=== PATIENT | male | born 1955 | race Caucasian/White ===

== ENCOUNTER 2021-03-27 08:37 | Outpatient (CLI) | payer MEDICARE, MEDICAID, SELFPAY ==
--- NOTE | 2021-03-27 08:30 | CT_ITS ---
WS: [id number] CT ABDOMEN PELVIS TECHNIQUE: Noncontrast CT of the abdomen and contrast-enhanced CT of the abdomen and pelvis with loreto nal and sagittal reformatted images. CLINICAL INFORMATION: LEFT RENAL MASS COMPARISON: DLP: 3990.[address] scans at [facility] use at least one of these dose optimization techniques: automat ed exposure control; mA and/or kV adjustment per patient size (includes targeted exams where dose is matched to clinical indication); or iterative reconstruction. FINDINGS: Again seen is the heterogeneously enhancing left lower pole renal mass measuring 3.5 x 3.1 x 3.9 cm. More central low attenuation change involving this lesion today likely central necrosis. Overall size is not significantly changed. Previously this measured 3.3 x 3.7 x 3.8 cm by my measurements. Bilateral renal cortical atrophy with cortical scarring. Adrenal glands are normal. Right lower pole renal cyst has increased in size today measuring 3.5 x 2.9 cm. Tiny small left lower pole renal cyst slightly increased in size today measuring 1.4 CM. No hydronephrosis in either kidney. Normal excretion on the delayed imaging. Normal bladder filling. Mild diffuse bladder wall thickening consistent with bladder outlet obstruction. Small amount of air in the nondependent bladder likely due to recent instrumentation. Enlarged prostate measuring 4.0 x 4 .3 cm. Lung bases are well aerated. Mild diffuse fatty infiltration the liver. Cholecystectomy clips. Normal portal vein and splenic vein. Splenic granulomas. Normal GE junction. Normal caliber abdominal aorta . No evidence of high-grade small or large bowel obstruction. Tiny fat-containing umbilical hernia. No abdominal pelvic lymphadenopathy. Calcified subcarinal granulomas in the lung bases. Lumbar scoliosis . CT/CT abdomen pelvis wo/w [id number] IMPRESSION: 1. Heterogeneous enhancing left lower pole renal mass not significantly change d in size compared to 2017. More internal central necrosis today described abov e. 2. Cortical scarring both kidneys. No hydronephrosis. Normal renal excretion. 3. Small bilateral renal cysts right greater than left slightly increased in s ize. 4. Mild diffuse bladder wall thickening consistent with bladder obstruction wi th enlarged prostate. Recommend correlation PSA. Mild seminal vesicle thickenin g. 5. Small amount of nondependent air in the bladder likely due to recent instru mentation.
[2021-03-27 09:33] LABS: Blood Urea Nitrogen 24 mg/dL (8-23); Glomerular Filtration Rate 61.1 mL/min (90-130)
[2021-03-27] MEDS: iohexol 300 mg/mL 100 mL Btl IV (09:51)
== END 2021-03-27 08:38 | disposition home or self-care (01) ==
PROVIDERS: PCP Family Medicine; Visit Provider Urology
DX: N28.89 Other specified disorders of kidney and ureter (principal); Q61.02 Congenital multiple renal cysts
CPT/HCPCS: 36415; 74178; 82565; 84520

== ENCOUNTER 2021-06-16 13:09 | Outpatient (CLI) | payer MEDICARE, MEDICAID, SELFPAY ==
[2021-06-16 13:31] LABS: Basophils % 0.3 %; Eosinophils # 0.1 10^3/uL (0.0-0.8); Eosinophils % 1.5 %; Hematocrit 35.9 % (42.0-52.0); Hemoglobin 12.2 g/dL (11.7-16.6); Lymphocytes % 17.3 %; Mean Corpuscular Hemoglobin 29.3 pg (28.0-34.0); Mean Corpuscular Volume 86.3 fl (80-94); Mean Platelet Volume 10.2 fL (7.4-10.4); Monocytes # 0.4 10^3/uL (0.2-0.9); Monocytes % 6.4 %; Neutrophils # 4.42 10^3/uL (1.8-7.7); Neutrophils % 74.2 %; Nucleated Red Blood Cells % 0 %; Platelet Count 219 10^3/cmm (130-400); Red Blood Count 4.16 10^6/uL (4.1-5.3); Red Cell Distribution Width 13.9 % (12.1-15.1)
[2021-06-16 14:13] LABS: Add Urine Microscopic? YES; Bilirubin Urine Neg (Negative); Blood Urine Neg (Negative); Glucose Urine UA Norm (Normal); Ketones Urine 1+ (Negative); Leukocyte Esterase Urine 1+ (Negative); Nitrate Urine Negative (Negative); Protein Urine 1+ (Negative); Urine Appearance Cloudy (CLEAR); Urine Color Yellow (Yellow); Urobilinogen Urine Norm (Negative); pH Urine 5 (5-7)
[2021-06-16 14:14] LABS: Amorphous Sediment Urine 1+ /hpf; Bacteria Urine 1+ /hpf; Mucus Urine 1+ /hpf; RBC Urine 0-4 /hpf (0-2); Squamous Epithelial Cell Urine 0-4 /hpf (0-5); WBC Urine 15-25 /hpf (0-5)
[2021-06-16 14:15] LABS: Add Urine Culture? Yes
[2021-06-16 18:50] LABS: Alanine Aminotransferase 36 U/L (0-41); Albumin Level 4.3 g/dL (3.5-5.2); Alkaline Phosphatase 205 IU/L (40-130); Anion Gap 30.9 (5-19); Aspartate Amino Transferase 19 U/L (0-40); Blood Urea Nitrogen 69 mg/dL (8-23); Calcium 9.6 mg/dL (8.5-10.5); Chloride 100 mmol/L (98-107); Globulin 2.8 g/dL (1.3-4.6); Glucose 84 mg/dL (65-115); Osmolality Calculated 293 mOsm/kg (285-295); Sodium 132 mmol/L (136-145); Total Bilirubin 0.3 mg/dL (0.15-1.2); Total Protein 7.1 g/dL (6.6-8.7)
[2021-06-16 19:04] LABS: Carbon Dioxide 9 mmol/L (22-29); Potassium 7.9 mmol/L (3.5-5.1)
== END 2021-06-16 13:10 | disposition home or self-care (01) ==
PROVIDERS: PCP Family Medicine; Visit Provider Internal Medicine
DX: E78.5 Hyperlipidemia, unspecified (principal)
CPT/HCPCS: 80053; 81001; 85025; 87086

== ENCOUNTER 2021-06-16 20:50 | Inpatient (IN) | payer MEDICARE, MEDICAID, SELFPAY ==
[2021-06-16] VITALS (10 sets, daily range): BP systolic 83–100; BP diastolic 45–73; PULSE 109–115; RESP 14–20; TEMP 36.5; O2SAT 97–100; BMI 25.0
--- NOTE | 2021-06-16 20:55 | ECG_ITS ---
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 Measurements Intervals [place] Rate: 116 P: 163 NC: 102 QRS: 24 QRSD: 122 T: 80 QT: 315 QTc: 439 Interpretive Statements SINUS TACHYCARDIA WITH SHORT NC INTERVAL POSSIBLE ANTERIOR MYOCARDIAL INFARCTION , OF INDETERMINATE AGE [30 ms Q WAVE IN V3/V4, OR R < 0.2 mV IN V4] Compared to ECG 04/29/2015 11:59:24 Short NC interval now present Myocardial infarct finding now present Sinus rhythm no longer present First degree AV block no longer present Electronically Signed On 06-17-2021 7:27:53 WIRE MESH FILTER FABRICATOR by Ariadna Mistry M.D. [id number]
--- NOTE | 2021-06-16 20:58 | ED_ITS ---
HPI - Nausea/Vomiting/Diarrhea General: Chief complaint: Nausea/Vomiting/Diarrhea Stated complaint: ABNORMAL LABS Time Seen by Provider: 06/16/21 20:51 Source: patient and EMS Mode of arrival: EMS Limitations: no limitations History of Present Illness: HPI Narrative: 65-year-old male is here from residential. He states he been having vomiting diarrhea and decreased intake over the last 6 days to check his blood work today and he was hyperkalemic and had acute kidney injury with elevated creatinine. He denies any pain he states that she has had a lot of vomiting denies any fever he denies any worsening improving factors. He has multiple sclerosis has an indwelling [place]. Associated nausea: Yes Associated symtoms: Reports nausea; Denies chest pain, dysuria or headache(s) Review of Systems Const: Denies: fever(s), chills, body aches or change in appetite Eyes: Denies: blurry vision or eye discomfort ENMT: Denies: throat pain or dental pain Card: Denies: chest pain Resp: Denies: dyspnea GI: Reports: nausea, vomiting and diarrhea : Denies: dysuria Musc: Denies: neck pain or back pain Skin/Breast: Denies: rash Neuro: Denies: headache(s) Psych: Denies: depression Sebas/Lymph: Denies: easy bruising All/Imm: Denies: urticaria PFSH ED PFSH: Medical History History of UTI Left renal mass Multiple sclerosis Neurogenic bladder Urinary retention Surgical History History of adenoidectomy History of appendectomy History of cholecystectomy History of elbow surgery History of tonsillectomy History of vasectomy Family History Mother , at age 75 from natural caused No problems noted. Social History Alcohol intake: never Marital status: Current occupational status: disabled History of recent travel: No Physical Exam Const: COMMON NORMALS: no acute distress, patient oriented x3 and healthy appearing HENMT: COMMON NORMALS: normocephalic and atraumatic HEAD & SCALP: normocephalic and atraumatic Eye: COMMON NORMALS: Equal, round and reactive pupils present and EOMs intact bilaterally PUPIL: Yes Equal, round and reactive pupils present Neck/C-Spine: COMMON NORMALS: full ROM and supple Chest: COMMONS NORMALS: normal inspection of the chest and normal palpation of entire chest wall Resp: COMMON NORMALS: normal respiratory effort, No retractions, No use of accessory muscles and clear to auscultation bilaterally AUSCULTATION: clear to auscultation bilaterally Cardio: COMMON NORMALS: regular rate, regular rhythm and No murmurs present (Cardio) RATE: regular rate RHYTHM: regular rhythm GI: COMMON NORMALS: Normal to inspection, nondistended, normoactive bowel sounds present, Soft to palpation, non-tender and no masses PALPATION: Yes Soft to palpation Extremity: COMMON NORMALS: normal to inspection and full ROM Neuro: COMMON NORMALS: patient oriented x3, moves all extremities and no focal motor deficits Psych: COMMON NORMALS: mental status grossly normal, Normal thought process present and cooperative THOUGHT PROCESS: Normal thought process present Skin: COMMON NORMALS: no rashes or lesions noted and no wounds GENERAL SKIN EXAM: no rashes or lesions noted Course Vital Signs: Vital signs: Vital Signs Temperature 97.7 F 06/16/21 20:58 Pulse Rate 115 H 06/16/21 22:00 Respiratory Rate 20 H 06/16/21 22:13 Blood Pressure 87/49 06/16/21 22:00 Pulse Oximetry 100 06/16/21 22:13 MDM - Nausea/Vomiting/Diarrhea MDM Narrative: Medical decision making narrative: Patient presents with acute kidney failure with hyperkalemia likely from dehydration. I spoke to nephrology and recommended IV fluids this time did give him calcium gluconate insulin will admit to the ICU. He nephrology states he will recheck his labs in a couple hours and decide if he needs dialysis at that point or not. I also spoke to the hospitalist who is admitting physician in ICU. Patient's blood pressure here is improved after IV fluids he has no signs of infection or lactic acidosis. Lab Data: Labs: Lab Results 06/16/21 06/16/21 06/16/21 21:06 21:06 21:13 WBC Cancelled Corrected WBC Cancelled RBC Cancelled Hgb Cancelled Hct Cancelled MCV Cancelled MCH Cancelled MCHC Cancelled RDW Cancelled Plt Count Cancelled MPV Cancelled Gran % Cancelled Neut % (Auto) Cancelled Lymph % (Auto) Cancelled Day % (Auto) Cancelled Eos % (Auto) Cancelled Baso % (Auto) Cancelled Neut # (Auto) Cancelled Lymph # (Auto) Cancelled Day # (Auto) Cancelled Eos # (Auto) Cancelled Baso # (Auto) Cancelled Absolute Gran (aut o) Cancelled Nucleated RBC % (a uto) Cancelled Nucleated RBCs # Cancelled Specimen Type Sample Site ABG pH ABG pCO2 ABG pO2 ABG HCO3 ABG Base Excess Wyatt Test Hematocrit O2 Delivery Device Certified Master Safe Technician ID Sodium 131 mmol/L L mmol /L (136-145) Potassium 7.4 mmol/L H* mmo l/L (3.5-5.1) Chloride 100 mmol/L mmol/L (98-107) Carbon Dioxide 8 mmol/L L* mmol/ L (22-29) Anion Gap 30.4 H (5-19) BUN 71 mg/dL H mg/dL (8-23) Creatinine 3.5 mg/dL H mg/dL (0.7-1.2) GFR Calculation 17.8 mL/min L mL/ min (90-130) Glucose 91 mg/dL mg/dL (65-115) Calculated Osmolal ity 292 mOsm/kg mOsm/ kg (285-295) Lactic Acid 1.0 mmol/L mmol/L (0.5-2.2) Calcium 9.6 mg/dL mg/dL (8.5-10.5) Total Bilirubin 0.2 mg/dL mg/dL (0.15-1.2) AST 19 U/L U/L (0-40) ALT 36 U/L U/L (0-41) Alkaline Phosphata se 203 IU/L H IU/L (40-130) Total Protein 7.7 g/dL g/dL (6.6-8.7) Albumin 4.1 g/dL g/dL (3.5-5.2) Globulin 3.6 g/dL g/dL (1.3-4.6) 06/16/21 06/16/21 21:20 21:35 WBC 8.3 10^3/uL 10^3/ uL (4.0-10.0) Corrected WBC RBC 4.13 10^6/uL 10^6 /uL (4.1-5.3) Hgb 12.0 g/dL g/dL (11.7-16.6) Hct 36.8 % L % (42.0-52.0) MCV 89.1 fl fl (80-94) MCH 29.1 pg pg (28.0-34.0) MCHC 32.6 g/dL g/dL (30.0-36.0) RDW 14.1 % % (12.1-15.1) Plt Count 230 10^3/cmm 10^3 /cmm (130-400) MPV 9.5 fL fL (7.4-10.4) Gran % Neut % (Auto) 76.4 % % Lymph % (Auto) 15.0 % % Day % (Auto) 6.8 % % Eos % (Auto) 1.0 % % Baso % (Auto) 0.4 % % Neut # (Auto) 6.38 10^3/uL 10^3 /uL (1.8-7.7) Lymph # (Auto) 1.3 10^3/uL 10^3/ uL (0.8-4.8) Day # (Auto) 0.6 10^3/uL 10^3/ uL (0.2-0.9) Eos # (Auto) 0.1 10^3/uL 10^3/ uL (0.0-0.8) Baso # (Auto) 0.0 10^3/uL 10^3/ uL (0.0-0.1) Absolute Gran (aut o) Nucleated RBC % (a uto) 0 % % Nucleated RBCs # 0.0 /100WBC /100W BC Specimen Type Arterial Sample Site Radial, right ABG pH 7.08 L* (7.35-7.45) ABG pCO2 23.5 mmHg L mmHg (35-45) ABG pO2 117.0 mmHg H mmHg (80.0-100.0) ABG HCO3 7.0 mmol/L L mmol /L (22-26) ABG Base Excess -21.3 mmol/L L mm ol/L (-2.0-2.0) Wyatt Test Pos Hematocrit 36.2 % L % (42-52) O2 Delivery Device Room air Certified Master Safe Technician ID [id number] Sodium Potassium Chloride Carbon Dioxide Anion Gap BUN Creatinine GFR Calculation Glucose Calculated Osmolal ity Lactic Acid Calcium Total Bilirubin AST ALT Alkaline Phosphata se Total Protein Albumin Globulin Imaging Data^: CXR: Attestation: I personally reviewed and interpreted this imaging study as follows: My impression: no acute abnormality EKG Data^: EKG 1: Attestation: I personally reviewed and interpreted this EKG as follows: EKG interpretation date: 06/16/21 EKG interpretation time: 20:56 Interpretation: sinus tach hr [address] elevation peaked waves noted qrs 122 qtc 384 Critical Care Time Critical Care Time: Critical Care Time: Yes Total Critical Care Time: 35 Attestation: The high probability of a clinically significant, sudden or life threatening deterioration of the patient's [] system(s) required my full and direct attention, intervention and personal management. The critical care time is as shown. 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
--- NOTE | 2021-06-16 21:03 | XRR_ITS ---
PROCEDURE INFORMATION: Exam: XR Chest Exam date and time: 06/16/2021 9:03 PM Age: 65 years old Clinical indication: Shortness of breath; Patient HX: N/v/d, SOB, cough TECHNIQUE: Imaging protocol: XR of the chest. Views: 1 view. Total images: 1 [place] [facility] [place] 2 views 05/31/2016 9:40 AM FINDINGS: Lungs: No visible active interstitial or alveolar airspace disease. Pleural spaces: No pleural effusion. No pneumothorax. Heart/Mediastinum: Cardiac structures and configuration with arteriosclerosis. No cardiomegaly. Bones/joints: Scoliosis. XR/XR chest 1V portable [id number] IMPRESSION: Nonacute. Radiation Dose CTDIVOL = (mGy): DLP = (mGy-cm)
[2021-06-16] MEDS: sodium chloride 0.9% 1,000 ML 999 ML IV ×2 (21:20→21:21)
[2021-06-16] MEDS: calcium gluconate 0.1 gm/mL 10% SDV 10mL 1 GM IVP (21:21)
[2021-06-16 21:31] LABS: Alanine Aminotransferase 36 U/L (0-41); Albumin Level 4.1 g/dL (3.5-5.2); Alkaline Phosphatase 203 IU/L (40-130); Anion Gap 30.4 (5-19); Aspartate Amino Transferase 19 U/L (0-40); Blood Urea Nitrogen 71 mg/dL (8-23); Calcium 9.6 mg/dL (8.5-10.5); Chloride 100 mmol/L (98-107); Globulin 3.6 g/dL (1.3-4.6); Glomerular Filtration Rate 17.8 mL/min (90-130); Glucose 91 mg/dL (65-115); Osmolality Calculated 292 mOsm/kg (285-295); Sodium 131 mmol/L (136-145); Total Bilirubin 0.2 mg/dL (0.15-1.2); Total Protein 7.7 g/dL (6.6-8.7)
[2021-06-16 21:34] LABS: Carbon Dioxide 8 mmol/L (22-29); Potassium 7.4 mmol/L (3.5-5.1)
[2021-06-16] MEDS: dextrose 50% syringe 50 mL IVP (21:43)
[2021-06-16] MEDS: insulin regular-human 100 units/1 mL 10 UNIT IVP (21:43)
[2021-06-16 21:57] LABS: Basophils % 0.4 %; Eosinophils # 0.1 10^3/uL (0.0-0.8); Hematocrit 36.8 % (42.0-52.0); Lymphocytes # 1.3 10^3/uL (0.8-4.8); Mean Corpuscular HGB Conc 32.6 g/dL (30.0-36.0); Mean Corpuscular Hemoglobin 29.1 pg (28.0-34.0); Mean Corpuscular Volume 89.1 fl (80-94); Mean Platelet Volume 9.5 fL (7.4-10.4); Monocytes # 0.6 10^3/uL (0.2-0.9); Monocytes % 6.8 %; Neutrophils # 6.38 10^3/uL (1.8-7.7); Neutrophils % 76.4 %; Nucleated Red Blood Cells % 0 %; Platelet Count 230 10^3/cmm (130-400); Red Blood Count 4.13 10^6/uL (4.1-5.3); Red Cell Distribution Width 14.1 % (12.1-15.1); White Blood Count 8.3 10^3/uL (4.0-10.0)
[2021-06-16 22:04] LABS: ABG PCO2 23.5 mmHg (35-45); Arterial Blood Gas Hematocrit 36.2 % (42-52); Base Excess ABG -21.3 mmol/L (-2.0-2.0); Blood Gas Allen Test Pos; Blood Gas Sample Site Radial, right; Blood Gas Sample Type Arterial
--- NOTE | 2021-06-16 22:04 | P.CONIM_ITS ---
Providers/Reason For Consult Consulting Physician/Specialty*: caitlin tejeda md/ telenephrology Reason for Consult*: BRI, hyperkalemia, inc AGMA Requesting Physician: DR. Blanca Ferguson Primary Care Provider: Barry Rangel MD History of Present Illness History of Present Illness Jamil Martinez is a 65 year old male Ms, left renal mass, urinary retention/ neurogenic bladder - self cath, htn, depression, vit d def, dm, , htn, hyperlipidemia . Pt sent from CT w/ n/v x 1 week, a little diarrhea.- labs in CT showed hyperkalemia and BRI- pt sent to ER- he was found to be hypotensive and tachycardic. Review of Systems General: Reports: 10 or more systems reviewed and unremarkable except in HPI and below Narrative: nausea/ vomiting/ weakness. no f/c/bailon/ leg pain. denies fevers Meds/Allergies Home Medications and Allergies Home Medications Medication Instructions Recorded Confirmed Last Taken Type amitriptyline 25 mg tablet 25 mg PO DAILY 03/17/21 06/03/21 Unknown History ascorbate calcium (vitamin C) 500 500 mg PO BID 03/17/21 06/03/21 Unknown History mg tablet bisacodyl 10 mg rectal suppository 10 mg OK DAILY PRN 03/17/21 06/03/21 Unknown History carica papaya 1 tab PO TID PRN 03/17/21 06/03/21 Unknown History chlorpheniramine maleate 4 mg 4 mg PO Q6H PRN 03/17/21 06/03/21 Unknown History tablet cholecalciferol (vitamin D3) 25 75 mcg PO DAILY cap 03/17/21 06/03/21 Unknown History mcg (1,000 unit) capsule citalopram 10 mg tablet 10 mg PO DAILY 03/17/21 06/03/21 Unknown History clotrimazole-betamethasone 1 1 applic TOPICAL BID PRN 03/17/21 06/03/21 Unknown History %-0.05 % topical cream cranberry fruit 450 mg tablet 450 mg PO DAILY 03/17/21 06/03/21 Unknown History gentian nikolas 1 % topical solution 1 applic TOPICAL BID 03/17/21 06/03/21 Unknown History ibuprofen 800 mg tablet 800 mg PO Q6H PRN 03/17/21 06/03/21 Unknown History indapamide 2.5 mg tablet 2.5 mg PO QAM 03/17/21 06/03/21 Unknown History levocetirizine 5 mg tablet 5 mg PO DAILY 03/17/21 06/03/21 Unknown History levothyroxine 125 mcg capsule 125 mcg PO DAILY 03/17/21 06/03/21 Unknown History lisinopril 20 mg tablet 20 mg PO BID 03/17/21 06/03/21 Unknown History loperamide 2 mg capsule 2 mg PO Q4H PRN 03/17/21 06/03/21 Unknown History magnesium hydroxide 400 mg/5 mL 30 ml PO DAILY PRN ml 03/17/21 06/03/21 Unknown History oral suspension metformin 850 mg tablet 850 mg PO BID 03/17/21 06/03/21 Unknown History methenamine hippurate 1 gram tablet 1 g PO BID 03/17/21 06/03/21 Unknown History metoprolol succinate 25 mg 25 mg PO DAILY 03/17/21 06/03/21 Unknown History tablet,extended release 24 hr omega-3 acid ethyl esters 1 gram 1 cap PO BID 03/17/21 06/03/21 Unknown History capsule pseudoephedrine HCl 60 mg tablet 60 mg PO Q4H PRN tab 03/17/21 06/03/21 Unknown History rosuvastatin 5 mg tablet 5 mg PO DAILY 03/17/21 06/03/21 Unknown History sodium phosphates 19 gram-7 118 ml OK DAILY PRN 03/17/21 06/03/21 Unknown History gram/118 mL enema therapeutic multivitamin 1 tab PO DAILY 03/17/21 06/03/21 Unknown History tizanidine 4 mg capsule 4 mg PO TID PRN 03/17/21 06/03/21 Unknown History empagliflozin 10 mg tablet 10 mg PO DAILY 05/14/21 06/03/21 Unknown History semaglutide mg SUBCUT .WEEKLY ml 05/14/21 06/03/21 Unknown History amlodipine 5 mg tablet 5 mg PO DAILY 06/03/21 06/03/21 Unknown History bupropion HCl 150 mg 24 hr tablet, 150 mg PO QAM 06/03/21 06/03/21 Unknown History extended release cyanocobalamin (vitamin B-12) 1,000 mcg PO .MONTHLY cap 06/03/21 06/03/21 Unknown History 1,000 mcg capsule Allergies Allergy/AdvReac Type Severity Reaction Status Date / Time Penicillins Allergy FAMILY HX Verified 06/16/21 21:08 OF SEVERE REACTION PFSH Acute PFSH: Medical History History of UTI Left renal mass Multiple sclerosis Neurogenic bladder Urinary retention Surgical History History of adenoidectomy History of appendectomy History of cholecystectomy History of elbow surgery History of tonsillectomy History of vasectomy Family History Mother , at age 75 from natural caused No problems noted. Social History Alcohol intake: never Marital status: Current occupational status: disabled History of recent travel: No Vitals/I&O/Wt Last Vital Signs Temp 97.7 F 06/16/21 20:58 Pulse 115 H 06/16/21 21:04 Resp 15 06/16/21 21:04 BP 91/73 06/16/21 21:04 Pulse Ox 100 06/16/21 21:04 Weight last 48 hrs Weight 86.183 kg Physical Exam Narrative: EXAM NARRATIVE: NARD in bed vs - bp low, hr tachycardic heent- nc/at, eomi, anicteric neck supple lungs clear b/l heart reg, tachycardic abd soft, nt, nd, + bs ext no edema neuro- a,a, o x 3, no asterixis Data Micro: Micro: Microbiology 06/16/21 21:13 Blood Culture - Pr eliminary Blood SPECIMEN [facility] NEAL 06/16/21 21:13 Blood Culture - Pr eliminary Blood SPECIMEN [facility] [place] [facility] A&P Additional A&P Information 65 yr old man w/ MS, neurogenic bladder- self cath, renal mass-b/l cr 1.2 mg/dl in March 2021. Pt here w/ n/v/BRI, inc AGMA, hyperkalemia. 1.BRI- please get a stat renal us, flush mann, check urine lectrolytes -I am concerned that he has ATN- risk is CKD stage 2, dm, htn on dottie-i, fleets enemas and NSAID's w/ neurogenic bladder -treat w/ bicarb drip -check chem 7, mag, phos every 4 hrs -if k and met acidosis do not improve or if develops sob- will need dialysis -monitor uop -no nephrotxic agents 2.hyperkalemia- from BRI and dottie-i in setting of dm- rx medically- avoid kayexalate w/ abd pain-n/v/d 3. inc AGMA- normal lactate- monitor on bicarb drip 4. hyponatremia- check urine na, cr -check tsh and cortisol 5. Q UTI- renal safe abx and consider anti-fungals- pt has h/o UTI's- has been treated w/ macrobid by Dr. Flores 6. dm- no SGLT2-i or metformin- use insulin seen and examined w/ RN- telehealth visit discussed w/ RN and Dr. Ferguson time spent 50 min Consult Attestations Medical Necessity Statement: bri, hyperkalemia, inc AGMA Time Spent in Patient Care: Greater than 35 minutes (>than 50% of time spent in counselling and/or direct pt care on unit) . Coding Level of Care Code Acute Third Officer for Tamar Del Toro
[2021-06-16 22:06] LABS: Oxygen Device ROOM AIR
[2021-06-16 22:09] LABS: ABG PH Result 7.08 (7.35-7.45)
--- NOTE | 2021-06-16 22:14 | PC.NURSE ---
in room with patient doing tele manager radiation consult.
[2021-06-16] MEDS: albuterol 8 gm MDI 2 PUFF INHALATION (22:15)
--- NOTE | 2021-06-16 22:16 | PC.NURSE ---
Dr. Jacobs, tele accreditation manager, states he is going to give more fluids, begin a Bicarb drip, repeat labs in a few hours, then reevaluate. dr suggests this patient should be admitted to ICU. states if labs do not improve he would like to dialyze this patient tonight. Dr. Romel Jacobs, tele accreditation manager, states to call him tonight, regardless of time for increased SOB, EKG changes
[2021-06-16 22:51] LABS: Uric Acid 8.3 mg/dL (3.4-7.0)
--- NOTE | 2021-06-16 23:00 | ECG_ITS ---
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 Measurements Intervals [place] Rate: 104 P: NC: QRS: 11 QRSD: 101 T: 61 QT: 329 QTc: 434 Interpretive Statements SUPRAVENTRICULAR TACHYCARDIA SEPTAL MYOCARDIAL INFARCTION , OF INDETERMINATE AGE [40+ ms Q WAVE IN V1/V2] Compared to ECG 06/16/2021 20:56:08 Sinus tachycardia no longer present Short NC interval no longer present Myocardial infarct finding still present Electronically Signed On 06-17-2021 20:48:05 SENIOR LINUX SYSTEMS ADMINISTRATOR by Neville Bobo M.D. [email or web address]
--- NOTE | 2021-06-16 23:06 | PM.HP ---
Providers/Chief Complaint Primary Care Provider: Barry Rangel MD Chief Complaint: ABNORMAL LABS History of Present Illness Jamil Martinez is a 65 year old male with past medical history of MS, complete lower extremity weakness, bedbound, neurogenic bladder, residential facility resident, diabetes, hypertension, dyslipidemia, left renal mass who presents to emergency room due to vomiting for last 7 days or so. Several episodes per day. The patient reports decreased amount of urine which is currently dark and cloudy. He reports being thirsty. The patient denies any associated blood, abdominal pain, diarrhea, fever or chills, chest pain, shortness of breath, cough, palpitations. Denies headache, dizziness or lightheadedness. Denies similar episodes in the past. Emergency room the patient is found to have urinary tract infection, severe renal failure and hyperkalemia, anion gap metabolic acidosis. The patient received K shifting maneuvers in the ED. Review of Systems General: Reports: 10 or more systems reviewed and unremarkable except in HPI and below Medications/Allergies Home Medications Medication Instructions Recorded Confirmed Last Taken Type amitriptyline 25 mg tablet 25 mg PO DAILY 03/17/21 06/03/21 06/16/21 History ascorbate calcium (vitamin C) 500 500 mg PO BID 03/17/21 06/03/21 Unknown History mg tablet bisacodyl 10 mg rectal suppository 10 mg MO DAILY PRN 03/17/21 06/03/21 06/16/21 History carica papaya 1 tab PO TID PRN 03/17/21 06/03/21 06/16/21 History chlorpheniramine maleate 4 mg 4 mg PO Q6H PRN 03/17/21 06/03/21 06/16/21 History tablet cholecalciferol (vitamin D3) 25 75 mcg PO DAILY cap 03/17/21 06/03/21 06/16/21 History mcg (1,000 unit) capsule citalopram 10 mg tablet 10 mg PO DAILY 03/17/21 06/03/21 06/16/21 History clotrimazole-betamethasone 1 1 applic TOPICAL BID PRN 03/17/21 06/03/21 06/16/21 History %-0.05 % topical cream cranberry fruit 450 mg tablet 450 mg PO DAILY 03/17/21 06/03/21 06/16/21 History gentian nikolas 1 % topical solution 1 applic TOPICAL BID 03/17/21 06/03/21 06/16/21 History ibuprofen 800 mg tablet 800 mg PO Q6H PRN 03/17/21 06/03/21 06/16/21 History indapamide 2.5 mg tablet 2.5 mg PO QAM 03/17/21 06/03/21 06/16/21 History levocetirizine 5 mg tablet 5 mg PO DAILY 03/17/21 06/03/21 06/16/21 History levothyroxine 125 mcg capsule 125 mcg PO DAILY 03/17/21 06/03/21 06/16/21 History lisinopril 20 mg tablet 20 mg PO BID 03/17/21 06/03/21 06/16/21 History loperamide 2 mg capsule 2 mg PO Q4H PRN 03/17/21 06/03/21 06/16/21 History magnesium hydroxide 400 mg/5 mL 30 ml PO DAILY PRN ml 03/17/21 06/03/21 06/16/21 History oral suspension metformin 850 mg tablet 850 mg PO BID 03/17/21 06/03/21 06/16/21 History methenamine hippurate 1 gram tablet 1 g PO BID 03/17/21 06/03/21 06/16/21 History metoprolol succinate 25 mg 25 mg PO DAILY 03/17/21 06/03/21 06/16/21 History tablet,extended release 24 hr omega-3 acid ethyl esters 1 gram 1 cap PO BID 03/17/21 06/03/21 06/16/21 History capsule pseudoephedrine HCl 60 mg tablet 60 mg PO Q4H PRN tab 03/17/21 06/03/21 06/16/21 History rosuvastatin 5 mg tablet 5 mg PO DAILY 03/17/21 06/03/21 06/16/21 History sodium phosphates 19 gram-7 118 ml MO DAILY PRN 03/17/21 06/03/21 06/16/21 History gram/118 mL enema therapeutic multivitamin 1 tab PO DAILY 03/17/21 06/03/21 06/16/21 History tizanidine 4 mg capsule 4 mg PO TID PRN 03/17/21 06/03/21 06/16/21 History empagliflozin 10 mg tablet 10 mg PO DAILY 05/14/21 06/03/21 06/16/21 History semaglutide mg SUBCUT .WEEKLY ml 05/14/21 06/03/21 06/16/21 History amlodipine 5 mg tablet 5 mg PO DAILY 06/03/21 06/03/21 06/16/21 History bupropion HCl 150 mg 24 hr tablet, 150 mg PO QAM 06/03/21 06/03/21 06/16/21 History extended release cyanocobalamin (vitamin B-12) 1,000 mcg PO .MONTHLY cap 06/03/21 06/03/21 Unknown History 1,000 mcg capsule Allergies Allergy/AdvReac Type Severity Reaction Status Date / Time Penicillins Allergy FAMILY HX Verified 06/16/21 21:08 OF SEVERE REACTION PFSH Acute PFSH: Medical History History of UTI Left renal mass Multiple sclerosis Neurogenic bladder Urinary retention Surgical History History of adenoidectomy History of appendectomy History of cholecystectomy History of elbow surgery History of tonsillectomy History of vasectomy Family History Mother , at age 75 from natural caused No problems noted. Social History Alcohol intake: never Marital status: Current occupational status: disabled History of recent travel: No Vitals/I&O/Wt Last Vital Signs Temp 97.7 F 06/16/21 20:58 Pulse 115 H 06/16/21 22:00 Resp 20 H 06/16/21 22:13 BP 87/49 06/16/21 22:00 Pulse Ox 100 06/16/21 22:13 Weight last 48 hrs Weight 86.183 kg Physical Exam Narrative: EXAM NARRATIVE: The patient is awake alert and oriented. No acute distress. Mood and affect are appropriate. Responses are adequate. Skin is warm and dry. Dry mucous membranes Eyes PERRL, extraocular muscles are intact. Neck supple. No JVD Lungs are clear to auscultation bilaterally. No wheezes or crackles. No respiratory distress Heart S1, S2, regular Abdomen is soft, nontender, bowel sounds are present. Extremities no edema cyanosis or calf tenderness bilaterally Data : 06/16/21 21:20 06/16/21 21:06 Other Labs: Laboratory Results WBC 8.3 10^3/uL (4.0-10.0) 06/16/21 21:20 Corrected WBC Cancelled 06/16/21 21: RBC 4.13 10^6/uL (4.1-5.3) 06/16/21 21:20 Hgb 12.0 g/dL (11.7-16.6) 06/16/21 21: Hct 36.8 % (42.0-52.0) L 06/16/21 21: MCV 89.1 fl (80-94) 06/16/21 21: MCH 29.1 pg (28.0-34.0) 06/16/21 21: MCHC 32.6 g/dL (30.0-36.0) 06/16/21 21: RDW 14.1 % (12.1-15.1) 06/16/21 21: Plt Count 230 10^3/cmm (130-400) 06/16/21 21: MPV 9.5 fL (7.4-10.4) 06/16/21 21:20 Gran % Cancelled 06/16/21 21: Neut % (Auto) 76.4 % 06/16/21 21:20 Lymph % (Auto) 15.0 % 06/16/21 21:20 [place] % (Auto) 6.8 % 06/16/21 21: Eos % (Auto) 1.0 % 06/16/21 21: Baso % (Auto) 0.4 % 06/16/21 21:20 Neut # (Auto) 6.38 10^3/uL (1.8-7.7) 06/16/21 21:20 Lymph # (Auto) 1.3 10^3/uL (0.8-4.8) 06/16/21 21:20 [place] # (Auto) 0.6 10^3/uL (0.2-0.9) 06/16/21 21:20 Eos # (Auto) 0.1 10^3/uL (0.0-0.8) 06/16/21 21:20 Baso # (Auto) 0.0 10^3/uL (0.0-0.1) 06/16/21 21:20 Absolute Gran (auto) Cancelled 06/16/21 21:06 Nucleated RBC % (auto) 0 % 06/16/21 21:20 Nucleated RBCs # 0.0 /100WBC 06/16/21 21:20 Specimen Type Arterial 06/16/21 21:35 Sample Site Radial, right 06/16/21 21:35 ABG pH 7.08 (7.35-7.45) L* 06/16/21 21:35 ABG pCO2 23.5 mmHg (35-45) L 06/16/21 21:35 ABG pO2 117.0 mmHg (80.0-100.0) H 06/16/21 21:35 ABG HCO3 7.0 mmol/L (22-26) L 06/16/21 21:35 ABG Base Excess -21.3 mmol/L (-2.0-2.0) L 06/16/21 21:35 Wyatt Test Pos 06/16/21 21:35 Hematocrit 36.2 % (42-52) L 06/16/21 21:35 O2 Delivery Device Room air 06/16/21 21:35 Boatswain Mate ID [email or web address] 06/16/21 21:35 Sodium 131 mmol/L (136-145) L 06/16/21 21:06 Potassium 7.4 mmol/L (3.5-5.1) H* 06/16/21 21:06 Chloride 100 mmol/L (98-107) 06/16/21 21:06 Carbon Dioxide 8 mmol/L (22-29) L* 06/16/21 21:06 Anion Gap 30.4 (5-19) H 06/16/21 21:06 BUN 71 mg/dL (8-23) H 06/16/21 21:06 Creatinine 3.5 mg/dL (0.7-1.2) H 06/16/21 21:06 GFR Calculation 17.8 mL/min (90-130) L 06/16/21 21:06 Glucose 91 mg/dL (65-115) 06/16/21 21:06 Calculated Osmolality 292 mOsm/kg (285-295) 06/16/21 21:06 Lactic Acid 1.0 mmol/L (0.5-2.2) 11/09/21 21:13 Uric Acid 8.3 mg/dL (3.4-7.0) H 06/16/21 21:00 Calcium 9.6 mg/dL (8.5-10.5) 06/16/21 21:06 Total Bilirubin 0.2 mg/dL (0.15-1.2) 06/16/21 21:06 AST 19 U/L (0-40) 06/16/21 21:06 ALT 36 U/L (0-41) 06/16/21 21:06 Alkaline Phosphatase 203 IU/L (40-130) H 06/16/21 21:06 Total Protein 7.7 g/dL (6.6-8.7) 06/16/21 21:06 Albumin 4.1 g/dL (3.5-5.2) 06/16/21 21:06 Globulin 3.6 g/dL (1.3-4.6) 06/16/21 21:06 Impressions Chest X-Ray 06/16/21 21:03 IMPRESSION: Nonacute. Radiation Dose CTDIVOL = (mGy): DLP = (mGy-cm) Micro: Microbiology 06/16/21 21:13 Blood Culture - Preliminary Blood SPECIMEN COLLECTED 06/16/21 21:13 Blood Culture - Preliminary Blood SPECIMEN COLLECTED A&P Assessment and plan (1) Acute kidney failure: Status: Acute (2) Acute hyperkalemia: Status: Acute (3) Acute dehydration: Status: Acute (4) Urinary retention: Status: Acute (5) Neurogenic bladder: Status: Acute (6) Urinary tract infection: Status: Acute (7) Diarrhea: Status: Acute Additional A&P Information 65 year old male with past medical history of MS, complete lower extremity weakness, bedbound, neurogenic bladder, residential facility resident, diabetes, hypertension, dyslipidemia, left renal mass who presents to emergency room due to vomiting for last 7 days. The patient has acute kidney failure probably due to acute dehydration and or urinary retention secondary to neurogenic bladder. ATN is also possible. Has associated hyperkalemia and severe anion gap metabolic acidosis. Appreciate dr Jacobs's input. Additional testing including ultrasound are ordered. [place] catheter. IV hydration. Will avoid nephrotoxic medications. Will monitor EKG. UTI. Has history of recurrent UTI. [facility] facility resident. Need to cover for Pseudomonas. We will start him on meropenem. He has history of penicillin allergy but low cross reactivity with meropenem. We will culture the urine. Diarrhea. Will order C. difficile, fecal leukocytes and stool cultures. Will hydrate and monitor. No evidence of abdominal pain. However additional work-up will be considered if he does not improve. Diabetes and hypertension. We will hold his home medications for now. We will cover him with as needed hydralazine and insulin sliding scale. DVT prophylaxis. Heparin. CODE STATUS. The patient wants to be full code. The plan of care was discussed with the patient. He verbalized understanding and agreement with Attestations Medical Necessity Statement*: The patient is being admitted to ICU. Based on my assessment of patient's current condition, diagnosis I expect that the patient will spend more than 2 midnights in the hospital. Critical care time spent on this encounter is 55 minutes. Coding Level of Care Code Acute Permit Agent for Tamar Del Toro Diagnoses Acute kidney failure N17.9 Acute hyperkalemia E87.5 Acute dehydration E86.0 Urinary retention R33.9 Neurogenic bladder N31.9 Urinary tract infection N39.0 Diarrhea R19.7
[2021-06-16] MEDS: sodium bicarbonate 150 MEQ in dextrose 5% 1,000 ML IV (23:10)
[2021-06-16 23:17] LABS: Alanine Aminotransferase 29 U/L (0-41); Albumin Level 3.7 g/dL (3.5-5.2); Alkaline Phosphatase 173 IU/L (40-130); Aspartate Amino Transferase 14 U/L (0-40); Blood Urea Nitrogen 65 mg/dL (8-23); Calcium 9.1 mg/dL (8.5-10.5); Chloride 104 mmol/L (98-107); Creatine Phosphokinase 22 U/L (39-308); Glomerular Filtration Rate 22.1 mL/min (90-130); Glucose 127 mg/dL (65-115); Osmolality Calculated 294 mOsm/kg (285-295); Sodium 132 mmol/L (136-145); Total Bilirubin 0.2 mg/dL (0.15-1.2); Total Protein 6.7 g/dL (6.6-8.7)
[2021-06-16 23:24] LABS: Carbon Dioxide 9 mmol/L (22-29)
--- NOTE | 2021-06-16 23:41 | PC.NURSE ---
06/16/21 albuterol MDI admin per RT
--- NOTE | 2021-06-16 23:42 | PC.NURSE ---
awaiting pharmacy to bring imipenem
[2021-06-17] VITALS (88 sets, daily range): BP systolic 88–151; BP diastolic 45–106; PULSE 82–111; RESP 0–22; TEMP 36.4–36.9; O2SAT 90–100; BMI 25.2
[2021-06-17 00:02] LABS: Bilirubin Urine 1+ (Negative); Blood Urine 2+ (Negative); Glucose Urine UA Trace (Normal); Ketones Urine 1+ (Negative); Leukocyte Esterase Urine 2+ (Negative); Nitrate Urine Negative (Negative); Protein Urine 1+ (Negative); Specific Gravity, Urine 1.025 (1.005-1.030); Urine Appearance Hazy (CLEAR); Urine Color Yellow (Yellow); Urobilinogen Urine Norm (Negative); pH Urine 5 (5-7)
[2021-06-17 00:05] LABS: Potassium, Radom Urine 39 mmol/L; Urine Random Chloride 32 mmol/L; Urine Random Sodium 56 mmol/L
[2021-06-17 00:07] LABS: Add Urine Culture? No; Bacteria Urine 3+ /hpf; RBC Urine 0-4 /hpf (0-2); Squamous Epithelial Cell Urine 0-4 /hpf (0-5); WBC Urine 40-55 /hpf (0-5)
--- NOTE | 2021-06-17 00:44 | PC.NURSE ---
Patient arrived to ICU from ER at 0010. Patient is alert and orientated. Dr. Sawant called and gave orders for CMP, mag, and phos repeat labs at 0200, and call with results. Continue care.
[2021-06-17] MEDS: fluconazole premix 200 MG/100 ML PREMIX 100 MG IV (01:26)
[2021-06-17 02:50] LABS: Alanine Aminotransferase 28 U/L (0-41); Albumin Level 3.7 g/dL (3.5-5.2); Alkaline Phosphatase 171 IU/L (40-130); Anion Gap 26.9 (5-19); Aspartate Amino Transferase 14 U/L (0-40); Blood Urea Nitrogen 68 mg/dL (8-23); Calcium 9.2 mg/dL (8.5-10.5); Carbon Dioxide 11 mmol/L (22-29); Chloride 105 mmol/L (98-107); Globulin 2.8 g/dL (1.3-4.6); Glomerular Filtration Rate 18.4 mL/min (90-130); Glucose 131 mg/dL (65-115); Magnesium 2.2 mg/dL (1.7-2.3); Osmolality Calculated 304 mOsm/kg (285-295); Phosphorus 5.9 mg/dL (2.5-4.5); Sodium 136 mmol/L (136-145); Total Bilirubin 0.2 mg/dL (0.15-1.2); Total Protein 6.5 g/dL (6.6-8.7)
[2021-06-17 02:52] LABS: Potassium 6.9 mmol/L (3.5-5.1)
[2021-06-17] MEDS: dextrose 50% syringe 50 mL IVP (03:43)
[2021-06-17] MEDS: insulin regular-human 10 UNIT in SYRINGE 1 EACH IVP (03:47)
[2021-06-17] MEDS: calcium gluconate 0.1 gm/mL 10% SDV 10mL 1 GM IVP (03:48)
[2021-06-17] MEDS: sodium chloride 0.9% 1,000 ML 999 ML IV (03:52)
[2021-06-17] MEDS: ondansetron 2 mg/ML SDV 2 mL 4 MG IVP (03:59)
[2021-06-17 04:35] LABS: Basophils % 0.4 %; Eosinophils % 0.6 %; Hematocrit 34.4 % (42.0-52.0); Hemoglobin 11.1 g/dL (11.7-16.6); Lymphocytes # 0.9 10^3/uL (0.8-4.8); Lymphocytes % 19.3 %; Mean Corpuscular HGB Conc 32.3 g/dL (30.0-36.0); Mean Corpuscular Hemoglobin 29.1 pg (28.0-34.0); Mean Corpuscular Volume 90.3 fl (80-94); Mean Platelet Volume 9.9 fL (7.4-10.4); Monocytes # 0.2 10^3/uL (0.2-0.9); Monocytes % 3.6 %; Neutrophils % 75.7 %; Nucleated Red Blood Cells % 0 %; Platelet Count 180 10^3/cmm (130-400); Red Blood Count 3.81 10^6/uL (4.1-5.3); Red Cell Distribution Width 14.3 % (12.1-15.1); White Blood Count 4.8 10^3/uL (4.0-10.0)
[2021-06-17 05:00] LABS: Alanine Aminotransferase 28 U/L (0-41); Albumin Level 3.7 g/dL (3.5-5.2); Alkaline Phosphatase 172 IU/L (40-130); Anion Gap 23.3 (5-19); Aspartate Amino Transferase 16 U/L (0-40); Blood Urea Nitrogen 67 mg/dL (8-23); Calcium 9.5 mg/dL (8.5-10.5); Carbon Dioxide 12 mmol/L (22-29); Chloride 104 mmol/L (98-107); Globulin 2.8 g/dL (1.3-4.6); Glomerular Filtration Rate 19.7 mL/min (90-130); Glucose 196 mg/dL (65-115); Magnesium 2.1 mg/dL (1.7-2.3); Osmolality Calculated 301 mOsm/kg (285-295); Phosphorus 5.1 mg/dL (2.5-4.5); Potassium 6.3 mmol/L (3.5-5.1); Sodium 133 mmol/L (136-145); Total Bilirubin 0.3 mg/dL (0.15-1.2); Total Protein 6.5 g/dL (6.6-8.7)
[2021-06-17 05:11] LABS: Calcium 9.3 mg/dL (8.5-10.5); Parathyroid Hormone 10.2 pg/mL (15-65)
--- NOTE | 2021-06-17 05:22 | PC.NURSE ---
Dr. Sawant called, labs still critical, received orders for fluid bolus, Kayexolate, IVP insulin, dextrose, and calcium gluconate. Patient became nauseous and is still unable to take kayexolate. Labs are declining at this time.
[2021-06-17 05:46] LABS: Cortisol Random 15.86 ug/dL (2.47-19.5)
--- NOTE | 2021-06-17 05:58 | P.CONIM_ITS ---
Providers/Reason For Consult Consulting Physician/Specialty*: Marty Correa MD Reason for Consult*: Acute kidney injury requiring hemodialysis catheter Requesting Physician: Dr. Johnson Attending Physician: Michael Chang Primary Care Provider: Barry Rangel MD History of Present Illness History of Present Illness Chief Complaint: Feeling tired History of present illness: Mr.Lawrence Martinez is a pleasant 65 year old male with history of multiple sclerosis, diabetes mellitus type 2, hypertension, dyslipidemia and history of neurogenic bladder. Patient was admitted to the hospitalist service and has been hyperkalemic and el evated levels of creatinine. Conservative measures were pursued by nephrology service being on board. At the same time general surgery was consulted for potential placement of temporary hemodialysis catheter. Patient was seen and evaluated in the ICU Review of Systems General: Reports: 10 or more systems reviewed and unremarkable except in HPI and below Meds/Allergies Home Medications and Allergies Home Medications Medication Instructions Recorded Confirmed Last Taken Type amitriptyline 25 mg tablet 25 mg PO DAILY@03/17/21 06/17/21 Unknown History ascorbate calcium (vitamin C) 500 500 mg PO BID@03/17/21 06/17/21 Unknown History mg tablet bisacodyl 10 mg rectal suppository 10 mg AR DAILY PRN 03/17/21 06/17/21 06/16/21 History carica papaya 3 tab PO .AFTER MEAL PRN 03/17/21 06/17/21 Unknown History chlorpheniramine maleate 4 mg 4 mg PO Q6H PRN 03/17/21 06/17/21 Unknown History tablet cholecalciferol (vitamin D3) 25 75 mcg PO DAILY@03/17/21 06/17/21 Unknown History mcg (1,000 unit) capsule clotrimazole-betamethasone 1 1 applic TOPICAL BID PRN 03/17/21 06/17/21 Unknown History %-0.05 % topical cream cranberry fruit 450 mg tablet 900 mg PO DAILY@03/17/21 06/17/21 Unknown History gentian nikolas 1 % topical solution 1 applic TOPICAL . ON TU AND Tue03/17/21 06/17/21 Unknown History ibuprofen 800 mg tablet 800 mg PO Q6H PRN 03/17/21 06/17/21 Unknown History indapamide 2.5 mg tablet 2.5 mg PO DAILY@03/17/21 06/17/21 Unknown History levocetirizine 5 mg tablet 5 mg PO DAILY@03/17/21 06/17/21 Unknown History lisinopril 20 mg tablet 20 mg PO BID@,03/17/21 06/17/21 Unknown History loperamide 2 mg capsule See Rx Instructions .ROUTE .COMPLEX 03/17/21 06/17/21 Unknown History magnesium hydroxide 400 mg/5 mL 30 ml PO DAILY PRN ml 03/17/21 06/17/21 Unknown History oral suspension metformin 850 mg tablet 850 mg PO BID@,16 03/17/21 06/17/21 Unknown History metoprolol succinate 25 mg 25 mg PO DAILY@03/17/21 06/17/21 Unknown History tablet,extended release 24 hr omega-3 acid ethyl esters 1 gram 1 cap PO BID@,03/17/21 06/17/21 Unknown History capsule pseudoephedrine HCl 60 mg tablet 60 mg PO Q4H PRN tab 03/17/21 06/17/21 Unknown History rosuvastatin 5 mg tablet 5 mg PO DAILY@03/17/21 06/17/21 Unknown History sodium phosphates 19 gram-7 118 ml AR DAILY PRN 03/17/21 06/17/21 Unknown History gram/118 mL enema therapeutic multivitamin 1 tab PO DAILY@03/17/21 06/17/21 Unknown History tizanidine 4 mg capsule 4 mg PO BID@,14 03/17/21 06/17/21 Unknown History semaglutide 0.5 mg SUBCUT Q7D ml 05/14/21 06/17/21 Unknown History amlodipine 5 mg tablet 5 mg PO DAILY@06/03/21 06/17/21 Unknown History Celexa 20 mg PO DAILY@06/17/21 06/17/21 Unknown History Farxiga 10 mg PO DAILY@06/17/21 06/17/21 Unknown History Humalog KwikPen Insulin See Rx Instructions .ROUTE .COMPLEX 06/17/21 06/17/21 Unknown History bisacodyl 10 mg PO DAILY PRN 06/17/21 06/17/21 Unknown History bupropion HCl 150 mg PO DAILY@06/17/21 06/17/21 Unknown History cyanocobalamin (vitamin B-12) 1,000 mcg IM Q30D 06/17/21 06/17/21 Unknown History levothyroxine 125 mcg PO DAILY@05 06/17/21 06/17/21 Unknown History ondansetron HCl 8 mg PO TID PRN 06/17/21 06/17/21 Unknown History sulfamethoxazole-trimethoprim 1 tab PO BID 06/17/21 06/17/21 Unknown History tizanidine 4 mg PO TID PRN 06/17/21 06/17/21 Unknown History fluconazole 200 mg PO DAILY 5 Days #5 tab 06/19/21 Unknown Rx Allergies Allergy/AdvReac Type Severity Reaction Status Date / Time Penicillins Allergy FAMILY HX Verified 06/17/21 12:23 OF SEVERE REACTION Current Medications Current Medications Generic Name Dose Route Start Last Admin Trade Name Freq PRN Reason Stop Dose Admin Sodium Bicarbonate 150 meq/ 1,150 mls @ 150 mls/hr 06/16/21 23:00 06/16/21 23 :10 Dextrose IV 150 mls/hr .Q7H40M [place] Administration Imipenem/Cilastatin Sodium 250 100 mls @ 200 mls/hr 06/17/21 00:00 06/17/21 01:11 mg/ Sodium Chloride IV Infused Q12H [place] Infusion Protocol Fluconazole 200 mg in 100 mls @ 100 mls/hr 06/17/21 02:00 06/17/21 02:48 Diflucan Premix IV Infused Q24H [facility] Infusion Ondansetron HCl 4 mg 06/16/21 22:55 06/17/21 03:59 Ondansetron 2 Mg/Ml Sdv 2 Ml IVP 4 mg Q6H PRN Administration NAUSEA AND VOMITING PFSH Acute PFSH: Medical History History of UTI Left renal mass Multiple sclerosis Neurogenic bladder Urinary retention Surgical History History of adenoidectomy History of appendectomy History of cholecystectomy History of elbow surgery History of tonsillectomy History of vasectomy Family History Mother , at age 75 from natural caused No problems noted. Social History Alcohol intake: never Marital status: Current occupational status: disabled History of recent travel: No Vitals/I&O/Wt Last Vital Signs Temp 97.7 F 06/17/21 00:10 Pulse 98 06/17/21 05:49 Resp 13 06/17/21 05:45 BP 121/72 06/17/21 05:45 Pulse Ox 100 06/17/21 05:45 06/16/21 06/16/21 06/17/21 14:59 22:59 06:59 Intake Total 3200.1 / 3200.1 Balance 3200.1 / 3200.1 Weight last 48 hrs Weight 191 lb 12.8 oz Weight 190 lb Physical Exam Const: COMMON NORMALS: no acute distress and patient oriented x3 GENERAL AP PEARANCE: cooperative ORIENTATION/CONSCIOUSNESS: Yes awake, Yes oriented to person, Yes oriented to place and Yes oriented to time HENMT: COMMON NORMALS: normocephalic HEAD & SCALP: normocephalic Eye: COMMON NORMALS: Equal, round and reactive pupils present and no scleral icterus PUPIL: Yes Equal, round and reactive pupils present Lymph: LYMPHATIC: no lymphadenopathy noted Chest: COMMONS NORMALS: normal inspection of the chest Resp: COMMON NORMALS: normal respiratory effort and clear to auscultation bilaterally AUSCULTATION: clear to auscultation bilaterally Cardio: COMMON NORMALS: S1 normal heart sound present and S2 normal heart sound present; negative for No murmurs present (Cardio) HEART SOUNDS: S1 normal heart sound present and S2 normal heart sound present GI: COMMON NORMALS: Soft to palpation; negative for No hepatosplenomegaly present INSPECTION: Yes normal to inspection PALPATION: Yes Soft to palpation, No Firmness to palpation present (GI), No Tenderness to palpation present (GI), No Guarding due to palpation present (GI), No Rigid due to palpation and No No hepatosplenomegaly present Neuro: COMMON NORMALS: patient oriented x3 SENSORIUM/ORIENTATION: Yes oriented to person, Yes oriented to place and Yes oriented to time Psych: COMMON NORMALS: mental status grossly normal Skin: COMMON NORMALS: no rashes or lesions noted GENERAL SKIN EXAM: no rashes or lesions noted Urinary Catheter Management^: [place]: Cath Placed During This Visit: no Reason for Continuing Indwelling Catheter: Accurate Measurement of Urinary Output in Critically Ill Patients Data Micro: Micro: Microbiology 06/16/21 21:13 Blood Culture - Pr eliminary Blood SPECIMEN COLLE NEAL 06/16/21 21:13 Blood Culture - Pr eliminary Blood SPECIMEN [facility] NEAL A&P Assessment and plan (1) Acute hyperkalemia: After history taking physical examination and reviewing the chart and imag es. Per nephrology recommendations patient will require a temporary hemodialysis catheter placement. On morning rounds I did get the chance to talk with Dr. Johnson as he reevaluated the patient and he would like to hold off on hemodialysis for now as what appears that the patient has been producing adequate urine output and his trending down with regard to his blood work. I will make myself available should there is change in the clinical picture. Thank you for consulting general surgery to participate taking care . Status: Resolved Consult Attestations Medical Necessity Statement: Per admitting service Time Spent in Patient Care: (>than 50% of time spent in counselling and/or direct pt care on unit) . Coding Level of Care Code Acute Bank Secrecy Act Officer for Tamar Fwanthony Exam Comprehensive Diagnoses Acute hyperkalemia E87.5
--- NOTE | 2021-06-17 06:26 | P.PN_ITS ---
Subjective Subjective: Interval history: still w/ nausea- not able to take kayexalate. no sob, no cp, no bailon, or abd pain. rest of ROS is negative Medications: Reviewed: Yes Medication Review Details: Current Medications Acetaminophen (Acetaminophen 325 Mg Tablet) 650 mg PO Q6H PRN PRN Reason: MILD PAIN Dextrose (Dextrose 50% Syringe 50 Ml) 25 ml IVP ONCE PRN; Protocol PRN Reason: hypoglycemia protocol Dextrose (Dextrose 50% Syringe 50 Ml) 50 ml IVP PRN PRN; Protocol PRN Reason: hypoglycemia protocol Famotidine (Famotidine 20 Mg/2 Ml Inj) 20 mg IVP DAILY [place] Glucagon (Glucagon 1 Mg/Ml Inj 1 Ml) 1 mg IM ONCE PRN; Protocol PRN Reason: Adult Acute Hypoglycemia Prot. Heparin Sodium (Porcine) (Heparin 5,000 Unit/Ml Inj 1 Ml) 5,000 unit SUBCUT Q12H [facility] Hydralazine HCl (Hydralazine 20 Mg/Ml Inj 1 Ml) 10 mg IVP Q4H PRN PRN Reason: SBP above 160 Sodium Bicarbonate 150 meq/ (Dextrose) 1,150 mls @ 150 mls/hr IV .Q7H40M [facility] Last Admin: 06/16/21 23:10 Dose: 150 mls/hr Documented by: Imipenem/Cilastatin Sodium 250 (mg/ Sodium Chloride) 100 mls @ 200 mls/hr IV Q12H [facility]; Protocol Last Infusion: 06/17/21 01:11 Dose: Infused Documented by: Dextrose ([email or web address]) 500 mls @ 100 mls/hr IV ONCE PRN; Protocol PRN Reason: Adult Acute Hypoglycemia Prot Fluconazole (Diflucan Premix) 200 mg in 100 mls @ 100 mls/hr IV Q24H [facility] Last Infusion: 06/17/21 02:48 Dose: Infused Documented by: Insulin Human Lispro (Insulin Lispro 100 Unit/1 Ml) 0 unit SUBCUT WM&BEDTIME [facility]; Protocol Metoclopramide HCl (Metoclopramide 5 Mg/Ml Sdv 2 Ml) 5 mg IVP Q6H PRN PRN Reason: NAUSEA AND VOMITING Ondansetron HCl (Ondansetron 2 Mg/Ml Sdv 2 Ml) 4 mg IVP Q6H PRN PRN Reason: NAUSEA AND VOMITING Last Admin: 06/17/21 03:59 Dose: 4 mg Documented by: Vitals/I&O/Wt Last Vital Signs Temp 97.7 F 06/17/21 00:10 Pulse 99 06/17/21 06:00 Resp 14 06/17/21 06:00 BP 109/58 06/17/21 06:00 Pulse Ox 100 06/17/21 06:00 06/16/21 06/16/21 06/17/21 14:59 22:59 06:59 Intake Total 3200.1 / 3200.1 Output Total 450 / 450 Balance 2750.1 / 2750.1 Weight last 48 hrs Weight 86.9 kg Weight 86.999 kg Weight 86.183 kg Physical Exam Narrative: EXAM NARRATIVE: NARD in bed vs noted and improving heent- nc/at, eomi, anicteric neck supple lungs clear b/l heart reg, + s1, s2 abd soft, nt, nd, + bs ext no edema neuro- a,a, o x 3, no asterixis Urinary Catheter Management^: Mann: Cath Placed During This Visit: no Reason for Continuing Indwelling Catheter: Accurate Measurement of Urinary Output in Critically Ill Patients Data : 06/17/21 04:17 06/17/21 04:17 Micro: Microbiology 06/16/21 21:13 Blood Culture - Preliminary Blood SPECIMEN COLLECTED 06/16/21 21:13 Blood Culture - Preliminary Blood SPECIMEN COLLECTED A&P Additional A&P Information 65 yr old man w/ MS, neurogenic bladder- self cath, renal mass-b/l cr 1.2 mg/dl in March 2021. Pt here w/ n/v/BRI, inc AGMA, hyperkalemia. 1.BRI- please get a stat renal us, flush mann, check urine lectrolytes -I am concerned that he has ATN- risk is CKD stage 2, dm, htn on dottie-i, fleets enemas and NSAID's w/ neurogenic bladder -ur na c/w ATN- but after he received ivf -cr hopefully stabilizing w/ ivf -check chem 7, mag, phos every 6 hrs - k and met acidosis are improving -uop improving -monitor uop -no nephrotxic agents -attempt to avoid dialysis -cont mann 2.hyperkalemia- from BRI and dottie-i in setting of dm- improving from 7.9 to 6.3 w/ medical - avoid kayexalate w/ abd pain-n/v/d 3. inc AGMA- normal lactate- improving on bicarb drip bicarb up from 9 to 12 4. hyponatremia- urine na c/w ATN or euvolemic hyponatremia -check tsh -normal cortisol 15.86 5. Q UTI- renal safe abx and consider anti-fungals- pt has h/o UTI's- has been treated w/ macrobid by Dr. Flores 6. dm- no SGLT2-i or metformin- use insulin 7. monitor phos- improved from 5.9 to 5.1 8. renal mass per Dr. Hogan meds reviewed seen and examined w/ RN- telehealth visit discussed w/ RN and Dr. Correa time spent 30 min Attestations Medical Necessity Statement*: bri, hyperkalemia, inc AGMA Time Spent in Patient Care: 16 - 35 minutes (>than 50% of time spent in counselling and/or direct pt care on unit) . Coding Level of Care Code Acute Forest Fire Control Officer for Tamar Del Toro
[2021-06-17] MEDS: sodium bicarbonate 150 MEQ in dextrose 5% 1,000 ML IV (07:14)
[2021-06-17 07:24] LABS: Glucose Point of Care 128 mg/dL (70-110)
--- NOTE | 2021-06-17 07:28 | PC.NURSE ---
Report received, assessment completed as charted. Pt AAOX4, makes all needs known. VSS. Bicarb gtt infusing per orders. [place] cath in place. Denies any needs at this time. Will monitor.
[2021-06-17 07:35] LABS: 25 Hydroxy Vitamin D 50 ng/mL (30-100); Thyroid Stimulating Hormone 2.35 uIU/mL (0.27-4.20)
[2021-06-17] MEDS: famotidine 20 mg/2 mL INJ IVP (08:05)
[2021-06-17] MEDS: heparin 5,000 unit/mL INJ 1 mL 5000 UNIT SUBCUT ×2 (08:05→20:42)
[2021-06-17 10:20] LABS: Base Excess VBG -10.1 mmol/L (-3.0-3.0); Blood Gas Operator Identificat CAK; Blood Gas Sample Type Venous; HCO3 VBG 14.9 mmol/L (24-28); PCO2 VBG 29.2 mmHg (41-51); Venous Blood Gas Hematocrit 31.5 % (42-52); pH VBG 7.32 (7.32-7.42)
[2021-06-17 10:26] LABS: Alanine Aminotransferase 23 U/L (0-41); Albumin Level 3.2 g/dL (3.5-5.2); Alkaline Phosphatase 148 IU/L (40-130); Anion Gap 19.5 (5-19); Aspartate Amino Transferase 14 U/L (0-40); Blood Urea Nitrogen 60 mg/dL (8-23); Calcium 8.6 mg/dL (8.5-10.5); Carbon Dioxide 14 mmol/L (22-29); Chloride 104 mmol/L (98-107); Globulin 2.6 g/dL (1.3-4.6); Glomerular Filtration Rate 25.1 mL/min (90-130); Glucose 140 mg/dL (65-115); Osmolality Calculated 293 mOsm/kg (285-295); Potassium 5.5 mmol/L (3.5-5.1); Sodium 132 mmol/L (136-145); Total Bilirubin 0.3 mg/dL (0.15-1.2); Total Protein 5.8 g/dL (6.6-8.7)
--- NOTE | 2021-06-17 10:32 | PC.CHAP ---
Pastoral Care Encounter/Spiritual Assessment Type of Contact [] Declined rn school visit [] Patient/Family/Request visit [] Outpatient visit [] Follow-up visit [] Physician referral [] Code/Alert [x] Routine visit [] Staff referral [] Actively dying [] Patient sleeping [] Family support [] [] Out of room [] Palliative care [] [] Receiving care in room [] Pre-surgical visit [] Trauma [] Long length of stay [x] ICU visit [] Other: Relational/Emotional Strength [] Patient feels connected with others/family/visitors/staff [] Distress [] Loneliness/isolation [] Abandonment Spirituality of Patient [] Person of Chelsey [] Attends Adventist of their Chelsey [] Believes in Prayer [] Reads Bible or Synagogue materials [] There are Spiritual issues to be addressed Cuff Knitter Interventions [x] Prayer [] Active listening [] Non-anxious presence [] Spiritual/emotional support [] Crisis/trauma care [] Spiritual counseling [] Bereavement support [] Provided bereavement packet [] Provided Bible/devotional materials [] Provided toy/stuffed animal, coloring book to patient or family member [] Provided Communion [] Anointing/[place] [] Salvation [x] Completed spiritual assessment [] Other: Impact on Illness or Injury [] Angry [] Fearful [] Anxious [] Often cries [] Exhaustion [] Unable to work [] Unable to attend jew [] Unable to walk/stand [] Unable to read [] Unable to drive [] Unable to eat/drink [] Unable to sleep [] Unable to be with family [] Patient intubated [] Other: Summary Time spent with patient
[2021-06-17 11:25] LABS: Glucose Point of Care 156 mg/dL (70-110)
[2021-06-17] MEDS: insulin lispro 100 unit/1 mL SUBCUT ×2 (11:29→20:43)
[2021-06-17 13:51] LABS: Basophils % 0.5 %; Eosinophils # 0.1 10^3/uL (0.0-0.8); Eosinophils % 3.1 %; Hematocrit 30.1 % (42.0-52.0); Hemoglobin 10.1 g/dL (11.7-16.6); Lymphocytes # 0.8 10^3/uL (0.8-4.8); Lymphocytes % 18.2 %; Mean Corpuscular HGB Conc 33.6 g/dL (30.0-36.0); Mean Corpuscular Hemoglobin 29.6 pg (28.0-34.0); Mean Corpuscular Volume 88.3 fl (80-94); Mean Platelet Volume 9.6 fL (7.4-10.4); Monocytes # 0.4 10^3/uL (0.2-0.9); Neutrophils # 2.93 10^3/uL (1.8-7.7); Nucleated Red Blood Cells % 0 %; Platelet Count 152 10^3/cmm (130-400); Red Blood Count 3.41 10^6/uL (4.1-5.3); Red Cell Distribution Width 14.2 % (12.1-15.1); White Blood Count 4.2 10^3/uL (4.0-10.0)
[2021-06-17 14:20] LABS: Magnesium 1.8 mg/dL (1.7-2.3); Phosphorus 3.4 mg/dL (2.5-4.5)
--- NOTE | 2021-06-17 14:50 | PC.NURSE ---
Report given to Pratima TERAN.
--- NOTE | 2021-06-17 15:08 | PC.NURSE ---
recd. resting quietly. no c/o
[2021-06-17] MEDS: sodium bicarbonate 150 MEQ in dextrose 5% 1,000 ML 100 MEQ IV (15:10)
--- NOTE | 2021-06-17 16:25 | P.PN_ITS ---
Subjective Subjective: Interval history: Seen this morning. Patient states he feels a lot better and feels he is back to baseline. He was seen by nephrology as well. He has been on the bicarb drip overnight. Patient also received IV fluconazole. There repeat labs pending for 10 AM. Patient states he told his he was in the hospital but did not tell her she was in the ICU. He did later revealed to her that patient is in the ICU. He says he feels better and his main complaint was that he could not eat and he had lost his taste. But is now starting get his appetite back. Vitals/I&O/Wt Last Vital Signs Temp 97.6 F 06/17/21 12:00 Pulse 88 06/17/21 14:00 Resp 16 06/17/21 14:00 BP 138/76 06/17/21 14:00 Pulse Ox 100 06/17/21 14:00 06/17/21 06/17/21 06/17/21 06:59 14:59 22:59 Intake Total 4350.1 / 4350.1 340 / 340 1150 / 1490 Output Total 450 / 450 Balance 3900.1 / 3900.1 340 / 340 1150 / 1490 Weight last 48 hrs Weight 86.9 kg Weight 86.999 kg Weight 86.183 kg Physical Exam Narrative: EXAM NARRATIVE: General: Alert oriented x3, patient seen laying in bed in ICU bed 8. Appearing very comfortable. He is on room air. Pleasant gentleman. HEENT: Normocephalic, atraumatic, EOMI, breathing room air. Mucous membranes are moist. Cardio: Regular rate rhythm, normal S1-S2, no murmurs rubs gallops, Respiratory: Good bilateral air entry, no wheezes no rhonchi appreciated GI: Abdomen soft, nontender, nondistended, bowel sounds + Behavior: Appropriate and cooperative Extremities: Pulses 2+, no edema, no cyanosis Urinary Catheter Management^: Milan: Cath Placed During This Visit: no Reason for Continuing Indwelling Catheter: Accurate Measurement of Urinary Output in Critically Ill Patients Data : 06/17/21 13:45 06/17/21 09:58 Micro: Microbiology 06/16/21 21:13 Blood Culture - Preliminary Blood SPECIMEN COLLECTED 06/16/21 21:13 Blood Culture - Preliminary Blood SPECIMEN COLLECTED A&P Assessment and plan (1) Urinary tract infection: Status: Acute (2) Diarrhea: Status: Acute (3) Acute hyperkalemia: Status: Acute (4) Acute kidney failure: Status: Acute (5) Acute dehydration: Status: Acute (6) Left renal mass: Status: Acute (7) Urinary retention: Status: Acute (8) Neurogenic bladder: Status: Acute Additional A&P Information Came in with vomiting for last 7 days. Loss of appetite. With severely dehydration on admission with urinary retention secondary to neurogenic bladder. He does have a history of multiple sclerosis. He has lower extremity weakness and is bedbound. Patient hyperkalemia which has improved now to 5.5. He had severe anion gap metabolic acidosis which is also improved. Nephrology is following the patient. I discussed with Dr. Lugo over the phone. Patient's bicarb drip has been decreased to 100/h. We will keep it at that rate. We will repeat labs on him tomorrow morning. Patient has improved significantly. Most likely cause was dehydration at this point. We will continue patient on primaxin for now to cover his UTI. Urine culture is pending. C. difficile stool cultures are pending. Stool ova parasite bacterial culture is also pending. His antihyperglycemic and hypertensive medications were held at admission. He does have as needed hydralazine ordered and insulin sliding scale. We will con tinue him on insulin sliding scale. I will hold off on restarting any medications at this point since he is improved but not completely back to baseline at this point. Blood pressure is stable. I will restart some home medications. Levothyroxine, Celexa, Toprol 25 daily, rosuvastatin 5 daily DVT prophylaxis: Heparin Diet: Renal diet Attestations Medical Necessity Statement*: > 48 hours inpt stay Time Spent in Patient Care: Greater than 35 minutes Coding Level of Care Code Acute Fan Mail Clerk for [facility] Fwd Diagnoses Urinary tract infection N39.0 Diarrhea R19.7 Acute hyperkalemia E87.5 Acute kidney failure N17.9 Acute dehydration E86.0 Left renal mass N28.89 Urinary retention R33.9 Neurogenic bladder N31.9
[2021-06-17 17:31] LABS: Chloride 101 mmol/L (98-107); Potassium 4.9 mmol/L (3.5-5.1)
[2021-06-17 17:34] LABS: Alanine Aminotransferase 23 U/L (0-41); Aspartate Amino Transferase 15 U/L (0-40); Globulin 2.5 g/dL (1.3-4.6); Osmolality Calculated 289 mOsm/kg (285-295); Total Bilirubin 0.4 mg/dL (0.15-1.2)
[2021-06-17 17:36] LABS: Anion Gap 16.9 (5-19); Blood Urea Nitrogen 50 mg/dL (8-23); Calcium 8.4 mg/dL (8.5-10.5); Carbon Dioxide 19 mmol/L (22-29); Glomerular Filtration Rate 33.9 mL/min (90-130); Glucose 121 mg/dL (65-115); Sodium 132 mmol/L (136-145)
[2021-06-17 17:37] LABS: Albumin Level 3.3 g/dL (3.5-5.2); Alkaline Phosphatase 145 IU/L (40-130); Total Protein 5.8 g/dL (6.6-8.7)
[2021-06-17 18:12] LABS: Glucose Point of Care 139 mg/dL (70-110)
[2021-06-17 20:34] LABS: Glucose Point of Care 182 mg/dL (70-110)
--- NOTE | 2021-06-17 22:39 | US_ITS ---
WS: [id number] RENAL ULTRASOUND HISTORY: radha COMPARISON: 01/18/2018 TECHNIQUE: 2-D and color Doppler imaging of the kidney submitted. Technically very difficult evaluation of the kidneys. Right kidney: 11.5 cm x 6.8 cm x 5.6 cm. Poorly visualized kidney. No hydronephrosis. Study is not adequate to exclude mass. Left kidney: 10.6 cm x 4.6 cm x 3.7 cm. Poorly visualized kidney. No hydronephrosis. Study is not adequate to exclude renal masses. Aorta: Not visualized. Urinary Bladder: Nondistended. Milan catheter is in place. US/US renal BI* [id number] IMPRESSION: 1. Technically very limited evaluation of the kidneys. 2. No hydronephrosis. 3. Renal masses cannot be confidently excluded.
--- NOTE | 2021-06-17 22:47 | PC.NURSE ---
Pt was calm and pleasant, watching TV in bed, upon bedside shift report. Pt denies LOPEZ, fever, chills, chest pain, SOA, and pain. VSS. Upon assessment, pt reports he resides at a nursing facility, is unable to ambulate and uses his powerchair, due to his advanced MS symptomology. When examining skin, I noticed a purple substance around his genitals and j carlos area, and he reports the substance being used by his long-term care facility to keep his skin dry and clean due to a 5-month healing process of a pressure ulcer on his coccyx. He further reports the use of a chronic indwelling catheter present on arrival to hospital this stay. He has not had a BM yet this stay, and is incontinent of bowels, but reports knowing and feeling when he goes and will call staff for clean up if/when needed.
[2021-06-18] VITALS (38 sets, daily range): BP systolic 104–152; BP diastolic 42–90; PULSE 88–105; RESP 10–18; TEMP 36.2–36.9; O2SAT 89–100; BMI 27.8
[2021-06-18] MEDS: fluconazole premix 200 MG/100 ML PREMIX 100 MG IV (01:47)
[2021-06-18] MEDS: sodium bicarbonate 150 MEQ in dextrose 5% 1,000 ML 100 MEQ IV (03:22)
[2021-06-18 04:23] LABS: Basophils % 0.6 %; Eosinophils # 0.2 10^3/uL (0.0-0.8); Eosinophils % 4.7 %; Hematocrit 27.4 % (42.0-52.0); Hemoglobin 9.6 g/dL (11.7-16.6); Lymphocytes # 0.8 10^3/uL (0.8-4.8); Lymphocytes % 23.8 %; Mean Corpuscular Hemoglobin 29.8 pg (28.0-34.0); Mean Corpuscular Volume 85.1 fl (80-94); Mean Platelet Volume 9.5 fL (7.4-10.4); Monocytes # 0.3 10^3/uL (0.2-0.9); Monocytes % 7.8 %; Neutrophils % 62.8 %; Nucleated Red Blood Cells % 0 %; Platelet Count 137 10^3/cmm (130-400); Red Blood Count 3.22 10^6/uL (4.1-5.3); Red Cell Distribution Width 13.9 % (12.1-15.1); White Blood Count 3.2 10^3/uL (4.0-10.0)
[2021-06-18 05:02] LABS: Alanine Aminotransferase 20 U/L (0-41); Albumin Level 3.1 g/dL (3.5-5.2); Alkaline Phosphatase 131 IU/L (40-130); Anion Gap 14.4 (5-19); Aspartate Amino Transferase 14 U/L (0-40); Blood Urea Nitrogen 37 mg/dL (8-23); Calcium 8.3 mg/dL (8.5-10.5); Carbon Dioxide 23 mmol/L (22-29); Chloride 100 mmol/L (98-107); Globulin 2.7 g/dL (1.3-4.6); Glomerular Filtration Rate 55.8 mL/min (90-130); Glucose 105 mg/dL (65-115); Magnesium 1.7 mg/dL (1.7-2.3); Osmolality Calculated 285 mOsm/kg (285-295); Phosphorus 2.2 mg/dL (2.5-4.5); Potassium 4.4 mmol/L (3.5-5.1); Sodium 133 mmol/L (136-145); Total Bilirubin 0.4 mg/dL (0.15-1.2); Total Protein 5.8 g/dL (6.6-8.7)
--- NOTE | 2021-06-18 05:40 | PC.NURSE ---
Shift Note Frequent safety and comfort rounds continue. Orders and/or nursing care completed as indicated. Patient monitored for response to intervention and treatment(s). Education provided includes[medication administration and side effects, blood glucose control, lab draw and interpretation, acute kidney injury, continuous telemetry monitoring, vital signs, renal-CHO diet, VTE prophylaxis, IV care, catheter care, incontinence care]. Patient and/or national account representative [verbalizes understanding]. Will continue to monitor.
--- NOTE | 2021-06-18 05:46 | PC.NURSE ---
Pt continued to do well through the night with no acute changes. VS remain stable. Pt slept approximately 4 hrs. [facility] updated via telephone this morning, approx. [phone].
--- NOTE | 2021-06-18 06:34 | PM.PN ---
Subjective Subjective: Interval history: feels better. no n/v/f/c/bailon/d/leg pain Medications: Reviewed: Yes Medication Review Details: Current Medications Acetaminophen (Acetaminophen 325 Mg Tablet) 650 mg PO Q6H PRN PRN Reason: MILD PAIN Dextrose (Dextrose 50% Syringe 50 Ml) 25 ml IVP ONCE PRN; Protocol PRN Reason: hypoglycemia protocol Dextrose (Dextrose 50% Syringe 50 Ml) 50 ml IVP PRN PRN; Protocol PRN Reason: hypoglycemia protocol Famotidine (Famotidine 20 Mg/2 Ml Inj) 20 mg IVP DAILY [facility] Last Admin: 06/17/21 08:05 Dose: 20 mg Documented by: Glucagon (Glucagon 1 Mg/Ml Inj 1 Ml) 1 mg IM ONCE PRN; Protocol PRN Reason: Adult Acute Hypoglycemia Prot. Heparin Sodium (Porcine) (Heparin 5,000 Unit/Ml Inj 1 Ml) 5,000 unit SUBCUT Q12H [facility] Last Admin: 06/17/21 20:42 Dose: 5,000 unit Documented by: Hydralazine HCl (Hydralazine 20 Mg/Ml Inj 1 Ml) 10 mg IVP Q4H PRN PRN Reason: SBP above 160 Sodium Bicarbonate 150 meq/ (Dextrose) 1,150 mls @ 100 mls/hr IV .[id number] [facility] Last Admin: 06/18/21 03:22 Dose: 100 mls/hr Documented by: Dextrose (D5w) 500 mls @ 100 mls/hr IV ONCE PRN; Protocol PRN Reason: Adult Acute Hypoglycemia Prot Fluconazole (Diflucan Premix) 200 mg in 100 mls @ 100 mls/hr IV Q24H [facility] Last Infusion: 06/18/21 03:00 Dose: Infused Documented by: Imipenem/Cilastatin Sodium 250 (mg/ Sodium Chloride) 100 mls @ 200 mls/hr IV Q6H [facility]; Protocol Last Admin: 06/18/21 06:26 Dose: 200 mls/hr Documented by: Insulin Human Lispro (Insulin Lispro 100 Unit/1 Ml) 0 unit SUBCUT WM&BEDTIME [facility]; Protocol Last Admin: 06/17/21 20:43 Dose: 6 unit Documented by: Metoclopramide HCl (Metoclopramide 5 Mg/Ml Sdv 2 Ml) 5 mg IVP Q6H PRN PRN Reason: NAUSEA AND VOMITING Ondansetron HCl (Ondansetron 2 Mg/Ml Sdv 2 Ml) 4 mg IVP Q6H PRN PRN Reason: NAUSEA AND VOMITING Last Admin: 06/17/21 03:59 Dose: 4 mg Documented by: Vitals/I&O/Wt Last Vital Signs Temp 98.5 F 06/18/21 05:20 Pulse 89 06/18/21 05:20 Resp 14 06/18/21 05:20 BP 121/69 06/18/21 05:20 Pulse Ox 98 06/18/21 05:20 06/17/21 06/17/21 06/18/21 14:59 22:59 06:59 Intake Total 340 / 340 1390 / 1730 1840 / 3570 Output Total 1050 / 1050 990 / 2040 Balance 340 / 340 340 / 680 850 / 1530 Weight last 48 hrs Weight 95.878 kg Weight 86.9 kg Weight 86.999 kg Weight 86.183 kg Physical Exam Narrative: EXAM NARRATIVE: NARD in bed vs noted and stable heent- nc/at, eomi, anicteric neck supple lungs clear b/l heart reg, + s1, s2 abd soft, nt, nd, + bs + mann ext no edema neuro- a,a, o x 3, no asterixis Urinary Catheter Management^: Mann: Cath Placed During This Visit: no Reason for Continuing Indwelling Catheter: Chronic Indwelling Urinary Catheter on Admission Data : 06/18/21 04:10 06/18/21 04:10 Micro: Microbiology 06/16/21 21:13 Blood Culture - Preliminary Blood NEGATIVE TO DATE 06/16/21 21:13 Blood Culture - Preliminary Blood NEGATIVE TO DATE A&P Additional A&P Information 65 yr old man w/ MS, neurogenic bladder- self cath, renal mass-b/l cr 1.2 mg/dl in March 2021. Pt here w/ n/v/BRI, inc AGMA, hyperkalemia. 1.BRI- improving ATN vs pre-renal azotemia. Q if component of obstructive uropathy- though no hydronephrosis on renal us -cr close to baseline -d/c ivf -keep mann in. Please call Dr. Hogan- only remove mann if okay w/ urology- neurogenic bladderplease get a stat renal us, flush mann, check urine lectrolytes - k and met acidosis are improving -uop good -no nephrotxic agents 2.hyperkalemia- from BRI and dottie-i in setting of dm- improving from 7.9 to 4.4 w/ medical 3. inc AGMA- normal lactate- improving on bicarb drip bicarb up from 9 to 23 4. hyponatremia- urine na c/w ATN or euvolemic hyponatremia -normal tsh of 2.35 -normal cortisol 15.86 5. Q UTI- renal safe abx and consider anti-fungals- pt has h/o UTI's- has been treated w/ macrobid by Dr. Flores - 60,000-70,000 COLS/ML MIXED SUPERFICIAL CHAVA ON DAY 1 has + urine yeast 6. dm- per medicine 7. monitor phos- improved from 5.9 to 2.2 8. renal mass per Dr. Hogan 9. anemia meds reviewed seen and examined w/ RN- telehealth visit discussed w/ RN -renal fxn improved- renal will sign off. please call if we can be of assistance. time spent 30 min Attestations Medical Necessity Statement*: per medicine Time Spent in Patient Care: 16 - 35 minutes (>than 50% of time spent in counselling and/or direct pt care on unit). Coding Level of Care Code Acute Profiler for [facility]
[2021-06-18 07:06] LABS: Glucose Point of Care 111 mg/dL (70-110)
--- NOTE | 2021-06-18 07:41 | PC.NURSE ---
0700 Report received. Assessment completed. Nephrology on telehealth at this time. Nephrology signing off d/t improving labs. Pt AAOx4. Makes all needs known. Milan in place draining freely to BSD. VSS. HOB elevated, SR up x 3, CLWR. Will monitor.
[2021-06-18] MEDS: heparin 5,000 unit/mL INJ 1 mL 5000 UNIT SUBCUT ×2 (08:10→20:40)
[2021-06-18] MEDS: famotidine 20 mg/2 mL INJ IVP (08:10)
--- NOTE | 2021-06-18 10:11 | PC.CHAP ---
Pastoral Care Encounter/Spiritual Assessment Type of Contact [] Declined small parts assembler visit [] Patient/Family/Request visit [] Outpatient visit [] Follow-up visit [] Physician referral [] Code/Alert [x] Routine visit [] Staff referral [] Actively dying [] Patient sleeping [x] Family support [] [] Out of room [] Palliative care [] [] Receiving care in room [] Pre-surgical visit [] Trauma [] Long length of stay [x] ICU visit [] Other: Relational/Emotional Strength [] Patient feels connected with others/family/visitors/staff [] Distress [] Loneliness/isolation [] Abandonment Spirituality of Patient [] Person of [place]sey [] Attends Jainism of their [place] [] Believes in Prayer [] Reads Bible or Islam materials [] There are Spiritual issues to be addressed Counting Machine Operator Interventions [x] Prayer [x] Active listening [x] Non-anxious presence [x] Spiritual/emotional support [] Crisis/trauma care [] Spiritual counseling [] Bereavement support [] Provided bereavement packet [] Provided Bible/devotional materials [] Provided toy/stuffed animal, coloring book to patient or family member [] Provided Communion [] Anointing/[place] [] Salvation [x] Completed spiritual assessment [] Other: Impact on Illness or Injury [] Angry [] Fearful [] Anxious [] Often cries [] Exhaustion [] Unable to work [] Unable to attend cheondoism [] Unable to walk/stand [] Unable to read [] Unable to drive [] Unable to eat/drink [] Unable to sleep [] Unable to be with family [] Patient intubated [] Other: Summary patient feeling stronger... possibility of moving to another area Time spent with patient 5 min
--- NOTE | 2021-06-18 10:53 | P.PN_ITS ---
Subjective Subjective: Interval history: Patient seen and examined this morning. He feels really well and back to baseline however he has been tachycardic. His beta-ángel was being held since admission. We will restart today. Patient's was at bedside. Patient also would like to keep the Milan catheter in until he gets to the shelter. He states he would like to go back to his p revious regimen of doing self intermittent catheterization. He has no longer having any nausea vomiting or diarrhea and is feeling better. Vitals/I&O/Wt Last Vital Signs Temp 98.3 F 06/18/21 08:00 Pulse 104 H 06/18/21 10:00 Resp 16 06/18/21 10:00 BP 113/42 06/18/21 10:00 Pulse Ox 97 06/18/21 10:00 06/17/21 06/18/21 06/18/21 22:59 06:59 14:59 Intake Total 1390 / 1730 2175 / 3905 580 / 580 Output Total 1050 / 1050 990 / 2040 Balance 340 / 680 1185 / 1865 580 / 580 Weight last 48 hrs Weight 95.878 kg Weight 86.9 kg Weight 86.999 kg Weight 86.183 kg Physical Exam Narrative: EXAM NARRATIVE: General: Alert oriented x3, patient seen laying in bed in ICU bed 8. Appearing very comfortable. He is on room air. Pleasant gentleman. HEENT: Normocephalic, atraumatic, EOMI, breathing room air. Mucous membranes are moist. Cardio: Regular rate rhythm, normal S1-S2, no murmurs rubs gallops, Respiratory: Good bilateral air entry, no wheezes no rhonchi appreciated GI: Abdomen soft, nontender, nondistended, bowel sounds + Behavior: Appropriate and cooperative Extremities: Pulses 2+, no edema, no cyanosis Urinary Catheter Management^: Milan: Cath Placed During This Visit: no Reason for Continuing Indwelling Catheter: Chronic Indwelling Urinary Catheter on Admission Data : 06/18/21 04:10 06/18/21 04:10 Micro: Microbiology 06/16/21 23:45 Urine Culture - Preliminary Urine Catheterized 06/16/21 21:13 Blood Culture - Preliminary Blood NEGATIVE TO DATE 06/16/21 21:13 Blood Culture - Preliminary Blood NEGATIVE TO DATE A&P Assessment and plan (1) Urinary tract infection: Status: Acute (2) Diarrhea: Status: Acute (3) Acute hyperkalemia: Status: Acute (4) Acute kidney failure: Status: Acute (5) Acute dehydration: Status: Acute (6) Left renal mass: Status: Acute (7) Urinary retention: Status: Acute (8) Neurogenic bladder: Status: Acute Additional A&P Information Came in with vomiting for last 7 days. Loss of appetite. With severely dehydration on admission with urinary retention secondary to neurogenic bladder. He does have a history of multiple sclerosis. He has lower extremity weakness and is bedbound. Patient was hyperkalemic at admission which has now resolved. Severe anion gap metabolic acidosis also resolved. Nephrology has signed off. UTI?patient has been covered with Primaxin to cover UTI. Urine culture showed mixed varun. Discussed with Dr. Hogan this morning. He would be reasonable to discontinue Primaxin at this point. However there was yeast in the urine and we would cover patient with fluconazole IV 200 mg x 7 days total. We will convert to oral at discharge. C. difficile stool cultures are pending. Stool ova parasite bacterial culture is also pending. He did not have a bowel movement since he has been here. He is no longer having diarrhea. His antihyperglycemic and hypertensive medications were held at admission. Blood pressure is normal and on the lower side. I will hold off restarting blood pressure medication at this point. However will restart the metoprolol 25 daily. I will restart some home medications. Levothyroxine, Celexa, Toprol 25 daily, rosuvastatin 5 daily DVT prophylaxis: Heparin Diet: Renal diet We will move patient from ICU to the floor today. We will continue to monitor. Plan for discharge in the morning. Patient will leave here with a Milan which will be removed at the shelter. Discussed with Dr. Hogan as per nephrology recommendations. He recommended that we can let the patient go back to self intermittent catheterization but patient would like to keep the Milan for a couple days that should be fine as well. Attestations Medical Necessity Statement*: Plan for discharge tomorrow. Transfer from ICU to floor today. Time Spent in Patient Care: 16 - 35 minutes Coding Level of Care Code Acute Timber Spotter for [facility] Fwd Diagnoses Urinary tract infection N39.0 Diarrhea R19.7 Acute hyperkalemia E87.5 Acute kidney failure N17.9 Acute dehydration E86.0 Left renal mass N28.89 Urinary retention R33.9 Neurogenic bladder N31.9
[2021-06-18 11:23] LABS: Glucose Point of Care 321 mg/dL (70-110)
[2021-06-18] MEDS: insulin lispro 100 unit/1 mL SUBCUT (11:24)
--- NOTE | 2021-06-18 15:40 | PC.NURSE ---
1515 Report given to Sabi TERAN. 1530 Pt transferred to CSU per staff. tolerated well.
--- NOTE | 2021-06-18 16:37 | PC.NURSE ---
Transfer Note Patient transferred to CSU 106 from ICU via Bed. Handoff received from Concha TERAN. Patient oriented to environment and equipment. Covering service notified. Orders reviewed and will continue to monitor. Family and/or direct marketing representative notified.
[2021-06-18 18:26] LABS: Glucose Point of Care 124 mg/dL (70-110)
[2021-06-18 20:07] LABS: Glucose Point of Care 130 mg/dL (70-110)
[2021-06-18] MEDS: amitriptyline 25 mg Tablet PO (20:19)
[2021-06-19] VITALS (15 sets, daily range): BP systolic 137–177; BP diastolic 69–76; PULSE 72–108; RESP 14–20; TEMP 36.2–37.2; O2SAT 94–98
[2021-06-19] MEDS: fluconazole premix 200 MG/100 ML PREMIX 100 MG IV (03:06)
[2021-06-19 05:03] LABS: Basophils % 0.9 %; Eosinophils # 0.2 10^3/uL (0.0-0.8); Hematocrit 28.3 % (42.0-52.0); Hemoglobin 9.4 g/dL (11.7-16.6); Lymphocytes # 0.8 10^3/uL (0.8-4.8); Lymphocytes % 24.9 %; Mean Corpuscular HGB Conc 33.2 g/dL (30.0-36.0); Mean Corpuscular Hemoglobin 28.5 pg (28.0-34.0); Mean Corpuscular Volume 85.8 fl (80-94); Mean Platelet Volume 10.2 fL (7.4-10.4); Monocytes # 0.3 10^3/uL (0.2-0.9); Neutrophils # 1.96 10^3/uL (1.8-7.7); Neutrophils % 58.9 %; Nucleated Red Blood Cells % 0 %; Platelet Count 147 10^3/cmm (130-400); Red Cell Distribution Width 13.7 % (12.1-15.1); White Blood Count 3.3 10^3/uL (4.0-10.0)
[2021-06-19] MEDS: levothyroxine 125 mcg Tablet PO (05:05)
[2021-06-19 05:20] LABS: Alanine Aminotransferase 19 U/L (0-41); Albumin Level 3.2 g/dL (3.5-5.2); Alkaline Phosphatase 137 IU/L (40-130); Anion Gap 14.2 (5-19); Aspartate Amino Transferase 15 U/L (0-40); Blood Urea Nitrogen 27 mg/dL (8-23); Calcium 8.5 mg/dL (8.5-10.5); Carbon Dioxide 24 mmol/L (22-29); Chloride 99 mmol/L (98-107); Globulin 2.6 g/dL (1.3-4.6); Glomerular Filtration Rate 67.6 mL/min (90-130); Glucose 107 mg/dL (65-115); Magnesium 1.7 mg/dL (1.7-2.3); Osmolality Calculated 282 mOsm/kg (285-295); Phosphorus 2.2 mg/dL (2.5-4.5); Potassium 4.2 mmol/L (3.5-5.1); Sodium 133 mmol/L (136-145); Total Bilirubin 0.4 mg/dL (0.15-1.2); Total Protein 5.8 g/dL (6.6-8.7)
[2021-06-19 06:50] LABS: Glucose Point of Care 118 mg/dL (70-110)
--- NOTE | 2021-06-19 07:55 | PC.NURSE ---
Pt sitting up eating breakfast and talking to staff. Resp even and non-labored no distress noted. Pt had no c/o pain or discomfort at the present time. No Needs voiced. Call light in reach. Will cont to monitor.
[2021-06-19] MEDS: famotidine 20 mg/2 mL INJ IVP (08:42)
[2021-06-19] MEDS: heparin 5,000 unit/mL INJ 1 mL 5000 UNIT SUBCUT (08:42)
[2021-06-19] MEDS: buPROPion XL (24 HR) 150 mg Tablet PO (08:43)
[2021-06-19] MEDS: metoprolol succinate ER (24 HR) 25 mg Tablet PO (08:43)
[2021-06-19 11:37] LABS: Glucose Point of Care 119 mg/dL (70-110)
--- NOTE | 2021-06-19 16:42 | PM.DCS ---
Discharge Providers Date of Admission: 06/17/21 01:19 Date of Discharge: June 19, 2021 Attending Provider at Admission: Michael Chang Attending Provider at Discharge: Gissel Sanches MD Primary Care Provider: Barry Rangel MD Diagnoses at Discharge Discharge Diagnosis (1) Urinary tract infection: Status: Acute (2) Diarrhea: Status: Acute (3) Acute hyperkalemia: Status: Acute (4) Acute kidney failure: Status: Acute (5) Acute dehydration: Status: Acute (6) Left renal mass: Status: Acute (7) Urinary retention: Status: Acute (8) Neurogenic bladder: Status: Acute Reason for Visit Reason for Visit: ABNORMAL LABS Hospital Course Hospital Course HPI as per Dr. Chang Jamil Martinez is a 65 year old male with past medical history of MS, complete lower extremity weakness, bedbound, neurogenic bladder, jail facility resident, diabetes, hypertension, dyslipidemia, left renal mass who presents to emergency room due to vomiting for last 7 days or so. Several episodes per day. The patient reports decreased amount of urine which is currently dark and cloudy. He reports being thirsty. The patient denies any associated blood, abdominal pain, diarrhea, fever or chills, chest pain, shortness of breath, cough, palpitations. Denies headache, dizziness or lightheadedness. Denies similar episodes in the past. Emergency room the patient is found to have urinary tract infection, severe renal failure and hyperkalemia, anion gap metabolic acidosis. The patient received K shifting maneuvers in the ED. Course Patient came in to the hospital with severe dehydration due to nausea and vomiting for last 1 week. He was diagnosed with severe anion gap metabolic acidosis. He was also hyperkalemic at admission. After fluid resuscitation patient improved. He was also given a bicarb drip. Nephrology was on board. Urine culture did not show any bacteria but did show yeast in the urine. We will treat with fluconazole 200 mg x 7 days total. Also Milan catheter was placed for neurogenic bladder. Patient would like to keep it in and get it taken out at the longterm. Dr. Hogan aware and okay with this. He will go back to having self-catheterization. Patient will follow up with Dr. Hogan and his primary care physician outpatient after discharge. Patient also had some bouts of diarrhea prior to admission but has not had a bowel movement while in the hospital. Diabetes and hypertension medications were held at admission and gradually restarted. He is stable today and will be discharged back to longterm. Physical Exam Narrative: EXAM NARRATIVE: General: Alert oriented x3, patient seen laying in bed, seen in CSU room 106. He is very excited to go back to his longterm. Appearing very comfortable. He is on room air. Pleasant gentleman. HEENT: Normocephalic, atraumatic, EOMI, breathing room air. Mucous membranes are moist. Cardio: Regular rate rhythm, normal S1-S2, no murmurs rubs gallops, Respiratory: Good bilateral air entry, no wheezes no rhonchi appreciated GI: Abdomen soft, nontender, nondistended, bowel sounds + Behavior: Appropriate and cooperative Extremities: Pulses 2+, no edema, no cyanosis Urinary Catheter Management^: Milan: Cath Placed During This Visit: no Reason for Continuing Indwelling Catheter: Other Discharge Data Data Completed and Pending: Completed Studies During Hospitalization Category Date Time Status XR chest 1V flory ble [id number] Stat Exams 06/16/21 21:03 Completed US renal BI* [id number] Urgent Ultrasound 06/17/21 22:39 Completed Pending at discharge Category Date Time Status Blood Culture Sta t Lab 06/16/21 21:13 Results Calprotectin Feca l Routine Lab 06/16/21 23:11 Uncollected Clostridioides Di fficile PCR Routin e Lab 06/16/21 23:11 Uncollected Enteric Bacterial Panel by PCR Rout ine Lab 06/16/21 23:11 Uncollected Enteric Parasite Panel by PCR Stat Lab 06/17/21 07:25 Uncollected Urine Culture Sta t Lab 06/16/21 23:45 Results Labs from last 24 hours 06/19/21 06/19/21 06/19/21 11:27 06:36 04:10 WBC RBC Hgb Hct MCV MCH MCHC RDW Plt Count MPV Neut % (Auto) Lymph % (Auto) [place] % (Auto) Eos % (Auto) Baso % (Auto) Neut # (Auto) Lymph # (Auto) [place] # (Auto) Eos # (Auto) Baso # (Auto) Nucleated RBC % (a uto) Nucleated RBCs # Sodium 133 L Potassium 4.2 Chloride 99 Carbon Dioxide 24 Anion Gap 14.2 BUN 27 H Creatinine 1.1 GFR Calculation 67.6 L Glucose 107 POC Glucose 119 H 118 H Calculated Osmolal ity 282 L Calcium 8.5 Phosphorus 2.2 L Magnesium 1.7 Total Bilirubin 0.4 AST 15 ALT 19 Alkaline Phosphata se 137 H Total Protein 5.8 L Albumin 3.2 L Globulin 2.6 06/19/21 06/18/21 06/18/21 04:10 20:03 18:19 WBC 3.3 L RBC 3.30 L Hgb 9.4 L Hct 28.3 L MCV 85.8 MCH 28.5 MCHC 33.2 D RDW 13.7 Plt Count 147 MPV 10.2 Neut % (Auto) 58.9 Lymph % (Auto) 24.9 [place] % (Auto) 9.0 Eos % (Auto) 6.0 Baso % (Auto) 0.9 Neut # (Auto) 1.96 Lymph # (Auto) 0.8 [place] # (Auto) 0.3 Eos # (Auto) 0.2 Baso # (Auto) 0.0 Nucleated RBC % (a uto) 0 Nucleated RBCs # 0.0 Sodium Potassium Chloride Carbon Dioxide Anion Gap BUN Creatinine GFR Calculation Glucose POC Glucose 130 H 124 H Calculated Osmolal ity Calcium Phosphorus Magnesium Total Bilirubin AST ALT Alkaline Phosphata se Total Protein Albumin Globulin Vitals: Last Vital Signs Temp 97.5 F L 06/19/21 15:08 Pulse 105 H 06/19/21 15:08 Resp 17 06/19/21 15:08 BP 156/74 06/19/21 15:08 Pulse Ox 98 06/19/21 15:08 Discharge Plan Discharge Patient Disposition: Xfer SNF Condition: Stable Prescriptions: New fluconazole 200 mg tablet 200 mg PO DAILY 5 Days Qty: 5 RF: 0 Continued chlorpheniramine maleate 4 mg tablet 4 mg PO Q6H PRN (Reason: Allergy Symptoms) RF: 0 amitriptyline 25 mg tablet 25 mg PO DAILY@19 RF: 0 bisacodyl 10 mg suppository 10 mg ME DAILY PRN (Reason: Constipation) RF: 0 carica papaya Tablet 3 tab PO .AFTER MEAL PRN (Reason: UNKNOWN) RF: 0 cholecalciferol (vitamin D3) 25 mcg (1,000 unit) capsule 75 mcg PO DAILY@07 RF: 0 clotrimazole-betamethasone 1-0.05 % cream 1 applic topical BID PRN (Reason: Rash) RF: 0 cranberry fruit 450 mg tablet 900 mg PO DAILY@07 RF: 0 rosuvastatin [Crestor] 5 mg tablet 5 mg PO DAILY@20 RF: 0 Enema Disposable 19-7 gram/118 mL enema 118 ml ME DAILY PRN (Reason: Constipation) RF: 0 gentian nikolas 1 % solution 1 applic topical . ON AND TUE RF: 0 lisinopril 20 mg tablet 20 mg PO BID@, RF: 0 omega-3 acid ethyl esters [Lovaza] 1 gram capsule 1 cap PO BID@, RF: 0 metformin 850 mg tablet 850 mg PO BID@,16 RF: 0 metoprolol succinate 25 mg tablet extended release 24 hr 25 mg PO DAILY@07 RF: 0 magnesium hydroxide [Milk of Magnesia] 400 mg/5 mL suspension 30 ml PO DAILY PRN (Reason: Constipation) RF: 0 pseudoephedrine HCl 60 mg tablet 60 mg PO Q4H PRN (Reason: Congestion) RF: 0 Thera-Tabs Tablet 1 tab PO DAILY@07 RF: 0 tizanidine 4 mg capsule 4 mg PO BID@,14 RF: 0 ascorbate calcium (vitamin C) 500 mg tablet 500 mg PO BID@, RF: 0 levocetirizine [Xyzal] 5 mg tablet 5 mg PO DAILY@07 RF: 0 Ozempic 0.25 mg or 0.5 mg(2 mg/1.5 mL) pen injector 0.5 mg SUBCUT Q7D RF: 0 amlodipine [Norvasc] 5 mg tablet 5 mg PO DAILY@07 RF: 0 Celexa 20 mg Tablet 20 mg PO DAILY@07 RF: 0 cyanocobalamin (vitamin B-12) 1,000 mcg/mL Solution 1,000 mcg IM Q30D RF: 0 levothyroxine 125 mcg Tablet 125 mcg PO DAILY@05 RF: 0 Humalog KwikPen Insulin 100 unit/mL insulin pen See Rx Instructions .ROUTE .COMPLEX RF: 0 bupropion HCl 150 mg tablet extended release 24 hr 150 mg PO DAILY@07 RF: 0 Farxiga 10 mg tablet 10 mg PO DAILY@08 RF: 0 ondansetron HCl 8 mg Tablet 8 mg PO TID PRN (Reason: Nausea And Vomiting) RF: 0 bisacodyl 5 mg Tablet 10 mg PO DAILY PRN (Reason: Constipation) RF: 0 tizanidine 4 mg Tablet 4 mg PO TID PRN (Reason: Muscle Spasm) RF: 0 Held ibuprofen 800 mg tablet 800 mg PO Q6H PRN (Reason: Pain) RF: 0 Hold Instructions: see pcp loperamide 2 mg capsule See Rx Instructions .ROUTE .COMPLEX RF: 0 Hold Instructions: see pcp indapamide 2.5 mg tablet 2.5 mg PO DAILY@07 RF: 0 Hold Instructions: see PCP sulfamethoxazole-trimethoprim 800-160 mg tablet 1 tab PO BID RF: 0 Hold Instructions: see pcp Discharge Orders: Discharge Order (Routine); Ordered 06/19/21 Ordered By: Gissel Sanches Referrals: [facility] [Outside] Darryl Hogan MD [Physician] - 7-10 days Barry Rangel MD [Primary Care Provider] - 06/24/21 2:00 pm (You have a hospital followup with Dr. Rangel at [facility] on June 24 at 2:00pm) Discharge Diet: Diabetic and Low Salt Discharge Activity: Resume usual activity Patient Instructions: Fluconazole (By mouth) (Diflucan), Acute Kidney Injury (DC), Urinary Tract Infection in Men (DC) Activity Restrictions/Additional Instructions: Milan to be removed at longterm as per pt request. Discharge Attestations Time Spent in Discharge Care*: less than 30 min Quality Metrics Clinical Quality Measures During this hospital stay, did patient experience: None Coding Level of Care Code Acute Chg FW DC note Diagnoses Urinary tract infection N39.0 Diarrhea R19.7 Acute hyperkalemia E87.5 Acute kidney failure N17.9 Acute dehydration E86.0 Left renal mass N28.89 Urinary retention R33.9 Neurogenic bladder N31.9
--- NOTE | 2021-06-19 20:03 | PC.NURSE ---
Still awaiting [facility] transport.
[2021-06-19 20:19] LABS: Glucose Point of Care 178 mg/dL (70-110)
--- NOTE | 2021-06-19 22:59 | PC.NURSE ---
Addendum entered by Barbra uHdson RN 06/19/21 22:59: IV removed and report called to [facility] by day shift nurse. Original Note: Patient left via stretcher with Osei Baltazar.
== END 2021-06-19 23:00 | disposition skilled nursing facility (03) | DRG 683 ==
LOC: ER 22:33 → ICU 23:37 → CSU 06-18 15:22
PROVIDERS: Internal Medicine Nephrology; Admitting Provider Internal Medicine; Emergency Provider Emergency Medicine; PCP Family Medicine; Visit Provider Internal Medicine
DX: N17.9 Acute kidney failure, unspecified (principal); N39.0 Urinary tract infection, site not specified; B37.49 Other urogenital candidiasis; E87.5 Hyperkalemia; G35 Multiple sclerosis; Z87.440 Personal history of urinary (tract) infections; N31.9 Neuromuscular dysfunction of bladder, unspecified; E86.0 Dehydration; I10 Essential (primary) hypertension; F32.9 Major depressive disorder, single episode, unspecified; E55.9 Vitamin D deficiency, unspecified; E11.9 Type 2 diabetes mellitus without complications; E78.5 Hyperlipidemia, unspecified; Z74.01 Bed confinement status; Z79.4 Long term (current) use of insulin; Z79.84 Long term (current) use of oral hypoglycemic drugs; D64.9 Anemia, unspecified; Z88.0 Allergy status to penicillin; N28.9 Disorder of kidney and ureter, unspecified
CPT/HCPCS: 36415; 36416; 36600; 51702; 71045; 76770; 80053; 81001; 81003; 82306; 82310; 82436; 82533; 82550; 82803; 82962; 83605; 83735; 83970; 84100; 84133; 84300; 84443; 84550; 85025; 87040; 87086; 87106; 93005; 94640; 96361; 96372; 96374; 97110; 97162; 97165; 99285; J0610; J0743; J1450; J1644; J1815; J2405; J3490; J3535; J7030; Q3014

== ENCOUNTER 2021-06-25 17:02 | Outpatient (CLI) | payer MEDICARE, MEDICAID, SELFPAY ==
[2021-06-25 17:19] LABS: Basophils % 0.3 %; Eosinophils # 0.2 10^3/uL (0.0-0.8); Eosinophils % 2.8 %; Hemoglobin 9.5 g/dL (11.7-16.6); Lymphocytes % 17.6 %; Mean Corpuscular HGB Conc 33.9 g/dL (30.0-36.0); Mean Corpuscular Hemoglobin 29.6 pg (28.0-34.0); Mean Corpuscular Volume 87.2 fl (80-94); Mean Platelet Volume 9.6 fL (7.4-10.4); Monocytes # 0.5 10^3/uL (0.2-0.9); Monocytes % 8.6 %; Neutrophils # 4.02 10^3/uL (1.8-7.7); Neutrophils % 70.2 %; Nucleated Red Blood Cells % 0 %; Platelet Count 241 10^3/cmm (130-400); Red Blood Count 3.21 10^6/uL (4.1-5.3); Red Cell Distribution Width 13.9 % (12.1-15.1); White Blood Count 5.7 10^3/uL (4.0-10.0)
[2021-06-25 18:00] LABS: Blood Urea Nitrogen 22 mg/dL (8-23); Calcium 8.6 mg/dL (8.5-10.5); Carbon Dioxide 22 mmol/L (22-29); Chloride 98 mmol/L (98-107); Glomerular Filtration Rate 61.1 mL/min (90-130); Glucose 100 mg/dL (65-115); Osmolality Calculated 273 mOsm/kg (285-295); Sodium 130 mmol/L (136-145)
[2021-06-26 08:03] LABS: Phosphorus 3.2 mg/dL (2.5-4.5)
== END 2021-06-25 17:03 | disposition home or self-care (01) ==
LOC: LAB 17:06
PROVIDERS: PCP Family Medicine; Visit Provider Family Medicine
DX: Z01.89 Encounter for other specified special examinations (principal)
CPT/HCPCS: 80048; 84100; 85025

== ENCOUNTER 2021-06-28 10:52 | Emergency (ER) | payer MEDICARE, MEDICAID, SELFPAY ==
[2021-06-28 10:57] VITALS: BP 119/66; PULSE 71; RESP 18; TEMP 36.7; O2SAT 100; BMI 25.2
[2021-06-28 11:05] VITALS: BP 119/66; PULSE 71; RESP 16; O2SAT 100
--- NOTE | 2021-06-28 11:09 | ED_ITS ---
HPI - Male Genitourinary General: Chief complaint: Urogenital-Male Stated complaint: CATH ISSUES Time Seen by Provider: 06/28/21 11:06 History of Present Illness: HPI Narrative: Patient arrived via ambulance with complaint unable to straight cath today. Patient has had to straight cath straight cath or had a Milan for the last 7 years. Complaint: other (Urinary retention) Onset (ago): hour(s) Duration: constant Review of Systems Const: Denies: fever(s) or chills : Reports: difficulty urinating (Attempted straight cath x2 today without success, had Milan up to 2 weeks a); Denies: flank pain Skin/Breast: Denies: rash or pruritus PFSH ED PFSH: Medical History History of UTI Left renal mass Multiple sclerosis Neurogenic bladder Urinary retention Surgical History History of adenoidectomy History of appendectomy History of cholecystectomy History of elbow surgery History of tonsillectomy History of vasectomy Family History Mother , at age 75 from natural caused No problems noted. Social History Alcohol intake: never Marital status: Current occupational status: disabled History of recent travel: No Physical Exam Const: COMMON NORMALS: no acute distress GENERAL APPEARANCE: cooperative GI: COMMON NORMALS: Normal to inspection, nondistended, normoactive bowel sounds present OTHER: Some discomfort on palpation suprapubic area Skin: COMMON NORMALS: no rashes or lesions noted GENERAL SKIN EXAM: no rashes or lesions noted Course Vital Signs: Vital signs: Vital Signs Temperature 98.1 F 06/28/21 10:57 Pulse Rate 71 06/28/21 11:05 Respiratory Rate 16 06/28/21 11:05 Blood Pressure 119/66 06/28/21 11:05 Pulse Oximetry 100 06/28/21 11:05 MDM - Male Lab Data: Labs: Lab Results 06/28/21 11:30 Urine Color Yellow (Yellow) Urine Appearance Cloudy (CLEAR) Urine pH 9 H (5-7) Ur Specific Gravit y 1.015 (1.005-1.030) Urine Protein Trace (Negative) Urine Glucose (UA) 4+ H (Normal) Urine Ketones Negative (Negative) Urine Blood 2+ H (Negative) Urine Nitrate Negative (Negative) Prot Sulfosalicyli c Acd Positive (Negative) Urine Urobilinogen Norm mg/dL mg/dL (Negative) Ur Leukocyte Kelly ase 1+ H (Negative) Urine RBC None /hpf /hpf (0-2) Urine WBC 25-40 /hpf H /hpf (0-5) Ur Squamous Epith Cells None /hpf /hpf (0-5) Amorphous Sediment Not Reportable Urine Bacteria 4+ /hpf H /hpf (NONE) Discharge Plan Discharge Patient Disposition: er [facility] Clinical Impression: Acute retention of urine, Chronic UTI Condition: Stable Discharge Orders: Discharge ED (Routine); Ordered 06/28/21 Ordered By: Diogenes Wood Referrals: Barry Rangel MD [Primary Care Provider] - Discharge Diet: Usual diet Discharge Activity: Resume usual activity Patient Instructions: Urinary Tract Infection in Men (ED), Milan Catheter Placement and Care (ED) Activity Restrictions/Additional Instructions: Discuss further care of Milan and urine retention with your primary care provider. Repeat urinalysis in the next week. Coding Level of Care Code ED Resistor Tester for Lisyg Fwd Exam Expanded Problem Focused
[2021-06-28 12:00] LABS: Blood Urine 2+ (Negative); Glucose Urine UA 4+ (Normal); Ketones Urine Negative (Negative); Protein Urine Trace (Negative); Specific Gravity, Urine 1.015 (1.005-1.030); Urine Appearance Cloudy (CLEAR); Urine Color Yellow (Yellow); pH Urine 9 (5-7)
[2021-06-28 12:01] LABS: Nitrate Urine Negative (Negative)
--- NOTE | 2021-06-28 12:05 | PC.NURSE ---
Report from [facility] Thapa. awaiting results
[2021-06-28 12:06] LABS: Add Urine Microscopic? YES; Leukocyte Esterase Urine 1+ (Negative); Sulfosalicylic Acid Urine Positive (Negative); Urobilinogen Urine Norm (Negative)
[2021-06-28 12:08] LABS: WBC Urine 25-40 /hpf (0-5)
[2021-06-28 12:09] LABS: Add Urine Culture? Yes; Bacteria Urine 4+ /hpf
--- NOTE | 2021-06-28 12:12 | PC.NURSE ---
verified with provider to arrange for pt's ride home
--- NOTE | 2021-06-28 12:36 | PC.NURSE ---
[employer] Trip #[id number] with [facility].
[2021-06-28 12:38] LABS: Bilirubin Urine Neg (Negative)
[2021-06-28] MEDS: nitrofurantoin SR (BID) 100 mg Capsule PO (12:49)
[2021-06-28 13:01] VITALS: BP 118/76; PULSE 71; RESP 16; TEMP 36.7; O2SAT 100
[2021-06-28 14:01] VITALS: BP 123/63; PULSE 74; RESP 18; O2SAT 100
[2021-06-28 14:18] VITALS: BP 123/63; PULSE 74; RESP 18; O2SAT 100
== END 2021-06-28 14:20 ==
PROVIDERS: Emergency Provider Nurse Practitioner Family; PCP Family Medicine
DX: N39.0 Urinary tract infection, site not specified (principal); R33.9 Retention of urine, unspecified; Z87.440 Personal history of urinary (tract) infections; G35 Multiple sclerosis
CPT/HCPCS: 51702; 81001; 87077; 87086; 87186; 99283

== ENCOUNTER 2021-12-28 12:05 | Emergency (ER) | payer MEDICARE, MEDICAID, SELFPAY ==
--- NOTE | 2021-12-28 12:25 | W.ED.GENADLT ---
HPI - General Adult General: Chief complaint: Urogenital-Male Stated complaint: BLADDER DISTENTION Time Seen by Provider: 12/28/21 12:06 Source: patient and EMS Mode of arrival: EMS Limitations: no limitations History of Present Illness: 66-year-old male who is here from local residential patient has history of having a chronic Milan catheter they state they were not able to flush it today stated removed and has not been able to get it replaced and he has been having bladder pain and distention and has not been able to urinate all day. States pain is sharp in nature rates it a 5 out of 10 denies any fevers edema states is also been hypotension as well. Associated symptoms: Deny chest pain, dyspnea, headache(s) or rash Review of Systems Const: Denies: fever(s), chills, body aches or change in appetite Eyes: Denies: blurry vision or eye discomfort ENMT: Denies: throat pain or dental pain Card: Denies: chest pain Resp: Denies: dyspnea GI: Reports: abdominal pain : Denies: dysuria Musc: Denies: neck pain or back pain Skin/Breast: Denies: rash Neuro: Denies: headache(s) Psych: Denies: depression Sebas/Lymph: Denies: easy bruising All/Imm: Denies: urticaria PFSH ED PFSH: Medical History History of UTI Left renal mass Multiple sclerosis Neurogenic bladder Urinary retention Surgical History History of adenoidectomy History of appendectomy History of cholecystectomy History of elbow surgery History of tonsillectomy History of vasectomy Family History Mother , at age 75 from natural caused No problems noted. Social History Alcohol intake: never Marital status: Current occupational status: disabled History of recent travel: No Physical Exam Const: COMMON NORMALS: patient oriented x3 HENMT: COMMON NORMALS: normocephalic and atraumatic HEAD & SCALP: normocephalic and atraumatic Eye: COMMON NORMALS: Equal, round and reactive pupils present and EOMs intact bilaterally PUPIL: Yes Equal, round and reactive pupils present Neck/C-Spine: COMMON NORMALS: full ROM and supple Chest: COMMONS NORMALS: normal inspection of the chest and normal palpation of entire chest wall Resp: COMMON NORMALS: normal respiratory effort, No retractions, No use of accessory muscles and clear to auscultation bilaterally AUSCULTATION: clear to auscultation bilaterally Cardio: COMMON NORMALS: regular rate, regular rhythm and No murmurs present (Cardio) RATE: regular rate RHYTHM: regular rhythm GI: COMMON NORMALS: Normal to inspection, nondistended, normoactive bowel sounds present, Soft to palpation, non-tender and no masses PALPATION: Yes Soft to palpation Extremity: COMMON NORMALS: normal to inspection and full ROM Neuro: COMMON NORMALS: patient oriented x3, moves all extremities and no focal motor deficits Psych: COMMON NORMALS: mental status grossly normal, Normal thought process present and cooperative THOUGHT PROCESS: Normal thought process present Skin: COMMON NORMALS: no rashes or lesions noted and no wounds GENERAL SKIN EXAM: no rashes or lesions noted Course Vital Signs: Vital signs: Vital Signs Temperature 97.8 F 12/28/21 13:11 Pulse Rate 66 12/28/21 15:09 Respiratory Rate 17 12/28/21 15:09 Blood Pressure 122/75 12/28/21 15:09 Pulse Oximetry 98 12/28/21 15:09 [facility] - General Adult Medical Decision Making Patient does present here with urinary retention he does have dehydration as well. He has mild hyperkalemia is likely due to his dehydration is improved with 2 L of fluids his blood pressure is much improved as well he feels improved and would like to go home I feel he is stable for discharge back to the residential return if worsening. Lab Data : 12/28/21 11:25 12/28/21 15:02 Laboratory Results WBC 5.2 10^3/uL (4.0-10.0) 12/28/21 11:25 RBC 4.46 10^6/uL (4.1-5.3) 12/28/21 11:25 Hgb 12.5 g/dL (11.7-16.6) 12/28/21 11:25 Hct 42.3 % (42.0-52.0) 12/28/21 11:25 MCV 94.8 fl (80-94) H 12/28/21 11:25 MCH 28.0 pg (28.0-34.0) 12/28/21 11: MCHC 29.6 g/dL (30.0-36.0) L 12/28/21 11:25 RDW 14.2 % (12.1-15.1) 12/28/21 11:25 Plt Count 209 10^3/cmm (130-400) 12/28/21 11:25 MPV 9.4 fL (7.4-10.4) 12/28/21 11:25 Neut % (Auto) 70.9 % 12/28/21 11:25 Lymph % (Auto) 14.1 % 12/28/21 11:25 [place] % (Auto) 9.1 % 12/28/21 11:25 Eos % (Auto) 4.7 % 12/28/21 11:25 Baso % (Auto) 0.4 % 12/28/21 11:25 Neut # (Auto) 3.66 10^3/uL (1.8-7.7) 12/28/21 11:25 Lymph # (Auto) 0.7 10^3/uL (0.8-4.8) L 12/28/21 11:25 [place] # (Auto) 0.5 10^3/uL (0.2-0.9) 12/28/21 11:25 Eos # (Auto) 0.2 10^3/uL (0.0-0.8) 12/28/21 11:25 Baso # (Auto) 0.0 10^3/uL (0.0-0.1) 12/28/21 11:25 Nucleated RBC % (auto) 0 % 12/28/21 11:25 Nucleated RBCs # 0.0 /100WBC 12/28/21 11:25 Sodium 133 mmol/L (136-145) L 12/28/21 15:02 Potassium 5.5 mmol/L (3.5-5.1) H 12/28/21 15:02 Chloride 105 mmol/L (98-107) 12/28/21 15:02 Carbon Dioxide 20 mmol/L (22-29) L 12/28/21 15:02 Anion Gap 13.5 (5-19) 12/28/21 15:02 BUN 48 mg/dL (8-23) H 12/28/21 15:02 Creatinine 1.4 mg/dL (0.7-1.2) H 12/28/21 15:02 GFR Calculation 51.0 mL/min (90-130) L 12/28/21 15:02 Glucose 87 mg/dL (65-115) 12/28/21 15:02 Calculated Osmolality 288 mOsm/kg (285-295) 12/28/21 15:02 Lactate 1.1 mmol/L (0.5-2.2) 12/28/21 11:32 Calcium 8.5 mg/dL (8.5-10.5) 12/28/21 15:02 Total Bilirubin 0.3 mg/dL (0.15-1.2) 12/28/21 11:25 AST 17 U/L (0-40) 12/28/21 11:25 ALT 20 U/L (0-41) 12/28/21 11:25 Alkaline Phosphatase 129 IU/L (40-130) 12/28/21 11:25 Total Protein 6.5 g/dL (6.6-8.7) L 12/28/21 11:25 Albumin 3.2 g/dL (3.5-5.2) L 12/28/21 11:25 Globulin 3.3 g/dL (1.3-4.6) 12/28/21 11:25 Urine Color [place] (Yellow) 12/28/21 12:36 Urine Appearance Turbid (CLEAR) 12/28/21 12:36 Urine pH 8 (5-7) H 12/28/21 12:36 Ur Specific [place] 1.010 (1.005-1.030) 12/28/21 12:36 Urine Protein 2+ (Negative) H 12/28/21 12:36 Urine Glucose (UA) 2+ (Normal) H 12/28/21 12:36 Urine Ketones Negative (Negative) 12/28/21 12:36 Urine Blood 3+ (Negative) H 12/28/21 12:36 Urine Nitrate Negative (Negative) 12/28/21 12:36 Urine Bilirubin Neg (Negative) 12/28/21 12:36 Prot Sulfosalicylic Acd Positive (Negative) 12/28/21 12:36 Urine Urobilinogen Norm mg/dL (Negative) 12/28/21 12:36 Ur Leukocyte Esterase 2+ (Negative) H 12/28/21 12:36 Urine RBC Too numerous to cnt /hpf (0-2) H 12/28/21 12:36 Urine WBC Too numerous to cnt /hpf (0-5) H 12/28/21 12:36 Ur Squamous Epith Cells 0-4 /hpf (0-5) H 12/28/21 12:36 Amorphous Sediment Not Reportable 12/28/21 12:36 Urine Bacteria 1+ /hpf (NONE) H 12/28/21 12:36 Discharge Plan Discharge Patient Disposition: Home Clinical Impression: Acute urinary retention, Acute cystitis Condition: Stable Prescriptions: New cephalexin 500 mg capsule 500 mg PO TID 7 Days Qty: 21 0RF No Action chlorpheniramine maleate 4 mg tablet 4 mg PO Q6H PRN (Reason: Allergy Symptoms) 0RF amitriptyline 25 mg tablet 25 mg PO DAILY@19 0RF bisacodyl 10 mg suppository 10 mg MS DAILY PRN (Reason: Constipation) 0RF Rx Instructions: IF NO RESULTS FROM MOM carica papaya Tablet 3 tab PO .AFTER MEAL PRN (Reason: UNKNOWN) 0RF cholecalciferol (vitamin D3) 25 mcg (1,000 unit) capsule 75 mcg PO DAILY@07 0RF clotrimazole-betamethasone 1-0.05 % cream 1 applic topical BID PRN (Reason: Rash) 0RF Rx Instructions: APPLY TO YEAST RASH TO LEFT BUTTOCK PRN cranberry fruit 450 mg tablet 900 mg PO DAILY@07 0RF Rx Instructions: administer with a meal rosuvastatin [Crestor] 5 mg tablet 5 mg PO DAILY@20 0RF Enema Disposable 19-7 gram/118 mL enema 118 ml MS DAILY PRN (Reason: Constipation) 0RF gentian nikolas 1 % solution 1 applic topical . ON TU AND TUE 0RF ibuprofen 800 mg tablet 800 mg PO Q6H PRN (Reason: Pain) 0RF Hold Instructions: see pcp loperamide 2 mg capsule See Rx Instructions .ROUTE .COMPLEX 0RF Hold Instructions: see pcp Rx Instructions: 2 TABS PO AFTER 1ST loose stool THEN ONE CAP PRN THEREAFTER MAX 8 TABS PER DAY indapamide 2.5 mg tablet 2.5 mg PO DAILY@07 0RF Hold Instructions: see PCP lisinopril 20 mg tablet 20 mg PO BID@,19 0RF omega-3 acid ethyl esters [Lovaza] 1 gram capsule 1 cap PO BID@, 0RF metformin 850 mg tablet 850 mg PO BID@,16 0RF metoprolol succinate 25 mg tablet extended release 24 hr 25 mg PO DAILY@07 0RF magnesium hydroxide [Milk of Magnesia] 400 mg/5 mL suspension 30 ml PO DAILY PRN (Reason: Constipation) 0RF Rx Instructions: IF NO BM FOR 3 DAYS pseudoephedrine HCl 60 mg tablet 60 mg PO Q4H PRN (Reason: Congestion) 0RF Thera-Tabs Tablet 1 tab PO DAILY@07 0RF tizanidine 4 mg capsule 4 mg PO BID@, 0RF ascorbate calcium (vitamin C) 500 mg tablet 500 mg PO BID@, 0RF levocetirizine [Xyzal] 5 mg tablet 5 mg PO DAILY@07 0RF Ozempic 0.25 mg or 0.5 mg(2 mg/1.5 mL) pen injector 0.5 mg SUBCUT Q7D 0RF Rx Instructions: ON TUESDAY AT 05:00 amlodipine [Norvasc] 5 mg tablet 5 mg PO DAILY@07 0RF methenamine hippurate 1 gram tablet 1 g PO BID 0RF sulfamethoxazole-trimethoprim 800-160 mg tablet 1 tab PO BID 0RF Hold Instructions: see pcp Rx Instructions: MAR HAS DC DATE 06/16/21 Celexa 20 mg Tablet 20 mg PO DAILY@07 0RF cyanocobalamin (vitamin B-12) 1,000 mcg/mL Solution 1,000 mcg IM Q30D 0RF Rx Instructions: ON THE 2ND OF EACH MONTH levothyroxine 125 mcg Tablet 125 mcg PO DAILY@05 0RF Humalog KwikPen Insulin 100 unit/mL insulin pen See Rx Instructions .ROUTE .COMPLEX 0RF Rx Instructions: SLIDING SCALE BID AT 05:00 AND 20:00 IF BLOOD SUGAR LESS THAN 70 CALL MD 150-200=0 UNITS 201-250=2 UNITS 251-300=4 UNITS 301-350=6 UNITS 351-400=8 UNITS IF BLOOD SUGAR IS GREATER THAN 400 GIVE 8 UNITS bupropion HCl 150 mg tablet extended release 24 hr 150 mg PO DAILY@07 0RF Farxiga 10 mg tablet 10 mg PO DAILY@08 0RF ondansetron HCl 8 mg Tablet 8 mg PO TID PRN (Reason: Nausea And Vomiting) 0RF bisacodyl 5 mg Tablet 10 mg PO DAILY PRN (Reason: Constipation) 0RF Rx Instructions: IF NO RESULTS FROM MOM tizanidine 4 mg Tablet 4 mg PO TID PRN (Reason: Muscle Spasm) 0RF Discharge Orders: Discharge ED (Routine); Ordered 12/28/21 Ordered By: Miguel Ferguson Referrals: Barry Rangel MD [Primary Care Provider] - 1-3 days Discharge Diet: Advance as tolerated Discharge Activity: Resume usual activity Patient Instructions: Urinary Retention in Men (ED) Coding Level of Care Code ED Contract Administrative Assistant for Chg Fwd Exam Comprehensive
[2021-12-28 12:32] LABS: Basophils % 0.4 %; Eosinophils # 0.2 10^3/uL (0.0-0.8); Eosinophils % 4.7 %; Hematocrit 42.3 % (42.0-52.0); Hemoglobin 12.5 g/dL (11.7-16.6); Lymphocytes # 0.7 10^3/uL (0.8-4.8); Lymphocytes % 14.1 %; Mean Corpuscular HGB Conc 29.6 g/dL (30.0-36.0); Mean Corpuscular Volume 94.8 fl (80-94); Mean Platelet Volume 9.4 fL (7.4-10.4); Monocytes # 0.5 10^3/uL (0.2-0.9); Monocytes % 9.1 %; Neutrophils # 3.66 10^3/uL (1.8-7.7); Neutrophils % 70.9 %; Nucleated Red Blood Cells % 0 %; Platelet Count 209 10^3/cmm (130-400); Red Blood Count 4.46 10^6/uL (4.1-5.3); Red Cell Distribution Width 14.2 % (12.1-15.1); White Blood Count 5.2 10^3/uL (4.0-10.0)
[2021-12-28] MEDS: sodium chloride 0.9% 1,000 ML 999 ML IV ×2 (12:36→13:33)
[2021-12-28 12:50] LABS: Urine Appearance Turbid (CLEAR); Urine Color Orange (Yellow)
[2021-12-28 12:51] LABS: Add Urine Microscopic? YES; Blood Urine 3+ (Negative); Glucose Urine UA 2+ (Normal); Ketones Urine Negative (Negative); Leukocyte Esterase Urine 2+ (Negative); Nitrate Urine Negative (Negative); Protein Urine 2+ (Negative); RBC Urine TOO NUMEROUS TO CNT /hpf (0-2); Sulfosalicylic Acid Urine Positive (Negative); Urobilinogen Urine Norm (Negative); pH Urine 8 (5-7)
[2021-12-28 12:52] LABS: Add Urine Culture? Yes; Bacteria Urine 1+ /hpf; Squamous Epithelial Cell Urine 0-4 /hpf (0-5); WBC Urine TOO NUMEROUS TO CNT /hpf (0-5)
[2021-12-28 13:00] VITALS: BP 106/58; PULSE 71; RESP 16; O2SAT 97
[2021-12-28 13:04] LABS: Alanine Aminotransferase 20 U/L (0-41); Albumin Level 3.2 g/dL (3.5-5.2); Alkaline Phosphatase 129 IU/L (40-130); Anion Gap 17.8 (5-19); Aspartate Amino Transferase 17 U/L (0-40); Blood Urea Nitrogen 51 mg/dL (8-23); Calcium 8.9 mg/dL (8.5-10.5); Carbon Dioxide 15 mmol/L (22-29); Chloride 101 mmol/L (98-107); Globulin 3.3 g/dL (1.3-4.6); Glomerular Filtration Rate 43.7 mL/min (90-130); Glucose 158 mg/dL (65-115); Osmolality Calculated 283 mOsm/kg (285-295); Potassium 5.8 mmol/L (3.5-5.1); Sodium 128 mmol/L (136-145); Total Bilirubin 0.3 mg/dL (0.15-1.2); Total Protein 6.5 g/dL (6.6-8.7)
[2021-12-28 13:05] LABS: Lactate (Lactic Acid level) 1.1 mmol/L (0.5-2.2)
[2021-12-28] MEDS: cefTRIAXone 1,000 MG in sodium chloride 0.9% (plus) 50 ML 100 MG IV (13:05)
[2021-12-28 13:11] VITALS: BP 72/53; PULSE 74; RESP 21; TEMP 36.6; O2SAT 100; BMI 23.7
[2021-12-28 13:14] LABS: Bilirubin Urine Neg (Negative)
--- NOTE | 2021-12-28 13:14 | PC.NURSE ---
Triage assessment completed at 12:10, documented in computer at 1311.
[2021-12-28 15:09] VITALS: BP 122/75; PULSE 66; RESP 17; O2SAT 98
[2021-12-28 15:31] LABS: Anion Gap 13.5 (5-19); Blood Urea Nitrogen 48 mg/dL (8-23); Calcium 8.5 mg/dL (8.5-10.5); Carbon Dioxide 20 mmol/L (22-29); Chloride 105 mmol/L (98-107); Glucose 87 mg/dL (65-115); Osmolality Calculated 288 mOsm/kg (285-295); Potassium 5.5 mmol/L (3.5-5.1); Sodium 133 mmol/L (136-145)
== END 2021-12-28 15:33 | disposition home or self-care (01) ==
PROVIDERS: Emergency Provider Emergency Medicine; PCP Family Medicine
DX: N30.00 Acute cystitis without hematuria (principal); R33.8 Other retention of urine; E86.0 Dehydration; E87.5 Hyperkalemia; G35 Multiple sclerosis; N31.9 Neuromuscular dysfunction of bladder, unspecified; I95.9 Hypotension, unspecified; Z87.440 Personal history of urinary (tract) infections; Z96.0 Presence of urogenital implants
CPT/HCPCS: 51702; 80048; 80053; 81001; 83605; 85025; 87077; 87086; 87186; 96361; 96365; 99284; J0696; J7030

== ENCOUNTER → 2022-01-19 15:29 | Outpatient (BNVA) | payer MEDICARE, MEDICAID, SELFPAY | PROVIDERS: PCP Family Medicine; Visit Provider Urology | DX: R31.0 Gross hematuria (principal); N31.9 Neuromuscular dysfunction of bladder, unspecified; G35 Multiple sclerosis | CPT/HCPCS: 99213 ==

== ENCOUNTER 2022-01-21 13:25 | Emergency (ER) | payer MEDICARE, MEDICAID, SELFPAY ==
[2022-01-21 13:30] VITALS: BP 153/77; PULSE 75; RESP 17; TEMP 36.4; O2SAT 99; BMI 24.9
--- NOTE | 2022-01-21 13:33 | ECG_ITS ---
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 Measurements Intervals [place] Rate: 70 P: 190 MI: 221 QRS: 187 QRSD: 90 T: 123 QT: 384 QTc: 416 Interpretive Statements Reversal of lead I and aVL Possible sinus rhythm. Defective EKG. Need to repeat Electronically Signed On 01-22-2022 5:47:20 CDT by Neville Bobo M.D. [email or web address]
--- NOTE | 2022-01-21 13:48 | ED_ITS ---
HPI - Recheck/Abnormal Lab/Rx General: Chief Complaint: Recheck/Abnormal Lab/Rx Stated Complaint: abnormal lab Time Seen by Provider: 01/21/22 13:32 History of Present Illness: 66-year-old male presents for recheck labs with concerns for high potassium. Patient sent in by the senior care since his potassium was high. Patient was just having a basic lab drawn and found to have a potassium of 6.6. Patient denies any symptoms. Patient's had a prior episode of hyperkalemia. Patient is a senior care patient due to MS, neurogenic bladder and lower extremity weakness, he is bedbound. Patient was not sure exactly why he was here. No other systemic complaints Review of Systems Const: Denies: fever(s) or chills Card: Denies: chest pain, palpitations or irregular heart rhythm Resp: Denies: dyspnea or productive cough GI: Denies: abdominal pain, nausea or vomiting : Reports: other (Chronic catheter, no acute changes) Musc: Reports: other (No acute changes) Neuro: Denies: headache(s) or dizziness PFSH ED PFSH: Medical History History of UTI Left renal mass Multiple sclerosis Neurogenic bladder Urinary retention Surgical History History of adenoidectomy History of appendectomy History of cholecystectomy History of elbow surgery History of tonsillectomy History of vasectomy Family History Mother , at age 75 from natural caused No problems noted. Social History Smoking and tobacco status: former smoker Alcohol intake: never Marital status: Current occupational status: disabled History of recent travel: No Physical Exam Const: COMMON NORMALS: no acute distress, average body habitus and patient oriented x3 HENMT: COMMON NORMALS: normocephalic and atraumatic HEAD & SCALP: normocephalic and atraumatic Resp: COMMON NORMALS: normal respiratory effort, No retractions and No use of accessory muscles EFFORT & INSPECTION: Yes able to speak in complete sentences Cardio: COMMON NORMALS: regular rate and regular rhythm RATE: regular rate RHYTHM: regular rhythm GI: COMMON NORMALS: Soft to palpation and non-tender PALPATION: Yes Soft to palpation : OTHER: Chronic catheter with clear urine in leg bag Neuro: COMMON NORMALS: patient oriented x3 Psych: COMMON NORMALS: mental status grossly normal, Normal thought process present and cooperative THOUGHT PROCESS: Normal thought process present Course Vital Signs: Vital signs: Vital Signs Temperature 97.6 F 01/21/22 13:30 Pulse Rate 75 01/21/22 13:30 Respiratory Rate 17 01/21/22 13:30 Blood Pressure 153/77 01/21/22 13:30 Pulse Oximetry 99 01/21/22 13:30 MDM - Recheck/Abnormal Lab/Rx Medical Decision Making Patient with a mild elevation of potassium. When he was discharged from the hospital recently his potassium was 5.5. It is 5.7 today. Patient was checked in outside lab where it was concerns it was 6.6. I do suspect it was likely hemolyzed. Patient is mildly dehydrated. I will give him a liter of IV fluids. Patient can be discharged home with a repeat potassium by his primary care provider in a couple days. Patient stable upon discharge Lab Data : 01/21/22 13:20 01/21/22 14:40 Laboratory Results WBC 6.9 10^3/uL (4.0-10.0) 01/21/22 13:20 RBC 5.05 10^6/uL (4.1-5.3) 01/21/22 13:20 Hgb 14.4 g/dL (11.7-16.6) 01/21/22 13:20 Hct 42.5 % (42.0-52.0) 01/21/22 13:20 MCV 84.2 fl (80-94) 01/21/22 13:20 MCH 28.5 pg (28.0-34.0) 01/21/22 13:20 MCHC 33.9 g/dL (30.0-36.0) 01/21/22 13:20 RDW 14.1 % (12.1-15.1) 01/21/22 13:20 Plt Count 254 10^3/cmm (130-400) 01/21/22 13:20 MPV 9.7 fL (7.4-10.4) 01/21/22 13:20 Neut % (Auto) 73.5 % 01/21/22 13:20 Lymph % (Auto) 14.5 % 01/21/22 13:20 [place] % (Auto) 6.4 % 01/21/22 13:20 Eos % (Auto) 4.8 % 01/21/22 13:20 Baso % (Auto) 0.4 % 01/21/22 13:20 Neut # (Auto) 5.06 10^3/uL (1.8-7.7) 01/21/22 13:20 Lymph # (Auto) 1.0 10^3/uL (0.8-4.8) 01/21/22 13:20 [place] # (Auto) 0.4 10^3/uL (0.2-0.9) 01/21/22 13:20 Eos # (Auto) 0.3 10^3/uL (0.0-0.8) 01/21/22 13:20 Baso # (Auto) 0.0 10^3/uL (0.0-0.1) 01/21/22 13:20 Nucleated RBC % (auto) 0 % 01/21/22 13:20 Nucleated RBCs # 0.0 /100WBC 01/21/22 13:20 Sodium 134 mmol/L (136-145) L 01/21/22 13:20 Potassium 5.7 mmol/L (3.5-5.1) H 01/21/22 14:40 Chloride 99 mmol/L (98-107) 01/21/22 13:20 Carbon Dioxide 23 mmol/L (22-29) 01/21/22 13:20 Anion Gap 17.8 (5-19) 01/21/22 13:20 BUN 21 mg/dL (8-23) 01/21/22 13:20 Creatinine 1.1 mg/dL (0.7-1.2) 01/21/22 13:20 GFR Calculation 67.4 mL/min (90-130) L 01/21/22 13:20 Glucose 112 mg/dL (65-115) 01/21/22 13:20 Calculated Osmolality 282 mOsm/kg (285-295) L 01/21/22 13:20 Calcium 9.3 mg/dL (8.5-10.5) 01/21/22 13:20 Magnesium 2.0 mg/dL (1.7-2.3) 01/21/22 13:20 Total Bilirubin 0.4 mg/dL (0.15-1.2) 01/21/22 13:20 AST 19 U/L (0-40) 01/21/22 13:20 ALT 25 U/L (0-41) 01/21/22 13:20 Alkaline Phosphatase 191 IU/L (40-130) H 01/21/22 13:20 Total Protein 7.8 g/dL (6.6-8.7) 01/21/22 13:20 Albumin 4.1 g/dL (3.5-5.2) 01/21/22 13:20 Globulin 3.7 g/dL (1.3-4.6) 01/21/22 13:20 Lipase 54 U/L (13-60) 01/21/22 13:20 EKG Data EKG 1: I personally reviewed and interpreted this EKG as follows: Interpretation: Ventricular rate 70, active topic rhythm with first-degree AV block. Mild peaked T waves VT interval 220 Discharge Plan Discharge Patient Disposition: Home Clinical Impression: Hyperkalemia Condition: Stable Prescriptions: No Action chlorpheniramine maleate 4 mg tablet 4 mg PO Q6H PRN (Reason: Allergy Symptoms) 0RF amitriptyline 25 mg tablet 25 mg PO DAILY@19 0RF bisacodyl 10 mg suppository 10 mg VT DAILY PRN (Reason: Constipation) 0RF Rx Instructions: IF NO RESULTS FROM MOM carica papaya Tablet 3 tab PO .AFTER MEAL PRN (Reason: UNKNOWN) 0RF cholecalciferol (vitamin D3) 25 mcg (1,000 unit) capsule 75 mcg PO DAILY@07 0RF clotrimazole-betamethasone 1-0.05 % cream 1 applic topical BID PRN (Reason: Rash) 0RF Rx Instructions: APPLY TO YEAST RASH TO LEFT BUTTOCK PRN cranberry fruit 450 mg tablet 900 mg PO DAILY@07 0RF Rx Instructions: administer with a meal rosuvastatin [Crestor] 5 mg tablet 5 mg PO DAILY@20 0RF Enema Disposable 19-7 gram/118 mL enema 118 ml [place] DAILY PRN (Reason: Constipation) 0RF gentian nikolas 1 % solution 1 applic topical . ON AND TUE 0RF lisinopril 20 mg tablet 20 mg PO BID@07,19 0RF metformin 850 mg tablet 850 mg PO BID@07,16 0RF metoprolol succinate 25 mg tablet extended release 24 hr 25 mg PO DAILY@07 0RF magnesium hydroxide [Milk of Magnesia] 400 mg/5 mL suspension 30 ml PO DAILY PRN (Reason: Constipation) 0RF Rx Instructions: IF NO BM FOR 3 DAYS pseudoephedrine HCl 60 mg tablet 60 mg PO Q4H PRN (Reason: Congestion) 0RF Thera-Tabs Tablet 1 tab PO DAILY@07 0RF ascorbate calcium (vitamin C) 500 mg tablet 500 mg PO BID@07,19 0RF Ozempic 0.25 mg or 0.5 mg(2 mg/1.5 mL) pen injector 0.5 mg SUBCUT Q7D 0RF Rx Instructions: ON TUESDAY AT 05:00 methenamine hippurate 1 gram tablet 1 g PO BID 0RF loratadine [Allergy Relief (loratadine)] 10 mg tablet 10 mg PO DAILY 0RF polyethylene glycol 3350 17 gram/dose powder 4 g PO DAILY 0RF citalopram [Celexa] 20 mg Tablet 20 mg PO DAILY@07 0RF cyanocobalamin (vitamin B-12) 1,000 mcg/mL Solution 1,000 mcg IM Q30D 0RF Rx Instructions: ON THE 2ND OF EACH MONTH levothyroxine 125 mcg Tablet 125 mcg PO DAILY@05 0RF insulin lispro [Humalog KwikPen Insulin] 100 unit/mL insulin pen See Rx Instructions .ROUTE .COMPLEX 0RF Rx Instructions: SLIDING SCALE BID AT 05:00 AND 20:00 IF BLOOD SUGAR LESS THAN 70 CALL 150-200=0 UNITS 201-250=2 UNITS 251-300=4 UNITS 301-350=6 UNITS 351-400=8 UNITS IF BLOOD SUGAR IS GREATER THAN 400 GIVE 8 UNITS bupropion HCl 150 mg tablet extended release 24 hr 150 mg PO DAILY@07 0RF Farxiga 10 mg tablet 10 mg PO DAILY@08 0RF bisacodyl 5 mg Tablet 10 mg PO DAILY PRN (Reason: Constipation) 0RF Rx Instructions: IF NO RESULTS FROM MOM tizanidine 4 mg Tablet 4 mg PO TID PRN (Reason: Muscle Spasm) 0RF Discharge Orders: Discharge ED (Routine); Ordered 01/21/22 Ordered By: Sandip Brandt Referrals: Barry Rangel MD [Primary Care Provider] - Discharge Diet: Usual diet Discharge Activity: Resume usual activity Patient Instructions: Hyperkalemia (ED), Opioid Safety Activity Restrictions/Additional Instructions: Please have your primary care provider recheck your potassium next Tuesday Coding Level of Care Code ED Paper Rewinder Operator for Chg Fwd Exam Detailed
[2022-01-21 13:50] LABS: Basophils % 0.4 %; Eosinophils # 0.3 10^3/uL (0.0-0.8); Eosinophils % 4.8 %; Hematocrit 42.5 % (42.0-52.0); Hemoglobin 14.4 g/dL (11.7-16.6); Lymphocytes % 14.5 %; Mean Corpuscular HGB Conc 33.9 g/dL (30.0-36.0); Mean Corpuscular Hemoglobin 28.5 pg (28.0-34.0); Mean Corpuscular Volume 84.2 fl (80-94); Mean Platelet Volume 9.7 fL (7.4-10.4); Monocytes # 0.4 10^3/uL (0.2-0.9); Monocytes % 6.4 %; Neutrophils # 5.06 10^3/uL (1.8-7.7); Neutrophils % 73.5 %; Nucleated Red Blood Cells % 0 %; Platelet Count 254 10^3/cmm (130-400); Red Blood Count 5.05 10^6/uL (4.1-5.3); Red Cell Distribution Width 14.1 % (12.1-15.1); White Blood Count 6.9 10^3/uL (4.0-10.0)
[2022-01-21 14:27] LABS: Alanine Aminotransferase 25 U/L (0-41); Albumin Level 4.1 g/dL (3.5-5.2); Alkaline Phosphatase 191 IU/L (40-130); Aspartate Amino Transferase 19 U/L (0-40); Blood Urea Nitrogen 21 mg/dL (8-23); Calcium 9.3 mg/dL (8.5-10.5); Carbon Dioxide 23 mmol/L (22-29); Chloride 99 mmol/L (98-107); Globulin 3.7 g/dL (1.3-4.6); Glomerular Filtration Rate 67.4 mL/min (90-130); Glucose 112 mg/dL (65-115); Lipase 54 U/L (13-60); Osmolality Calculated 282 mOsm/kg (285-295); Sodium 134 mmol/L (136-145); Total Bilirubin 0.4 mg/dL (0.15-1.2); Total Protein 7.8 g/dL (6.6-8.7)
[2022-01-21 14:31] LABS: Anion Gap 17.8 (5-19); Potassium 5.8 mmol/L (3.5-5.1)
[2022-01-21] MEDS: tizanidine 4 mg Tablet PO (14:50)
[2022-01-21 16:03] LABS: Potassium 5.7 mmol/L (3.5-5.1)
[2022-01-21] MEDS: sodium chloride 0.9% 1,000 ML 999 ML IV (16:15)
[2022-01-21 19:55] VITALS: BP 149/71; PULSE 71; RESP 16; TEMP 36.5; O2SAT 98
== END 2022-01-21 19:57 | disposition home or self-care (01) ==
PROVIDERS: Emergency Medicine; Emergency Provider Student in an Organized Health Care Education/Training Program; PCP Family Medicine
DX: E87.5 Hyperkalemia (principal)
CPT/HCPCS: 80053; 83690; 83735; 84132; 85025; 93005; 96360; 99283; J7030

== ENCOUNTER 2022-02-14 19:21 | Emergency (ER) | payer MEDICARE, MEDICAID, SELFPAY ==
[2022-02-14 19:22] VITALS: BP 179/101; PULSE 88; RESP 17; TEMP 36.6; O2SAT 96; BMI 24.9
--- NOTE | 2022-02-14 19:37 | CTR_ITS ---
PROCEDURE INFORMATION: Exam: CT Abdomen And Pelvis Without Contrast Exam date and time: 02/14/2022 8:12 PM Age: 66 years old Clinical indication: Pain; Other: Pelvic pressure; Prior surgery; Surgery date: 6+ months; Surgery type: Maddie, appx, vasectomy; Additional info: Urinary retention, pelvic pain TECHNIQUE: Imaging protocol: Computed tomography of the abdomen and pelvis without contrast. Radiation optimization: All CT scans at this facility use at least one of these dose optimization techniques: automated exposure control; mA and/or kV adjustment per patient size (includes targeted exams where dose is matched to clinical indication); or iterative reconstruction. COMPARISON: CT abdomen pelvis wo/w [id number] 03/27/2021 9:49 AM RADIATION DOSE METRICS: Total DLP (mGy-cm): 1774.53 FINDINGS: Limitations: Evaluation of solid organs and vasculature is limited without intravenous contrast. Lungs: Visualized lungs are clear. Stable calcified granuloma in the right lower lobe. Pleural spaces: No pleural effusion. Heart: Visualized portions of the heart are unremarkable. Liver: The liver is unremarkable. Gallbladder and bile ducts: Stable findings consistent with a previous cholecystectomy. No biliary ductal dilatation. Pancreas: The pancreas is unremarkable. No pancreatic ductal dilatation. Spleen: Multiple calcified granulomas in the spleen are stable. Adrenal glands: The right and left adrenal glands are unremarkable. Kidneys and ureters: Simple cyst in the right kidney is stable in size measuring 3.6 cm. Simple cyst in the left kidney is stable in size measuring 1.6 cm. 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 Mild bilateral hydroureteronephrosis. No obvious obstructing urinary stones or mass. Stomach and bowel: Scattered diverticula in the colon. No evidence for diverticulitis. No acute abnormality in the small bowel. No acute abnormality in the small bowel. Appendix: Appendix not definitely visualized. No inflammatory changes in the pericecal region however. Intraperitoneal space: No free intraperitoneal air. No ascites. No loculated fluid collections to suggest an abscess. Vasculature: Unremarkable as visualized. Lymph nodes: Calcified mediastinal and right hilar lymph nodes are stable. No lymphadenopathy. Urinary bladder: There is a Milan catheter in the bladder. Air in the bladder, likely due to Milan catheter placement. There is mild to moderate bladder distention despite Milan catheter placement. There is debris layering in the dependent portion of the bladder and mild bladder wall thickening, suspicious for cystitis. Reproductive: The prostate gland is mildly enlarged. Nonspecific parenchymal calcifications in the prostate gland. Patient has had a prior bilateral vasectomy. Right and left testes are unremarkable as visualized. Small bilateral hydroceles. Small right scrotal khalif. Small calcification at the dorsal aspect of the penile shaft. Bones/joints: Degenerative changes in the spine and hips. Multilevel foraminal stenosis of varying severity in the visualized spine. Soft tissues: No acute abnormality in the extra-abdominal soft tissues. CT/CT abdomen pelvis wo con [id number] IMPRESSION: 1. There is a Milan catheter in the bladder. Air in the bladder, likely due to Milan catheter placement. There is mild to moderate bladder distention despite Milan catheter placement. 2. Mild bilateral hydroureteronephrosis. No obvious obstructing urinary stones or mass. 3. There is debris layering in the dependent portion of the bladder and mild bladder wall thickening, suspicious for cystitis. Recommend correlation with laboratory findings. 4. 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 5. Small bilateral hydroceles. 6. Scattered diverticula in the colon. No evidence for diverticulitis. 7. Incidental/nonacute findings are listed in the report.
[2022-02-14 19:44] LABS: Basophils % 0.5 %; Eosinophils # 0.3 10^3/uL (0.0-0.8); Hematocrit 43.6 % (42.0-52.0); Hemoglobin 14.4 g/dL (11.7-16.6); Lymphocytes # 1.1 10^3/uL (0.8-4.8); Lymphocytes % 13.3 %; Mean Corpuscular Volume 87.9 fl (80-94); Mean Platelet Volume 9.7 fL (7.4-10.4); Monocytes # 0.6 10^3/uL (0.2-0.9); Monocytes % 7.6 %; Neutrophils # 6.26 10^3/uL (1.8-7.7); Neutrophils % 75.1 %; Nucleated Red Blood Cells % 0 %; Platelet Count 230 10^3/cmm (130-400); Red Blood Count 4.96 10^6/uL (4.1-5.3); Red Cell Distribution Width 14.1 % (12.1-15.1); White Blood Count 8.3 10^3/uL (4.0-10.0)
[2022-02-14 20:00] VITALS: BP 172/85; PULSE 88; RESP 16; O2SAT 96
[2022-02-14] MEDS: sodium chloride 0.9% 1,000 ML 999 ML IV (20:00)
[2022-02-14 20:03] LABS: Alanine Aminotransferase 22 U/L (0-41); Albumin Level 4.3 g/dL (3.5-5.2); Alkaline Phosphatase 179 IU/L (40-130); Blood Urea Nitrogen 24 mg/dL (8-23); C Reactive Protein 9.1 mg/L (0.0-4.9); Calcium 9.2 mg/dL (8.5-10.5); Carbon Dioxide 20 mmol/L (22-29); Chloride 100 mmol/L (98-107); Globulin 3.4 g/dL (1.3-4.6); Glucose 95 mg/dL (65-115); Magnesium 1.9 mg/dL (1.7-2.3); Osmolality Calculated 280 mOsm/kg (285-295); Sodium 133 mmol/L (136-145); Total Bilirubin 0.5 mg/dL (0.15-1.2); Total Protein 7.7 g/dL (6.6-8.7)
[2022-02-14 20:07] LABS: Anion Gap 18.7 (5-19); Aspartate Amino Transferase 20 U/L (0-40); Potassium 5.7 mmol/L (3.5-5.1)
[2022-02-14 20:17] LABS: Bilirubin Urine Neg (Negative); Blood Urine 3+ (Negative); Glucose Urine UA 4+ (Normal); Ketones Urine Negative (Negative); Nitrate Urine Negative (Negative); Protein Urine 1+ (Negative); Urine Appearance Hazy (CLEAR); Urine Color Yellow (Yellow); pH Urine 5 (5-7)
[2022-02-14 20:18] LABS: Add Urine Microscopic? YES; Leukocyte Esterase Urine 2+ (Negative); Urobilinogen Urine Norm (Negative)
[2022-02-14 20:20] LABS: Add Urine Culture? Yes; Bacteria Urine 3+ /hpf; Squamous Epithelial Cell Urine 0-4 /hpf (0-5); WBC Urine 80-100 /hpf (0-5)
--- NOTE | 2022-02-14 20:35 | ED_ITS ---
HPI - Male Genitourinary General: Chief complaint: Urogenital-Male Stated complaint: Cath issue Time Seen by Provider: 02/14/22 19:26 Source: patient History of Present Illness: 66-year-old male presenting from a residential setting. He has had a problem with decreased urinary output through his Milan, and increasing pelvic pain. His Milan quit draining evidently. It was changed at 2 PM today after an attempted irrigation failed. He continues to complain of pelvic pain and distention. His Milan is not draining adequately despite replacing it. He denies fever. He does have a history of prostate problems. Complaint: other Onset (ago): hour(s) Duration: constant Location: abdomen Radiation: right flank and left flank Severity: similar to previous episodes Quality: aching Relieving factors: none Exacerbating factors: none Associated symptoms: Reports nausea and urinary retention; Deny discharge, dysuria, fevers/chills or vomiting Review of Systems Const: Denies: fever(s) Card: Denies: chest pain or palpitations Resp: Denies: dyspnea, productive cough or non-productive cough GI: Reports: abdominal pain and nausea; Denies: vomiting : Reports: difficulty urinating and oliguria; Denies: dysuria Musc: Reports: back pain PFSH ED PFSH: Medical History History of UTI Left renal mass Multiple sclerosis Neurogenic bladder Urinary retention Surgical History History of adenoidectomy History of appendectomy History of cholecystectomy History of elbow surgery History of tonsillectomy History of vasectomy Family History Mother , at age 75 from natural caused No problems noted. Social History Smoking and tobacco status: former smoker Alcohol intake: never Marital status: Current occupational status: disabled History of recent travel: No Physical Exam Const: GENERAL APPEARANCE: cooperative and ill appearing (mildly, in pain) HENMT: COMMON NORMALS: normocephalic, atraumatic and Normal external nose present HEAD & SCALP: normocephalic and atraumatic FACE & SINUS: normal facial exam and face symmetric NOSE: Normal external nose present Eye: COMMON NORMALS: Equal, round and reactive pupils present and EOMs intact bilaterally PUPIL: Yes Equal, round and reactive pupils present Neck/C-Spine: GENERAL: Yes trachea midline Chest: CHEST: Yes Symmetrical chest wall rise Resp: COMMON NORMALS: normal respiratory effort, No use of accessory muscles and clear to auscultation bilaterally AUSCULTATION: clear to auscultation bilaterally Cardio: COMMON NORMALS: regular rate and regular rhythm RATE: regular rate RHYTHM: regular rhythm GI: COMMON NORMALS: Normal to inspection, nondistended, normoactive bowel sounds present and non-tender PALPATION: Yes Firmness to palpation present (GI) and Yes Tenderness to palpation present (GI) (Suprapubic, bladder is palpable) Extremity: COMMON NORMALS: normal to inspection and no pedal edema Neuro: RENE COMA SCALE: document GCS findings Rene coma scale eye opening: Spontaneous [place] coma scale verbal response: Orientated [place] coma scale motor response: Obey commands [place] coma scale total score: 15 Course Vital Signs: Vital signs: Vital Signs Temperature 97.9 F 02/14/22 19:22 Pulse Rate 80 02/14/22 22:50 Respiratory Rate 16 02/14/22 22:50 Blood Pressure 155/72 02/14/22 22:50 Pulse Oximetry 94 02/14/22 22:50 MDM - Male Medical Decision Making 66-year-old male with acute urinary retention. CT reveals Milan in place in the bladder, although was not draining. Will have to be replaced. His creatinine is 1.4. Potassium is 5.7. His potassium was 5.7 on his last visit as well. CT shows Milan catheter (the previous 1) in place. There is some debris in the bladder. He is given Rocephin for cystitis by urinalysis. We will culture his urine. We will elect to go ahead and treat. Milan is replaced with 600 out immediately. The patient feels much improved. He has received a liter of fluid here for hyperkalemia as well. Lab Data : 02/14/22 19:35 02/14/22 19:35 Radiology Impressions Abdomen/Pelvis CT 02/14/22 19:37 IMPRESSION: 1. There is a Milan catheter in the bladder. Air in the bladder, likely due to Milan catheter placement. There is mild to moderate bladder distention despite Milan catheter placement. 2. Mild bilateral hydroureteronephrosis. No obvious obstructing urinary stones or mass. 3. There is debris layering in the dependent portion of the bladder and mild bladder wall thickening, suspicious for cystitis. Recommend correlation with laboratory findings. 4. 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 5. Small bilateral hydroceles. 6. Scattered diverticula in the colon. No evidence for diverticulitis. 7. Incidental/nonacute findings are listed in the report. Laboratory Results WBC 8.3 10^3/uL (4.0-10.0) 02/14/22 19:35 RBC 4.96 10^6/uL (4.1-5.3) 02/14/22 19:35 Hgb 14.4 g/dL (11.7-16.6) 02/14/22 19:35 Hct 43.6 % (42.0-52.0) 02/14/22 19:35 MCV 87.9 fl (80-94) 02/14/22 19:35 MCH 29.0 pg (28.0-34.0) 02/14/22 19:35 MCHC 33.0 g/dL (30.0-36.0) 02/14/22 19:35 RDW 14.1 % (12.1-15.1) 02/14/22 19:35 Plt Count 230 10^3/cmm (130-400) 02/14/22 19:35 MPV 9.7 fL (7.4-10.4) 02/14/22 19:35 Neut % (Auto) 75.1 % 02/14/22 19:35 Lymph % (Auto) 13.3 % 02/14/22 19:35 [place] % (Auto) 7.6 % 02/14/22 19:35 Eos % (Auto) 3.0 % 02/14/22 19:35 Baso % (Auto) 0.5 % 02/14/22 19:35 Neut # (Auto) 6.26 10^3/uL (1.8-7.7) 02/14/22 19:35 Lymph # (Auto) 1.1 10^3/uL (0.8-4.8) 02/14/22 19:35 [place] # (Auto) 0.6 10^3/uL (0.2-0.9) 02/14/22 19:35 Eos # (Auto) 0.3 10^3/uL (0.0-0.8) 02/14/22 19:35 Baso # (Auto) 0.0 10^3/uL (0.0-0.1) 02/14/22 19:35 Nucleated RBC % (auto) 0 % 02/14/22 19:35 Nucleated RBCs # 0.0 /100WBC 02/14/22 19:35 Sodium 133 mmol/L (136-145) L 02/14/22 19:35 Potassium 5.7 mmol/L (3.5-5.1) H 02/14/22 19:35 Chloride 100 mmol/L (98-107) 02/14/22 19:35 Carbon Dioxide 20 mmol/L (22-29) L 02/14/22 19:35 Anion Gap 18.7 (5-19) 02/14/22 19:35 BUN 24 mg/dL (8-23) H 02/14/22 19:35 Creatinine 1.4 mg/dL (0.7-1.2) H 02/14/22 19:35 GFR Calculation 51.0 mL/min (90-130) L 02/14/22 19:35 Glucose 95 mg/dL (65-115) 02/14/22 19:35 Calculated Osmolality 280 mOsm/kg (285-295) L 02/14/22 19:35 Calcium 9.2 mg/dL (8.5-10.5) 02/14/22 19:35 Magnesium 1.9 mg/dL (1.7-2.3) 02/14/22 19:35 Total Bilirubin 0.5 mg/dL (0.15-1.2) 02/14/22 19:35 AST 20 U/L (0-40) 02/14/22 19:35 ALT 22 U/L (0-41) 02/14/22 19:35 Alkaline Phosphatase 179 IU/L (40-130) H 02/14/22 19:35 C-Reactive Protein 9.1 mg/L (0.0-4.9) H 02/14/22 19:35 Total Protein 7.7 g/dL (6.6-8.7) 02/14/22 19:35 Albumin 4.3 g/dL (3.5-5.2) 02/14/22 19:35 Globulin 3.4 g/dL (1.3-4.6) 02/14/22 19:35 Urine Color Yellow (Yellow) 02/14/22 19:47 Urine Appearance Hazy (CLEAR) A 02/14/22 19:47 Urine pH 5 (5-7) 02/14/22 19:47 Ur Specific [place] 1.010 (1.005-1.030) 02/14/22 19:47 Urine Protein 1+ (Negative) H 02/14/22 19:47 Urine Glucose (UA) 4+ (Normal) H 02/14/22 19:47 Urine Ketones Negative (Negative) 02/14/22 19:47 Urine Blood 3+ (Negative) H 02/14/22 19:47 Urine Nitrate Negative (Negative) 02/14/22 19:47 Urine Bilirubin Neg (Negative) 02/14/22 19:47 Urine Urobilinogen Norm mg/dL (Negative) 02/14/22 19:47 Ur Leukocyte Esterase 2+ (Negative) H 02/14/22 19:47 Urine RBC 10-15 /hpf (0-2) H 02/14/22 19:47 Urine WBC 80-100 /hpf (0-5) H 02/14/22 19:47 Ur Squamous Epith Cells 0-4 /hpf (0-5) H 02/14/22 19:47 Amorphous Sediment Not Reportable 02/14/22 19:47 Urine Bacteria 3+ /hpf (NONE) H 02/14/22 19:47 Urine Yeast Trace /hpf 02/14/22 19:47 Discharge Plan Discharge Patient Disposition: Home Clinical Impression: Urinary tract infection, Acute retention of urine Condition: Stable Prescriptions: New cefdinir 300 mg capsule 300 mg PO BID Qty: 14 0RF No Action chlorpheniramine maleate 4 mg tablet 4 mg PO Q6H PRN (Reason: Allergy Symptoms) 0RF amitriptyline 25 mg tablet 25 mg PO DAILY@19 0RF bisacodyl 10 mg suppository 10 mg TN DAILY PRN (Reason: Constipation) 0RF Rx Instructions: IF NO RESULTS FROM MOM carica papaya Tablet 3 tab PO .AFTER MEAL PRN (Reason: UNKNOWN) 0RF cholecalciferol (vitamin D3) 25 mcg (1,000 unit) capsule 75 mcg PO DAILY@07 0RF clotrimazole-betamethasone 1-0.05 % cream 1 applic topical BID PRN (Reason: Rash) 0RF Rx Instructions: APPLY TO YEAST RASH TO LEFT BUTTOCK PRN cranberry fruit 450 mg tablet 900 mg PO DAILY@07 0RF Rx Instructions: administer with a meal rosuvastatin [Crestor] 5 mg tablet 5 mg PO DAILY@20 0RF Enema Disposable 19-7 gram/118 mL enema 118 ml TN DAILY PRN (Reason: Constipation) 0RF gentian nikolas 1 % solution 1 applic topical . ON AND TUE 0RF lisinopril 20 mg tablet 20 mg PO BID@, 0RF metformin 850 mg tablet 850 mg PO BID@,16 0RF metoprolol succinate 25 mg tablet extended release 24 hr 25 mg PO DAILY@07 0RF magnesium hydroxide [Milk of Magnesia] 400 mg/5 mL suspension 30 ml PO DAILY PRN (Reason: Constipation) 0RF Rx Instructions: IF NO BM FOR 3 DAYS pseudoephedrine HCl 60 mg tablet 60 mg PO Q4H PRN (Reason: Congestion) 0RF Thera-Tabs Tablet 1 tab PO DAILY@07 0RF ascorbate calcium (vitamin C) 500 mg tablet 500 mg PO BID@, 0RF Ozempic 0.25 mg or 0.5 mg(2 mg/1.5 mL) pen injector 0.5 mg SUBCUT Q7D 0RF Rx Instructions: ON TUESDAY AT 05:00 methenamine hippurate 1 gram tablet 1 g PO BID 0RF loratadine [Allergy Relief (loratadine)] 10 mg tablet 10 mg PO DAILY 0RF polyethylene glycol 3350 17 gram/dose powder 4 g PO DAILY 0RF citalopram [Celexa] 20 mg Tablet 20 mg PO DAILY@07 0RF cyanocobalamin (vitamin B-12) 1,000 mcg/mL Solution 1,000 mcg IM Q30D 0RF Rx Instructions: ON THE 2ND OF EACH MONTH levothyroxine 125 mcg Tablet 125 mcg PO DAILY@05 0RF insulin lispro [Humalog KwikPen Insulin] 100 unit/mL insulin pen See Rx Instructions .ROUTE .COMPLEX 0RF Rx Instructions: SLIDING SCALE BID AT 05:00 AND 20:00 IF BLOOD SUGAR LESS THAN 70 CALL 150-200=0 UNITS 201-250=2 UNITS 251-300=4 UNITS 301-350=6 UNITS 351-400=8 UNITS IF BLOOD SUGAR IS GREATER THAN 400 GIVE 8 UNITS bupropion HCl 150 mg tablet extended release 24 hr 150 mg PO DAILY@07 0RF Farxiga 10 mg tablet 10 mg PO DAILY@08 0RF bisacodyl 5 mg Tablet 10 mg PO DAILY PRN (Reason: Constipation) 0RF Rx Instructions: IF NO RESULTS FROM MOM tizanidine 4 mg Tablet 4 mg PO TID PRN (Reason: Muscle Spasm) 0RF Discharge Orders: Discharge ED (Routine); Ordered 02/14/22 Ordered By: Sal Junior Referrals: Barry Rangel MD [Primary Care Provider] - 1-3 days Patient Instructions: Urinary Retention in Men (ED), Urinary Tract Infection in Men (ED), Milan Catheter Placement and Care (ED) Activity Restrictions/Additional Instructions: Return for repeated problems with the Milan catheter, fever greater than 100, mental status changes, any other concerning symptoms. Coding Level of Care Code ED Program Development Specialist for Lisyg Fwd Exam Comprehensive
[2022-02-14] MEDS: cefTRIAXone 1,000 MG in sodium chloride 0.9% (plus) 50 ML 100 MG IV (20:56)
[2022-02-14 22:50] VITALS: BP 155/72; PULSE 80; RESP 16; O2SAT 94
== END 2022-02-14 22:52 | disposition home or self-care (01) ==
PROVIDERS: Emergency Provider Emergency Medicine; PCP Family Medicine
DX: N39.0 Urinary tract infection, site not specified (principal); R33.9 Retention of urine, unspecified; Z46.6 Encounter for fitting and adjustment of urinary device; Z96.89 Presence of other specified functional implants
CPT/HCPCS: 51702; 51798; 74176; 80053; 81001; 83735; 85025; 86140; 87086; 96365; 99285; J0696; J7030

== ENCOUNTER → 2022-07-12 09:17 | Outpatient (BNVA) | payer MEDICARE, MEDICAID, SELFPAY | PROVIDERS: PCP Family Medicine; Visit Provider Urology | DX: N30.20 Other chronic cystitis without hematuria (principal); R33.9 Retention of urine, unspecified; N31.9 Neuromuscular dysfunction of bladder, unspecified; G35 Multiple sclerosis; N35.919 Unspecified urethral stricture, male, unspecified site | CPT/HCPCS: 87077; 87086; 87186; 99214 ==

== ENCOUNTER 2022-07-16 16:08 | Inpatient (IN) | payer MEDICARE, MEDICAID, SELFPAY ==
--- NOTE | 2022-07-16 16:12 | XRR_ITS ---
PROCEDURE INFORMATION: Exam: XR Chest Exam date and time: 07/16/2022 4:26 PM Age: 67 years old Clinical indication: Other: Renal failure; Additional info: Dyspnea/cough TECHNIQUE: Imaging protocol: Radiologic exam of the chest. Views: 1 view. COMPARISON: CR (CHEST, ) 06/16/2021 9:08 PM FINDINGS: Lungs: Unremarkable. No consolidation. Pleural spaces: Unremarkable. No pleural effusion. No pneumothorax. Heart/Mediastinum: Unremarkable. No cardiomegaly. Bones/joints: Unremarkable. XR/XR chest 1V portable [id number] IMPRESSION: No acute findings.
[2022-07-16 16:19] VITALS: BP 101/76; PULSE 108; RESP 18; TEMP 36.6; O2SAT 100; BMI 22.4
[2022-07-16 16:36] LABS: Basophils % 0.4 %; Eosinophils # 0.1 10^3/uL (0.0-0.8); Eosinophils % 1.5 %; Hematocrit 40.1 % (42.0-52.0); Hemoglobin 13.3 g/dL (11.7-16.6); Lymphocytes # 0.7 10^3/uL (0.8-4.8); Lymphocytes % 8.8 %; Mean Corpuscular HGB Conc 33.2 g/dL (30.0-36.0); Mean Corpuscular Hemoglobin 28.7 pg (28.0-34.0); Mean Corpuscular Volume 86.6 fl (80-94); Mean Platelet Volume 9.3 fL (7.4-10.4); Monocytes # 0.5 10^3/uL (0.2-0.9); Monocytes % 6.5 %; Neutrophils # 6.71 10^3/uL (1.8-7.7); Neutrophils % 82.4 %; Nucleated Red Blood Cells % 0 %; Platelet Count 343 10^3/cmm (130-400); Red Blood Count 4.63 10^6/uL (4.1-5.3); Red Cell Distribution Width 13.4 % (12.1-15.1); White Blood Count 8.1 10^3/uL (4.0-10.0)
--- NOTE | 2022-07-16 16:41 | CTR_ITS ---
PROCEDURE INFORMATION: Exam: CT Abdomen And Pelvis Without Contrast Exam date and time: 07/16/2022 5:09 PM Age: 67 years old Clinical indication: Abdominal pain; Additional info: Flank pain TECHNIQUE: Imaging protocol: Computed tomography of the abdomen and pelvis without contrast. Radiation optimization: All CT scans at this facility use at least one of these dose optimization techniques: automated exposure control; mA and/or kV adjustment per patient size (includes targeted exams where dose is matched to clinical indication); or iterative reconstruction. COMPARISON: CT abdomen pelvis wo con [id number] 02/14/2022 8:12 PM RADIATION DOSE METRICS: Total DLP (mGy-cm): 629.92 FINDINGS: Lungs: Emphysematous changes suspected. Mild bibasilar bronchiectasis suspected. Liver: Normal. No mass. Gallbladder and bile ducts: Cholecystectomy. Pancreas: Normal. No ductal dilation. Spleen: Normal. No splenomegaly. Adrenal glands: Normal. No mass. Kidneys and ureters: Left kidney lower pole 3.3 cm somewhat thick-walled cystic mass again seen, somewhat similar to prior exam, concerning for a renal malignancy. An additional left kidney lower pole 15 mm cyst is also seen. Right kidney lower pole cyst, negative for follow-up advised Stomach and bowel: Constipation. Minimal diverticulosis without diverticulitis. Appendix: No evidence of appendicitis. Intraperitoneal space: Unremarkable. No free air. No significant fluid collection. Vasculature: Unremarkable. No abdominal aortic aneurysm. Lymph nodes: Calcified mediastinal lymph nodes incompletely visualized. Urinary bladder: Bilateral moderate to severe hydronephrosis and hydroureter along with distention of the urinary bladder with wall thickening perhaps reflecting a cystitis or degree of outflow obstruction. A Milan catheter is seen in the urinary bladder with air presumed iatrogenic. Urinary bladder wall thickening is also present with some surrounding edema which is also suggestive of a cystitis. Nonspecific layering debris is also suspected in the urinary bladder. Reproductive: Unremarkable as visualized. Bones/joints: Unremarkable. No acute fracture. Soft tissues: Unremarkable. CT/CT kidney stone [id number] IMPRESSION: 1. Bilateral moderate to severe hydronephrosis and hydroureter along with distention of the urinary bladder with wall thickening perhaps reflecting a cystitis or degree of outflow obstruction. A Milan catheter is seen in the urinary bladder with air presumed iatrogenic. Urinary bladder wall thickening is also present with some surrounding edema which is also suggestive of a cystitis. Nonspecific layering debris is also suspected in the urinary bladder. 2. Constipation. 3. Emphysematous changes suspected. 4. Mild bibasilar bronchiectasis suspected. 5. Calcified mediastinal lymph nodes incompletely visualized. 6. Cholecystectomy. 7. Left kidney lower pole 3.3 cm somewhat thick-walled cystic mass again seen, somewhat similar to prior exam, concerning for a renal malignancy. 8. Right kidney lower pole cyst, negative for follow-up advised. An additional left kidney lower pole 15 mm cyst is also seen. 9. Minimal diverticulosis without diverticulitis.
[2022-07-16 16:53] LABS: Lactic Sepsis W/Reflex 1.2 mmol/L (0.5-2.2)
[2022-07-16 16:54] LABS: Albumin Level 3.5 g/dL (3.5-5.2); Alkaline Phosphatase 150 U/L (40-130); Chloride 96 mmol/L (98-107); Potassium 5.4 mmol/L (3.5-5.1); Sodium 131 mmol/L (136-145)
[2022-07-16 17:06] LABS: Aspartate Amino Transferase 16 U/L (0-40); Calcium 9.6 mg/dL (8.5-10.5); Carbon Dioxide 11 mmol/L (22-29); Globulin 4.3 g/dL (1.3-4.6); Glomerular Filtration Rate 13.9 mL/min (90-130); Glucose 99 mg/dL (65-115); Total Bilirubin 0.3 mg/dL (0.15-1.2); Total Protein 7.8 g/dL (6.6-8.7)
[2022-07-16 17:08] LABS: Anion Gap 29.4 (5-19); Osmolality Calculated 300 mOsm/kg (285-295)
[2022-07-16 17:09] LABS: Blood Urea Nitrogen 91 mg/dL (8-23)
--- NOTE | 2022-07-16 17:21 | W.ED.MALEGU ---
HPI - Male Genitourinary General: Chief complaint: Urogenital-Male Stated complaint: renal failure Time Seen by Provider: 07/16/22 16:12 Source: patient Mode of arrival: EMS History of Present Illness: 67-year-old male presents to the emergency room after being referred here by his urologist. He was seen earlier today in preop to prepare for suprapubic catheter. Preop labs showed acute renal failure. Dr. Hogan called the patient sounds as if his Milan catheter has not been having a good output all week. He had it changed a few days ago. When he arrived here he tells me he has not drained much in the last week at all. He denies any fever sweats chills no hematuria. Patient has a history of MS as a Milan in place because of neurogenic bladder. He does have aching and abdominal discomfort. Onset (ago): day(s) Severity: moderate Quality: aching Associated symptoms: Reports nausea and urinary retention; Deny discharge, dysuria, fevers/chills, hematuria, rash, swelling, urinary incontinence, mass or vomiting Review of Systems Const: Denies: fever(s), chills, body aches, change in appetite, fatigue or malaise ENMT: Denies: throat pain, ear or mastoid pain, nasal discharge or nasal congestion Card: Denies: chest pain, edema, dyspnea on exertion or orthopnea Resp: Denies: dyspnea, productive cough or non-productive cough GI: Reports: nausea; Denies: vomiting : Denies: dysuria, urinary incontinence or hematuria Skin/Breast: Denies: rash or pruritus PFSH ED PFSH: Medical History History of UTI Left renal mass Multiple sclerosis Neurogenic bladder Urinary retention Surgical History History of adenoidectomy History of appendectomy History of cholecystectomy History of elbow surgery History of tonsillectomy History of vasectomy Family History Mother , at age 75 from natural caused No problems noted. Social History Smoking and tobacco status: former smoker Alcohol intake: never Marital status: Current occupational status: disabled History of recent travel: No Physical Exam Const: GENERAL APPEARANCE: cooperative and comfortable ORIENTATION/CONSCIOUSNESS: Yes awake, Yes oriented to person, Yes oriented to place and Yes oriented to time HENMT: COMMON NORMALS: normocephalic, atraumatic and hearing grossly normal bilaterally HEAD & SCALP: normocephalic and atraumatic Resp: COMMON NORMALS: normal respiratory effort, No retractions, No use of accessory muscles and clear to auscultation bilaterally AUSCULTATION: clear to auscultation bilaterally Cardio: COMMON NORMALS: regular rate, regular rhythm and No murmurs present (Cardio) RATE: regular rate RHYTHM: regular rhythm GI: COMMON NORMALS: No hepatosplenomegaly present AUSCULTATION: Yes normoactive bowel sounds PALPATION: Yes Tenderness to palpation present (GI) (Moderate suprapubic tenderness), No Guarding due to palpation present (GI) and Yes No hepatosplenomegaly present OTHER: Bladder palpable 3 fingerbreadths above the pubic bone : COMMON NORMALS: Yes no CVA tenderness BLADDER/KIDNEY EXAM: Yes no CVA tenderness Back/Pelvis: COMMON NORMALS: no CVA tenderness Extremity: COMMON NORMALS: normal to inspection, capillary refill normal, no clubbing, cyanosis or edema, no calf tenderness and no pedal edema Neuro: SENSORIUM/ORIENTATION: Yes oriented to person, Yes oriented to place and Yes oriented to time Skin: COMMON NORMALS: no rashes or lesions noted GENERAL SKIN EXAM: no rashes or lesions noted Course Vital Signs: Vital signs: Vital Signs Temperature 97.6 F 07/20/22 04:00 Pulse Rate 86 07/20/22 04:00 Respiratory Rate 15 07/20/22 04:00 Blood Pressure 139/64 07/20/22 04:00 Pulse Oximetry 97 07/20/22 04:00 Oxygen Delivery Me thod 07/20/22 04:00 MDM - Male Medical Decision Making Bladder scan 400 and the bladder attempts to irrigate the bladder can infuse but he cannot drain through the catheter. Catheter exchanged and drained out 400 plus. Discussed with hospitalist will admit consult urology. CT showed bilateral hydronephrosis hydroureter suspect obstructed catheter precipitated. Dr. Hogan directed patient to the ER he is aware he will be is being admitted. Medical Records I reviewed the patient's medical records. Lab Data I reviewed the patient's lab results. 07/16/22 16:30 07/16/22 16:30 Radiology Impressions Chest X-Ray 07/16/22 16:12 IMPRESSION: No acute findings. Abdomen/Pelvis CT 07/16/22 16:41 IMPRESSION: 1. Bilateral moderate to severe hydronephrosis and hydroureter along with distention of the urinary bladder with wall thickening perhaps reflecting a cystitis or degree of outflow obstruction. A Milan catheter is seen in the urinary bladder with air presumed iatrogenic. Urinary bladder wall thickening is also present with some surrounding edema which is also suggestive of a cystitis. Nonspecific layering debris is also suspected in the urinary bladder. 2. Constipation. 3. Emphysematous changes suspected. 4. Mild bibasilar bronchiectasis suspected. 5. Calcified mediastinal lymph nodes incompletely visualized. 6. Cholecystectomy. 7. Left kidney lower pole 3.3 cm somewhat thick-walled cystic mass again seen, somewhat similar to prior exam, concerning for a renal malignancy. 8. Right kidney lower pole cyst, negative for follow-up advised. An additional left kidney lower pole 15 mm cyst is also seen. 9. Minimal diverticulosis without diverticulitis. Laboratory Results WBC 8.1 10^3/uL (4.0-10.0) 07/16/22 16:30 RBC 4.63 10^6/uL (4.1-5.3) 07/16/22 16:30 Hgb 13.3 g/dL (11.7-16.6) 07/16/22 16:30 Hct 40.1 % (42.0-52.0) L 07/16/22 16:30 MCV 86.6 fl (80-94) 07/16/22 16:30 MCH 28.7 pg (28.0-34.0) 07/16/22 16:30 MCHC 33.2 g/dL (30.0-36.0) 07/16/22 16:30 RDW 13.4 % (12.1-15.1) 07/16/22 16:30 Plt Count 343 10^3/cmm (130-400) 07/16/22 16:30 MPV 9.3 fL (7.4-10.4) 07/16/22 16:30 Neut % (Auto) 82.4 % 07/16/22 16:30 Lymph % (Auto) 8.8 % 07/16/22 16:30 Bond % (Auto) 6.5 % 07/16/22 16:30 Eos % (Auto) 1.5 % 07/16/22 16:30 Baso % (Auto) 0.4 % 07/16/22 16:30 Neut # (Auto) 6.71 10^3/uL (1.8-7.7) 07/16/22 16:30 Lymph # (Auto) 0.7 10^3/uL (0.8-4.8) L 07/16/22 16:30 Bond # (Auto) 0.5 10^3/uL (0.2-0.9) 07/16/22 16:30 Eos # (Auto) 0.1 10^3/uL (0.0-0.8) 07/16/22 16:30 Baso # (Auto) 0.0 10^3/uL (0.0-0.1) 07/16/22 16:30 Nucleated RBC % (auto) 0 % 07/16/22 16:30 Nucleated RBCs # 0.0 /100WBC 07/16/22 16:30 Sodium 131 mmol/L (136-145) L 07/16/22 16:30 Potassium 5.4 mmol/L (3.5-5.1) H 07/16/22 16:30 Chloride 96 mmol/L (98-107) L 07/16/22 16:30 Carbon Dioxide 11 mmol/L (22-29) L 07/16/22 16:30 Anion Gap 29.4 (5-19) H 07/16/22 16:30 BUN 91 mg/dL (8-23) H* 07/16/22 16:30 Creatinine 4.3 mg/dL (0.7-1.2) H 07/16/22 16:30 GFR Calculation 13.9 mL/min (90-130) L 07/16/22 16:30 Glucose 99 mg/dL (65-115) 07/16/22 16:30 Calculated Osmolality 300 mOsm/kg (285-295) H 07/16/22 16:30 Lactic Acid 1.2 mmol/L (0.5-2.2) 07/16/22 16:30 Calcium 9.6 mg/dL (8.5-10.5) 07/16/22 16:30 Total Bilirubin 0.3 mg/dL (0.15-1.2) 07/16/22 16:30 AST 16 U/L (0-40) 07/16/22 16:30 ALT 17 U/L (0-41) 07/16/22 16:30 Alkaline Phosphatase 150 U/L (40-130) H 07/16/22 16:30 Total Protein 7.8 g/dL (6.6-8.7) 07/16/22 16:30 Albumin 3.5 g/dL (3.5-5.2) 07/16/22 16:30 Globulin 4.3 g/dL (1.3-4.6) 07/16/22 16:30 Urine Color Other (Yellow) 07/16/22 18:10 Urine Appearance Turbid (CLEAR) A 07/16/22 18:10 Urine pH 5 (5-7) 07/16/22 18:10 Ur Specific [place] 1.025 (1.005-1.030) 07/16/22 18:10 Urine Protein Neg (Negative) 07/16/22 18:10 Urine Glucose (UA) Norm (Normal) 07/16/22 18:10 Urine Ketones Negative (Negative) 07/16/22 18:10 Urine Blood 3+ (Negative) H 07/16/22 18:10 Urine Nitrate Negative (Negative) 07/16/22 18:10 Urine Bilirubin Neg (Negative) 07/16/22 18:10 Urine Urobilinogen Neg mg/dL (Negative) 07/16/22 18:10 Ur Leukocyte Esterase 2+ (Negative) H 07/16/22 18:10 Urine RBC 5-10 /hpf (0-2) H 07/16/22 18:10 Urine WBC Too numerous to cnt /hpf (0-5) H 07/16/22 18:10 Ur Squamous Epith Cells None /hpf (0-5) 07/16/22 18:10 Amorphous Sediment Not Reportable 07/16/22 18:10 Urine Bacteria 3+ /hpf (NONE) H 07/16/22 18:10 Discharge Plan Discharge Patient Disposition: Admitted As Inpatient Admit Provider: Mookie Coello Clinical Impression: Urinary retention, BRI (acute kidney injury), Multiple sclerosis, Left renal mass, Neurogenic bladder Condition: Stable Coding Level of Care Code ED [employer] And [employer] Instructor for Chg Fwd Exam Comprehensive
[2022-07-16 17:22] LABS: Alanine Aminotransferase 17 U/L (0-41)
[2022-07-16] MEDS: sodium chloride 0.9% 1,000 ML 999 ML IV (17:45)
[2022-07-16] MEDS: cefTRIAXone 1,000 MG in sodium chloride 0.9% (plus) 50 ML 100 MG IV (18:16)
[2022-07-16 18:30] VITALS: BP 107/58; PULSE 104; RESP 16; O2SAT 98
--- NOTE | 2022-07-16 18:50 | PC.NURSE ---
Patient came to the ER wit a mann that was not draining, mann was pulled out. Once catheter was out, there was alot of purulent drainage. 400 ml of milky urine was drained.
[2022-07-16 19:01] LABS: Add Urine Microscopic? YES; Bilirubin Urine Neg (Negative); Blood Urine 3+ (Negative); Glucose Urine UA Norm (Normal); Ketones Urine Negative (Negative); Leukocyte Esterase Urine 2+ (Negative); Nitrate Urine Negative (Negative); Protein Urine Neg (Negative); Specific Gravity, Urine 1.025 (1.005-1.030); Urine Appearance Turbid (CLEAR); Urine Color Other (Yellow); Urobilinogen Urine Neg (Negative); pH Urine 5 (5-7)
[2022-07-16 19:03] LABS: Add Urine Culture? Yes; Bacteria Urine 3+ /hpf; WBC Urine TOO NUMEROUS TO CNT /hpf (0-5)
--- NOTE | 2022-07-16 19:05 | P.HP_ITS ---
Providers/Chief Complaint Primary Care Provider: Barry Rangel MD Chief Complaint: renal failure History of Present Illness Jamil Martinez is a 67 year old male with past medical history of multiple sclerosis, neurogenic bladder, hypertension diabetes, chronic cystitis, left renal mass, bedbound due to complete bilateral lower extremity weakness. Was sent by his urologist, he was seen earlier today for preop to prepare for suprapubic catheter, lab work revealed acute kidney injury, looks like the patient's Milan catheter was not draining well for about a week, Milan catheter was changed in the ER. Imaging study done in the ER: CT abdomen and pelvis: Showed bilateral hydronephrosis, bilateral hydroureter, along with distention of the urinary bladder with wall thickening perhaps reflecting a cystitis or degree of outflow obstruction. Pertinent labs: WBC 8.1, H&H 13/40 , PLT : 343 , serum sodium 131, serum potassium 5.4, serum bicarb:11 , anion gap 29, BUN 91 , serum creatinine 4.3, lactic acid 1.2 Urinalysis : Dirty Patient received IV fluids in the ER, will also give him hyperkalemia cocktail. Review of Systems General: Reports: 10 or more systems reviewed and unremarkable except in HPI and below Const: Denies: fever(s), chills, body aches, change in appetite or diaphoresis Card: Denies: palpitations, edema, swelling of feet/ankles, dyspnea on exertion, orthopnea or leg pain with exertion Resp: Denies: dyspnea, productive cough, wheezing or pain on inspiration GI: Reports: abdominal pain; Denies: nausea, vomiting, diarrhea or constipation : Denies: flank pain or difficulty urinating Musc: Reports: back pain; Denies: extremity pain or extremity swelling Neuro: Denies: headache(s) or confusion Medications/Allergies Home Medications Medication Instructions Recorded Confirmed Last Taken Type amitriptyline 25 mg tablet 25 mg PO DAILY@03/17/21 07/16/22 07/14/22 History ascorbate calcium (vitamin C) 500 500 mg PO BID@03/17/21 07/16/22 07/14/22 History mg tablet bisacodyl 10 mg rectal suppository 10 mg ND DAILY PRN Constipation 03/17/21 07/16/22 07/14/22 History carica papaya 3 tab PO .AFTER MEAL PRN UNKNOWN 03/17/21 07/16/22 07/14/22 History chlorpheniramine maleate 4 mg 4 mg PO Q6H PRN Allergy Symptoms 03/17/21 07/16/22 07/14/22 History tablet cholecalciferol (vitamin D3) 25 75 mcg PO DAILY@03/17/21 07/16/22 07/14/22 History mcg (1,000 unit) capsule clotrimazole-betamethasone 1 1 applic topical BID PRN Rash 03/17/21 07/16/22 07/16/22 History %-0.05 % topical cream cranberry fruit 450 mg tablet 900 mg PO DAILY@03/17/21 07/16/22 07/14/22 History gentian nikolas 1 % topical solution 1 applic topical . ON AND Tue03/17/21 07/16/22 07/16/22 History lisinopril 20 mg tablet 20 mg PO BID@,03/17/21 07/16/22 07/14/22 History magnesium hydroxide 400 mg/5 mL 30 ml PO DAILY PRN Constipation 03/17/21 07/16/22 07/14/22 History oral suspension (Milk of Magnesia) metformin 850 mg tablet 850 mg PO BID@,16 03/17/21 07/16/22 07/14/22 History metoprolol succinate 25 mg 25 mg PO DAILY@03/17/21 07/16/22 07/14/22 History tablet,extended release 24 hr pseudoephedrine HCl 60 mg tablet 60 mg PO Q4H PRN Congestion 03/17/21 07/16/22 Unknown History rosuvastatin 5 mg tablet (Crestor) 5 mg PO DAILY@03/17/21 07/16/22 07/14/22 History sodium phosphates 19 gram-7 118 ml ND DAILY PRN Constipation 03/17/21 07/16/22 Unknown History gram/118 mL enema (Enema Disposable) therapeutic multivitamin 1 tab PO DAILY@03/17/21 07/16/22 07/14/22 History (Thera-Tabs tablet) bisacodyl 5 mg tablet 10 mg PO DAILY PRN Constipation 06/17/21 07/16/22 07/14/22 History bupropion HCl 150 mg 24 hr tablet, 150 mg PO DAILY@06/17/21 07/16/22 07/14/22 History extended release citalopram 20 mg tablet (Celexa) 20 mg PO DAILY@06/17/21 07/16/22 07/14/22 History cyanocobalamin (vitamin B-12) 1,000 mcg IM Q30D 06/17/21 07/16/22 06/09/22 History 1,000 mcg/mL injection solution dapagliflozin 10 mg tablet 10 mg PO DAILY@06/17/21 07/16/22 07/14/22 History (Farxiga) insulin lispro 100 unit/mL See Rx Instructions .Route .COMPLEX 06/17/21 07/16/22 07/16/22 History subcutaneous pen (Humalog KwikPen (U-100) Insulin) levothyroxine 125 mcg tablet 125 mcg PO DAILY@06/17/21 07/16/22 07/16/22 Hist ory tizanidine 4 mg tablet 4 mg PO TID PRN Muscle Spasm 06/17/21 07/16/22 07/14/22 History methenamine hippurate 1 gram tablet 1 g PO BID 07/01/21 07/16/22 07/14/22 History loratadine 10 mg tablet (Allergy 10 mg PO DAILY 01/19/22 07/16/22 07/16/22 History Relief (loratadine)) polyethylene glycol 3350 17 4 g PO DAILY 01/19/22 07/16/22 07/14/22 History gram/dose oral powder cefdinir 300 mg capsule 300 mg PO BID #14 caps 02/14/22 07/16/22 07/14/22 Rx citric ac 1980.6 mg-glucono 59.4 30 ml irrigation TID 07/12/22 07/16/22 07/15/22 History mg-mag carb 980.4 mg/30 mL irrig.soln (Renacidin) levofloxacin 500 mg tablet 500 mg PO DAILY #10 tabs 07/12/22 07/16/22 07/14/22 Rx liraglutide 0.6 mg/0.1 mL (18 mg/3 0.6 mg SUBCUT DAILY 07/12/22 07/16/22 07/16/22 History mL) subcutaneous pen injector (Victoza 2-Leoncio) Allergies Allergy/AdvReac Type Severity Reaction Status Date / Time Penicillins Allergy FAMILY HX Verified 07/16/22 10:30 OF SEVERE REACTION PFSH Acute PFSH: Medical History History of UTI Left renal mass Multiple sclerosis Neurogenic bladder Urinary retention Surgical History History of adenoidectomy History of appendectomy History of cholecystectomy History of elbow surgery History of tonsillectomy History of vasectomy Family History Mother , at age 75 from natural caused No problems noted. Social History Smoking and tobacco status: former smoker Alcohol intake: never Marital status: Current occupational status: disabled History of recent travel: No Vitals/I&O/Wt Last Vital Signs Temp 97.8 F 07/16/22 16:19 Pulse 104 H 07/16/22 18:30 Resp 16 07/16/22 18:30 BP 107/58 07/16/22 18:30 Pulse Ox 98 07/16/22 18:30 O2 Del Method 07/16/22 18:30 07/16/22 07/16/22 07/16/22 06:59 14:59 22:59 Intake Total 50 / 50 Balance 50 / 50 Weight last 48 hrs Weight 77.111 kg Physical Exam HENMT: COMMON NORMALS: normocephalic and atraumatic HEAD & SCALP: normocephalic and atraumatic Resp: COMMON NORMALS: normal respiratory effort, No retractions, No use of accessory muscles and clear to auscultation bilaterally EFFORT & INSPECTION: Yes symmetric chest movement AUSCULTATION: clear to auscultation bilaterally Cardio: COMMON NORMALS: regular rate, regular rhythm, S1 normal heart sound present, S2 normal heart sound present, No gallops present (Cardio), No murmurs present (Cardio), No rub (Cardio) and Peripheral pulses 2+ throughout RATE: regular rate RHYTHM: regular rhythm HEART SOUNDS: S1 normal heart sound present and S2 normal heart sound present PERIPHERAL PULSES: Peripheral pulses 2+ throughout GI: COMMON NORMALS: Normal to inspection, nondistended, normoactive bowel sounds present, Soft to palpation, non-tender, No hepatosplenomegaly present and no masses AUSCULTATION: Yes normoactive bowel sounds RECTAL EXAM: Yes deferred OTHER: lt lower quadrant abdominal tenderness.No rebound tenderness , no guarding. Extremity: COMMON NORMALS: no clubbing, cyanosis or edema and no pedal edema Urinary Catheter Management: [place]: Cath Placed During This Visit: yes Urinary Catheter Date of Insertion: 07/16/22 Urinary Catheter Time of Insertion: 18:00 Data 07/16/22 16:30 07/16/22 16:30 Micro: Microbiology 07/16/22 16:48 Blood Culture - Preliminary Blood SPECIMEN COLLECTED 07/16/22 16:48 Blood Culture - Preliminary Blood SPECIMEN COLLECTED A&P Assessment and plan (1) Multiple sclerosis: (2) Neurogenic bladder: (3) Left renal mass: (4) Chronic cystitis: (5) BRI (acute kidney injury): Plan 67 year old male with past medical history of multiple sclerosis, neurogenic bladder, hypertension diabetes, chronic cystitis, left renal mass, bedbound due to complete bilateral lower extremity weakness. Was sent by his urologist, he was seen earlier today for preop to prepare for suprapubic catheter, lab work revealed acute kidney injury, looks like the patient's Milan catheter was not draining well for about a week. Assessment: BRI on CKD stage III: Possibly impending acute renal failure: Likely secondary to post obstructive uropathy Hyperkalemia Increased anion gap metabolic acidosis likely secondary to acute renal failure Hyponatremia History of multiple sclerosis History of neurogenic bladder History of hypertension History of diabetes Chronic cystitis/UTI Plan: [place] catheter has been changed in the ER Random urine sodium Random urine creatinine FENA Continue IV hydration with normal saline at 100 an hour Monitor for polyuric phase Monitor intake output charting Avoid nephrotoxic's Monitor serum potassium Telemetry monitoring Follow blood culture Urine culture Continue ceftriaxone for now Monitor for possible sepsis CODE STATUS: Full code DVT prophylaxis: On heparin Attestations Medical Necessity Statement*: Patient is to be in hospital for management of BRI, need for IV hydration. Anticipated LOS Greater then 2 Midnights. Time Spent in Patient Care: Greater than 35 minutes (>than 50% of time spent in counselling and/or direct pt care on unit) . 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
[2022-07-16 19:12] VITALS: BP 98/57; PULSE 105; RESP 16; TEMP 36.5; O2SAT 97
[2022-07-16 20:00] VITALS: BP 111/62; PULSE 108; RESP 18; TEMP 36.4; O2SAT 92
[2022-07-16] MEDS: dextrose 5%-sod chloride 0.9% 1,000 ML 100 ML IV (21:06)
[2022-07-16] MEDS: heparin 5,000 unit/mL INJ 1 mL 5000 UNIT SUBCUT (21:07)
[2022-07-16 21:21] LABS: Glucose Point of Care 77 mg/dL (70-110)
--- NOTE | 2022-07-16 22:17 | ECG_ITS ---
[facility] Test Date: 2022-07-16 Pat Name: Jamil Martinez Department: Room: 260 Gender: Male Dishroom Attendant: : 1955 Requested By: Gissel Sanches Order Number: [id number] Damaris MD: Kemar Sampson M.D. Measurements Intervals [place] Rate: 109 P: 36 AK: 160 QRS: 23 QRSD: 100 T: 68 QT: 342 QTc: 462 Interpretive Statements SINUS TACHYCARDIA SEPTAL MYOCARDIAL INFARCTION , OF INDETERMINATE AGE [40+ ms Q WAVE IN V1/V2] Compared to ECG 07/16/2022 10:22:24 No significant changes Electronically Signed On 07-17-2022 16:41:17 HEATING AND AIR CONDITIONING MECHANIC by Kemar Sampson M.D. [email or web address]
[2022-07-16 23:29] LABS: Anion Gap 25.3 (5-19); Calcium 8.9 mg/dL (8.5-10.5); Carbon Dioxide 12 mmol/L (22-29); Chloride 101 mmol/L (98-107); Glomerular Filtration Rate 14.7 mL/min (90-130); Glucose 122 mg/dL (65-115); Osmolality Calculated 304 mOsm/kg (285-295); Potassium 5.3 mmol/L (3.5-5.1); Sodium 133 mmol/L (136-145)
[2022-07-16 23:34] LABS: Creatinine Clr Calc Pharmacy 20.0164
[2022-07-16 23:36] LABS: Blood Urea Nitrogen 88 mg/dL (8-23)
[2022-07-17] VITALS: BP 92/61; PULSE 113; RESP 16; TEMP 36.6; O2SAT 96
[2022-07-17] MEDS: ondansetron 2 mg/ML SDV 2 mL 4 MG IVP (01:31)
[2022-07-17] MEDS: dextrose 50% syringe 50 mL IVP (01:54)
[2022-07-17] MEDS: insulin regular-human 5 UNIT in SYRINGE 1 EACH 1 UNIT IVP (01:55)
[2022-07-17 04:01] LABS: Basophils % 0.3 %; Eosinophils # 0.1 10^3/uL (0.0-0.8); Eosinophils % 2.2 %; Hematocrit 34.4 % (42.0-52.0); Hemoglobin 11.2 g/dL (11.7-16.6); Lymphocytes # 0.7 10^3/uL (0.8-4.8); Lymphocytes % 11.4 %; Mean Corpuscular HGB Conc 32.6 g/dL (30.0-36.0); Mean Corpuscular Hemoglobin 28.6 pg (28.0-34.0); Mean Corpuscular Volume 87.8 fl (80-94); Mean Platelet Volume 9.7 fL (7.4-10.4); Monocytes # 0.6 10^3/uL (0.2-0.9); Monocytes % 9.5 %; Neutrophils # 4.47 10^3/uL (1.8-7.7); Neutrophils % 76.3 %; Nucleated Red Blood Cells % 0 %; Platelet Count 297 10^3/cmm (130-400); Red Blood Count 3.92 10^6/uL (4.1-5.3); Red Cell Distribution Width 13.3 % (12.1-15.1); White Blood Count 5.9 10^3/uL (4.0-10.0)
[2022-07-17 04:28] VITALS: BP 96/55; PULSE 113; RESP 18; TEMP 36.9; O2SAT 97
[2022-07-17 04:36] LABS: Anion Gap 22.9 (5-19); Calcium 8.7 mg/dL (8.5-10.5); Carbon Dioxide 12 mmol/L (22-29); Chloride 104 mmol/L (98-107); Glomerular Filtration Rate 14.3 mL/min (90-130); Glucose 185 mg/dL (65-115); Magnesium 2.8 mg/dL (1.7-2.3); Osmolality Calculated 310 mOsm/kg (285-295); Phosphorus 5.2 mg/dL (2.5-4.5); Potassium 4.9 mmol/L (3.5-5.1); Sodium 134 mmol/L (136-145)
[2022-07-17 04:40] LABS: Blood Urea Nitrogen 88 mg/dL (8-23)
[2022-07-17 05:11] LABS: Procalcitonin 0.29 ng/mL (0-0.5)
[2022-07-17] MEDS: heparin 5,000 unit/mL INJ 1 mL 5000 UNIT SUBCUT ×2 (06:02→18:09)
[2022-07-17] MEDS: cefTRIAXone 1,000 MG in sodium chloride 0.9% (plus) 50 ML 100 MG IV (06:03)
[2022-07-17] MEDS: dextrose 5%-sod chloride 0.9% 1,000 ML 100 ML IV (06:05)
[2022-07-17 06:34] LABS: Glucose Point of Care 163 mg/dL (70-110)
[2022-07-17 08:00] VITALS: BP 91/49; PULSE 108; RESP 18; TEMP 37; O2SAT 97
[2022-07-17] MEDS: insulin lispro 100 unit/1 mL SUBCUT (08:55)
[2022-07-17] MEDS: acetaminophen 325 mg Tablet 650 MG PO (08:56)
[2022-07-17 12:00] VITALS: BP 99/55; PULSE 103; RESP 18; O2SAT 98
[2022-07-17 12:30] LABS: Glucose Point of Care 132 mg/dL (70-110)
[2022-07-17] MEDS: lactated ringers 1,000 ML 125 ML IV ×2 (12:37→19:45)
[2022-07-17] MEDS: tizanidine 4 mg Tablet PO ×2 (12:40→19:52)
[2022-07-17 16:00] VITALS: BP 108/59; PULSE 99; RESP 18; TEMP 37; O2SAT 99
[2022-07-17 17:19] LABS: Glucose Point of Care 145 mg/dL (70-110)
--- NOTE | 2022-07-17 19:51 | P.PN_ITS ---
Subjective Subjective: Patient was seen and examined this morning, documented urine output is around 350 cc, bladder scan was done in the evening which showed 250 cc of urine. Serum creatinine has not improved, though it has not worsened Medications: Medication Review Details: Generic Name Dose Route Start Last Admin Trade Name Zackq PRN Reason Stop Dose Admin Acetaminophen 650 mg 07/16/22 18:58 07/17/22 08:56 Acetaminophen 32 5 Mg Tablet PO 650 mg Q6H PRN Administration Mild/Mod Pain Or Temp >/= 101 Heparin Sodium (Po rcine) 5,000 unit 07/16/22 19:00 07/17/22 18:09 Heparin 5,000 Un it/Ml Inj 1 Ml SUBCUT 5,000 unit Q12H [place] Administration Ceftriaxone Sodium 1,000 mg/ 50 mls @ 100 mls/ hr 07/17/22 07:00 07/17/22 07:06 Sodium Chloride IV Infused Q24H [place] Infusion Protocol Lactated Ringer's 1,000 mls @ 125 m ls/hr 07/17/22 12:15 07/17/22 19:45 Lactated Ringers IV 125 mls/hr .Q8H [place] Administration Insulin Human Lisp ro 0 unit 07/17/22 08:00 07/17/22 17:20 Insulin Lispro 1 00 Unit/1 Ml SUBCUT Not Given TIDWM [place] Protocol Ondansetron HCl 4 mg 07/16/22 18:58 07/17/22 01:31 Ondansetron 2 Mg /Ml Sdv 2 Ml IVP 4 mg Q8H PRN Administration vomiting, or N/V if npo Tizanidine HCl 4 mg 07/17/22 12:02 07/17/22 12:40 Tizanidine 4 Mg Tablet PO 4 mg TID PRN Administration SPASMS Vitals/I&O/Wt Last Vital Signs Temp 98.6 F 07/17/22 16:00 Pulse 99 07/17/22 16:00 Resp 18 07/17/22 16:00 BP 108/59 07/17/22 16:00 Pulse Ox 99 07/17/22 16:00 O2 Del Method 07/17/22 16:00 07/17/22 07/17/22 07/17/22 06:59 14:59 22:59 Intake Total 898.383 / 3504.458 1719 / 1290 1131.667 / 2421.667 Output Total 350 / 350 Balance 548.383 / 1391.540 4256 / 1290 1131.667 / 2421.667 Weight last 48 hrs Weight 77.111 kg Physical Exam HENMT: COMMON NORMALS: normocephalic and atraumatic HEAD & SCALP: normocephalic and atraumatic Resp: COMMON NORMALS: normal respiratory effort, No retractions, No use of accessory muscles and clear to auscultation bilaterally EFFORT & INSPECTION: Yes symmetric chest movement AUSCULTATION: clear to auscultation bilaterally Cardio: COMMON NORMALS: regular rate, regular rhythm, S1 normal heart sound present, S2 normal heart sound present, No gallops present (Cardio), No murmurs present (Cardio), No rub (Cardio) and Peripheral pulses 2+ throughout RATE: regular rate RHYTHM: regular rhythm HEART SOUNDS: S1 normal heart sound present and S2 normal heart sound present PERIPHERAL PULSES: Peripheral pulses 2+ throughout GI: COMMON NORMALS: Normal to inspection, nondistended, normoactive bowel sounds present, Soft to palpation, non-tender, No hepatosplenomegaly present and no masses AUSCULTATION: Yes normoactive bowel sounds PALPATION: Yes Soft to palpation and Yes No hepatosplenomegaly present RECTAL EXAM: Yes deferred OTHER: lt lower quadrant abdominal tenderness.No rebound tenderness , no guarding. Extremity: COMMON NORMALS: no clubbing, cyanosis or edema and no pedal edema Urinary Catheter Management: [place]: Cath Placed During This Visit: yes, but has since been removed by the nurse Reason for Continuing Indwelling Catheter: Acute Urinary Retention or Obstruction Urinary Catheter Date of Insertion: 07/16/22 Urinary Catheter Time of Insertion: 18:00 Date Urinary Catheter Removed: 07/16/22 Data 07/17/22 02:53 07/17/22 02:53 Micro: Microbiology 07/16/22 16:48 Blood Culture - Preliminary Blood NEGATIVE TO DATE 07/16/22 16:48 Blood Culture - Preliminary Blood NEGATIVE TO DATE A&P Assessment and plan (1) Multiple sclerosis: (2) Neurogenic bladder: (3) Left renal mass: (4) Chronic cystitis: (5) BRI (acute kidney injury): Plan 67 year old male with past medical history of multiple sclerosis, neurogenic bladder, hypertension diabetes, chronic cystitis, left renal mass, bedbound due to complete bilateral lower extremity weakness. Was sent by his urologist, he was seen earlier today for preop to prepare for suprapubic catheter, lab work revealed acute kidney injury, looks like the patient's Milan catheter was not draining well for about a week. Assessment: BRI on CKD stage III: Possibly impending acute renal failure: Likely secondary t o post obstructive uropathy Hyperkalemia Increased anion gap metabolic acidosis likely secondary to acute renal failure Hyponatremia History of multiple sclerosis History of neurogenic bladder History of hypertension History of diabetes Chronic cystitis/UTI Plan: [place] catheter has been changed in the ER Random urine sodium Random urine creatinine FENA Continue IV hydration with LR at 125 CC an hour Monitor for polyuric phase Monitor intake output charting Avoid nephrotoxic's Monitor serum potassium Telemetry monitoring Follow blood culture Urine culture Continue ceftriaxone for now Monitor for possible sepsis CODE STATUS: Full code DVT prophylaxis: On heparin Attestations Medical Necessity Statement*: Patient is still in hospital management BRI, need for IV hydration need for monitoring of kidney function. 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
[2022-07-17 20:00] VITALS: BP 108/56; PULSE 105; RESP 17; TEMP 36.8; O2SAT 100
[2022-07-17 20:41] LABS: Glucose Point of Care 158 mg/dL (70-110)
[2022-07-18] VITALS (7 sets, daily range): BP systolic 115–151; BP diastolic 55–78; PULSE 96–121; RESP 16–18; TEMP 36.4–36.8; O2SAT 95–99
[2022-07-18] MEDS: tizanidine 4 mg Tablet PO ×3 (03:34→15:11)
[2022-07-18] MEDS: lactated ringers 1,000 ML 125 ML IV ×3 (03:34→18:24)
[2022-07-18] MEDS: acetaminophen 325 mg Tablet 650 MG PO (03:34)
[2022-07-18 04:42] LABS: Basophils % 0.4 %; Eosinophils # 0.2 10^3/uL (0.0-0.8); Eosinophils % 4.9 %; Hematocrit 31.4 % (42.0-52.0); Hemoglobin 10.4 g/dL (11.7-16.6); Lymphocytes # 0.5 10^3/uL (0.8-4.8); Lymphocytes % 11.5 %; Mean Corpuscular HGB Conc 33.1 g/dL (30.0-36.0); Mean Corpuscular Hemoglobin 28.5 pg (28.0-34.0); Mean Platelet Volume 9.6 fL (7.4-10.4); Monocytes # 0.5 10^3/uL (0.2-0.9); Neutrophils # 3.28 10^3/uL (1.8-7.7); Neutrophils % 72.5 %; Nucleated Red Blood Cells % 0 %; Platelet Count 242 10^3/cmm (130-400); Red Blood Count 3.65 10^6/uL (4.1-5.3); Red Cell Distribution Width 13.1 % (12.1-15.1); White Blood Count 4.5 10^3/uL (4.0-10.0)
[2022-07-18 04:58] LABS: Anion Gap 14.3 (5-19); Blood Urea Nitrogen 80 mg/dL (8-23); Calcium 8.5 mg/dL (8.5-10.5); Carbon Dioxide 15 mmol/L (22-29); Chloride 105 mmol/L (98-107); Glomerular Filtration Rate 21.1 mL/min (90-130); Glucose 112 mg/dL (65-115); Osmolality Calculated 295 mOsm/kg (285-295); Potassium 4.3 mmol/L (3.5-5.1); Sodium 130 mmol/L (136-145)
[2022-07-18] MEDS: heparin 5,000 unit/mL INJ 1 mL 5000 UNIT SUBCUT ×2 (06:14→18:12)
[2022-07-18] MEDS: ascorbic acid 500 mg Tablet PO ×2 (06:14→18:12)
[2022-07-18] MEDS: cefTRIAXone 1,000 MG in sodium chloride 0.9% (plus) 50 ML 100 MG IV (06:15)
[2022-07-18 07:02] LABS: Glucose Point of Care 123 mg/dL (70-110)
--- NOTE | 2022-07-18 08:00 | PC.NURSE ---
Patient refuses to be turned to relieve pressure with pillows, states, I do not get break down and I do not want to be turned. education completed, will continue to encourage ways to decrease pressure.
[2022-07-18 11:09] LABS: Glucose Point of Care 232 mg/dL (70-110)
[2022-07-18] MEDS: insulin lispro 100 unit/1 mL SUBCUT (11:30)
[2022-07-18 17:41] LABS: Glucose Point of Care 140 mg/dL (70-110)
[2022-07-18] MEDS: amitriptyline 25 mg Tablet PO (18:12)
--- NOTE | 2022-07-18 18:21 | P.PN_ITS ---
Subjective Subjective: Patient was seen and examined this morning, good urine output overnight, BUN and serum creatinine is trending down, was complaining of leg cramp, Zanaflex frequency has been increased. Medications: Medication Review Details: Generic Name Dose Route Start Last Admin Trade Name Freq PRN Reason Stop Dose Admin Acetaminophen 650 mg 07/16/22 18:58 07/18/22 03:34 Acetaminophen 32 5 Mg Tablet PO 650 mg Q6H PRN Administration Mild/Mod Pain Or Temp >/= 101 Amitriptyline HCl 25 mg 07/18/22 19:00 07/18/22 18:12 Amitriptyline 25 Mg Tablet PO 25 mg DAILY@19 [place] Administration Ascorbic Acid 500 mg 07/18/22 07:00 07/18/22 18:12 Ascorbic Acid 50 0 Mg Tablet PO 500 mg BID@ [place] Administration Heparin Sodium (Po rcine) 5,000 unit 07/16/22 19:00 07/18/22 18:12 Heparin 5,000 Un it/Ml Inj 1 Ml SUBCUT 5,000 unit Q12H [place] Administration Ceftriaxone Sodium 1,000 mg/ 50 mls @ 100 mls/ hr 07/17/22 07:00 07/18/22 09:28 Sodium Chloride IV Infused Q24H [facility] Infusion Protocol Lactated Ringer's 1,000 mls @ 125 m ls/hr 07/17/22 12:15 07/18/22 11:29 Lactated Ringers IV 125 mls/hr .Q8H [place] Administration Insulin Human Lisp ro 0 unit 07/17/22 08:00 07/18/22 17:42 Insulin Lispro 1 00 Unit/1 Ml SUBCUT Not Given TIDWM [facility] Protocol Ondansetron HCl 4 mg 07/16/22 18:58 07/17/22 01:31 Ondansetron 2 Mg /Ml Sdv 2 Ml IVP 4 mg Q8H PRN Administration vomiting, or N/V if npo Tizanidine HCl 4 mg 07/18/22 12:01 07/18/22 15:11 Tizanidine 4 Mg Tablet PO 4 mg Q4H PRN Administration SPASMS Vitals/I&O/Wt Last Vital Signs Temp 97.9 F 07/18/22 16:00 Pulse 96 07/18/22 16:00 Resp 18 07/18/22 16:00 BP 140/76 07/18/22 16:00 Pulse Ox 99 07/18/22 16:00 O2 Del Method 07/18/22 16:00 07/18/22 07/18/22 07/18/22 06:59 14:59 22:59 Intake Total 1285 / 3826.667 1120 / 1120 360 / 1480 Output Total 1700 / 1700 1600 / 1600 1000 / 2600 Balance -415 / 2126.667 -480 / -480 -640 / -1120 Physical Exam Resp: COMMON NORMALS: normal respiratory effort, No retractions, No use of accessory muscles and clear to auscultation bilaterally EFFORT & INSPECTION: Yes symmetric chest movement AUSCULTATION: clear to auscultation bilaterally Cardio: COMMON NORMALS: regular rate, regular rhythm, S1 normal heart sound present, S2 normal heart sound present, No gallops present (Cardio), No murmurs present (Cardio), No rub (Cardio) and Peripheral pulses 2+ throughout RATE: regular rate RHYTHM: regular rhythm HEART SOUNDS: S1 normal heart sound present and S2 normal heart sound present PERIPHERAL PULSES: Peripheral pulses 2+ throughout GI: COMMON NORMALS: Normal to inspection, nondistended, normoactive bowel sounds present, Soft to palpation, non-tender, No hepatosplenomegaly present and no masses AUSCULTATION: Yes normoactive bowel sounds PALPATION: Yes Soft to palpation and Yes No hepatosplenomegaly present RECTAL EXAM: Yes deferred Urinary Catheter Management: [place]: Cath Placed During This Visit: yes, but has since been removed by the nurse Reason for Continuing Indwelling Catheter: Chronic Indwelling Urinary Catheter on Admission Urinary Catheter Date of Insertion: 07/16/22 Urinary Catheter Time of Insertion: 18:00 Date Urinary Catheter Removed: 07/16/22 Data 07/18/22 03:56 07/18/22 03:56 Micro: Microbiology 07/16/22 18:10 Urine Culture - Preliminary Urine,Clean Catch Gram Negative Rods 07/16/22 16:48 Blood Culture - Preliminary Blood NEGATIVE TO DATE 07/16/22 16:48 Blood Culture - Preliminary Blood NEGATIVE TO DATE A&P Assessment and plan (1) BRI (acute kidney injury): (2) Multiple sclerosis: (3) Neurogenic bladder: (4) Urinary retention: (5) Left renal mass: (6) Hyperkalemia: (7) Urethral stricture: Qualifiers: Urethral stricture type: post-procedural (8) Chronic cystitis: Plan 67 year old male with past medical history of multiple sclerosis, neurogenic bladder, hypertension diabetes, chronic cystitis, left renal mass, bedbound due to complete bilateral lower extremity weakness. Was sent by his urologist, he was seen earlier today for preop to prepare for suprapubic catheter, lab work revealed acute kidney injury, looks like the patient's [place] catheter was not draining well for about a week. Assessment: BRI on CKD stage III: Possibly impending acute renal failure: Likely secondary to post obstructive uropathy Hyperkalemia Increased anion gap metabolic acidosis likely secondary to acute renal failure Hyponatremia History of multiple sclerosis History of neurogenic bladder History of hypertension History of diabetes Chronic cystitis/UTI Plan: [place] catheter has been changed in the ER Random urine sodium Random urine creatinine FENA Continue IV hydration with LR? at 125 CC an hour Monitor for polyuric phase Monitor intake output charting Avoid nephrotoxic's Monitor serum potassium Telemetry monitoring Follow blood culture Urine culture Continue ceftriaxone for now Monitor for possible sepsis CODE STATUS: Full code DVT prophylaxis: On SC heparin Attestations Medical Necessity Statement*: Still in hospital management of BRI. Coding Level of Care Code Acute Digital Photo Printer for [facility] Diagnoses BRI (acute kidney injury) N17.9 Multiple sclerosis G35 Neurogenic bladder N31.9 Urinary retention R33.9 Left renal mass N28.89 Hyperkalemia E87.5 Urethral stricture N35.919 Urethral stricture type: post-procedural Chronic cystitis N30.20
[2022-07-18 22:00] LABS: Glucose Point of Care 187 mg/dL (70-110)
[2022-07-19] VITALS (7 sets, daily range): BP systolic 125–159; BP diastolic 54–77; PULSE 83–111; RESP 14–20; TEMP 36.7–37.3; O2SAT 90–99
[2022-07-19] MEDS: lactated ringers 1,000 ML 125 ML IV ×3 (01:38→18:54)
[2022-07-19 05:43] LABS: Basophils % 0.7 %; Eosinophils # 0.3 10^3/uL (0.0-0.8); Eosinophils % 6.7 %; Hematocrit 32.3 % (42.0-52.0); Hemoglobin 10.9 g/dL (11.7-16.6); Lymphocytes # 0.5 10^3/uL (0.8-4.8); Lymphocytes % 11.2 %; Mean Corpuscular HGB Conc 33.7 g/dL (30.0-36.0); Mean Corpuscular Volume 85.9 fl (80-94); Mean Platelet Volume 9.4 fL (7.4-10.4); Monocytes # 0.5 10^3/uL (0.2-0.9); Monocytes % 10.6 %; Neutrophils # 3.06 10^3/uL (1.8-7.7); Neutrophils % 70.1 %; Nucleated Red Blood Cells % 0 %; Platelet Count 244 10^3/cmm (130-400); Red Blood Count 3.76 10^6/uL (4.1-5.3); Red Cell Distribution Width 13.2 % (12.1-15.1); White Blood Count 4.4 10^3/uL (4.0-10.0)
[2022-07-19] MEDS: cefTRIAXone 1,000 MG in sodium chloride 0.9% (plus) 50 ML 100 MG IV (06:15)
[2022-07-19] MEDS: heparin 5,000 unit/mL INJ 1 mL 5000 UNIT SUBCUT ×2 (06:17→17:53)
[2022-07-19 06:20] LABS: Anion Gap 14.5 (5-19); Blood Urea Nitrogen 52 mg/dL (8-23); Calcium 8.8 mg/dL (8.5-10.5); Carbon Dioxide 18 mmol/L (22-29); Chloride 107 mmol/L (98-107); Glucose 130 mg/dL (65-115); Osmolality Calculated 296 mOsm/kg (285-295); Potassium 4.5 mmol/L (3.5-5.1); Sodium 135 mmol/L (136-145)
[2022-07-19 06:22] LABS: Glucose Point of Care 122 mg/dL (70-110)
[2022-07-19 06:25] LABS: Creatinine Clr Calc Pharmacy 54.7114
--- NOTE | 2022-07-19 10:49 | PC.SOCIAL ---
IMM update IMM updated with patient and family at bedside. Copy pg 2 provided. Verbalized an understanding. Initialled, dated, timed, and placed in chart.
[2022-07-19] MEDS: tizanidine 4 mg Tablet PO (11:38)
[2022-07-19 11:40] LABS: Glucose Point of Care 126 mg/dL (70-110)
[2022-07-19 17:18] LABS: Glucose Point of Care 176 mg/dL (70-110)
[2022-07-19] MEDS: insulin lispro 100 unit/1 mL SUBCUT (17:52)
[2022-07-19] MEDS: amitriptyline 25 mg Tablet PO (17:53)
[2022-07-19] MEDS: ascorbic acid 500 mg Tablet PO (17:55)
[2022-07-19 21:23] LABS: Glucose Point of Care 181 mg/dL (70-110)
[2022-07-20] VITALS: BP 132/60; PULSE 71; RESP 14; TEMP 36.8; O2SAT 96
[2022-07-20] MEDS: lactated ringers 1,000 ML 125 ML IV (02:50)
[2022-07-20 04:00] VITALS: BP 139/64; PULSE 86; RESP 15; TEMP 36.4; O2SAT 97
[2022-07-20] MEDS: cefTRIAXone 1,000 MG in sodium chloride 0.9% (plus) 50 ML 100 MG IV (06:03)
[2022-07-20] MEDS: heparin 5,000 unit/mL INJ 1 mL 5000 UNIT SUBCUT (06:04)
[2022-07-20] MEDS: ascorbic acid 500 mg Tablet PO (06:04)
[2022-07-20 06:36] LABS: Glucose Point of Care 114 mg/dL (70-110)
[2022-07-20 07:49] VITALS: BP 143/67; PULSE 90; RESP 16; TEMP 36.2; O2SAT 97
--- NOTE | 2022-07-20 09:49 | PM.DCS ---
Discharge Providers Date of Admission: 07/16/22 18:58 Date of Discharge: July 20, 2022 Attending Provider at Admission: Mookie Coello MD Attending Provider at Discharge: Sari Raza MD Primary Care Provider: Barry Rangel MD Diagnoses at Discharge Discharge Diagnosis (1) BRI (acute kidney injury): Status: Acute (2) Multiple sclerosis: Status: Acute (3) Neurogenic bladder: Status: Acute (4) Urinary retention: Status: Acute (5) Left renal mass: Status: Acute (6) Hyperkalemia: Status: Acute (7) Urethral stricture: Status: Acute Qualifiers: Urethral stricture type: post-procedural (8) Chronic cystitis: Status: Acute Reason for Visit Reason for Visit: renal failure Brief History: Taken from H&P: Jamil Martinez is a 67 year old male with past medical history of multiple sclerosis, neurogenic bladder, hypertension diabetes, chronic cystitis, left renal mass, bedbound due to complete bilateral lower extremity weakness. Was sent by his urologist, he was seen earlier today for preop to prepare for suprapubic catheter, lab work revealed acute kidney injury, looks like the patient's Milan catheter was not draining well for about a week, Milan catheter was changed in the ER. Imaging study done in the ER: CT abdomen and pelvis: Showed bilateral hydronephrosis, bilateral hydroureter,along with distention of the urinary bladder with wall thickening perhaps reflecting a cystitis or degree of outflow obstruction. Pertinent labs: WBC 8.1, H&H 13/40 , PLT : 343 , serum sodium 131, serum potassium 5.4, serum bicarb:11 , anion gap 29, BUN 91 , serum creatinine 4.3, lactic acid 1.2 Hospital Course Hospital Course Patient was admitted to the hospital due to acute kidney injury. This was likely as a result of bladder outlet obstruction from a blocked Milan. Milan was replaced in the ER following which patient had good urine output. He received IV hydration with normal saline, received treatment for hyperkalemia with insulin dextrose. His creatinine started to trend down significantly after the obstruction was relieved. At the time of discharge his creatinine has improved from 4.3 upon admission to 1.5. His urine output currently is about 4 L/day. He is symptomatically feeling improved. Case was discussed with urology, he is planned for a suprapubic catheter placement next week after treatment of his acute UTI. His urine culture from July 16 revealed E. coli, sensitive to ceftriaxone. He was treated in the hospital with ceftriaxone, being transition to cefuroxime at discharge with recommendations to continue the antibiotic until he undergoes suprapubic catheter placement. Physical Exam Narrative: General: No acute distress, AO x3 HEENT: PERRLA, pupils bilaterally equal and reactive, pallors not present Chest: Normal vesicular breath sounds, no added sounds, equal good air entry bilaterally CVS: S1-S2 regular, no murmurs, no tachycardia, no gallops, no rubs Abdomen: Soft, nontender, no organomegaly, bowel sounds present Neuro: Multiple sclerosis, lower extremity atrophy. Urinary Catheter Management: Milan: Cath Placed During This Visit: yes, but has since been removed by the nurse Reason for Continuing Indwelling Catheter: Chronic Indwelling Urinary Catheter on Admission Urinary Catheter Date of Insertion: 07/16/22 Urinary Catheter Time of Insertion: 18:00 Date Urinary Catheter Removed: 07/16/22 Discharge Data Studies Completed and Pending Completed Studies During Hospitalization Category Date Time Status CT kidney stone [id number] Stat Cat Scan 07/16/22 16:41 Completed XR chest 1V portable [id number] Stat Exams 07/16/22 16:12 Completed Pending at discharge Category Date Time Status Blood Culture Stat Lab 07/16/22 16:48 Results Radiology Impressions Chest X-Ray 07/16/22 16:12 IMPRESSION: No acute findings. Abdomen/Pelvis CT 07/16/22 16:41 IMPRESSION: 1. Bilateral moderate to severe hydronephrosis and hydroureter along with distention of the urinary bladder with wall thickening perhaps reflecting a cystitis or degree of outflow obstruction. A Milan catheter is seen in the urinary bladder with air presumed iatrogenic. Urinary bladder wall thickening is also present with some surrounding edema which is also suggestive of a cystitis. Nonspecific layering debris is also suspected in the urinary bladder. 2. Constipation. 3. Emphysematous changes suspected. 4. Mild bibasilar bronchiectasis suspected. 5. Calcified mediastinal lymph nodes incompletely visualized. 6. Cholecystectomy. 7. Left kidney lower pole 3.3 cm somewhat thick-walled cystic mass again seen, somewhat similar to prior exam, concerning for a renal malignancy. 8. Right kidney lower pole cyst, negative for follow-up advised. An additional left kidney lower pole 15 mm cyst is also seen. 9. Minimal diverticulosis without diverticulitis. Laboratory Results WBC 4.4 10^3/uL (4.0-10.0) 07/19/22 05:20 RBC 3.76 10^6/uL (4.1-5.3) L 07/19/22 05:20 Hgb 10.9 g/dL (11.7-16.6) L 07/19/22 05:20 Hct 32.3 % (42.0-52.0) L 07/19/22 05:20 MCV 85.9 fl (80-94) 07/19/22 05:20 MCH 29.0 pg (28.0-34.0) 07/19/22 05:20 MCHC 33.7 g/dL (30.0-36.0) 07/19/22 05:20 RDW 13.2 % (12.1-15.1) 07/19/22 05:20 Plt Count 244 10^3/cmm (130-400) 07/19/22 05:20 MPV 9.4 fL (7.4-10.4) 07/19/22 05:20 Neut % (Auto) 70.1 % 07/19/22 05:20 Lymph % (Auto) 11.2 % 07/19/22 05:20 [facility] % (Auto) 10.6 % 07/19/22 05:20 Eos % (Auto) 6.7 % 07/19/22 05:20 Baso % (Auto) 0.7 % 07/19/22 05:20 Neut # (Auto) 3.06 10^3/uL (1.8-7.7) 07/19/22 05:20 Lymph # (Auto) 0.5 10^3/uL (0.8-4.8) L 07/19/22 05:20 [facility] # (Auto) 0.5 10^3/uL (0.2-0.9) 07/19/22 05:20 Eos # (Auto) 0.3 10^3/uL (0.0-0.8) 07/19/22 05:20 Baso # (Auto) 0.0 10^3/uL (0.0-0.1) 07/19/22 05:20 Nucleated RBC % (auto) 0 % 07/19/22 05:20 Nucleated RBCs # 0.0 /100WBC 07/19/22 05:20 Sodium 135 mmol/L (136-145) L 07/19/22 05:20 Potassium 4.5 mmol/L (3.5-5.1) 07/19/22 05:20 Chloride 107 mmol/L (98-107) 07/19/22 05:20 Carbon Dioxide 18 mmol/L (22-29) L 07/19/22 05:20 Anion Gap 14.5 (5-19) 07/19/22 05:20 BUN 52 mg/dL (8-23) H 07/19/22 05:20 Creatinine 1.5 mg/dL (0.7-1.2) H 07/19/22 05:20 GFR Calculation 47.0 mL/min (90-130) L 07/19/22 05:20 Glucose 130 mg/dL (65-115) H 07/19/22 05:20 POC Glucose 114 mg/dL (70-110) H 07/20/22 06:32 Calculated Osmolality 296 mOsm/kg (285-295) H 07/19/22 05:20 Lactic Acid 1.2 mmol/L (0.5-2.2) 07/16/22 16:30 Calcium 8.8 mg/dL (8.5-10.5) 07/19/22 05:20 Phosphorus 5.2 mg/dL (2.5-4.5) H 07/17/22 02:53 Magnesium 2.8 mg/dL (1.7-2.3) H 07/17/22 02:53 Total Bilirubin 0.3 mg/dL (0.15-1.2) 07/16/22 16:30 AST 16 U/L (0-40) 07/16/22 16:30 ALT 17 U/L (0-41) 07/16/22 16:30 Alkaline Phosphatase 150 U/L (40-130) H 07/16/22 16:30 Total Protein 7.8 g/dL (6.6-8.7) 07/16/22 16:30 Albumin 3.5 g/dL (3.5-5.2) 07/16/22 16:30 Globulin 4.3 g/dL (1.3-4.6) 07/16/22 16:30 Procalcitonin 0.29 ng/mL (0-0.5) 07/17/22 02:53 Urine Color Other (Yellow) 07/16/22 18:10 Urine Appearance Turbid (CLEAR) A 07/16/22 18:10 Urine pH 5 (5-7) 07/16/22 18:10 Ur Specific [place] 1.025 (1.005-1.030) 07/16/22 18:10 Urine Protein Neg (Negative) 07/16/22 18:10 Urine Glucose (UA) Norm (Normal) 07/16/22 18:10 Urine Ketones Negative (Negative) 07/16/22 18:10 Urine Blood 3+ (Negative) H 07/16/22 18:10 Urine Nitrate Negative (Negative) 07/16/22 18:10 Urine Bilirubin Neg (Negative) 07/16/22 18:10 Urine Urobilinogen Neg mg/dL (Negative) 07/16/22 18:10 Ur Leukocyte Esterase 2+ (Negative) H 07/16/22 18:10 Urine RBC 5-10 /hpf (0-2) H 07/16/22 18:10 Urine WBC Too numerous to cnt /hpf (0-5) H 07/16/22 18:10 Ur Squamous Epith Cells None /hpf (0-5) 07/16/22 18:10 Amorphous Sediment Not Reportable 07/16/22 18:10 Urine Bacteria 3+ /hpf (NONE) H 07/16/22 18:10 Vitals Last Vital Signs Temp 97.1 F L 07/20/22 07:49 Pulse 90 07/20/22 07:49 Resp 16 07/20/22 07:49 BP 143/67 07/20/22 07:49 Pulse Ox 97 07/20/22 07:49 O2 Del Method 07/20/22 07:49 Discharge Plan Discharge Patient Disposition: Home Condition: Stable Prescriptions: New cefuroxime axetil 500 mg tablet 500 mg PO BID 10 Days Qty: 20 0RF Continued chlorpheniramine maleate 4 mg tablet 4 mg PO Q6H PRN (Reason: Allergy Symptoms) amitriptyline 25 mg tablet 25 mg PO DAILY@19 bisacodyl 10 mg suppository 10 mg UT DAILY PRN (Reason: Constipation) Rx Instructions: IF NO RESULTS FROM MOM carica papaya Tablet 3 tab PO .AFTER MEAL PRN (Reason: UNKNOWN) cholecalciferol (vitamin D3) 25 mcg (1,000 unit) capsule 75 mcg PO DAILY@07 cranberry fruit 450 mg tablet 900 mg PO DAILY@07 Rx Instructions: administer with a meal rosuvastatin [Crestor] 5 mg tablet 5 mg PO DAILY@20 Enema Disposable 19-7 gram/118 mL enema 118 ml UT DAILY PRN (Reason: Constipation) gentian nikolas 1 % solution 1 applic topical . ON AND TUE lisinopril 20 mg tablet 20 mg PO BID@07,19 metoprolol succinate 25 mg tablet extended release 24 hr 25 mg PO DAILY@07 magnesium hydroxide [Milk of Magnesia] 400 mg/5 mL suspension 30 ml PO DAILY PRN (Reason: Constipation) Rx Instructions: IF NO BM FOR 3 DAYS pseudoephedrine HCl 60 mg tablet 60 mg PO Q4H PRN (Reason: Congestion) Thera-Tabs Tablet 1 tab PO DAILY@07 ascorbate calcium (vitamin C) 500 mg tablet 500 mg PO BID@07,19 methenamine hippurate 1 gram tablet 1 g PO BID loratadine [Allergy Relief (loratadine)] 10 mg tablet 10 mg PO DAILY polyethylene glycol 3350 17 gram/dose powder 17 g PO DAILY PRN (Reason: Constipation) Victoza 2-Leoncio 0.6 mg/0.1 mL (18 mg/3 mL) pen injector 0.6 mg SUBCUT DAILY citalopram [Celexa] 20 mg Tablet 20 mg PO DAILY@07 cyanocobalamin (vitamin B-12) 1,000 mcg/mL Solution 1,000 mcg IM Q30D Rx Instructions: ON THE 2ND OF EACH MONTH levothyroxine 125 mcg Tablet 125 mcg PO DAILY@05 insulin lispro [Humalog KwikPen Insulin] 100 unit/mL insulin pen See Rx Instructions .ROUTE .COMPLEX Rx Instructions: SLIDING SCALE BID AT 05:00 AND 20:00 IF BLOOD SUGAR LESS THAN 70 CALL MD 150-200=0 UNITS 201-250=2 UNITS 251-300=4 UNITS 301-350=6 UNITS 351-400=8 UNITS IF BLOOD SUGAR IS GREATER THAN 400 GIVE 8 UNITS bupropion HCl 150 mg tablet extended release 24 hr 150 mg PO DAILY@07 Farxiga 10 mg tablet 10 mg PO DAILY@08 bisacodyl 5 mg Tablet 10 mg PO DAILY PRN (Reason: Constipation) Rx Instructions: IF NO RESULTS FROM MOM tizanidine 4 mg Tablet 4 mg PO TID PRN (Reason: Muscle Spasm) lidocaine 5 % Ointment 1 applic TOPICAL TID PRN (Reason: Pain) Renacidin 1,980.6 mg-59.4 mg-980.4mg/30mL Solution 30 ml IRRIGATION .EVERY SHIFT Discontinued levofloxacin 500 mg tablet 500 mg PO DAILY Qty: 10 1RF Discharge Orders: Discharge Order (Routine); Ordered 07/20/22 Ordered By: Sari Raza Referrals: Barry Rangel MD [Primary Care Provider] - Darryl Hogan MD [Physician] - 1 week Discharge Diet: Diabetic Discharge Activity: Resume usual activity Patient Instructions: Opioid Safety Discharge Attestations Time Spent in Discharge Care*: greater than 30 min Quality Metrics Clinical Quality Measures [ No reported AMI, CVA or VTE this stay] Coding Level of Care Code Acute Chg FW DC note Diagnoses BRI (acute kidney injury) N17.9 Multiple sclerosis G35 Neurogenic bladder N31.9 Urinary retention R33.9 Left renal mass N28.89 Hyperkalemia E87.5 Urethral stricture N35.919 Urethral stricture type: post-procedural Chronic cystitis N30.20
[2022-07-20 11:29] VITALS: BP 147/68; PULSE 69; RESP 17; TEMP 36.2; O2SAT 95
[2022-07-20 11:32] LABS: SARS Covid-2 Antigen Negative (Negative)
[2022-07-20 11:38] LABS: Glucose Point of Care 126 mg/dL (70-110)
[2022-07-20] MEDS: tizanidine 4 mg Tablet PO (12:27)
[2022-07-20 14:09] VITALS: BP 147/68; PULSE 69; RESP 17; TEMP 36.2; O2SAT 95
--- NOTE | 2022-07-20 14:09 | PC.NURSE ---
Discharge Note Patient discharged to [facility] via SNF transportation accompanied by SNF personnel. Discharge instructions reviewed with patient and/or [employer] sales representative. Mobile pharmacy medications and/or prescriptions provided. Belongings/home medications returned.
== END 2022-07-20 14:10 | disposition skilled nursing facility (03) | DRG 699 ==
LOC: ER 17:57 → MEDSURG 19:40
PROVIDERS: Internal Medicine; Admitting Provider Internal Medicine; Emergency Provider Family Medicine; PCP Family Medicine; Visit Provider Student in an Organized Health Care Education/Training Program
DX: T83.091A Other mechanical complication of indwelling urethral catheter, initial encounter (principal); E87.1 Hypo-osmolality and hyponatremia; N17.9 Acute kidney failure, unspecified; Y73.8 Miscellaneous gastroenterology and urology devices associated with adverse incidents, not elsewhere classified; G35 Multiple sclerosis; N31.9 Neuromuscular dysfunction of bladder, unspecified; R33.9 Retention of urine, unspecified; N28.89 Other specified disorders of kidney and ureter; E87.5 Hyperkalemia; N99.114 Postprocedural urethral stricture, male, unspecified; N30.20 Other chronic cystitis without hematuria; E11.22 Type 2 diabetes mellitus with diabetic chronic kidney disease; I12.9 Hypertensive chronic kidney disease with stage 1 through stage 4 chronic kidney disease, or unspecified chronic kidney disease; N18.30 Chronic kidney disease, stage 3 unspecified; Z74.01 Bed confinement status; B96.20 Unspecified Escherichia coli [E. coli] as the cause of diseases classified elsewhere; Z79.4 Long term (current) use of insulin; Z87.440 Personal history of urinary (tract) infections; Z87.891 Personal history of nicotine dependence
CPT/HCPCS: 36415; 36416; 51702; 51798; 71045; 74176; 80048; 80053; 81001; 82962; 83605; 83735; 84100; 84145; 85025; 87040; 87077; 87086; 87186; 87205; 87426; 93005; 96365; 96372; 99285; J0696; J1644; J1815; J2405; J7030; J7042; J7120

== ENCOUNTER → 2022-07-19 06:00 | Day surgery (SDC) | payer MEDICARE, MEDICAID, SELFPAY ==
--- NOTE | 2022-07-16 10:21 | ECG_ITS ---
[facility] Test Date: 2022-07-16 Pat Name: Jamil Martinez Department: Room: Gender: Male Sales Leader: : 1955 Requested By: Ced Jalloh Order Number: [id number] Damaris MD: Ariadna Mistry M.D. Measurements Intervals [place] Rate: 104 P: -17 MN: 184 QRS: 26 QRSD: 94 T: 80 QT: 352 QTc: 465 Interpretive Statements SINUS TACHYCARDIA SEPTAL MYOCARDIAL INFARCTION , OF INDETERMINATE AGE [40+ ms Q WAVE IN V1/V2] Compared to ECG 01/21/2022 12:39:10 Myocardial infarct finding now present Electronically Signed On 07-16-2022 13:13:25 GUMMED TAPE PRESS OPERATOR by Ariadna Mistry M.D. [id number]
[2022-07-16 10:45] VITALS: BMI 23.1
[2022-07-16 11:15] LABS: Basophils % 0.4 %; Eosinophils # 0.2 10^3/uL (0.0-0.8); Eosinophils % 2.7 %; Hematocrit 39.3 % (42.0-52.0); Hemoglobin 13.1 g/dL (11.7-16.6); Lymphocytes # 0.7 10^3/uL (0.8-4.8); Lymphocytes % 7.6 %; Mean Corpuscular HGB Conc 33.3 g/dL (30.0-36.0); Mean Corpuscular Hemoglobin 28.9 pg (28.0-34.0); Mean Corpuscular Volume 86.8 fl (80-94); Mean Platelet Volume 9.5 fL (7.4-10.4); Monocytes # 0.7 10^3/uL (0.2-0.9); Monocytes % 8.7 %; Neutrophils # 6.83 10^3/uL (1.8-7.7); Neutrophils % 80.1 %; Nucleated Red Blood Cells % 0 %; Platelet Count 319 10^3/cmm (130-400); Red Blood Count 4.53 10^6/uL (4.1-5.3); Red Cell Distribution Width 13.3 % (12.1-15.1); White Blood Count 8.5 10^3/uL (4.0-10.0)
[2022-07-16 11:23] LABS: Anion Gap 26.7 (5-19); Calcium 9.5 mg/dL (8.5-10.5); Carbon Dioxide 12 mmol/L (22-29); Chloride 99 mmol/L (98-107); Glomerular Filtration Rate 14.3 mL/min (90-130); Glucose 115 mg/dL (65-115); Osmolality Calculated 302 mOsm/kg (285-295); Potassium 5.7 mmol/L (3.5-5.1); Sodium 132 mmol/L (136-145)
[2022-07-16 11:26] LABS: Blood Urea Nitrogen 88 mg/dL (8-23)
--- NOTE | 2022-07-16 11:43 | SUR.PREOP ---
Patient preop labs drawn 07/16/22. Critical BUN of [address] farias office 07/16/22 1130am.
--- NOTE | 2022-07-16 12:48 | ANES.PREANE2 ---
Pre-Anesthetic Assessment Height/Weight: Height 1.85 m Weight 79.379 kg Operation Date: 07/19/22 08:00 Proposed Procedures s CYSTOSCOPY SUPRAPUBIC TUBE PERCUTANEOUS POSSIBLE OPEN 73956 N31.9(Not Applicable) - Darryl Hogan MD p CYSTOSCOPY SUPRAPUBIC TUBE PERCUTANEOUS POSSIBLE OPEN 06007 N31.9(Not Applicable) - Darryl Hogan MD Familial anesthetic complications: none Was Beta Rachel taken within 24 hours: Yes Was Clonidine taken within 24 hours: N/A Social No alcohol and No tobacco Exam alert, oriented x 3 and clear to auscultation bilaterally tachy Airway Submandibular: within normal limits Cervical ROM: within normal limits Mallampati: Class II Dentition: chipped CV/HEM Anemia, Arrythmia and Hypertension neurogenic bladder Metabolic Diabetes Mellitus, Hyperlipidemia and Thyroid Disease Musc/skel Weakness MS---wheelchair bound Neuropsych Anxiety and Depression Anesthetic Plan ASA status: 3 Anesthesia: General Medications/Allergies Home Medications Medication Instructions Recorded Confirmed Last Taken Type amitriptyline 25 mg tablet 25 mg PO DAILY@03/17/21 07/16/22 07/14/22 History ascorbate calcium (vitamin C) 500 500 mg PO BID@03/17/21 07/16/22 07/14/22 History mg tablet bisacodyl 10 mg rectal suppository 10 mg DE DAILY PRN Constipation 03/17/21 07/16/22 07/14/22 History carica papaya 3 tab PO .AFTER MEAL PRN UNKNOWN 03/17/21 07/16/22 07/14/22 History chlorpheniramine maleate 4 mg 4 mg PO Q6H PRN Allergy Symptoms 03/17/21 07/16/22 07/14/22 History tablet cholecalciferol (vitamin D3) 25 75 mcg PO DAILY@03/17/21 07/16/22 07/14/22 History mcg (1,000 unit) capsule clotrimazole-betamethasone 1 1 applic topical BID PRN Rash 03/17/21 07/16/22 07/16/22 History %-0.05 % topical cream cranberry fruit 450 mg tablet 900 mg PO DAILY@03/17/21 07/16/22 07/14/22 History gentian nikolas 1 % topical solution 1 applic topical . ON TU AND Tue03/17/21 07/16/2209/22 History lisinopril 20 mg tablet 20 mg PO BID@07,19 03/17/21 07/16/22 07/14/22 History magnesium hydroxide 400 mg/5 mL 30 ml PO DAILY PRN Constipation 03/17/21 07/16/22 07/14/22 History oral suspension (Milk of Magnesia) metformin 850 mg tablet 850 mg PO BID@,16 03/17/21 07/16/22 07/14/22 History metoprolol succinate 25 mg 25 mg PO DAILY@03/17/21 07/16/22 07/14/22 History tablet,extended release 24 hr pseudoephedrine HCl 60 mg tablet 60 mg PO Q4H PRN Congestion 03/17/21 07/16/22 Unknown History rosuvastatin 5 mg tablet (Crestor) 5 mg PO DAILY@03/17/21 07/16/22 07/14/22 History sodium phosphates 19 gram-7 118 ml DE DAILY PRN Constipation 03/17/21 07/16/22 Unknown History gram/118 mL enema (Enema Disposable) therapeutic multivitamin 1 tab PO DAILY@03/17/21 07/16/22 07/14/22 History (Thera-Tabs tablet) bisacodyl 5 mg tablet 10 mg PO DAILY PRN Constipation 06/17/21 07/16/22 07/14/22 History bupropion HCl 150 mg 24 hr tablet, 150 mg PO DAILY@06/17/21 07/16/22 07/14/22 History extended release citalopram 20 mg tablet (Celexa) 20 mg PO DAILY@06/17/21 07/16/22 07/14/22 History cyanocobalamin (vitamin B-12) 1,000 mcg IM Q30D 06/17/21 07/16/22 06/09/22 History 1,000 mcg/mL injection solution dapagliflozin 10 mg tablet 10 mg PO DAILY@06/17/21 07/16/22 07/14/22 History (Farxiga) insulin lispro 100 unit/mL See Rx Instructions .Route .COMPLEX 06/17/21 07/16/22 07/16/22 History subcutaneous pen (Humalog KwikPen (U-100) Insulin) levothyroxine 125 mcg tablet 125 mcg PO DAILY@05 06/17/21 07/16/22 07/16/22 History tizanidine 4 mg tablet 4 mg PO TID PRN Muscle Spasm 06/17/21 07/16/22 07/14/22 History methenamine hippurate 1 gram tablet 1 g PO BID 07/01/21 07/16/22 07/14/22 History loratadine 10 mg tablet (Allergy 10 mg PO DAILY 01/19/22 07/16/22 07/16/22 History Relief (loratadine)) polyethylene glycol 3350 17 4 g PO DAILY 01/19/22 07/16/22 07/14/22 History gram/dose oral powder cefdinir 300 mg capsule 300 mg PO BID #14 caps 02/14/22 07/16/22 07/14/22 Rx citric ac 1980.6 mg-glucono 59.4 30 ml irrigation TID 07/12/22 07/16/22 07/15/22 History mg-mag carb 980.4 mg/30 mL irrig.soln (Renacidin) levofloxacin 500 mg tablet 500 mg PO DAILY #10 tabs 07/12/22 07/16/22 07/14/22 Rx liraglutide 0.6 mg/0.1 mL (18 mg/3 0.6 mg SUBCUT DAILY 07/12/22 07/16/22 07/16/22 History mL) subcutaneous pen injector (Victoza 2-Leoncio) Allergies Allergy/AdvReac Type Severity Reaction Status Date / Time Penicillins Allergy FAMILY HX Verified 07/16/22 10:30 OF SEVERE REACTION PFSH Anesthesia Medical History History of UTI Left renal mass Multiple sclerosis Neurogenic bladder Urinary retention Surgical History History of adenoidectomy History of appendectomy History of cholecystectomy History of elbow surgery History of tonsillectomy History of vasectomy Family History Mother , at age 75 from natural caused No problems noted. Social History Smoking and tobacco status: former smoker Alcohol intake: never Marital status: Current occupational status: disabled History of recent travel: No Data Anesthesia 07/16/22 10:21 07/16/22 10:21 Short CBC 07/16/22 Range/Units 10:21 WBC 8.5 (4.0-10.0) 10^3/uL Hgb 13.1 (11.7-16.6) g/dL Hct 39.3 L (42.0-52.0) % MCV 86.8 (80-94) fl Plt Count 319 (130-400) 10^3/cmm Neut % (Auto) 80.1 % Neut # (Auto) 6.83 (1.8-7.7) 10^3/uL BMP 07/16/22 10:21 Sodium 132 L Potassium 5.7 H Chloride 99 Carbon Dioxide 12 L BUN 88 H* D Creatinine 4.2 H Glucose 115 Calcium 9.5 Cardiac Studies: No Data to Display
== END ==
PROVIDERS: Anesthesiology; PCP Family Medicine; Visit Provider Urology
DX: Z01.818 Encounter for other preprocedural examination (principal)
CPT/HCPCS: 80048; 85025; 93005

== ENCOUNTER 2022-07-23 22:25 | Emergency (ER) | payer MEDICARE, MEDICAID, SELFPAY ==
[2022-07-23 22:35] VITALS: BP 160/78; PULSE 97; RESP 17; TEMP 37.3; O2SAT 96; BMI 23.6
--- NOTE | 2022-07-23 22:44 | W.ED.ABDPA2 ---
HPI - Abdominal Pain General: Chief Complaint: Abdominal Pain Stated Complaint: CATH PROBLEMS Time Seen by Provider: 07/23/22 22:31 Source: patient and EMS Mode of arrival: EMS Limitations: no limitations History of Present Illness: 67-year-old male who is here from detention states he dislodged his Milan today they have tried to replace his Milan but not been able to successfully do it sent here for Milan placement he does have lower abdominal pain states he feels like he needs to urinate. Associated Symptoms: Denies chills and fever(s) Review of Systems Const: Denies: fever(s), chills, body aches or change in appetite Eyes: Denies: blurry vision or eye discomfort ENMT: Denies: throat pain or dental pain Card: Denies: chest pain Resp: Denies: dyspnea GI: Reports: abdominal pain : Reports: difficulty urinating Musc: Denies: neck pain or back pain Skin/Breast: Denies: rash Neuro: Denies: headache(s) Psych: Denies: depression Sebas/Lymph: Denies: easy bruising All/Imm: Denies: urticaria PFSH ED PFSH: Medical History History of UTI Left renal mass Multiple sclerosis Neurogenic bladder Urinary retention Surgical History History of adenoidectomy History of appendectomy History of cholecystectomy History of elbow surgery History of tonsillectomy History of vasectomy Family History Mother , at age 75 from natural caused No problems noted. Social History Smoking and tobacco status: former smoker Alcohol intake: never Marital status: Current occupational status: disabled History of recent travel: No Physical Exam Const: COMMON NORMALS: no acute distress, patient oriented x3 and healthy appearing HENMT: COMMON NORMALS: normocephalic and atraumatic HEAD & SCALP: normocephalic and atraumatic Eye: COMMON NORMALS: Equal, round and reactive pupils present and EOMs intact bilaterally PUPIL: Yes Equal, round and reactive pupils present Neck/C-Spine: COMMON NORMALS: full ROM and supple Chest: COMMONS NORMALS: normal inspection of the chest and normal palpation of entire chest wall Resp: COMMON NORMALS: normal respiratory effort, No retractions, No use of accessory muscles and clear to auscultation bilaterally AUSCULTATION: clear to auscultation bilaterally Cardio: COMMON NORMALS: regular rate, regular rhythm and No murmurs present (Cardio) RATE: regular rate RHYTHM: regular rhythm GI: COMMON NORMALS: Normal to inspection, nondistended, normoactive bowel sounds present, Soft to palpation, non-tender and no masses PALPATION: Yes Soft to palpation : OTHER: Milan was dislodged Extremity: COMMON NORMALS: normal to inspection and full ROM Neuro: COMMON NORMALS: patient oriented x3, moves all extremities and no focal motor deficits Psych: COMMON NORMALS: mental status grossly normal, Normal thought process present and cooperative THOUGHT PROCESS: Normal thought process present Skin: COMMON NORMALS: no rashes or lesions noted and no wounds GENERAL SKIN EXAM: no rashes or lesions noted Course Vital Signs: Vital signs: Vital Signs Temperature 99.1 F 07/23/22 22:35 Pulse Rate 97 07/23/22 22:35 Respiratory Rate 17 07/23/22 22:35 Blood Pressure 160/78 07/23/22 22:35 Pulse Oximetry 96 07/23/22 22:35 Oxygen Delivery Me thod 07/23/22 22:35 MDM - Abdominal Pain Medical Decision Making Patient presents with dislodged Milan we did put a new Milan and it is working well no blood clots patient stable for discharge back to the detention Discharge Plan Discharge Patient Disposition: Home Clinical Impression: Dislodged Milan catheter Condition: Stable Prescriptions: No Action chlorpheniramine maleate 4 mg tablet 4 mg PO Q6H PRN (Reason: Allergy Symptoms) amitriptyline 25 mg tablet 25 mg PO DAILY@19 bisacodyl 10 mg suppository 10 mg MA DAILY PRN (Reason: Constipation) Rx Instructions: IF NO RESULTS FROM MOM carica papaya Tablet 3 tab PO .AFTER MEAL PRN (Reason: UNKNOWN) cholecalciferol (vitamin D3) 25 mcg (1,000 unit) capsule 75 mcg PO DAILY@07 cranberry fruit 450 mg tablet 900 mg PO DAILY@07 Rx Instructions: administer with a meal rosuvastatin [Crestor] 5 mg tablet 5 mg PO DAILY@20 Enema Disposable 19-7 gram/118 mL enema 118 ml [place] DAILY PRN (Reason: Constipation) gentian nikolas 1 % solution 1 applic topical . ON AND TUE lisinopril 20 mg tablet 20 mg PO BID@, metoprolol succinate 25 mg tablet extended release 24 hr 25 mg PO DAILY@07 magnesium hydroxide [Milk of Magnesia] 400 mg/5 mL suspension 30 ml PO DAILY PRN (Reason: Constipation) Rx Instructions: IF NO BM FOR 3 DAYS pseudoephedrine HCl 60 mg tablet 60 mg PO Q4H PRN (Reason: Congestion) Thera-Tabs Tablet 1 tab PO DAILY@07 ascorbate calcium (vitamin C) 500 mg tablet 500 mg PO BID@, methenamine hippurate 1 gram tablet 1 g PO BID loratadine [Allergy Relief (loratadine)] 10 mg tablet 10 mg PO DAILY polyethylene glycol 3350 17 gram/dose powder 17 g PO DAILY PRN (Reason: Constipation) Victoza 2-Leoncio 0.6 mg/0.1 mL (18 mg/3 mL) pen injector 0.6 mg SUBCUT DAILY citalopram [Celexa] 20 mg Tablet 20 mg PO DAILY@07 cyanocobalamin (vitamin B-12) 1,000 mcg/mL Solution 1,000 mcg IM Q30D Rx Instructions: ON THE 2ND OF EACH MONTH levothyroxine 125 mcg Tablet 125 mcg PO DAILY@05 insulin lispro [Humalog KwikPen Insulin] 100 unit/mL insulin pen See Rx Instructions .ROUTE .COMPLEX Rx Instructions: SLIDING SCALE BID AT 05:00 AND 20:00 IF BLOOD SUGAR LESS THAN 70 CALL 150-200=0 UNITS 201-250=2 UNITS 251-300=4 UNITS 301-350=6 UNITS 351-400=8 UNITS IF BLOOD SUGAR IS GREATER THAN 400 GIVE 8 UNITS bupropion HCl 150 mg tablet extended release 24 hr 150 mg PO DAILY@07 Farxiga 10 mg tablet 10 mg PO DAILY@08 bisacodyl 5 mg Tablet 10 mg PO DAILY PRN (Reason: Constipation) Rx Instructions: IF NO RESULTS FROM MOM tizanidine 4 mg Tablet 4 mg PO TID PRN (Reason: Muscle Spasm) lidocaine 5 % Ointment 1 applic TOPICAL TID PRN (Reason: Pain) Renacidin 1,980.6 mg-59.4 mg-980.4mg/30mL Solution 30 ml IRRIGATION .EVERY SHIFT cefuroxime axetil 500 mg tablet 500 mg PO BID 10 Days Qty: 20 0RF Discharge Orders: Discharge ED (Routine); Ordered 07/23/22 Ordered By: Miguel Ferguson Referrals: Barry Rangel MD [Primary Care Provider] - Discharge Diet: Advance as tolerated Discharge Activity: Resume usual activity Patient Instructions: Milan Catheter Placement and Care (ED) Coding Level of Care Code ED Transportation Refrigeration Technician for Chg Fwd Exam Comprehensive
--- NOTE | 2022-07-23 23:02 | PC.NURSE ---
Pt here from [place] with indwelling catheter draining blood. Catheter changed, urine draining, 800mL in bag
--- NOTE | 2022-07-23 23:28 | PC.NURSE ---
updated care and discharge reported to JEFFRY Garcia at [facility]
--- NOTE | 2022-07-24 00:13 | PC.NURSE ---
, Latia Beck, number: [phone]
[2022-07-24 02:39] VITALS: BP 148/66; PULSE 114; RESP 18; O2SAT 96
[2022-07-24] MEDS: ondansetron 4 MG Tablet PO (02:53)
[2022-07-24 06:30] VITALS: BP 155/82; PULSE 121; RESP 18; O2SAT 98
== END 2022-07-24 09:00 | disposition home or self-care (01) ==
PROVIDERS: Emergency Provider Emergency Medicine; PCP Family Medicine
DX: T83.028A Displacement of other urinary catheter, initial encounter (principal); Z79.4 Long term (current) use of insulin; Z87.440 Personal history of urinary (tract) infections; G35 Multiple sclerosis; Z87.891 Personal history of nicotine dependence
CPT/HCPCS: 51702; 99283; Q0162

== ENCOUNTER 2022-07-24 18:19 | Inpatient (IN) | payer MEDICARE, MEDICAID, SELFPAY ==
[2022-07-24] VITALS (7 sets, daily range): BP systolic 98–149; BP diastolic 50–92; PULSE 100–113; RESP 16–25; TEMP 36.8–39.6; O2SAT 94–100; BMI 23.6
--- NOTE | 2022-07-24 18:23 | ED_ITS ---
HPI - General Adult General: Chief complaint: Urogenital-Male Stated complaint: SESPIS; HYPOTENSION Time Seen by Provider: 07/24/22 18:22 History of Present Illness: Mr. Martinez is a 67-year-old gentleman with history of MS, neurogenic bladder with recurrent issues with Milan catheter, planned suprapubic catheter presenting to the emergency department due to illness. Apparently he was [facility]ensive and [facility]brile at the [facility] and there was concern for sepsis so the patient was sent to the emergency department. The patient himself essentially reports feeling baseline. Intensity symptoms is mild to moderate. Course has persisted. No other specific changes in health, exacerbating, or alleviating factors identified. The patient is currently on outpatient antibiotics. He reports compliance. Onset (ago): hour(s) Severity: mild Relieving factors: none Exacerbating factors: none Review of Systems General: Reports: 10 or more systems reviewed and unremarkable except in HPI and below PFSH ED PFSH: Medical History (Updated 07/27/22 @ 17:39 by Darryl Hogan MD) History of UTI Left renal mass Not fully characterized. Patient has elected no further aggressive work-up at this point based on his overall debilitation Multiple sclerosis Neurogenic bladder Urinary retention Surgical History History of adenoidectomy History of appendectomy History of cholecystectomy History of elbow surgery History of tonsillectomy History of vasectomy Family History Mother , at age 75 from natural caused No problems noted. Social History Smoking and tobacco status: former smoker Alcohol intake: never Marital status: Current occupational status: disabled History of recent travel: No Physical Exam Const: COMMON NORMALS: alert GENERAL APPEARANCE: cooperative and well developed HENMT: COMMON NORMALS: normocephalic and atraumatic HEAD & SCALP: normoceph alic and atraumatic Eye: COMMON NORMALS: conjunctivae normal CONJUNCTIVA: Yes conjunctivae normal SCLERA: sclerae normal Neck/C-Spine: COMMON NORMALS: supple GENERAL: Yes trachea midline Resp: COMMON NORMALS: clear to auscultation bilaterally EFFORT & INSPECTION: Yes able to speak in complete sentences AUSCULTATION: clear to auscultation bilaterally Cardio: COMMON NORMALS: regular rate and regular rhythm RATE: regular rate RHYTHM: regular rhythm GI: COMMON NORMALS: Soft to palpation PALPATION: Yes Soft to palpation and No Tenderness to palpation present (GI) : OTHER: No obvious infection but mild erosion of the meatus, small amount of venous blood and dried blood. Extremity: GENERAL: Yes normal exam except as noted and No edema Neuro: SENSORIUM/ORIENTATION: Yes alert and No Orientation impaired OTHER: Baseline weakness Psych: COMMON NORMALS: mental status grossly normal and Normal thought process present THOUGHT PROCESS: Normal thought process present Course Vital Signs: Vital signs: Vital Signs Temperature 98.2 F 07/28/22 03:28 Pulse Rate 114 H 07/28/22 03:28 Respiratory Rate 17 07/28/22 03:28 Blood Pressure 136/70 07/28/22 03:28 Pulse Oximetry 94 07/28/22 03:28 Oxygen Delivery Me thod 07/28/22 03:28 Oxygen Flow Rate 0 07/27/22 08:00 [facility] - General Adult Medical Decision Making 67-year-old gentleman presenting with generalized illness and concern for hypotension in the context of neurogenic bladder. Patient is somewhat ill on appearance likely acute on chronic. He is mildly tachycardic and febrile. Labs notable for leukocytosis, normocytic anemia is present. Mild evidence of dehydration with metabolic stress including lactic acidosis and CKD identified on metabolic panel. Urinalysis is concerning for urinary tract infection. Chest x-ray negative for acute infiltrate or pneumothorax. Given severity of illness and complex history CT imaging is felt to be warranted. No evidence of pneumonia, trace bilateral pleural effusions, patient does have constipation and urinary bladder thickening. Incidental findings discussed with patient. Patient treated in the emergency department with antipyretic, fluids, broad- spectrum antibiotics. Most likely cause of symptoms is urosepsis. The results of ED evaluation were discussed with the patient including plan for admission due to requirement for level of care not available if discharged to prevent significant worsening/deterioration. Patient agreeable with plan. Discussed with hospitalist service who was agreeable to admit patient. Medical Records I reviewed the patient's medical records. Lab Data I reviewed the patient's lab results. 07/24/22 18:45 07/24/22 18:49 Radiology Impressions Chest X-Ray 07/24/22 18:44 IMPRESSION: No acute findings. Chest/Abdomen/Pelvis CT 07/24/22 19:42 IMPRESSION: 1. Trace bilateral pleural effusions. 2. Bibasilar atelectasis versus infiltrate. 3. Scattered calcified mediastinal lymph nodes. IMPRESSION: 1. Urinary bladder wall thickening may be due to nondistention, please correlate for a cystitis. 2. Constipation. 3. Cholecystectomy. 4. Moderate bilateral hydronephrosis and hydroureter without focal obstructing lesion. 5. Perinephric edema bilaterally likely reflecting renal insufficiency. 6. Bilateral renal cysts, negative for follow-up advised. 7. Milan catheter in the urinary bladder with air presumed iatrogenic. COMMENTS: Consistent with the [employer] [place] [employer]'s Incidental Findings Committee white paper (J Am Mark Radiol 2018): Any incidental renal lesion less than 1 cm or classified as too small to characterize, or any incidental cystic renal lesion characterized as simple-appearing, is likely benign. No follow-up imaging is recommended for these lesions per consensus recommendations based on imaging criteria. Laboratory Results WBC 21.5 10^3/uL (4.0-10.0) H 07/24/22 18:45 RBC 3.38 10^6/uL (4.1-5.3) L 07/24/22 18:45 Hgb 9.9 g/dL (11.7-16.6) L 07/24/22 18:45 Hct 30.6 % (42.0-52.0) L 07/24/22 18:45 MCV 90.5 fl (80-94) 07/24/22 18:45 MCH 29.3 pg (28.0-34.0) 07/24/22 18:45 MCHC 32.4 g/dL (30.0-36.0) 07/24/22 18:45 RDW 13.4 % (12.1-15.1) 07/24/22 18:45 Plt Count 203 10^3/cmm (130-400) 07/24/22 18:45 MPV 9.4 fL (7.4-10.4) 07/24/22 18:45 Neut % (Auto) 95.4 % 07/24/22 18:45 Lymph % (Auto) 0.8 % 07/24/22 18:45 Kimball % (Auto) 2.5 % 07/24/22 18:45 Eos % (Auto) 0.2 % 07/24/22 18:45 Baso % (Auto) 0.3 % 07/24/22 18:45 Neut # (Auto) 20.48 10^3/uL (1.8-7.7) H 07/24/22 18:45 Lymph # (Auto) 0.2 10^3/uL (0.8-4.8) L 07/24/22 18:45 Kimball # (Auto) 0.5 10^3/uL (0.2-0.9) 07/24/22 18:45 Eos # (Auto) 0.0 10^3/uL (0.0-0.8) 07/24/22 18:45 Baso # (Auto) 0.1 10^3/uL (0.0-0.1) 07/24/22 18:45 Nucleated RBC % (auto) 0 % 07/24/22 18:45 Nucleated RBCs # 0.0 /100WBC 07/24/22 18:45 Sodium 135 mmol/L (136-145) L 07/24/22 18:49 Potassium 5.1 mmol/L (3.5-5.1) 07/24/22 18:49 Chloride 103 mmol/L (98-107) 07/24/22 18:49 Carbon Dioxide 19 mmol/L (22-29) L 07/24/22 18:49 Anion Gap 18.1 (5-19) 07/24/22 18:49 BUN 33 mg/dL (8-23) H 07/24/22 18:49 Creatinine 1.9 mg/dL (0.7-1.2) H 07/24/22 18:49 GFR Calculation 35.8 mL/min (90-130) L 07/24/22 18:49 Glucose 171 mg/dL (65-115) H 07/24/22 18:49 POC Glucose 166 mg/dL (70-110) H 07/24/22 18:49 Calculated Osmolality 291 mOsm/kg (285-295) 07/24/22 18:49 Lactic Acid 3.3 mmol/L (0.5-2.2) H 07/24/22 18:45 Calcium 8.5 mg/dL (8.5-10.5) 07/24/22 18:49 Total Bilirubin 0.5 mg/dL (0.15-1.2) 07/24/22 18:49 AST 19 U/L (0-40) 07/24/22 18:49 ALT 19 U/L (0-41) 07/24/22 18:49 Alkaline Phosphatase 120 U/L (40-130) 07/24/22 18:49 Total Protein 6.6 g/dL (6.6-8.7) 07/24/22 18:49 Albumin 2.4 g/dL (3.5-5.2) L 07/24/22 18:49 Globulin 4.2 g/dL (1.3-4.6) 07/24/22 18:49 Procalcitonin 5.04 ng/mL (0-0.5) H 07/24/22 18:49 TSH 5.09 uIU/mL (0.27-4.20) H 07/24/22 18:49 Urine Color Yellow (Yellow) 07/24/22 18:30 Urine Appearance Cloudy (CLEAR) A 07/24/22 18:30 Urine pH 5 (5-7) 07/24/22 18:30 Ur Specific [place] 1.030 (1.005-1.030) 07/24/22 18:30 Urine Protein 2+ (Negative) H 07/24/22 18:30 Urine Glucose (UA) Trace (Normal) H 07/24/22 18:30 Urine Ketones Negative (Negative) 07/24/22 18:30 Urine Blood 3+ (Negative) H 07/24/22 18:30 Urine Nitrate Negative (Negative) 07/24/22 18:30 Urine Bilirubin Neg (Negative) 07/24/22 18:30 Urine Urobilinogen Norm mg/dL (Negative) 07/24/22 18:30 Ur Leukocyte Esterase 2+ (Negative) H 07/24/22 18:30 Urine RBC 50-80 /hpf (0-2) H 07/24/22 18:30 Urine WBC Too numerous to cnt /hpf (0-5) H 07/24/22 18:30 Ur Squamous Epith Cells Rare /hpf (0-5) 07/24/22 18:30 Amorphous Sediment Not Reportable 07/24/22 18:30 Urine Bacteria 3+ /hpf (NONE) H 07/24/22 18:30 Discharge Plan Discharge Patient Disposition: Admitted As Inpatient Admit Provider: Justine Bond Clinical Impression: Urinary tract infection, Sepsis Condition: Stable Coding Level of Care Code ED Marketing Secretary for [facility] Fwd Exam Comprehensive
--- NOTE | 2022-07-24 18:44 | XRR_ITS ---
PROCEDURE INFORMATION: Exam: XR Chest Exam date and time: 07/24/2022 6:52 PM Age: 67 years old Clinical indication: Fever TECHNIQUE: Imaging protocol: Radiologic exam of the chest. Views: 1 view. COMPARISON: CR XR chest 1V portable [id number] 07/16/2022 4:26 PM FINDINGS: Lungs: Unremarkable. No consolidation. Pleural spaces: Unremarkable. No pleural effusion. No pneumothorax. Heart/Mediastinum: Unremarkable. No cardiomegaly. Bones/joints: Unremarkable. XR/XR chest 1V portable [id number] IMPRESSION: No acute findings.
[2022-07-24 18:52] LABS: Glucose Point of Care 166 mg/dL (70-110)
[2022-07-24 18:52] LABS: Add Urine Microscopic? YES; Bilirubin Urine Neg (Negative); Blood Urine 3+ (Negative); Glucose Urine UA Trace (Normal); Ketones Urine Negative (Negative); Leukocyte Esterase Urine 2+ (Negative); Nitrate Urine Negative (Negative); Protein Urine 2+ (Negative); Urine Appearance Cloudy (CLEAR); Urine Color Yellow (Yellow); Urobilinogen Urine Norm (Negative); pH Urine 5 (5-7)
[2022-07-24 18:54] LABS: RBC Urine 50-80 /hpf (0-2); WBC Urine TOO NUMEROUS TO CNT /hpf (0-5)
[2022-07-24 18:55] LABS: Add Urine Culture? Yes; Bacteria Urine 3+ /hpf; Squamous Epithelial Cell Urine RARE /hpf (0-5)
[2022-07-24 19:05] LABS: Basophils # 0.1 10^3/uL (0.0-0.1); Basophils % 0.3 %; Eosinophils % 0.2 %; Hematocrit 30.6 % (42.0-52.0); Hemoglobin 9.9 g/dL (11.7-16.6); Lymphocytes # 0.2 10^3/uL (0.8-4.8); Lymphocytes % 0.8 %; Mean Corpuscular HGB Conc 32.4 g/dL (30.0-36.0); Mean Corpuscular Hemoglobin 29.3 pg (28.0-34.0); Mean Corpuscular Volume 90.5 fl (80-94); Mean Platelet Volume 9.4 fL (7.4-10.4); Monocytes # 0.5 10^3/uL (0.2-0.9); Monocytes % 2.5 %; Neutrophils # 20.48 10^3/uL (1.8-7.7); Neutrophils % 95.4 %; Nucleated Red Blood Cells % 0 %; Platelet Count 203 10^3/cmm (130-400); Red Blood Count 3.38 10^6/uL (4.1-5.3); Red Cell Distribution Width 13.4 % (12.1-15.1); White Blood Count 21.5 10^3/uL (4.0-10.0)
[2022-07-24] MEDS: cefepime 2,000 MG in sodium chloride 0.9% (plus) 50 ML 100 MG IV (19:11)
[2022-07-24 19:22] LABS: Lactic Sepsis W/Reflex 3.3 mmol/L (0.5-2.2)
--- NOTE | 2022-07-24 19:27 | PC.NURSE ---
UPON PATIENT ASSESSMENT, NURSE CHOSE TO LOOK AT CURRENT CATHETER AND PLACEMENT DUE TO PREVIOUS VISIT. AT VISUALIZATION, PATIENT CATHETER WAS MISSING BAG AND EXTENSION AND CLAMPED PRIOR TO STATLOCK. EMS DENIES REMOVING CATHETER BAG AND NO BAG APPEARS TO BE WITH PATIENT. THIS NURSE HAS TRIED TO CALLED [facility] MULTIPLE TIMES, VOICEMAIL LEFT. PROVIDER NOTIFIED OF FINDINGS.
[2022-07-24 19:34] LABS: Alanine Aminotransferase 19 U/L (0-41); Albumin Level 2.4 g/dL (3.5-5.2); Alkaline Phosphatase 120 U/L (40-130); Anion Gap 18.1 (5-19); Aspartate Amino Transferase 19 U/L (0-40); Blood Urea Nitrogen 33 mg/dL (8-23); Calcium 8.5 mg/dL (8.5-10.5); Carbon Dioxide 19 mmol/L (22-29); Chloride 103 mmol/L (98-107); Globulin 4.2 g/dL (1.3-4.6); Glomerular Filtration Rate 35.8 mL/min (90-130); Glucose 171 mg/dL (65-115); Osmolality Calculated 291 mOsm/kg (285-295); Potassium 5.1 mmol/L (3.5-5.1); Sodium 135 mmol/L (136-145); Thyroid Stimulating Hormone 5.09 uIU/mL (0.27-4.20); Total Bilirubin 0.5 mg/dL (0.15-1.2); Total Protein 6.6 g/dL (6.6-8.7)
--- NOTE | 2022-07-24 19:42 | CTR_ITS ---
PROCEDURE INFORMATION: Exam: CT Chest Without Contrast; Diagnostic Exam date and time: 07/24/2022 7:58 PM Age: 67 years old Clinical indication: Patient HX: Fever, sepsis. Ms TECHNIQUE: Imaging protocol: Diagnostic computed tomography of the chest without contrast. Radiation optimization: All CT scans at this facility use at least one of these dose optimization techniques: automated exposure control; mA and/or kV adjustment per patient size (includes targeted exams where dose is matched to clinical indication); or iterative reconstruction. COMPARISON: CT chest wo con [id number] 08/13/2015 8:12 AM RADIATION DOSE METRICS: Total DLP (mGy-cm): 1066.88 FINDINGS: Lungs: Bibasilar atelectasis versus infiltrate. Pleural spaces: Trace bilateral pleural effusions. Heart: Unremarkable. No cardiomegaly. No pericardial effusion. Negative for coronary artery atherosclerotic calcifications. Lymph nodes: Scattered calcified mediastinal lymph nodes. Vasculature: Unremarkable. No aortic aneurysm. Bones/joints: Unremarkable. No acute fracture. Soft tissues: Unremarkable. PROCEDURE INFORMATION: Exam: CT Abdomen And Pelvis Without Contrast Exam date and time: 07/24/2022 7:58 PM Age: 67 years old Clinical indication: Patient HX: Fever, sepsis. Ms TECHNIQUE: Imaging protocol: Computed tomography of the abdomen and pelvis without contrast. Radiation optimization: All CT scans at this facility use at least one of these dose optimization techniques: automated exposure control; mA and/or kV adjustment per patient size (includes targeted exams where dose is matched to clinical indication); or iterative reconstruction. COMPARISON: CT kidney stone [id number] 07/16/2022 5:09 PM RADIATION DOSE METRICS: Total DLP (mGy-cm): 1066.88 FINDINGS: Liver: Normal. No mass. Gallbladder and bile ducts: Cholecystectomy. Pancreas: Normal. No ductal dilation. Spleen: Normal. No splenomegaly. Adrenal glands: Normal. No mass. Kidneys and ureters: Moderate bilateral hydronephrosis and hydroureter without focal obstructing lesion. Perinephric edema bilaterally likely reflecting renal insufficiency. Bilateral renal cysts, negative for follow-up advised. Stomach and bowel: Constipation. Appendix: No evidence of appendicitis. Intraperitoneal space: Unremarkable. No free air. No significant fluid collection. Vasculature: Unremarkable. No abdominal aortic aneurysm. Lymph nodes: Unremarkable. No enlarged lymph nodes. Urinary bladder: Urinary bladder wall thickening may be due to nondistention, please correlate for a cystitis. Milan catheter in the urinary bladder with air presumed iatrogenic. Reproductive: Unremarkable as visualized. Bones/joints: Unremarkable. No acute fracture. Soft tissues: Unremarkable. CT/[place] [id number] IMPRESSION: 1. Trace bilateral pleural effusions. 2. Bibasilar atelectasis versus infiltrate. 3. Scattered calcified mediastinal lymph nodes. IMPRESSION: 1. Urinary bladder wall thickening may be due to nondistention, please correlate for a cystitis. 2. Constipation. 3. Cholecystectomy. 4. Moderate bilateral hydronephrosis and hydroureter without focal obstructing lesion. 5. Perinephric edema bilaterally likely reflecting renal insufficiency. 6. Bilateral renal cysts, negative for follow-up advised. 7. Milan catheter in the urinary bladder with air presumed iatrogenic. COMMENTS: Consistent with the [place] [employer]'s Incidental Findings Committee white paper (J Am Mark Radiol 2018): Any incidental renal lesion less than 1 cm or classified as too small to characterize, or any incidental cystic renal lesion characterized as simple-appearing, is likely benign. No follow-up imaging is recommended for these lesions per consensus recommendations based on imaging criteria.
[2022-07-24] MEDS: acetaminophen 1,000 MG/100 ML PIGGYBACK 400 MG IV (20:16)
--- NOTE | 2022-07-24 20:24 | P.HP_ITS ---
Providers/Chief Complaint Primary Care Provider: Barry Rangel MD Chief Complaint: SESPIS; HYPOTENSION History of Present Illness Jamil Martinez is a 67 year old male here for multiple sclerosis, neurogenic bladder, indwelling catheter presented with chief complaint of not been able to void urine. Patient was seen in the ER few days ago when his Milan catheter was replaced. Patient is due to see Dr. Hogan at this Tuesday for suprapubic catheter evaluation. He is endorsing fever 103 at the [facility], he has been vomiting as well more than 5 episodes today, no active diarrhea, chest pain shortness of breath or headache. Patient eats regular diet, bedbound. In the ER he has been diagnosed with sepsis related to UTI he has received antibiotics, lactic acid is high at CT chest abdomen pelvis is not showing active signs of obstruction, there is hydronephrosis related to neurogenic bladder patient is febrile and tachycardic Currently doing well on room air Review of Systems Const: Reports: fever(s) and chills Eyes: Denies: change in vision ENMT: Denies: throat pain Card: Denies: chest pain Resp: Denies: dyspnea GI: Reports: nausea and vomiting : Denies: flank pain Musc: Denies: neck pain Skin/Breast: Denies: rash Neuro: Denies: headache(s) Psych: Denies: anxiety Endo: Denies: polyuria Sebas/Lymph: Denies: easy bruising All/Imm: Denies: urticaria Medications/Allergies Home Medications Medication Instructions Recorded Confirmed Last Taken Type amitriptyline 25 mg tablet 25 mg PO DAILY@03/17/21 07/17/22 07/15/22 History ascorbate calcium (vitamin C) 500 500 mg PO BID@03/17/21 07/17/22 07/16/22 History mg tablet bisacodyl 10 mg rectal suppository 10 mg CO DAILY PRN Constipation 03/17/21 07/17/22 07/14/22 History carica papaya 3 tab PO .AFTER MEAL PRN UNKNOWN 03/17/21 07/17/22 07/14/22 History chlorpheniramine maleate 4 mg 4 mg PO Q6H PRN Allergy Symptoms 03/17/21 07/17/22 07/14/22 History tablet cholecalciferol (vitamin D3) 25 75 mcg PO DAILY@03/17/21 07/17/22 07/16/22 History mcg (1,000 unit) capsule cranberry fruit 450 mg tablet 900 mg PO DAILY@03/17/21 07/17/22 07/16/22 History gentian nikolas 1 % topical solution 1 applic topical . ON TU AND Tue03/17/21 07/17/22 07/16/22 History lisinopril 20 mg tablet 20 mg PO BID@03/17/21 07/17/22 07/16/22 History magnesium hydroxide 400 mg/5 mL 30 ml PO DAILY PRN Constipation 03/17/21 07/17/22 07/14/22 History oral suspension (Milk of Magnesia) metoprolol succinate 25 mg 25 mg PO DAILY@03/17/21 07/17/22 07/16/22 History tablet,extended release 24 hr pseudoephedrine HCl 60 mg tablet 60 mg PO Q4H PRN Congestion 03/17/21 07/17/22 Unknown History rosuvastatin 5 mg tablet (Crestor) 5 mg PO DAILY@03/17/21 07/17/22 07/15/22 History sodium phosphates 19 gram-7 118 ml CO DAILY PRN Constipation 03/17/21 07/17/22 Unknown History gram/118 mL enema (Enema Disposable) therapeutic multivitamin 1 tab PO DAILY@03/17/21 07/17/22 07/17/22 History (Thera-Tabs tablet) bisacodyl 5 mg tablet 10 mg PO DAILY PRN Constipation 06/17/21 07/17/22 07/14/22 History bupropion HCl 150 mg 24 hr tablet, 150 mg PO DAILY@06/17/21 07/17/22 07/16/22 History extended release citalopram 20 mg tablet (Celexa) 20 mg PO DAILY@06/17/21 07/17/22 07/16/22 History cyanocobalamin (vitamin B-12) 1,000 mcg IM Q30D 06/17/21 07/17/22 06/09/22 History 1,000 mcg/mL injection solution dapagliflozin 10 mg tablet 10 mg PO DAILY@06/17/21 07/17/22 07/16/22 History (Farxiga) insulin lispro 100 unit/mL See Rx Instructions .Route .COMPLEX 06/17/21 07/17/22 07/16/22 History subcutaneous pen (Humalog KwikPen (U-100) Insulin) levothyroxine 125 mcg tablet 125 mcg PO DAILY@05 06/17/21 07/17/22 07/16/22 History tizanidine 4 mg tablet 4 mg PO TID PRN Muscle Spasm 06/17/21 07/17/22 07/14/22 H istory methenamine hippurate 1 gram tablet 1 g PO BID 07/01/21 07/17/22 07/16/22 History loratadine 10 mg tablet (Allergy 10 mg PO DAILY 01/19/22 07/17/22 07/16/22 History Relief (loratadine)) polyethylene glycol 3350 17 17 g PO DAILY PRN Constipation 01/19/22 07/17/22 07/14/22 History gram/dose oral powder liraglutide 0.6 mg/0.1 mL (18 mg/3 0.6 mg SUBCUT DAILY 07/12/22 07/17/22 07/16/22 History mL) subcutaneous pen injector (Victoza 2-Leoncio) citric ac 1980.6 mg-glucono 59.4 30 ml irrigation .EVERY SHIFT 07/17/22 07/17/22 Unknown History mg-mag carb 980.4 mg/30 mL irrig.soln (Renacidin) lidocaine 5 % topical ointment 1 applic topical TID PRN Pain 07/17/22 07/17/22 Unknown History cefuroxime axetil 500 mg tablet 500 mg PO BID 10 days #20 tabs 07/20/22 Unknown Rx Allergies Allergy/AdvReac Type Severity Reaction Status Date / Time Penicillins Allergy FAMILY HX Verified 07/16/22 10:30 OF SEVERE REACTION PFSH Acute PFSH: Medical History History of UTI Left renal mass Multiple sclerosis Neurogenic bladder Urinary retention Surgical History History of adenoidectomy History of appendectomy History of cholecystectomy History of elbow surgery History of tonsillectomy History of vasectomy Family History Mother , at age 75 from natural caused No problems noted. Social History Smoking and tobacco status: former smoker Alcohol intake: never Marital status: Current occupational status: disabled History of recent travel: No Vitals/I&O/Wt Last Vital Signs Temp 103.2 F H 07/24/22 18:22 Pulse 113 H 07/24/22 20:18 Resp 20 H 07/24/22 20:18 BP 131/92 07/24/22 20:18 Pulse Ox 98 07/24/22 20:18 O2 Del Method 07/24/22 20:18 07/24/22 07/24/22 07/24/22 06:59 14:59 22:59 Intake Total 2447 / 2447 Balance 2447 / 2447 Weight last 48 hrs Weight 81.193 kg Physical Exam 2 Narrative: Middle-aged male Bedbound Milan catheter draining concentrated urine There is some dried blood around the urethral meatus S1, S2 sinus tachycardia Clinically patient looks dehydrated Abdomen soft No audible stridor or wheezing Currently on room air Saturating well Awake and alert No edema of legs Sepsis related exam Good capillary refill No signs of encephalopathy S1, S2 Sinus tachycardia Abdomen soft No skin mottling Sepsis: Is patient septic: Yes Focused sepsis exam performed: Yes Data 07/24/22 18:45 07/24/22 18:49 Micro: Microbiology 07/24/22 18:49 Blood Culture - Preliminary Blood SPECIMEN COLLECTED 07/24/22 18:45 Blood Culture - Preliminary Blood SPECIMEN COLLECTED A&P Assessment and plan (1) Sepsis: (2) Urinary tract infection: (3) Dislodged Milan catheter: Plan Sepsis related to UTI Indwelling catheter Previous history of E. coli Neurogenic bladder secondary to multiple sclerosis Plan for neurogenic bladder by Dr. Hogan next week Secondary to sepsis his procedure might be delayed I would start him on cefepime previous E. coli showed sensitivity to penicillin and cephalosporins he has allergy to penicillin Sepsis criteria met with tachypnea tachycardia fever lactic acidemia organ damage and leukocytosis Blood cultures taken, lactic acid is higher Repeat lactic acid Septic bolus has been given Blood cultures taken, procalcitonin is higher Abnormal TSH, check free T4 Multiple sclerosis: Neurogenic bladder: No acute exacerbation Continue antispasmodics Chronic kidney disease creatinine seems around baseline Metabolic acidosis related to lactic acidemia We will give him 1 amp of bicarb, calcium is normal potassium 5.1 Patient can have regular/cardiac diet DVT prophylaxis Heparin DNR/DNI discussed with the patient and his caregiver at the bedside Attestations Medical Necessity Statement*: Anticipating more than 2 midnights for management of sepsis Time Spent in Patient Care: 40 Coding Level of Care Code Acute [facility] for [facility] Fwd Diagnoses Sepsis A41.9 Urinary tract infection N39.0 Dislodged Milan catheter T83.021A
--- NOTE | 2022-07-24 20:24 | PC.NURSE ---
[facility] RETURNED PHONE CALL. NURSING REPORTS THAT CLAMP WAS PLACED AND BAG WAS REMOVED DUE TO FLUSHING THE CATHETER AND SEEING IF PATIENT WAS RETAINING URINE. [facility] STATES THAT CATH WAS CLAMPED SINCE 1729. PROVIDER NOTIFIED.
[2022-07-24 20:41] LABS: Reflex Lactate Order REFLEX LACTIC ORDERD
--- NOTE | 2022-07-24 21:01 | PC.NURSE ---
CATHETER BAG AND TUBING PLACED ON PATIENT'S EXISTING CATHETER. RODRÍGUEZ DRAINING. 200 ML OUT.
[2022-07-24 21:02] LABS: Procalcitonin 5.04 ng/mL (0-0.5)
[2022-07-24 21:37] LABS: Lactic Acid level (Lactate) 1.8 mmol/L (0.5-2.2)
[2022-07-24 22:33] LABS: Adenovirus Not Detected (NOT DETECT); Chlamydia Pneumoniae Not Detected (NOT DETECT); Coronavirus 229E,HKU1,NL63,OC4 Not Detected (NOT DETECT); Human Metapneumovirus Not Detected (NOT DETECT); Human Rhinovirus/Enterovirus Not Detected (NOT DETECT); Influenza A Not Detected (NOT DETECT); Influenza A H1 Not Detected (NOT DETECT); Influenza A H1-2009 Not Detected (NOT DETECT); Influenza A H3 Not Detected (NOT DETECT); Influenza B Not Detected (NOT DETECT); Mycoplasma Pneumoniae Not Detected (NOT DETECT); Parainfluenza Virus Type 1 Not Detected (NOT DETECT); Parainfluenza Virus Type 2 Not Detected (NOT DETECT); Parainfluenza Virus Type 3 Not Detected (NOT DETECT); Parainfluenza Virus Type 4 Not Detected (NOT DETECT); Respiratory Syncytial Virus A Not Detected (NOT DETECT); Respiratory Syncytial Virus B Not Detected (NOT DETECT); SARS-COV-2 Not Detected (NOT DETECT)
[2022-07-24] MEDS: heparin 5,000 unit/mL INJ 1 mL 5000 UNIT SUBCUT (22:47)
[2022-07-24] MEDS: sodium chloride 0.9% 1,000 ML 75 ML IV (22:47)
[2022-07-24] MEDS: sodium bicarbonate 8.4% 1 mEq/mL 50mL Syr 50 MEQ IVP (23:07)
[2022-07-24] MEDS: tizanidine 4 mg Tablet PO (23:16)
[2022-07-24 23:36] LABS: Lactate (Lactic Acid level) 2.2 mmol/L (0.5-2.2)
[2022-07-25] VITALS (8 sets, daily range): BP systolic 95–146; BP diastolic 57–74; PULSE 70–115; RESP 17–22; TEMP 36.5–38.4; O2SAT 94–97
[2022-07-25] MEDS: acetaminophen 500 mg Tablet PO ×3 (01:24→21:42)
[2022-07-25] MEDS: levothyroxine 125 mcg Tablet PO (05:03)
[2022-07-25] MEDS: tizanidine 4 mg Tablet PO ×3 (05:03→21:49)
[2022-07-25 05:27] LABS: Basophils # 0.1 10^3/uL (0.0-0.1); Basophils % 0.3 %; Eosinophils # 0.1 10^3/uL (0.0-0.8); Eosinophils % 0.8 %; Hematocrit 36.9 % (42.0-52.0); Hemoglobin 11.5 g/dL (11.7-16.6); Lymphocytes # 0.2 10^3/uL (0.8-4.8); Lymphocytes % 1.3 %; Mean Corpuscular HGB Conc 31.2 g/dL (30.0-36.0); Mean Corpuscular Volume 92.9 fl (80-94); Mean Platelet Volume 9.6 fL (7.4-10.4); Monocytes # 1.1 10^3/uL (0.2-0.9); Monocytes % 6.6 %; Neutrophils # 15.07 10^3/uL (1.8-7.7); Nucleated Red Blood Cells % 0 %; Platelet Count 164 10^3/cmm (130-400); Red Blood Count 3.97 10^6/uL (4.1-5.3); Red Cell Distribution Width 13.4 % (12.1-15.1); White Blood Count 16.8 10^3/uL (4.0-10.0)
[2022-07-25 05:53] LABS: Anion Gap 15.9 (5-19); Blood Urea Nitrogen 37 mg/dL (8-23); C Reactive Protein 239.4 mg/L (0.0-4.9); Calcium 7.9 mg/dL (8.5-10.5); Carbon Dioxide 19 mmol/L (22-29); Chloride 104 mmol/L (98-107); Glomerular Filtration Rate 38.1 mL/min (90-130); Glucose 137 mg/dL (65-115); Magnesium 1.6 mg/dL (1.7-2.3); Osmolality Calculated 289 mOsm/kg (285-295); Phosphorus 3.2 mg/dL (2.5-4.5); Potassium 4.9 mmol/L (3.5-5.1); Sodium 134 mmol/L (136-145)
[2022-07-25] MEDS: metoprolol succinate ER (24 HR) 25 mg Tablet PO (06:03)
[2022-07-25 06:16] LABS: Glucose Point of Care 115 mg/dL (70-110)
[2022-07-25] MEDS: cefepime 1,000 MG in sodium chloride 0.9% (plus) 50 ML 100 MG IV ×2 (09:35→21:42)
[2022-07-25] MEDS: heparin 5,000 unit/mL INJ 1 mL 5000 UNIT SUBCUT ×2 (09:35→21:42)
[2022-07-25] MEDS: sennosides-docusate Tablet 1 TAB PO (09:36)
--- NOTE | 2022-07-25 10:35 | PC.NURSE ---
pt methenamine hippurate 1gm po was not given as it is unavailable dr beltran was notified
[2022-07-25] MEDS: sodium chloride 0.9% 1,000 ML 75 ML IV (12:53)
--- NOTE | 2022-07-25 15:22 | PM.PN ---
Subjective Subjective: Admitted overnight. Acute events appreciated. Examination patient in comfortably in bed. States he is feeling better than when he came in. Denies any nausea vomiting, headache. T-max since admission 99.8 Fahrenheit. Vitals/I&O/Wt Last Vital Signs Temp 99.8 F H 07/25/22 12:00 Pulse 70 07/25/22 12:00 Resp 18 07/25/22 12:00 BP 132/67 07/25/22 12:00 Pulse Ox 96 07/25/22 12:00 O2 Del Method 07/24/22 23:08 07/25/22 07/25/22 07/25/22 06:59 14:59 22:59 Intake Total 500 / 3047 1310 / 1310 Output Total 600 / 600 Balance -100 / 2447 1310 / 1310 Weight last 48 hrs Weight 89.539 kg Weight 89.448 kg Weight 81.193 kg Physical Exam Urinary Catheter Management: Milan: Cath Placed During This Visit: no Reason for Continuing Indwelling Catheter: Chronic Indwelling Urinary Catheter on Admission Data 07/25/22 05:02 07/25/22 05:02 Micro: Microbiology 07/24/22 18:49 Blood Culture - Preliminary Blood SPECIMEN COLLECTED 07/24/22 18:45 Blood Culture - Preliminary Blood SPECIMEN COLLECTED A&P Assessment and plan (1) Sepsis: Present on admission. Associated with acute kidney injury, leukocytosis and elevated lactate. Secondary to complicated UTI in setting of chronic Milan catheter. History of frequent obstruction Milan catheter with Dr. Sherman's recommendation. Creatinine was 2 switch to suprapubic catheter as an outpatient on coming Tuesday. Culture history appreciated. Continue with cefepime. Follow-up blood cultures and repeat urine culture. Keep mean arterial pressure 65 (2) Urinary tract infection: (3) Dislodged Milan catheter: (4) Bilateral hydronephrosis: Consulted urology for possible suprapubic catheter insertion during this hospitalization. For now we will switch to bigger Milan catheter for better drainage. Plan Multiple sclerosis: Neurogenic bladder: No acute exacerbation Continue antispasmodics Chronic kidney disease: Creatinine seems to be at baseline. Medication reconciliation done for nephrotoxic drugs. Strict input output charting. Continue to check BMP daily. Type 2 diabetes mellitus: Start on insulin sliding scale. Switch to carb consistent diet. DNR/DNI. Heparin 5000 12 hourly for DVT prophylaxis. 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
--- NOTE | 2022-07-25 16:18 | PC.NURSE ---
b/p and temp reported to dr paez ...he ask me to give tylenol
--- NOTE | 2022-07-25 16:22 | PC.PHAR ---
Addendum entered by Dottie Frost 07/26/22 09:57: Did not receive fax of MAR from [facility] on 07/25/22. Called at 0830 on 07/26/22 and was told they would fax over MAR. Have not received MAR. Addendum entered by Dottie Frost 07/25/22 17:28: attempted to reach [facility] at [phone] with no answer- left voicemail Original Note: Called and spoke with nurse at [facility] at [phone] with no fax back, attempted to reach [facility] again at [phone] with no answer and went to voicemail.
--- NOTE | 2022-07-25 16:30 | PC.NURSE ---
Attempted to place a 24 Tajik catheter using lidocaine jelly 2% for placement. I was unable to push the catheter through patient's prostate generous bleeding noted. Dr. Coe notified.
[2022-07-25 16:41] LABS: Glucose Point of Care 142 mg/dL (70-110)
[2022-07-25 16:52] LABS: Free T4 Free Thyroxine 0.67 ng/dL (0.82-1.77); T3 Free 1.1 PG/ML (2.0-4.4)
[2022-07-25] MEDS: NON-FORMULARY MEDICATION (Methenamine Hippurate 1 gram tablet) 1 EACH PO (17:36)
[2022-07-25] MEDS: insulin lispro 100 unit/1 mL SUBCUT (17:37)
--- NOTE | 2022-07-25 19:54 | P.CONIM_ITS ---
Providers/Reason For Consult Consulting Physician/Specialty*: Urology/Hogan Reason for Consult*: Nonfunctioning Milan Requesting Physician: Dr. Coe Attending Physician: Toro Coe MD Primary Care Provider: Barry Rangel MD History of Present Illness History of Present Illness Jamil Martinez is a 67 year old male well-known to me for history of neurogenic bladder initially managed with SCIC and later indwelling Milan catheter but with difficulty maintaining patency of the catheter due to recurrent infectious debr is. He was scheduled last week for a suprapubic tube placement but it was canceled when he was admitted for severe UTI and obstructive uropathy. His catheter was changed to 20 Haitian catheter during that stay and he responded well to antibiotics with good catheter function noted. Creatinine decreased from over 4 down to his baseline. He was rescheduled for 07/28/2022 for cystoscopy and suprapubic tube placement. Unfortunately catheter occluded again. He presented back to the hospital yesterday with symptoms of UTI. His creatinine had bumped up slightly. I did review his CT scan demonstrating recurrent hydronephrosis and his bladder was not drained well with a catheter that was in place. There appeared to be a lot of debris along the posterior floor of the bladder. I recommended a 24 Haitian catheter be placed by the nursing staff but that was unable to be accomplished and I was consulted for reevaluation and catheter placement. Based on the description of how the catheter was responding to being placed I recommended an 18 Haitian Couvelaire a hematuria catheter. Procedure: Difficult catheter placement He was prepped and draped in usual sterile fashion. 2% lidocaine jelly was instilled into the urethra. An 18 Haitian Couvelaire catheter was advanced into the urethra and in the bulbar urethra a narrowing was encountered but with some manipulation the catheter could be manipulated through the abnormal anatomic narrowing and the catheter was then placed into the bladder with drainage. There was purulent drainage noted. 30 cc were placed in the balloon. Bladder was then irrigated manually with more infectious debris returned. Catheter is functioning well and placed to dependent drainage. Reviewed with nursing staff appropriate catheter management throughout the night and when to call Did recommend frequent bladder scans if there is any question however catheter is draining or not. Recommendations: Manually irrigate the catheter as needed frequent bladder scans to confirm adequate emptying and function Continue IV antibiotics. For now maintain plans for cystoscopy and suprapubic tube placement on 07/28/2022. Can postpone if necessary based on his clinical status. Review of Systems Const: Reports: fever(s), chills and malaise Eyes: Denies: change in vision ENMT: Denies: hoarseness Card: Denies: chest pain or palpitations Resp: Reports: dyspnea; Denies: productive cough GI: Reports: nausea and vomiting; Denies: abdominal pain : Reports: oliguria and other (Poorly functioning urethral catheter) Musc: Reports: muscle weakness and decrease in muscle mass Neuro: Denies: behavioral changes Psych: Denies: anxiety Endo: Denies: flushing Sebas/Lymph: Denies: easy bruising or easy bleeding All/Imm: Denies: acute wheezing Medications/Allergies Home Medications Medication Instructions Recorded Confirmed Last Taken Type amitriptyline 25 mg tablet 25 mg PO DAILY@03/17/21 07/17/22 07/15/22 History ascorbate calcium (vitamin C) 500 500 mg PO BID@03/17/21 07/17/22 07/16/22 History mg tablet bisacodyl 10 mg rectal suppository 10 mg AK DAILY PRN Constipation 03/17/21 07/17/22 07/14/22 History carica papaya 3 tab PO .AFTER MEAL PRN UNKNOWN 03/17/21 07/17/22 07/14/22 History chlorpheniramine maleate 4 mg 4 mg PO Q6H PRN Allergy Symptoms 03/17/21 07/17/22 07/14/22 History tablet cholecalciferol (vitamin D3) 25 75 mcg PO DAILY@03/17/21 07/17/22 07/16/22 History mcg (1,000 unit) capsule cranberry fruit 450 mg tablet 900 mg PO DAILY@03/17/21 07/17/22 07/16/22 History gentian nikolas 1 % topical solution 1 applic topical . ON TU AND Tue03/17/21 07/17/22 07/16/22 History lisinopril 20 mg tablet 20 mg PO BID@03/17/21 07/17/22 07/16/22 History magnesium hydroxide 400 mg/5 mL 30 ml PO DAILY PRN Constipation 03/17/21 07/17/22 07/14/22 History oral suspension (Milk of Magnesia) metoprolol succinate 25 mg 25 mg PO DAILY@07 03/17/21 07/17/22 07/16/22 History tablet,extended release 24 hr pseudoephedrine HCl 60 mg tablet 60 mg PO Q4H PRN Congestion 03/17/21 07/17/22 Unknown History rosuvastatin 5 mg tablet (Crestor) 5 mg PO DAILY@03/17/21 07/17/22 07/15/22 History sodium phosphates 19 gram-7 118 ml AK DAILY PRN Constipation 03/17/21 07/17/22 Unknown History gram/118 mL enema (Enema Disposable) therapeutic multivitamin 1 tab PO DAILY@03/17/21 07/17/22 07/17/22 History (Thera-Tabs tablet) bisacodyl 5 mg tablet 10 mg PO DAILY PRN Constipation 06/17/21 07/17/22 07/14/22 History bupropion HCl 150 mg 24 hr tablet, 150 mg PO DAILY@06/17/21 07/17/22 07/16/22 History extended release citalopram 20 mg tablet (Celexa) 20 mg PO DAILY@06/17/21 07/17/22 07/16/22 History cyanocobalamin (vitamin B-12) 1,000 mcg IM Q30D 06/17/21 07/17/22 06/09/22 History 1,000 mcg/mL injection solution dapagliflozin 10 mg tablet 10 mg PO DAILY@08 06/17/21 07/17/22 07/16/22 History (Farxiga) insulin lispro 100 unit/mL See Rx Instructions .Route .COMPLEX 06/17/21 07/17/22 07/16/22 History subcutaneous pen (Humalog KwikPen (U-100) Insulin) levothyroxine 125 mcg tablet 125 mcg PO DAILY@05 06/17/21 07/17/22 07/16/22 History tizanidine 4 mg tablet 4 mg PO TID PRN Muscle Spasm 06/17/21 07/17/22 07/14/22 History methenamine hippurate 1 gram tablet 1 g PO BID 07/01/21 07/17/22 07/16/22 History loratadine 10 mg tablet (Allergy 10 mg PO DAILY 01/19/22 07/17/22 07/16/22 His tory Relief (loratadine)) polyethylene glycol 3350 17 17 g PO DAILY PRN Constipation 01/19/22 07/17/22 07/14/22 History gram/dose oral powder liraglutide 0.6 mg/0.1 mL (18 mg/3 0.6 mg SUBCUT DAILY 07/12/22 07/17/22 07/16/22 History mL) subcutaneous pen injector (Datappraise 2-Leoncio) citric ac 1980.6 mg-glucono 59.4 30 ml irrigation .EVERY SHIFT 07/17/22 07/17/22 Unknown History mg-mag carb 980.4 mg/30 mL irrig.soln (Renacidin) lidocaine 5 % topical ointment 1 applic topical TID PRN Pain 07/17/22 07/17/22 Unknown History cefuroxime axetil 500 mg tablet 500 mg PO BID 10 days #20 tabs 07/20/22 Unknown Rx Allergies Allergy/AdvReac Type Severity Reaction Status Date / Time Penicillins Allergy FAMILY HX Verified 07/16/22 10:30 OF SEVERE REACTION Current Medications Generic Name Dose Route Start Last Admin Trade Name Freq PRN Reason Stop Dose Admin Acetaminophen 500 mg 07/24/22 21:52 07/25/22 16:43 Acetaminophen 500 Mg Tablet PO 500 mg Q4H PRN Administration fever Heparin Sodium (Porcine) 5,000 unit 07/24/22 22:00 07/25/22 09:35 Heparin 5,000 Unit/Ml Inj 1 Ml SUBCUT 5,000 unit Q12H [place] Administration Sodium Chloride 1,000 mls @ 75 mls/hr 07/24/22 21:52 07/25/22 12:53 Sodium Chloride 0.9% IV 75 mls/hr .[id number] [place] Administration Cefepime HCl 1,000 mg/ Sodium 50 mls @ 100 mls/hr 07/25/22 09:00 07/25/22 10: 32 Chloride IV Infused Q12H [facility] Infusion Protocol Insulin Human Lispro 0 unit 07/25/22 18:00 07/25/22 17:37 Insulin Lispro 100 Unit/1 Ml SUBCUT 2 unit WM&BEDTIME [place] Administration Protocol Metoprolol Succinate 25 mg 07/25/22 07:00 07/25/22 06:03 Metoprolol Succinate Er (24 Hr) 25 Mg Tablet PO 25 mg DAILY@07 [place] Administration Non-Formulary Medication 1 gm 07/25/22 09:00 07/25/22 17:36 Methenamine Hippurate PO 1 gm BID [place] Administration Senna/Docusate Sodium 1 tab 07/25/22 09:00 07/25/22 09:36 Sennosides-Docusate Tablet PO 1 tab DAILY [place] Administration Tizanidine HCl 4 mg 07/24/22 21:52 07/25/22 14:17 Tizanidine 4 Mg Tablet PO 4 mg TID PRN Administration Muscle Spasm PFSH Acute PFSH: Medical History (Updated 07/25/22 @ 20:04 by Darryl Hogan MD) History of UTI Left renal mass Not fully characterized. Patient has elected no further aggressive work-up at this point based on his overall debilitation Multiple sclerosis Neurogenic bladder Urinary retention Surgical History History of adenoidectomy History of appendectomy History of cholecystectomy History of elbow surgery History of tonsillectomy History of vasectomy Family History Mother , at age 75 from natural caused No problems noted. Social History Smoking and tobacco status: former smoker Alcohol intake: never Marital status: Current occupational status: disabled History of recent travel: No Vitals/I&O/Wt Last Vital Signs Temp 99.9 F H 07/25/22 16:00 Pulse 95 07/25/22 16:00 Resp 18 07/25/22 16:00 BP 95/57 07/25/22 16:00 Pulse Ox 94 07/25/22 16:00 O2 Del Method 07/25/22 16:00 07/25/22 07/25/22 07/25/22 06:59 14:59 22:59 Intake Total 500 / 3047 1310 / 1310 480 / 1790 Output Total 600 / 600 Balance -100 / 2447 1310 / 1310 480 / 1790 Weight last 48 hrs Weight 197 lb 6.4 oz Weight 197 lb 3.2 oz Weight 179 lb Physical Exam Const: COMMON NORMALS: no acute distress, alert and well nourished GENERAL APPEARANCE: well kempt and well developed ORIENTATION/CONSCIOUSNESS: not confused HENMT: COMMON NORMALS: normocephalic HEAD & SCALP: normal to inspection and normocephalic Eye: COMMON NORMALS: conjunctivae normal and no scleral icterus CONJUNCTIVA: Yes conjunctivae normal Neck/C-Spine: GENERAL: Yes normal visual inspection Lymph: OTHER: No clear inguinal lymph nodes Chest: OTHER: Normal chest movements Resp: COMMON NORMALS: normal respiratory effort EFFORT & INSPECTION: Yes able to speak in complete sentences, No labored and No Actively coughing Cardio: COMMON NORMALS: regular rate RATE: regular rate GI: OTHER: Nondistended. No palpable mass. He cannot feel his bladder. Soft nontender : OTHER: Normal circumcised phallus. Scrotum is edematous. No obvious infectious changes. Back/Pelvis: OTHER: No CVA tenderness Extremity: COMMON NORMALS: no clubbing, cyanosis or edema Neuro: SENSORIUM/ORIENTATION: Yes alert OTHER: Marked musculoskeletal weakness Psych: COMMON NORMALS: mental status grossly normal APPEARANCE: Yes grossly normal and Yes well kempt ATTITUDE: Yes calm and Yes engaged Skin: COMMON NORMALS: no rashes or lesions noted and no jaundice GENERAL SKIN EXAM: no rashes or lesions noted Urinary Catheter Management: Milan: Cath Placed During This Visit: no Reason for Continuing Indwelling Catheter: Chronic Indwelling Urinary Catheter on Admission Data 07/25/22 05:02 07/25/22 05:02 Micro: Microbiology 07/24/22 18:49 Blood Culture - Preliminary Blood NEGATIVE TO DATE 07/24/22 18:45 Blood Culture - Preliminary Blood NEGATIVE TO DATE A&P Assessment and plan (1) Retention of urine due to occlusion of Milan catheter: Catheter replaced and irrigated well. (2) Chronic cystitis: (3) Bilateral hydronephrosis: Secondary to bladder outlet obstruction multifactorial with a neurogenic bladder as well as infectious debris in the bladder occluding the catheter. I expect he has a baseline a noncompliant high-pressure bladder (4) Neurogenic bladder: (5) Urethral stricture: Last cystoscopy was in July 2021 with no obvious stricture. 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
[2022-07-25 21:20] LABS: Glucose Point of Care 107 mg/dL (70-110)
[2022-07-26] VITALS (24 sets, daily range): BP systolic 82–129; BP diastolic 41–67; PULSE 78–100; RESP 12–28; TEMP 36.4–37.7; O2SAT 80–100
--- NOTE | 2022-07-26 00:02 | PC.NURSE ---
Vitals were reported to this nurse with a blood pressure of 82/41 automatically on the patient's left arm. This nurse entered the patient's room and retook the blood pressure with a manual cuff on the left arm and got a blood pressure of 80/45. Blood pressure was retaken manually on the right arm and patient's blood pressure was 100/58. Patient stated that he did not feel well. Patient's skin was warm and slightly diaphoretic, and respirations were 28/minute. Dr Bond was notified of the patient's vitals and status. Order for a bolus of lactated ringer's was put in by Dr Bond.
[2022-07-26] MEDS: lactated ringers 1,000 ML 999 ML IV (00:07)
--- NOTE | 2022-07-26 01:03 | PC.NURSE ---
100ml of purulent drainage emptied from the patient's Milan catheter at this time. Patient was bladder scanned and bladder showed volume of 0ml.
--- NOTE | 2022-07-26 01:59 | PC.NURSE ---
Patient's automatic BP taken at 98/52 after 1,000ml bolus of LR. Manual taken on left arm was 90/58 and manual taken on right arm was 100/58. Dr Bond was notified and orders put in for ICU transfer.
[2022-07-26] MEDS: sodium chloride 0.9% 1,000 ML 75 ML IV ×2 (02:18→17:33)
[2022-07-26] MEDS: lidocaine 2% Urojet 20 mL 40 ML TOPICAL (02:19)
[2022-07-26 03:28] LABS: Basophils % 0.1 %; Eosinophils % 0.4 %; Hematocrit 27.1 % (42.0-52.0); Hemoglobin 8.8 g/dL (11.7-16.6); Lymphocytes # 0.3 10^3/uL (0.8-4.8); Lymphocytes % 3.8 %; Mean Corpuscular HGB Conc 32.5 g/dL (30.0-36.0); Mean Corpuscular Hemoglobin 28.9 pg (28.0-34.0); Mean Corpuscular Volume 89.1 fl (80-94); Mean Platelet Volume 9.9 fL (7.4-10.4); Monocytes # 0.2 10^3/uL (0.2-0.9); Monocytes % 2.9 %; Neutrophils # 7.55 10^3/uL (1.8-7.7); Neutrophils % 91.6 %; Nucleated Red Blood Cells % 0 %; Platelet Count 134 10^3/cmm (130-400); Red Blood Count 3.04 10^6/uL (4.1-5.3); Red Cell Distribution Width 13.5 % (12.1-15.1); White Blood Count 8.2 10^3/uL (4.0-10.0)
[2022-07-26 04:01] LABS: Alanine Aminotransferase 40 U/L (0-41); Albumin Level 1.8 g/dL (3.5-5.2); Alkaline Phosphatase 152 U/L (40-130); Aspartate Amino Transferase 67 U/L (0-40); Blood Urea Nitrogen 41 mg/dL (8-23); Calcium 7.3 mg/dL (8.5-10.5); Carbon Dioxide 17 mmol/L (22-29); Chloride 105 mmol/L (98-107); Globulin 3.2 g/dL (1.3-4.6); Glucose 117 mg/dL (65-115); Osmolality Calculated 285 mOsm/kg (285-295); Sodium 132 mmol/L (136-145); Total Bilirubin 0.4 mg/dL (0.15-1.2)
[2022-07-26 04:05] LABS: Anion Gap 14.4 (5-19); Potassium 4.4 mmol/L (3.5-5.1)
[2022-07-26] MEDS: levothyroxine 150 mcg Tablet PO (05:21)
[2022-07-26] MEDS: tizanidine 4 mg Tablet PO ×3 (05:42→20:57)
[2022-07-26 07:23] LABS: Glucose Point of Care 83 mg/dL (70-110)
[2022-07-26] MEDS: cefepime 1,000 MG in sodium chloride 0.9% (plus) 50 ML 100 MG IV ×2 (09:18→20:37)
[2022-07-26] MEDS: heparin 5,000 unit/mL INJ 1 mL 5000 UNIT SUBCUT ×2 (09:19→21:30)
[2022-07-26] MEDS: NON-FORMULARY MEDICATION (Methenamine Hippurate 1 gram tablet) 1 EACH PO ×2 (10:11→17:34)
--- NOTE | 2022-07-26 10:17 | PM.PN ---
Subjective Subjective: Urology follow-up: Hypotensive last night and was sent to ICU. Did not require pressors. Hemodynamic status has improved. Was probably bacteremic from catheter manipulation and change. Eating this morning. Appears well Abdomen is soft. We will tentatively plan to do the suprapubic tube change while he is in the hospital. Would like to have his urine substantially clear before doing that. We will keep him on the schedule as is right now for 07/28/2022 but may postpone that for couple more days pending his clinical status Medications: Reviewed: Yes Vitals/I&O/Wt Last Vital Signs Temp 97.5 F L 07/26/22 02:40 Pulse 94 07/26/22 09:00 Resp 20 H 07/26/22 09:00 BP 116/55 07/26/22 09:00 Pulse Ox 98 07/26/22 09:00 O2 Del Method 07/26/22 02:40 07/25/22 07/26/22 07/26/22 22:59 06:59 14:59 Intake Total 525 / 1835 2000 / 3835 350 / 350 Output Total 600 / 600 550 / 1150 Balance -75 / 1235 1450 / 2685 350 / 350 Weight last 48 hrs Weight 197 lb 6.4 oz Weight 197 lb 3.2 oz Weight 179 lb Physical Exam Const: COMMON NORMALS: no acute distress, alert and well nourished GENERAL APPEARANCE: well kempt and well developed ORIENTATION/CONSCIOUSNESS: not confused Resp: COMMON NORMALS: normal respiratory effort EFFORT & INSPECTION: Yes able to speak in complete sentences, No labored and No Actively coughing Cardio: COMMON NORMALS: regular rate RATE: regular rate GI: OTHER: Nondistended. No palpable mass. He cannot feel his bladder. Soft nontender : OTHER: Normal circumcised phallus. Scrotum is edematous. No obvious infectious changes. Catheter is draining well with clearing urine. Proved Back/Pelvis: OTHER: No CVA tenderness Neuro: SENSORIUM/ORIENTATION: Yes alert OTHER: Marked musculoskeletal weakness Psych: APPEARANCE: Yes grossly normal and Yes well kempt ATTITUDE: Yes calm and Yes engaged OTHER: A little confused this morning. Urinary Catheter Management: Milan: Cath Placed During This Visit: yes Reason for Continuing Indwelling Catheter: Acute Urinary Retention or Obstruction Urinary Catheter Date of Insertion: 07/25/22 Data 07/26/22 03:11 12/19/22 03:11 Micro: Microbiology 07/24/22 18:49 Blood Culture - Preliminary Blood 07/24/22 18:45 Blood Culture - Preliminary Blood A&P Assessment and plan (1) Retention of urine due to occlusion of Milan catheter: Catheter replaced and irrigated well. (2) Chronic cystitis: (3) Bilateral hydronephrosis: Secondary to bladder outlet obstruction multifactorial with a neurogenic bladder as well as infectious debris in the bladder occluding the catheter. I expect he has a baseline a noncompliant high-pressure bladder (4) Neurogenic bladder: (5) Urethral stricture: Last cystoscopy was in July 2021 with no obvious stricture. Qualifiers: Urethral stricture type: post-procedural (6) Left renal mass: Attestations Medical Necessity Statement*: See attending Coding Level of Care Code Acute Manager Licensing for [facility] Diagnoses Retention of urine due to occlusion of Milan catheter T83.198A; R33.8 Chronic cystitis N30.20 Bilateral hydronephrosis N13.30 Neurogenic bladder N31.9 Urethral stricture N35.919 Urethral stricture type: post-procedural Left renal mass N28.89
--- NOTE | 2022-07-26 11:12 | PM.PN ---
Subjective Subjective: He states he is doing all right, social, some lower back pain, some spasms of lower extremities which are not new. No trouble breathing. No chest pain. Medications: Reviewed: Yes Vitals/I&O/Wt Last Vital Signs Temp 97.5 F L 07/26/22 02:40 Pulse 94 07/26/22 09:00 Resp 20 H 07/26/22 09:00 BP 116/55 07/26/22 09:00 Pulse Ox 98 07/26/22 09:00 O2 Del Method 07/26/22 02:40 07/25/22 07/26/22 07/26/22 22:59 06:59 14:59 Intake Total 525 / 1835 2000 / 3835 350 / 350 Output Total 600 / 600 550 / 1150 Balance -75 / 1235 1450 / 2685 350 / 350 Weight last 48 hrs Weight 89.539 kg Weight 89.448 kg Weight 81.193 kg Physical Exam Const: COMMON NORMALS: patient oriented x3 and alert GENERAL APPEARANCE: cooperative ORIENTATION/CONSCIOUSNESS: Yes awake HENMT: COMMON NORMALS: oropharynx normal Neck/C-Spine: COMMON NORMALS: no JVD Resp: COMMON NORMALS: normal respiratory effort and clear to auscultation bilaterally AUSCULTATION: clear to auscultation bilaterally Cardio: COMMON NORMALS: no JVD, regular rhythm, S1 normal heart sound present, S2 normal heart sound present and No murmurs present (Cardio) RHYTHM: regular rhythm HEART SOUNDS: S1 normal heart sound present and S2 normal heart sound present GI: COMMON NORMALS: Normal to inspection, nondistended, normoactive bowel sounds present, Soft to palpation and non-tender PALPATION: Yes Soft to palpation Extremity: COMMON NORMALS: no joint enlargement and no pedal edema Neuro: COMMON NORMALS: patient oriented x3 SENSORIUM/ORIENTATION: Yes alert Skin: COMMON NORMALS: no rashes or lesions noted GENERAL SKIN EXAM: no rashes or lesions noted Urinary Catheter Management: Milan: Cath Placed During This Visit: yes Reason for Continuing Indwelling Catheter: Acute Urinary Retention or Obstruction Urinary Catheter Date of Insertion: 07/25/22 Data 07/26/22 03:11 07/26/22 03:11 Micro: Microbiology 07/24/22 18:30 Urine Culture - Final Urine,Clean Catch 07/24/22 18:49 Blood Culture - Preliminary Blood 07/24/22 18:45 Blood Culture - Preliminary Blood A&P Assessment and plan (1) Sepsis: This morning he is in ICU, overnight he was concerned blood pressure was becoming lower. Levophed was ordered but never really needed. This morning maintaining blood pressure. Urinary catheter again occluded. Exchanged. Occluded with large amount of infectious debris. Continue IV antibiotics. Catheter flushes. Sepsis resolving with resolution of leukocytosis, fevers so far. Culture history appreciated. Continue with cefepime. Follow-up blood cultures and repeat urine culture. Keep mean arterial pressure 65 (2) Urinary tract infection: Complicated UTI with recurrent obstruction of the urinary catheter with infectious debris. Continue IV antibiotics. Urology follow-up. This morning urinary catheter exchange. Continue flushes. (3) Dislodged Milan catheter: If continues to improve, plans for cystoscopy, suprapubic catheter on Tuesday. (4) Bilateral hydronephrosis: If continues to improve, plans for cystoscopy, suprapubic catheter on Tuesday. Plan Multiple sclerosis: Neurogenic bladder: No acute exacerbation Continue antispasmodics Chronic kidney disease: Creatinine seems to be at baseline. Medication reconciliation done for nephrotoxic drugs. Strict input output charting. Continue to check BMP daily. Type 2 diabetes mellitus: Start on insulin sliding scale. carb consistent diet. DNR/DNI. Heparin 5000 12 hourly for DVT prophylaxis. Attestations Medical Necessity Statement*: Continue admission for assessment management of complicated UTI, resolving sepsis. 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
[2022-07-26 11:14] LABS: Glucose Point of Care 282 mg/dL (70-110)
[2022-07-26] MEDS: insulin lispro 100 unit/1 mL SUBCUT ×2 (11:17→22:22)
--- NOTE | 2022-07-26 12:19 | PC.CHAP ---
Pastoral Care Encounter/Spiritual Assessment Type of Contact [] Declined service girl visit [] Patient/Family/Request visit [] Outpatient visit [] Follow-up visit [] Physician referral [] Code/Alert [x] Routine visit [] Staff referral [] Actively dying [] Patient sleeping [] Family support [] [] Out of room [] Palliative care [] [x] Receiving care in room [] Pre-surgical visit [] Trauma [] Long length of stay [x] ICU visit [] Other: Relational/Emotional Strength [] Patient feels connected with others/family/visitors/staff [] Distress [] Loneliness/isolation [] Abandonment Spirituality of Patient [] Person of Chelsey [] Attends Yazdanism of their Chelsey [] Believes in Prayer [] Reads Bible or Mormonism materials [] There are Spiritual issues to be addressed Senior Tableau Developer Interventions [x] Prayer [] Active listening [] Non-anxious presence [] Spiritual/emotional support [] Crisis/trauma care [] Spiritual counseling [] Bereavement support [] Provided bereavement packet [] Provided Bible/devotional materials [] Provided toy/stuffed animal, coloring book to patient or family member [] Provided Communion [] Anointing/[place] [] Salvation [x] Completed spiritual assessment [] Other: Impact on Illness or Injury [] Angry [] Fearful [] Anxious [] Often cries [] Exhaustion [] Unable to work [] Unable to attend adventist [] Unable to walk/stand [] Unable to read [] Unable to drive [] Unable to eat/drink [] Unable to sleep [] Unable to be with family [] Patient intubated [] Other: Summary Time spent with patient
--- NOTE | 2022-07-26 15:05 | PC.NURSE ---
1440 Patient recieved from ICU accompanied per . Patient alert and oriented x4 patient stated he's tired, napping intermittently responds to voice spontaneously.
[2022-07-26 17:09] LABS: Glucose Point of Care 139 mg/dL (70-110)
[2022-07-26] MEDS: acetaminophen 500 mg Tablet PO (20:56)
[2022-07-26 22:11] LABS: Glucose Point of Care 164 mg/dL (70-110)
[2022-07-27] VITALS (8 sets, daily range): BP systolic 108–158; BP diastolic 62–75; PULSE 82–104; RESP 16–18; TEMP 36.3–36.9; O2SAT 93–99
[2022-07-27] MEDS: levothyroxine 150 mcg Tablet PO (05:15)
[2022-07-27 05:18] LABS: Basophils % 0.3 %; Eosinophils # 0.2 10^3/uL (0.0-0.8); Hematocrit 29.8 % (42.0-52.0); Hemoglobin 9.7 g/dL (11.7-16.6); Lymphocytes # 0.7 10^3/uL (0.8-4.8); Lymphocytes % 8.4 %; Mean Corpuscular HGB Conc 32.6 g/dL (30.0-36.0); Mean Corpuscular Hemoglobin 28.3 pg (28.0-34.0); Mean Corpuscular Volume 86.9 fl (80-94); Mean Platelet Volume 10.7 fL (7.4-10.4); Monocytes # 0.4 10^3/uL (0.2-0.9); Monocytes % 5.3 %; Neutrophils # 6.37 10^3/uL (1.8-7.7); Neutrophils % 82.4 %; Nucleated Red Blood Cells % 0 %; Platelet Count 104 10^3/cmm (130-400); Red Blood Count 3.43 10^6/uL (4.1-5.3); Red Cell Distribution Width 13.5 % (12.1-15.1); White Blood Count 7.7 10^3/uL (4.0-10.0)
[2022-07-27 05:47] LABS: Alanine Aminotransferase 56 U/L (0-41); Albumin Level 2.1 g/dL (3.5-5.2); Alkaline Phosphatase 344 U/L (40-130); Anion Gap 12.5 (5-19); Aspartate Amino Transferase 71 U/L (0-40); Blood Urea Nitrogen 36 mg/dL (8-23); Calcium 7.7 mg/dL (8.5-10.5); Carbon Dioxide 20 mmol/L (22-29); Chloride 108 mmol/L (98-107); Globulin 3.2 g/dL (1.3-4.6); Glomerular Filtration Rate 60.8 mL/min (90-130); Glucose 113 mg/dL (65-115); Osmolality Calculated 291 mOsm/kg (285-295); Potassium 4.5 mmol/L (3.5-5.1); Sodium 136 mmol/L (136-145); Total Bilirubin 0.5 mg/dL (0.15-1.2); Total Protein 5.3 g/dL (6.6-8.7)
[2022-07-27] MEDS: tizanidine 4 mg Tablet PO ×3 (06:19→19:31)
[2022-07-27] MEDS: metoprolol succinate ER (24 HR) 25 mg Tablet 12.5 MG PO (06:20)
[2022-07-27] MEDS: sodium chloride 0.9% 1,000 ML 75 ML IV ×2 (07:05→19:31)
[2022-07-27 07:45] LABS: Glucose Point of Care 101 mg/dL (70-110)
--- NOTE | 2022-07-27 08:53 | PC.SOCIAL ---
IMM update IMM Updated with patient. Verbalized an understanding. Copy Pg 2 provided. Initialled, dated, timed, and placed in chart.
[2022-07-27] MEDS: cefepime 1,000 MG in sodium chloride 0.9% (plus) 50 ML 100 MG IV ×2 (08:54→19:31)
[2022-07-27] MEDS: heparin 5,000 unit/mL INJ 1 mL 5000 UNIT SUBCUT (08:55)
[2022-07-27] MEDS: sennosides-docusate Tablet 1 TAB PO (08:55)
[2022-07-27] MEDS: NON-FORMULARY MEDICATION (Methenamine Hippurate 1 gram tablet) 1 EACH PO ×2 (09:00→17:37)
--- NOTE | 2022-07-27 09:31 | PC.PHAR ---
RECEIVED MAR ON 07/27/22 @ 9:10AM TO UPDATE MED LIST
[2022-07-27 12:03] LABS: Glucose Point of Care 133 mg/dL (70-110)
[2022-07-27 17:34] LABS: Glucose Point of Care 154 mg/dL (70-110)
--- NOTE | 2022-07-27 17:36 | PM.PN ---
Subjective Subjective: Urology follow-up: Continues to improve. No fever. Urine is cleared significantly. Catheter has been functioning well without requirement for irrigation. We had planned originally to perform cystoscopy and suprapubic tube placement tomorrow and if he continues to maintain afebrile status and doing well we will follow through with that. Vitals/I&O/Wt Last Vital Signs Temp 98.5 F 07/27/22 15:30 Pulse 88 07/27/22 15:30 Resp 16 07/27/22 15:30 BP 133/72 07/27/22 15:30 Pulse Ox 95 07/27/22 15:30 O2 Del Method 07/27/22 15:30 O2 Flow Rate 0 07/27/22 08:00 07/27/22 07/27/22 07/27/22 06:59 14:59 22:59 Intake Total 1000 / 3040 530 / 530 Output Total 600 / 1600 850 / 850 Balance 400 / 1440 -320 / -320 Physical Exam Const: COMMON NORMALS: no acute distress, alert and well nourished GENERAL APPEARANCE: well kempt and well developed ORIENTATION/CONSCIOUSNESS: not confused Resp: COMMON NORMALS: normal respiratory effort EFFORT & INSPECTION: Yes able to speak in complete sentences, No labored and No Actively coughing Cardio: COMMON NORMALS: regular rate RATE: regular rate : OTHER: Urine is clear Neuro: SENSORIUM/ORIENTATION: Yes alert OTHER: Marked musculoskeletal weakness Psych: APPEARANCE: Yes grossly normal and Yes well kempt ATTITUDE: Yes calm and Yes engaged Urinary Catheter Management: Milan: Cath Placed During This Visit: yes Reason for Continuing Indwelling Catheter: Acute Urinary Retention or Obstruction Urinary Catheter Date of Insertion: 07/25/22 Data 07/27/22 05:10 07/27/22 05:10 A&P Assessment and plan (1) Neurogenic bladder: (2) Urinary tract infection: (3) Chronic retention of urine: Plan 1. Reassess in the morning for suprapubic tube placement. Has improved substantially since admission. Attestations Medical Necessity Statement*: See attending Coding Level of Care Code Acute Coffee Farmer for Chg Fwd Diagnoses Neurogenic bladder N31.9 Urinary tract infection N39.0 Chronic retention of urine R33.9
--- NOTE | 2022-07-27 18:35 | PM.PN ---
Subjective Subjective: Reports today he is feeling somewhat tremulous, somewhat on the edge/and antsy. No abdominal pain, slight tenderness in left upper quadrant. No vomiting. No diarrhea. Urinary catheter is draining. Medications: Reviewed: Yes Vitals/I&O/Wt Last Vital Signs Temp 98.5 F 07/27/22 15:30 Pulse 88 07/27/22 15:30 Resp 16 07/27/22 15:30 BP 133/72 07/27/22 15:30 Pulse Ox 95 07/27/22 15:30 O2 Del Method 07/27/22 15:30 O2 Flow Rate 0 07/27/22 08:00 07/27/22 07/27/22 07/27/22 06:59 14:59 22:59 Intake Total 1000 / 3040 530 / 530 480 / 1010 Output Total 600 / 1600 850 / 850 Balance 400 / 1440 -320 / -320 480 / 160 Physical Exam Const: COMMON NORMALS: patient oriented x3 and alert GENERAL APPEARANCE: cooperative ORIENTATION/CONSCIOUSNESS: Yes awake HENMT: COMMON NORMALS: oropharynx normal Neck/C-Spine: COMMON NORMALS: no JVD Resp: COMMON NORMALS: normal respiratory effort and clear to auscultation bilaterally AUSCULTATION: clear to auscultation bilaterally Cardio: COMMON NORMALS: no JVD, regular rhythm, S1 normal heart sound present, S2 normal heart sound present and No murmurs present (Cardio) RHYTHM: regular rhythm HEART SOUNDS: S1 normal heart sound present and S2 normal heart sound present GI: COMMON NORMALS: Normal to inspection, nondistended, normoactive bowel sounds present, Soft to palpation and non-tender PALPATION: Yes Soft to palpation Extremity: COMMON NORMALS: no joint enlargement and no pedal edema Neuro: COMMON NORMALS: patient oriented x3 SENSORIUM/ORIENTATION: Yes alert Skin: COMMON NORMALS: no rashes or lesions noted GENERAL SKIN EXAM: no rashes or lesions noted Urinary Catheter Management: Milan: Cath Placed During This Visit: yes Reason for Continuing Indwelling Catheter: Acute Urinary Retention or Obstruction Urinary Catheter Date of Insertion: 07/25/22 Data 07/27/22 05:10 07/27/22 05:10 A&P Assessment and plan (1) Sepsis: Maintaining blood pressure so far. Milan catheter draining. Occluded with large amount of infectious debris. Continue IV antibiotics. Catheter flushes. Sepsis resolving with resolution of leukocytosis, fevers so far. Going for cystoscopy tomorrow. Culture history appreciated. Continue with cefepime. Follow-up blood cultures and repeat urine culture. Keep mean arterial pressure 65 (2) Urinary tract infection: Complicated UTI with recurrent obstruction of the urinary catheter with infectious debris. Continue IV antibiotics. Urology follow-up. Cystoscopy in the morning. Continue flushes. (3) Dislodged Milan catheter: If continues to improve, plans for cystoscopy, suprapubic catheter on Tuesday. (4) Bilateral hydronephrosis: If continues to improve, plans for cystoscopy, suprapubic catheter on Tuesday. Plan Multiple sclerosis: Neurogenic bladder: No acute exacerbation Continue antispasmodics Chronic kidney disease: Creatinine seems to be at baseline. Medication reconciliation done for nephrotoxic drugs. Strict input output charting. Continue to check BMP daily. Type 2 diabetes mellitus: Start on insulin sliding scale. carb consistent diet. DNR/DNI. Heparin 5000 12 hourly for DVT prophylaxis. Attestations Medical Necessity Statement*: Continue admission for assessment management of complicated UTI, recurrent occlusion of urinary catheter, cystoscopy and suprapubic catheter placement. Coding Level of Care Code Acute Mobile Application Engineer for g Fwd Exam Comprehensive Diagnoses Sepsis A41.9 Urinary tract infection N39.0 Dislodged Milan catheter T83.021A Bilateral hydronephrosis N13.30
[2022-07-27] MEDS: ALPRAZolam 0.5 mg Tablet PO (19:31)
[2022-07-27] MEDS: bisacodyl 10 mg Supp PR (22:52)
[2022-07-27 22:56] LABS: Glucose Point of Care 220 mg/dL (70-110)
--- NOTE | 2022-07-27 23:56 | PC.NURSE ---
Milan catheter leaked large amount of urine. Milan advanced and repositioned and is now draining.
--- NOTE | 2022-07-27 23:57 | PC.NURSE ---
Patient states that he feels constipated. He states I haven't had a bowel movement in a long time. PRN suppository given.
[2022-07-28] VITALS (8 sets, daily range): BP systolic 101–141; BP diastolic 57–78; PULSE 83–114; RESP 9–156; TEMP 36.1–36.8; O2SAT 93–100
[2022-07-28 03:31] LABS: Basophils % 0.3 %; Eosinophils # 0.3 10^3/uL (0.0-0.8); Eosinophils % 4.5 %; Hemoglobin 9.5 g/dL (11.7-16.6); Lymphocytes # 0.7 10^3/uL (0.8-4.8); Lymphocytes % 10.4 %; Mean Corpuscular HGB Conc 33.9 g/dL (30.0-36.0); Mean Corpuscular Hemoglobin 29.3 pg (28.0-34.0); Mean Corpuscular Volume 86.4 fl (80-94); Mean Platelet Volume 11.5 fL (7.4-10.4); Monocytes # 0.4 10^3/uL (0.2-0.9); Monocytes % 6.2 %; Neutrophils # 5.43 10^3/uL (1.8-7.7); Nucleated Red Blood Cells % 0 %; Platelet Count 102 10^3/cmm (130-400); Red Blood Count 3.24 10^6/uL (4.1-5.3); Red Cell Distribution Width 13.2 % (12.1-15.1)
[2022-07-28 03:56] LABS: Alanine Aminotransferase 77 U/L (0-41); Albumin Level 1.9 g/dL (3.5-5.2); Alkaline Phosphatase 500 U/L (40-130); Anion Gap 12.1 (5-19); Aspartate Amino Transferase 82 U/L (0-40); Blood Urea Nitrogen 31 mg/dL (8-23); Calcium 7.7 mg/dL (8.5-10.5); Carbon Dioxide 17 mmol/L (22-29); Chloride 105 mmol/L (98-107); Globulin 3.2 g/dL (1.3-4.6); Glucose 143 mg/dL (65-115); Osmolality Calculated 279 mOsm/kg (285-295); Potassium 4.1 mmol/L (3.5-5.1); Sodium 130 mmol/L (136-145); Total Bilirubin 0.5 mg/dL (0.15-1.2); Total Protein 5.1 g/dL (6.6-8.7)
[2022-07-28] MEDS: metoprolol succinate ER (24 HR) 25 mg Tablet 12.5 MG PO (04:52)
[2022-07-28] MEDS: levothyroxine 150 mcg Tablet PO (04:52)
--- NOTE | 2022-07-28 05:30 | PC.NURSE ---
Kelsey completed at this time.
--- NOTE | 2022-07-28 05:48 | PC.NURSE ---
Milan has not leaked anymore. Milan draining. Linens currently clean and dry.
[2022-07-28 06:57] LABS: Glucose Point of Care 126 mg/dL (70-110)
[2022-07-28] MEDS: tizanidine 4 mg Tablet PO ×2 (07:54→18:37)
[2022-07-28] MEDS: sodium chloride 0.9% 1,000 ML 30 ML IV (08:21)
--- NOTE | 2022-07-28 08:35 | P.ANESASSM_ITS ---
Pre-Anesthetic Assessment Height/Weight: Height 1.85 m Weight 89.539 kg Temp Pulse Resp BP Pulse Ox O2 Del Method O2 Flow Rate 97.6 F 100 18 133/78 96 0 07/28/22 08:09 07/28/22 08:09 07/28/22 08:09 07/28/22 08:09 07/28/22 08:09 07/28/22 08:09 07/28/22 07:36 Preop Diagnosis: Neurogenic bladder with urinary retention, urethral stricture Operation Date: 07/28/22 09:00 Proposed Procedures s CYSTOSCOPY SUPRAPUBIC TUBE PLACEMENT PERCUTANEOUS VERSUS OPEN 57718 N31.9(Not Applicable) - Darryl Hogan MD p CYSTOSCOPY SUPRAPUBIC TUBE PLACEMENT PERCUTANEOUS VERSUS OPEN 92443 N31.9(Not Applicable) - Darryl Hogan MD Familial anesthetic complications: none Was Beta Rachel taken within 24 hours: Yes Was Clonidine taken within 24 hours: N/A Last intake: Intake Last Liquid Date 07/27/22 Last Liquid Time 11:30 Last Solid Date 07/27/22 Last Solid Time 19:00 Social No alcohol and No tobacco Exam alert, oriented x 3, clear to auscultation bilaterally and regular rate & rhythm Airway Submandibular: within normal limits Cervical ROM: within normal limits Mallampati: Class II Dentition: chipped CV/HEM Anemia, Arrythmia and Hypertension neurogenic bladder Metabolic Diabetes Mellitus Musc/skel Weakness MS--wheelchair bound Neuropsych Anxiety and Depression Anesthetic Plan ASA status: 3 Anesthesia: General Medications/Allergies Home Medications Medication Instructions Recorded Confirmed Last Taken Type amitriptyline 25 mg tablet 25 mg PO BEDTIME 03/17/21 07/27/22 07/15/22 History ascorbate calcium (vitamin C) 500 500 mg PO BID@03/17/21 07/27/22 07/16/22 History mg tablet bisacodyl 10 mg rectal suppository 10 mg KS DAILY PRN Constipation 03/17/21 07/27/22 07/14/22 History carica papaya 3 tab PO TID PRN UNKNOWN 03/17/21 07/27/22 07/14/22 History chlorpheniramine maleate 4 mg 4 mg PO Q6H PRN Allergy Symptoms 03/17/21 07/27/22 07/14/22 History tablet cholecalciferol (vitamin D3) 25 75 mcg PO DAILY@07 03/17/21 07/27/22 07/16/22 History mcg (1,000 unit) capsule cranberry fruit 450 mg tablet 900 mg PO DAILY@03/17/21 07/27/22 07/16/22 History gentian nikolas 1 % topical solution 1 applic topical DAILY 03/17/21 07/27/22 07/16/22 History lisinopril 20 mg tablet 20 mg PO BID@03/17/21 07/27/22 07/16/22 History magnesium hydroxide 400 mg/5 mL 30 ml PO DAILY PRN Constipation 03/17/21 07/27/22 07/14/22 History oral suspension (Milk of Magnesia) pseudoephedrine HCl 60 mg tablet 60 mg PO Q4H PRN Congestion 03/17/21 07/27/22 Unknown History rosuvastatin 5 mg tablet (Crestor) 5 mg PO BEDTIME 03/17/21 07/27/22 07/15/22 History sodium phosphates 19 gram-7 118 ml KS DAILY PRN Constipation 03/17/21 07/27/22 Unknown History gram/118 mL enema (Enema Disposable) therapeutic multivitamin 1 tab PO DAILY@07 03/17/21 07/27/22 07/17/22 History (Thera-Tabs tablet) bisacodyl 5 mg tablet 10 mg PO DAILY PRN Constipation 06/17/21 07/27/22 07/14/22 History bupropion HCl 150 mg 24 hr tablet, 150 mg PO DAILY@06/17/21 07/27/22 07/16/22 History extended release citalopram 20 mg tablet (Celexa) 20 mg PO DAILY@06/17/21 07/27/22 07/16/22 History cyanocobalamin (vitamin B-12) 1,000 mcg IM Q30D 06/17/21 07/27/22 06/09/22 History 1,000 mcg/mL injection solution dapagliflozin 10 mg tablet 10 mg PO DAILY@08 06/17/21 07/27/22 07/16/22 History (Farxiga) insulin lispro 100 unit/mL See Rx Instructions .Route .COMPLEX 06/17/21 07/27/22 07/16/22 History subcutaneous pen (Humalog KwikPen (U-100) Insulin) levothyroxine 125 mcg tablet 125 mcg PO DAILY 06/17/21 07/27/22 07/16/22 History tizanidine 4 mg tablet 4 mg PO TID PRN Muscle Spasm 06/17/21 07/27/22 07/14/22 History methenamine hippurate 1 gram tablet 1 g PO BID 07/01/21 07/27/22 07/16/22 History loratadine 10 mg tablet (Allergy 10 mg PO DAILY 01/19/22 07/27/22 07/16/22 History Relief (loratadine)) polyethylene glycol 3350 17 17 g PO DAILY PRN Constipation 01/19/22 07/27/22 07/14/22 History gram/dose oral powder liraglutide 0.6 mg/0.1 mL (18 mg/3 0.6 mg SUBCUT DAILY 07/12/22 07/27/22 07/16/22 History mL) subcutaneous pen injector (AudioBeta 2-Leoncio) citric ac 1980.6 mg-glucono 59.4 30 ml irrigation DAILY 07/17/22 07/27/22 Unknown History mg-mag carb 980.4 mg/30 mL irrig.soln (Renacidin) lidocaine 5 % topical ointment 1 applic topical TID PRN Pain 07/17/22 07/27/22 Unknown History cefuroxime axetil 500 mg tablet 500 mg PO BID 10 days #20 tabs 07/20/22 07/27/22 Unknown Rx metformin 850 mg tablet 850 mg PO BID 07/27/22 07/27/22 Unknown History metoprolol succinate 50 mg 50 mg PO DAILY 07/27/22 07/27/22 Unknown History tablet,extended release 24 hr Allergies Allergy/AdvReac Type Severity Reaction Status Date / Time Penicillins Allergy FAMILY HX Verified 07/27/22 09:30 OF SEVERE REACTION Current Medications Generic Name Dose Route Start Last Admin Trade Name Freq PRN Reason Stop Dose Admin Acetaminophen 500 mg 07/24/22 21:52 07/26/22 20:56 Acetaminophen 500 Mg Tablet PO 500 mg Q4H PRN Administration fever Alprazolam 0.5 mg 07/27/22 18:35 07/27/22 19:31 Alprazolam 0.5 Mg Tablet PO 0.5 mg TID PRN Administration ANXIETY Bisacodyl 10 mg 07/24/22 21:52 07/27/22 22:52 Bisacodyl 10 Mg Supp KS 10 mg DAILY PRN Administration Constipation Heparin Sodium (Porcine) 5,000 unit 07/24/22 22:00 07/27/22 08:55 Heparin 5,000 Unit/Ml Inj 1 Ml SUBCUT 5,000 unit Q12H [place] Administration Sodium Chloride 1,000 mls @ 75 mls/hr 07/24/22 21:52 07/27/22 19:31 Sodium Chloride 0.9% IV 75 mls/hr .[id number] [place] Administration Cefepime HCl 1,000 mg/ Sodium 50 mls @ 100 mls/hr 07/25/22 09:00 07/27/22 20:01 Chloride IV Infused Q12H [place] Infusion Protocol Sodium Chloride 1,000 mls @ 30 mls/hr 07/28/22 08:15 07/28/22 08:21 Sodium Chloride 0.9% IV 07/29/22 08:14 30 mls/hr .Q24H [place] Administration Insulin Human Lispro 0 unit 07/25/22 18:00 07/28/22 07:35 Insulin Lispro 100 Unit/1 Ml SUBCUT Not Given WM&BEDTIME [facility] Protocol Levothyroxine Sodium 150 mcg 07/26/22 05:00 07/28/22 04:52 Levothyroxine 150 Mcg Tablet PO 150 mcg DAILY@05 [place] Administration Metoprolol Succinate 12.5 mg 07/27/22 07:00 07/28/22 04:52 Metoprolol Succinate Er (24 Hr) 25 Mg Tablet PO 12.5 mg DAILY@07 [place] Administration Non-Formulary Medication 1 gm 07/25/22 09:00 07/27/22 17:37 Methenamine Hippurate PO 1 gm BID [place] Administration Senna/Docusate Sodium 1 tab 07/25/22 09:00 07/27/22 08:55 Sennosides-Docusate Tablet PO 1 tab DAILY [place] Administration Tizanidine HCl 4 mg 07/24/22 21:52 07/28/22 07:54 Tizanidine 4 Mg Tablet PO 4 mg TID PRN Administration Muscle Spasm PFSH Anesthesia Medical History (Updated 07/27/22 @ 17:39 by Darryl Hogan MD) History of UTI Left renal mass Not fully characterized. Patient has elected no further aggressive work-up at this point based on his overall debilitation Multiple sclerosis Neurogenic bladder Urinary retention Surgical History History of adenoidectomy History of appendectomy History of cholecystectomy History of elbow surgery History of tonsillectomy History of vasectomy Family History Mother , at age 75 from natural caused No problems noted. Social History Smoking and tobacco status: former smoker Alcohol intake: never Marital status: Current occupational status: disabled History of recent travel: No Data Anesthesia 07/28/22 02:37 07/28/22 02:37 Short CBC 07/27/22 07/28/22 Range/Units 05:10 02:37 WBC 7.7 7.0 (4.0-10.0) 10^3/uL Hgb 9.7 L 9.5 L (11.7-16.6) g/dL Hct 29.8 L 28.0 L (42.0-52.0) % MCV 86.9 86.4 (80-94) fl Plt Count 104 L 102 L (130-400) 10^3/cmm Neut % (Auto) 82.4 78.0 % Neut # (Auto) 6.37 5.43 (1.8-7.7) 10^3/uL BMP 07/27/22 07/28/22 05:10 02:37 Sodium 136 130 L Potassium 4.5 4.1 Chloride 108 H 105 Carbon Dioxide 20 L 17 L BUN 36 H 31 H Creatinine 1.2 1.0 Glucose 113 143 H Calcium 7.7 L 7.7 L Liver Function 07/27/22 07/28/22 Range/Units 05:10 02:37 Total Bilirubin 0.5 0.5 (0.15-1.2) mg/dL AST 71 H 82 H (0-40) U/L ALT 56 H 77 H (0-41) U/L Alkaline Phosphatase 344 H 500 H (40-130) U/L Albumin 2.1 L 1.9 L (3.5-5.2) g/dL Cardiac Studies: No Data to Display
--- NOTE | 2022-07-28 10:13 | P.PN_ITS ---
Subjective Subjective: Urology follow-up: Hemodynamically stable overnight. Urine still cloudy. No fever or chills. Feeling weak Abdomen is soft. I think he stable to proceed with the surgery as we had talked about. Cystoscopy suprapubic tube percutaneous versus open today when time available Decision for surgery Medications: Reviewed: Yes Vitals/I&O/Wt Last Vital Signs Temp 97.6 F 07/28/22 08:09 Pulse 100 07/28/22 08:09 Resp 18 07/28/22 08:09 BP 133/78 07/28/22 08:09 Pulse Ox 96 07/28/22 08:09 O2 Del Method 07/28/22 08:09 O2 Flow Rate 0 07/28/22 07:36 07/27/22 07/28/22 07/28/22 22:59 06:59 14:59 Intake Total 1462.5 / 1992.5 Output Total 750 / 1600 2125 / 3725 Balance 712.5 / 392.5 -2125 / -1732.5 Physical Exam Const: GENERAL APPEARANCE: cooperative ORIENTATION/CONSCIOUSNESS: Yes awake Resp: COMMON NORMALS: normal respiratory effort OTHER: Unlabored. No audible wheezes. Cardio: COMMON NORMALS: regular rhythm RHYTHM: regular rhythm GI: COMMON NORMALS: Soft to palpation and non-tender PALPATION: Yes Soft to palpation Urinary Catheter Management: Milan: Cath Placed During This Visit: yes Reason for Continuing Indwelling Catheter: Acute Urinary Retention or Obstruction Urinary Catheter Date of Insertion: 07/25/22 Data 07/28/22 02:37 07/28/22 02:37 A&P Assessment and plan (1) Chronic retention of urine: (2) Urinary tract infection: (3) Urethral stricture: Qualifiers: Urethral stricture type: post-procedural (4) Neurogenic bladder: Attestations Medical Necessity Statement*: See attending. Coding Level of Care Code Acute Clay Preparation Supervisor for g Fwd Diagnoses Chronic retention of urine R33.9 Urinary tract infection N39.0 Urethral stricture N35.919 Urethral stricture type: post-procedural Neurogenic bladder N31.9
--- NOTE | 2022-07-28 10:16 | PM.OP ---
Operative Report Date of procedure: July 28, 2022 Pre-op diagnosis: Neurogenic bladder with urinary retention, urethral stricture Post-op diagnosis: Neurogenic bladder with urinary retention, urethral stricture Procedure done: 1. Cystoscopy, transurethral resection of large amount of bladder debris/old clot/intraluminal mass 2. Fulguration of bladder neck bleeding 3. Percutaneous suprapubic tube placement. Specimens removed/disposition: None Pathology: None Surgeon: Edison Estimated blood loss: Minimal Urine output: Not measured Complications: None Findings: Anesthesia: General Condition: Stable Disposition: PACU Intraoperative findings: Bladder had about 300 cc of fibrinous mass probably an old congealed blood clot. There is no active bleeding associated with this. There is no tumor. It took an extensive amount of time to clear this mass with transurethral resection with super loop, manual breaking up with super loop and Ellik evacuator. A couple areas of the bladder neck mildly traumatized during the procedure that required fulguration for meticulous hemostasis. 18 Mongolian Milan catheter placed as a suprapubic tube and left indwelling. 10 cc in the balloon. Secured to the skin with 2 heavy nylon sutures. Good function of the catheter confirmed at the completion of the procedure. Brief History: Avni is a very pleasant 67-year-old white male with progressive multiple sclerosis. Lives in intermediate facility now due to debilitation. Developed neurogenic bladder and chronic urinary retention ultimately managed with indwelling catheter. Has had trouble with catheter irritation of the urethra as well as repetitive occlusion. Ultimately after multiple visits for we discussed suprapubic tube as an alternative to urethral indwelling Milan he elected suprapubic tube. Procedure has been postponed due to recurrent episodes of sepsis related to catheter occlusion and UTI. He has been deemed stable enough to proceed Procedure: After urgent evaluation examination and obtaining of informed consent he was taken to the operating suite on 07/28/2022 where general anesthesia was administered without difficulty after appropriate timeout was formed, SCDs confirmed to be functioning, preoperative antibiotics/therapeutic antibiotics confirmed and beta-ángel protocol confirmed. Prepped and draped in usual sterile fashion in dorsolithotomy position paying careful attention to avoiding pressure points. 21 Mongolian cystoscope with 30 degree lens was introduced into urethra meatus and advanced into the bladder without difficulty. No significant stricture identified. Scope was passed into the bladder and it was discovered that he had at least 300 cc or more of what appeared to be probably old clot/bladder debris. There were no calcifications. The fibrinous material was congealed and essentially acting as a solid mass. Ellik evacuator was utilized to try to break it up and this was only very partially successful. Grasping forceps were utilized to try to do the same but without much more success. Ultimately a 27 Mongolian resectoscope sheath with visual obturator in place was advanced into the bladder and with a super loop and gyrus bipolar system the congealed mass was broken up piece by piece with electrocautery and blunt dissection. This was a very tedious process and took over an hour. Essentially this was equivalent to a transurethral section of bladder tumor large. Ultimately with combination of manual breaking up, electrocautery, and Ellik evacuator the material was completely cleared from the bladder. There were a couple areas of oozing from the bladder neck well away from the orifices that required fulguration with a loop for complete hemostasis. The bladder was irrigated several times to clear out any residual small debris. The abdomen was reprepped. The bladder was distended and was easily palpable. About 3 fingerbreadths above the symphysis pubis the site for the suprapubic tube was selected. A spinal needle was advanced into the bladder in this location and confirmed to be in appropriate position anterior/dome aspect of the bladder under cystoscopic guidance.. A puncture incision was made with a 15 blade taken down through the skin and subcutaneous tissue and into the fascia. A 20 Mongolian suprapubic sheath with internal trocar was then advanced into the wound and with cystoscopic guidance into the bladder. Once the sheath had entered the bladder the trocar was removed the sheath passed further and then a 18 Mongolian catheter advanced through the sheath into the bladder and the balloon inflated. The balloon was confirmed to be functioning well before approximating the balloon to the anterior bladder wall loosely and removing the sheath. Catheter was then secured to the skin with 2 heavy nylon sutures and a sterile dressing applied over antibiotic ointment at the site. A temporary urethral Milan catheter was replaced. Tolerated procedure well without complications and was awakened in the operating room and returned to the recovery room in stable condition. PLANS: 1. Return to the floor for recovery. It is anticipated that his catheter will work much much better given the amount of debris that was taken out of the bladder. 2. First SP tube change in about 1 month. Will advance catheter size with sequential changes
[2022-07-28] MEDS: levofloxacin-dextrose 5 % 500 MG/100 ML PREMIX 100 MG IV (10:32)
[2022-07-28] MEDS: lidocaine 2% Urojet 20 mL TOPICAL (11:24)
[2022-07-28] MEDS: neomycin-poly-bacitracin oint 28 gm 1 APPLIC TOPICAL (11:24)
--- NOTE | 2022-07-28 15:28 | ANE.PACU2 ---
Inpatient post-anesthesia follow up: Airway intact: Yes Vital signs: Temperature 97.0 F Pulse Rate 87 Respiratory Rate 156 Blood Pressure 103/59 Pulse Oximetry 100 Oxygen Delivery Me thod Room Air Oxygen Flow Rate 10 Fraction of Inspir ed Oxygen Hydration adequate: Yes Nausea and vomiting: No Pain level: 2 Mental status: Baseline
[2022-07-28] MEDS: cefTRIAXone 1,000 MG in sodium chloride 0.9% (plus) 50 ML 100 MG IV (16:15)
[2022-07-28 17:16] LABS: Glucose Point of Care 128 mg/dL (70-110)
--- NOTE | 2022-07-28 18:41 | P.PN_ITS ---
Subjective Subjective: Reports he is doing well after his surgery. Reports everything went well, he denies any pain or discomfort. Eyes any abdominal pain or discomfort. Not anxious today. Medications: Reviewed: Yes Vitals/I&O/Wt Last Vital Signs Temp 97.0 F L 07/28/22 12:24 Pulse 87 07/28/22 12:45 Resp 156 H 07/28/22 12:45 BP 103/59 07/28/22 12:45 Pulse Ox 100 07/28/22 12:45 O2 Del Method 07/28/22 12:45 O2 Flow Rate 10 07/28/22 12:24 07/28/22 07/28/22 07/28/22 06:59 14:59 22:59 Intake Total 1660 / 1660 50 / 1710 Output Total 2125 / 3725 200 / 200 Balance -2125 / -1732.5 1460 / 1460 50 / 1510 Physical Exam Const: COMMON NORMALS: patient oriented x3 and alert GENERAL APPEARANCE: cooperative ORIENTATION/CONSCIOUSNESS: Yes awake HENMT: COMMON NORMALS: oropharynx normal Neck/C-Spine: COMMON NORMALS: no JVD Resp: COMMON NORMALS: normal respiratory effort and clear to auscultation bilaterally AUSCULTATION: clear to auscultation bilaterally Cardio: COMMON NORMALS: no JVD, regular rhythm, S1 normal heart sound present, S2 normal heart sound present and No murmurs present (Cardio) RHYTHM: regular rhythm HEART SOUNDS: S1 normal heart sound present and S2 normal heart sound present GI: COMMON NORMALS: Normal to inspection, nondistended, normoactive bowel sounds present, Soft to palpation and non-tender PALPATION: Yes Soft to palpation Extremity: COMMON NORMALS: no joint enlargement and no pedal edema Neuro: COMMON NORMALS: patient oriented x3 SENSORIUM/ORIENTATION: Yes alert Urinary Catheter Management: Milan: Cath Placed During This Visit: yes, but has since been removed by the nurse Reason for Continuing Indwelling Catheter: Chronic Indwelling Urinary Catheter on Admission Urinary Catheter Date of Insertion: 07/28/22 Urinary Catheter Time of Insertion: 11:15 Date Urinary Catheter Removed: 07/28/22 Time Urinary Catheter Discontinued: 11:00 Data 07/28/22 02:37 07/28/22 02:37 A&P Assessment and plan (1) Urinary tract infection: Due to recurrent catheter obstruction. He has been improving. Status post suprapubic catheter placement. Complicated UTI with recurrent obstruction of the urinary catheter with infectious debris. Continue IV antibiotics. Urology follow-up. Arrangements for skilled care after discharge. (2) Sepsis: Resolved. Maintaining blood pressure so far. Milan catheter draining. Occluded with large amount of infectious debris. Continue IV antibiotics. Catheter flushes. Sepsis resolving with resolution of leukocytosis, fevers so far. Going for cystoscopy tomorrow. Culture history appreciated. Continue with cefepime. Follow-up blood cultures and repeat urine culture. Keep mean arterial pressure 65 (3) Dislodged Milan catheter: If continues to improve, plans for cystoscopy, suprapubic catheter on Tuesday. (4) Bilateral hydronephrosis: If continues to improve, plans for cystoscopy, suprapubic catheter on Tuesday. Plan Alkaline phosphatase elevation: History of cholecystectomy. Will assess bile ducts with limited ultrasound. Check GGT. Multiple sclerosis: Neurogenic bladder: No acute exacerbation Continue antispasmodics Chronic kidney disease: Creatinine seems to be at baseline. Medication reconciliation done for nephrotoxic drugs. Strict input output charting. Continue to check BMP daily. Type 2 diabetes mellitus: Start on insulin sliding scale. carb consistent diet. DNR/DNI. Heparin 5000 12 hourly for DVT prophylaxis. Attestations Medical Necessity Statement*: Continue admission for management of complicated UTI, status post suprapubic catheter placement, post discharge planning and arrangements for skilled care. Coding Level of Care Code Acute Purification Director for [facility] Katey Diagnoses Urinary tract infection N39.0 Sepsis A41.9 Dislodged Milan catheter T83.021A Bilateral hydronephrosis N13.30
[2022-07-28 21:39] LABS: Glucose Point of Care 206 mg/dL (70-110)
[2022-07-28] MEDS: insulin lispro 100 unit/1 mL SUBCUT ×2 (21:41)
[2022-07-28] MEDS: heparin 5,000 unit/mL INJ 1 mL 5000 UNIT SUBCUT (21:41)
[2022-07-29] VITALS (8 sets, daily range): BP systolic 105–144; BP diastolic 66–76; PULSE 86–100; RESP 16–19; TEMP 36.3–36.8; O2SAT 95–99
[2022-07-29] MEDS: tizanidine 4 mg Tablet PO ×3 (01:27→21:25)
[2022-07-29 02:05] LABS: Basophils % 0.1 %; Eosinophils % 0.1 %; Hematocrit 33.7 % (42.0-52.0); Hemoglobin 11.1 g/dL (11.7-16.6); Lymphocytes # 0.9 10^3/uL (0.8-4.8); Lymphocytes % 10.4 %; Mean Corpuscular HGB Conc 32.9 g/dL (30.0-36.0); Mean Corpuscular Hemoglobin 28.7 pg (28.0-34.0); Mean Corpuscular Volume 87.1 fl (80-94); Monocytes # 0.3 10^3/uL (0.2-0.9); Monocytes % 3.2 %; Neutrophils # 7.24 10^3/uL (1.8-7.7); Neutrophils % 85.3 %; Nucleated Red Blood Cells % 0 %; Platelet Count 94 10^3/cmm (130-400); Red Blood Count 3.87 10^6/uL (4.1-5.3); Red Cell Distribution Width 13.5 % (12.1-15.1); White Blood Count 8.5 10^3/uL (4.0-10.0)
[2022-07-29 02:23] LABS: Alanine Aminotransferase 66 U/L (0-41); Albumin Level 2.2 g/dL (3.5-5.2); Alkaline Phosphatase 540 U/L (40-130); Anion Gap 15.9 (5-19); Aspartate Amino Transferase 45 U/L (0-40); Blood Urea Nitrogen 31 mg/dL (8-23); Calcium 7.9 mg/dL (8.5-10.5); Carbon Dioxide 18 mmol/L (22-29); Chloride 106 mmol/L (98-107); Globulin 3.5 g/dL (1.3-4.6); Glucose 209 mg/dL (65-115); Osmolality Calculated 293 mOsm/kg (285-295); Potassium 4.9 mmol/L (3.5-5.1); Sodium 135 mmol/L (136-145); Total Bilirubin 0.3 mg/dL (0.15-1.2); Total Protein 5.7 g/dL (6.6-8.7)
[2022-07-29 02:24] LABS: Gamma Glutamyl Transferase 153 U/L (8-61)
[2022-07-29] MEDS: metoprolol succinate ER (24 HR) 25 mg Tablet 12.5 MG PO (06:05)
[2022-07-29] MEDS: levothyroxine 150 mcg Tablet PO (06:05)
[2022-07-29 06:30] LABS: Glucose Point of Care 175 mg/dL (70-110)
[2022-07-29] MEDS: insulin lispro 100 unit/1 mL SUBCUT ×4 (09:01→21:24)
[2022-07-29] MEDS: neomycin-poly-bacitracin oint 28 gm 1 APPLIC TOPICAL ×2 (09:01→18:12)
[2022-07-29] MEDS: sennosides-docusate Tablet 1 TAB PO (09:01)
--- NOTE | 2022-07-29 09:05 | PC.SOCIAL ---
IMM Update pg 2 of IMM updated and reviewed w/ patient. Copy provided and copy in chart dated, and initialed.
[2022-07-29] MEDS: heparin 5,000 unit/mL INJ 1 mL 5000 UNIT SUBCUT (11:11)
[2022-07-29 12:31] LABS: Glucose Point of Care 176 mg/dL (70-110)
--- NOTE | 2022-07-29 14:15 | PM.PN ---
Subjective Subjective: Reports today he is doing okay. Denies abdominal pain. Denies nausea or vomiting. No trouble with the catheter. Discussed with him continued rise in alkaline phosphatase, mild transaminitis. Discussed results of the ultrasound. We discussed also he has had prior elevation of alkaline phosphatase but currently it is higher than before and has continued to rise. Vitals/I&O/Wt Last Vital Signs Temp 97.6 F 07/29/22 12:00 Pulse 100 07/29/22 12:00 Resp 18 07/29/22 12:00 BP 125/74 07/29/22 12:00 Pulse Ox 97 07/29/22 12:00 O2 Del Method 07/29/22 09:05 O2 Flow Rate 10 07/28/22 20:00 07/28/22 07/29/22 07/29/22 22:59 06:59 14:59 Intake Total / 1969 220 / 2190 620 / 620 Balance 310 / 0 / 1989 620 / 620 Physical Exam Const: COMMON NORMALS: patient oriented x3 and alert GENERAL APPEARANCE: cooperative ORIENTATION/CONSCIOUSNESS: Yes awake HENMT: COMMON NORMALS: oropharynx normal Neck/C-Spine: COMMON NORMALS: no JVD Resp: COMMON NORMALS: normal respiratory effort and clear to auscultation bilaterally AUSCULTATION: clear to auscultation bilaterally Cardio: COMMON NORMALS: no JVD, regular rhythm, S1 normal heart sound present, S2 normal heart sound present and No murmurs present (Cardio) RHYTHM: regular rhythm HEART SOUNDS: S1 normal heart sound present and S2 normal heart sound present GI: COMMON NORMALS: Normal to inspection, nondistended, normoactive bowel sounds present, Soft to palpation and non-tender PALPATION: Yes Soft to palpation Extremity: COMMON NORMALS: no joint enlargement and no pedal edema Neuro: COMMON NORMALS: patient oriented x3 SENSORIUM/ORIENTATION: Yes alert Skin: COMMON NORMALS: no rashes or lesions noted GENERAL SKIN EXAM: no rashes or lesions noted Urinary Catheter Management: Milan: Cath Placed During This Visit: yes, but has since been removed by the nurse Reason for Continuing Indwelling Catheter: Chronic Indwelling Urinary Catheter on Admission Urinary Catheter Date of Insertion: 07/28/22 Urinary Catheter Time of Insertion: 11:15 Date Urinary Catheter Removed: 07/28/22 Time Urinary Catheter Discontinued: 11:00 Data 07/29/22 01:15 12/22/22 01:15 A&P Assessment and plan (1) Alkaline phosphatase elevation: History of cholecystectomy. Ultrasound without CBD. Conferred with pharmacy. Will further hold levothyroxine, metoprolol, heparin, acetaminophen. Add SCD. Consider holding tizanidine. Reassess liver parameters. GGT is also elevated. Bone source possible, seems less likely. (2) Urinary tract infection: Due to recurrent catheter obstruction. He has been improving. Status post suprapubic catheter placement. Complicated UTI with recurrent obstruction of the urinary catheter with infectious debris. Continue IV antibiotics. Urology follow-up. Arrangements for skilled care after discharge. (3) Sepsis: Resolved. Maintaining blood pressure so far. Milan catheter draining. Occluded with large amount of infectious debris. Continue IV antibiotics. Culture history appreciated. (4) Dislodged Milan catheter: Status post suprapubic catheter placement. (5) Bilateral hydronephrosis: Status post suprapubic catheter placement due to recurrent occlusion of Milan catheter. Follow-up with urology. Plan Multiple sclerosis: Neurogenic bladder: No acute exacerbation Continue antispasmodics Chronic kidney disease: Creatinine seems to be at baseline. Medication reconciliation done for nephrotoxic drugs. Strict input output charting. Continue to check BMP daily. Type 2 diabetes mellitus: insulin sliding scale. carb consistent diet. DNR/DNI. Heparin 5000 12 hourly for DVT prophylaxis. Attestations Medical Necessity Statement*: Continue admission for reassessment of continued worsening alkaline phosphatase, medication adjustment. Coding Level of Care Code Acute Button Decorating Machine Operator for [facility] Fwd Exam Comprehensive Diagnoses Alkaline phosphatase elevation R74.8 Urinary tract infection N39.0 Sepsis A41.9 Dislodged Milan catheter T83.021A Bilateral hydronephrosis N13.30
--- NOTE | 2022-07-29 15:25 | PM.PN ---
Subjective Subjective: Urology follow-up: Postop day #1 suprapubic tube placement and clearing of bladder. See op report Doing well. Feeling much better. No fever or chills. No evidence of septic complications. Catheter is functioning well urine is clear yellow with some cloudiness but not severe Medications: Reviewed: Yes Vitals/I&O/Wt Last Vital Signs Temp 97.6 F 07/29/22 12:00 Pulse 100 07/29/22 12:00 Resp 18 07/29/22 12:00 BP 125/74 07/29/22 12:00 Pulse Ox 97 07/29/22 12:00 O2 Del Method 07/29/22 09:05 O2 Flow Rate 10 07/28/22 20:00 07/29/22 07/29/22 07/29/22 06:59 14:59 22:59 Intake Total 220 / 2190 620 / 620 Balance 1989 620 / 620 Physical Exam Const: GENERAL APPEARANCE: cooperative ORIENTATION/CONSCIOUSNESS: Yes awake Resp: COMMON NORMALS: normal respiratory effort OTHER: Unlabored. No audible wheezes. Cardio: COMMON NORMALS: regular rhythm RHYTHM: regular rhythm GI: COMMON NORMALS: Soft to palpation and non-tender PALPATION: Yes Soft to palpation OTHER: Dressing dry and clean. 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
[2022-07-29] MEDS: cefTRIAXone 1,000 MG in sodium chloride 0.9% (plus) 50 ML 100 MG IV (15:34)
[2022-07-29 17:06] LABS: Glucose Point of Care 157 mg/dL (70-110)
--- NOTE | 2022-07-29 18:40 | US_ITS ---
WS: [id number] RIGHT UPPER QUADRANT ULTRASOUND HISTORY: bile ducts COMPARISON: 07/24/2022 CT. Liver: 15.1 cm in length. Normal size liver with mild coarsened echotexture. No mass identified. Portal Vein: Normal hepatopetal flow with monophasic waveform. Gallbladder: Surgically removed. CBD: 0.7 cm Pancreas: Normal size and echogenicity. Right kidney: 10.1 cm in length. Normal size kidney. No hydronephrosis. Normal cortex. Mass of decrea sed echogenicity is probably a cyst but difficult to completely clear of echoes. This measures 3.1 x 3.1 cm. This was also noted on the prior CT in the lower pole. Aorta and IVC: Unremarkable abdominal aorta and IVC. No ascites. Small RIGHT pleural effusion. US/US abdomen limited [id number] IMPRESSION: 1. Small RIGHT pleural effusion. 2. Prior cholecystectomy. 3. RIGHT renal cyst lower pole, 3.1 cm. 4. No bile duct dilatation.
[2022-07-29 21:18] LABS: Glucose Point of Care 176 mg/dL (70-110)
[2022-07-30] VITALS: BP 112/68; PULSE 88; RESP 18; TEMP 36.6; O2SAT 96
[2022-07-30 04:00] VITALS: BP 133/75; PULSE 95; RESP 18; TEMP 36.4; O2SAT 99
[2022-07-30 04:00] LABS: Alanine Aminotransferase 56 U/L (0-41); Alkaline Phosphatase 442 U/L (40-130); Aspartate Amino Transferase 39 U/L (0-40); Blood Urea Nitrogen 33 mg/dL (8-23); Calcium 7.7 mg/dL (8.5-10.5); Carbon Dioxide 19 mmol/L (22-29); Chloride 106 mmol/L (98-107); Globulin 3.2 g/dL (1.3-4.6); Glucose 127 mg/dL (65-115); Osmolality Calculated 285 mOsm/kg (285-295); Sodium 133 mmol/L (136-145); Total Bilirubin 0.3 mg/dL (0.15-1.2); Total Protein 5.2 g/dL (6.6-8.7)
[2022-07-30 04:16] LABS: Anion Gap 12.3 (5-19); Potassium 4.3 mmol/L (3.5-5.1)
[2022-07-30 06:43] LABS: Glucose Point of Care 112 mg/dL (70-110)
[2022-07-30 08:00] VITALS: BP 136/72; PULSE 96; RESP 14; TEMP 36.7; O2SAT 95
[2022-07-30] MEDS: neomycin-poly-bacitracin oint 28 gm 1 APPLIC TOPICAL (09:59)
[2022-07-30] MEDS: sennosides-docusate Tablet 1 TAB PO (09:59)
[2022-07-30] MEDS: tizanidine 4 mg Tablet PO (11:34)
[2022-07-30 12:00] VITALS: BP 136/72; PULSE 104; RESP 16; TEMP 36.6; O2SAT 97
[2022-07-30 12:40] LABS: Glucose Point of Care 129 mg/dL (70-110)
[2022-07-30 13:10] LABS: SARS Covid-2 Antigen negative (Negative)
--- NOTE | 2022-07-30 14:18 | PC.NURSE ---
called report to Sierra Berry LPN at [facility]
--- NOTE | 2022-07-30 15:26 | PM.DCS ---
Discharge Providers Date of Admission: 07/24/22 20:26 Date of Discharge: July 30, 2022 Attending Provider at Admission: Justine Bond MD Attending Provider at Discharge: Adolfo Patrick Primary Care Provider: Barry Rangel MD Diagnoses at Discharge Discharge Diagnosis (1) Alkaline phosphatase elevation: Status: Acute (2) Urinary tract infection: Status: Acute (3) Sepsis: Status: Acute (4) Dislodged Milan catheter: Status: Resolved (5) Bilateral hydronephrosis: Status: Acute Reason for Visit Reason for Visit: SESPIS; HYPOTENSION Hospital Course Hospital Course Is a 67-year-old gentleman with multiple sclerosis, chronic indwelling catheter, nursing facility resident due to dependence for care, recently treated for urinary tract infection with Milan catheter occlusion return to the hospital with the same symptoms, with bilateral hydronephrosis and sepsis. Urinary catheter was replaced by urology. Urine culture eventually returned sterile. Sepsis resolved. He continues empirically on cefepime, however, with increasing alk phos, transaminases antibiotic was switched to ceftriaxone daily with decreasing alkaline phosphatase from 540-442. T bili remains normal. Abdominal ultrasound with prior cholecystectomy, no CBD dilation. Small right pleural effusion. Condition continued to improve. He underwent suprapubic catheter placement uneventfully on 07/29. He needs to follow-up with urology in office for exchange in 4-6 weeks. Please follow-up with your parameters for continued improvement in alkaline phosphatase. Physical Exam Const: COMMON NORMALS: patient oriented x3 and alert GENERAL APPEARANCE: cooperative ORIENTATION/CONSCIOUSNESS: Yes awake HENMT: COMMON NORMALS: oropharynx normal Neck/C-Spine: COMMON NORMALS: no JVD Resp: COMMON NORMALS: normal respiratory effort and clear to auscultation bilaterally AUSCULTATION: clear to auscultation bilaterally Cardio: COMMON NORMALS: no JVD, regular rhythm, S1 normal heart sound present, S2 normal heart sound present and No murmurs present (Cardio) RHYTHM: regular rhythm HEART SOUNDS: S1 normal heart sound present and S2 normal heart sound present GI: COMMON NORMALS: Normal to inspection, nondistended, normoactive bowel sounds present, Soft to palpation and non-tender PALPATION: Yes Soft to palpation Extremity: COMMON NORMALS: no joint enlargement and no pedal edema Neuro: COMMON NORMALS: patient oriented x3 SENSORIUM/ORIENTATION: Yes alert Skin: COMMON NORMALS: no rashes or lesions noted GENERAL SKIN EXAM: no rashes or lesions noted Urinary Catheter Management: Milan: Cath Placed During This Visit: yes, but has since been removed by the nurse Reason for Continuing Indwelling Catheter: Chronic Indwelling Urinary Catheter on Admission Urinary Catheter Date of Insertion: 07/28/22 Urinary Catheter Time of Insertion: 11:15 Date Urinary Catheter Removed: 07/28/22 Time Urinary Catheter Discontinued: 11:00 Discharge Data Studies Completed and Pending Completed Studies During Hospitalization Category Date Time Status CT chest abdomen pelvis [[place] [id number] Cat Scan 07/24/22 19:42 Completed ] Stat XR chest 1V portable [id number] Stat Exams 07/24/22 18:44 Completed US abdomen limited [id number] Routine Ultrasound 07/29/22 18:40 Completed Pending at discharge Category Date Time Status Blood Culture Stat Lab 07/24/22 18:49 Results Comprehensive Metabolic Panel AM LAB[facility] Lab 07/31/22 04:00 Ordered Comprehensive Metabolic Panel AM LABS Lab 08/01/22 04:00 Ordered Radiology Impressions Chest X-Ray 07/24/22 18:44 IMPRESSION: No acute findings. Chest/Abdomen/Pelvis CT 07/24/22 19:42 IMPRESSION: 1. Trace bilateral pleural effusions. 2. Bibasilar atelectasis versus infiltrate. 3. Scattered calcified mediastinal lymph nodes. IMPRESSION: 1. Urinary bladder wall thickening may be due to nondistention, please correlate for a cystitis. 2. Constipation. 3. Cholecystectomy. 4. Moderate bilateral hydronephrosis and hydroureter without focal obstructing lesion. 5. Perinephric edema bilaterally likely reflecting renal insufficiency. 6. Bilateral renal cysts, negative for follow-up advised. 7. Milan catheter in the urinary bladder with air presumed iatrogenic. COMMENTS: Consistent with the [employer]'s Incidental Findings Committee white paper (J Am Mark Radiol 2018): Any incidental renal lesion less than 1 cm or classified as too small to characterize, or any incidental cystic renal lesion characterized as simple-appearing, is likely benign. No follow-up imaging is recommended for these lesions per consensus recommendations based on imaging criteria. Abdomen Ultrasound 07/29/22 18:40 IMPRESSION: 1. Small RIGHT pleural effusion. 2. Prior cholecystectomy. 3. RIGHT renal cyst lower pole, 3.1 cm. 4. No bile duct dilatation. Laboratory Results WBC 8.5 10^3/uL (4.0-10.0) 07/29/22 01:15 RBC 3.87 10^6/uL (4.1-5.3) L 07/29/22 01:15 Hgb 11.1 g/dL (11.7-16.6) L 07/29/22 01:15 Hct 33.7 % (42.0-52.0) L 07/29/22 01:15 MCV 87.1 fl (80-94) 07/29/22 01:15 MCH 28.7 pg (28.0-34.0) 07/29/22 01:15 MCHC 32.9 g/dL (30.0-36.0) 07/29/22 01:15 RDW 13.5 % (12.1-15.1) 07/29/22 01:15 Plt Count 94 10^3/cmm (130-400) L 07/29/22 01:15 MPV 12.0 fL (7.4-10.4) H 07/29/22 01:15 Neut % (Auto) 85.3 % 07/29/22 01:15 Lymph % (Auto) 10.4 % 07/29/22 01:15 [place] % (Auto) 3.2 % 07/29/22 01:15 Eos % (Auto) 0.1 % 07/29/22 01:15 Baso % (Auto) 0.1 % 07/29/22 01:15 Neut # (Auto) 7.24 10^3/uL (1.8-7.7) 07/29/22 01:15 Lymph # (Auto) 0.9 10^3/uL (0.8-4.8) 07/29/22 01:15 [place] # (Auto) 0.3 10^3/uL (0.2-0.9) 07/29/22 01:15 Eos # (Auto) 0.0 10^3/uL (0.0-0.8) 07/29/22 01:15 Baso # (Auto) 0.0 10^3/uL (0.0-0.1) 07/29/22 01:15 Nucleated RBC % (auto) 0 % 07/29/22 01:15 Nucleated RBCs # 0.0 /100WBC 07/29/22 01:15 Sodium 133 mmol/L (136-145) L 07/30/22 03:04 Potassium 4.3 mmol/L (3.5-5.1) 07/30/22 03:04 Chloride 106 mmol/L (98-107) 07/30/22 03:04 Carbon Dioxide 19 mmol/L (22-29) L 07/30/22 03:04 Anion Gap 12.3 (5-19) 07/30/22 03:04 BUN 33 mg/dL (8-23) H 07/30/22 03:04 Creatinine 1.0 mg/dL (0.7-1.2) 07/30/22 03:04 GFR Calculation 75.0 mL/min (90-130) L 07/30/22 03:04 Glucose 127 mg/dL (65-115) H 07/30/22 03:04 POC Glucose 129 mg/dL (70-110) H 07/30/22 12:00 Calculated Osmolality 285 mOsm/kg (285-295) 07/30/22 03:04 Lactic Acid 3.3 mmol/L (0.5-2.2) H 07/24/22 18:45 Lactic Acid (Sepsis) 1.8 mmol/L (0.5-2.2) 07/24/22 21:11 Lactate 2.2 mmol/L (0.5-2.2) 07/24/22 23:15 Calcium 7.7 mg/dL (8.5-10.5) L 07/30/22 03:04 Phosphorus 3.2 mg/dL (2.5-4.5) 07/25/22 05:02 Magnesium 1.6 mg/dL (1.7-2.3) L 07/25/22 05:02 Total Bilirubin 0.3 mg/dL (0.15-1.2) 07/30/22 03:04 GGT 153 U/L (8-61) H 07/29/22 01:15 AST 39 U/L (0-40) 07/30/22 03:04 ALT 56 U/L (0-41) H 07/30/22 03:04 Alkaline Phosphatase 442 U/L (40-130) H 07/30/22 03:04 C-Reactive Protein 239.4 mg/L (0.0-4.9) H 07/25/22 05:02 Total Protein 5.2 g/dL (6.6-8.7) L 07/30/22 03:04 Albumin 2.0 g/dL (3.5-5.2) L 07/30/22 03:04 Globulin 3.2 g/dL (1.3-4.6) 07/30/22 03:04 Procalcitonin 5.04 ng/mL (0-0.5) H 07/24/22 18:49 TSH 5.09 uIU/mL (0.27-4.20) H 07/24/22 18:49 Free T4 0.67 ng/dL (0.82-1.77) L 07/25/22 16:10 Free T3 1.1 PG/ML (2.0-4.4) L 07/25/22 16:10 Urine Color Yellow (Yellow) 07/24/22 18:30 Urine Appearance Cloudy (CLEAR) A 07/24/22 18:30 Urine pH 5 (5-7) 07/24/22 18:30 Ur Specific [place] 1.030 (1.005-1.030) 07/24/22 18:30 Urine Protein 2+ (Negative) H 07/24/22 18:30 Urine Glucose (UA) Trace (Normal) H 07/24/22 18:30 Urine Ketones Negative (Negative) 07/24/22 18:30 Urine Blood 3+ (Negative) H 07/24/22 18:30 Urine Nitrate Negative (Negative) 07/24/22 18:30 Urine Bilirubin Neg (Negative) 07/24/22 18:30 Urine Urobilinogen Norm mg/dL (Negative) 07/24/22 18:30 Ur Leukocyte Esterase 2+ (Negative) H 07/24/22 18:30 Urine RBC 50-80 /hpf (0-2) H 07/24/22 18:30 Urine WBC Too numerous to cnt /hpf (0-5) H 07/24/22 18:30 Ur Squamous Epith Cells Rare /hpf (0-5) 07/24/22 18:30 Amorphous Sediment Not Reportable 07/24/22 18:30 Urine Bacteria 3+ /hpf (NONE) H 07/24/22 18:30 Nasal Influ A H1 2009 PCR Not detected (NOT DETECT) 07/24/22 20:44 Adenovirus (PCR) Not detected (NOT DETECT) 07/24/22 20:44 C. pneumoniae DNA (PCR) Not detected (NOT DETECT) 07/24/22 20:44 Coronavirus 229E (PCR) Not detected (NOT DETECT) 07/24/22 20:44 Human Metapneumovir PCR Not detected (NOT DETECT) 07/24/22 20:44 Influenza A (H1) PCR Not detected (NOT DETECT) 07/24/22 20:44 Influenza A (H3) PCR Not detected (NOT DETECT) 07/24/22 20:44 Influenza Type A (PCR) Not detected (NOT DETECT) 07/24/22 20:44 Influenza Type B (PCR) Not detected (NOT DETECT) 07/24/22 20:44 M. pneumoniae (PCR) Not detected (NOT DETECT) 07/24/22 20:44 Parainfluenza 1 (PCR) Not detected (NOT DETECT) 07/24/22 20:44 Parainfluenza 2 (PCR) Not detected (NOT DETECT) 07/24/22 20:44 Parainfluenza 3 (PCR) Not detected (NOT DETECT) 07/24/22 20:44 Parainfluenza 4 (PCR) Not detected (NOT DETECT) 07/24/22 20:44 RSV Type A (PCR) Not detected (NOT DETECT) 07/24/22 20:44 RSV Type B (PCR) Not detected (NOT DETECT) 07/24/22 20:44 Entero/Rhino (PCR) Not detected (NOT DETECT) 07/24/22 20:44 SARS-CoV-2 (PCR) Not detected (NOT DETECT) 07/24/22 20:44 SARS-CoV-2 Ag (Rapid) negative (Negative) 07/30/22 10:26 Vitals Last Vital Signs Temp 97.9 F 07/30/22 12:00 Pulse 104 H 07/30/22 12:00 Resp 16 07/30/22 12:00 BP 136/72 07/30/22 12:00 Pulse Ox 97 07/30/22 12:00 O2 Del Method 07/30/22 04:00 O2 Flow Rate 10 07/28/22 20:00 Discharge Plan Discharge Patient Disposition: Xfer SNF Condition: Stable Prescriptions: New cefdinir 300 mg capsule 300 mg PO BID 5 Days Qty: 10 0RF Continued chlorpheniramine maleate 4 mg tablet 4 mg PO Q6H PRN (Reason: Allergy Symptoms) amitriptyline 25 mg tablet 25 mg PO BEDTIME bisacodyl 10 mg suppository 10 mg MN DAILY PRN (Reason: Constipation) Rx Instructions: IF NO RESULTS FROM MOM carica papaya Tablet 3 tab PO TID PRN (Reason: UNKNOWN) cholecalciferol (vitamin D3) 25 mcg (1,000 unit) capsule 75 mcg PO DAILY@07 cranberry fruit 450 mg tablet 900 mg PO DAILY@07 Rx Instructions: administer with a meal rosuvastatin [Crestor] 5 mg tablet 5 mg PO BEDTIME Enema Disposable 19-7 gram/118 mL enema 118 ml MN DAILY PRN (Reason: Constipation) gentian nikolas 1 % solution 1 applic topical DAILY lisinopril 20 mg tablet 20 mg PO BID@07,19 magnesium hydroxide [Milk of Magnesia] 400 mg/5 mL suspension 30 ml PO DAILY PRN (Reason: Constipation) Rx Instructions: IF NO BM FOR 3 DAYS pseudoephedrine HCl 60 mg tablet 60 mg PO Q4H PRN (Reason: Congestion) Thera-Tabs Tablet 1 tab PO DAILY@07 ascorbate calcium (vitamin C) 500 mg tablet 500 mg PO BID@07,19 methenamine hippurate 1 gram tablet 1 g PO BID loratadine [Allergy Relief (loratadine)] 10 mg tablet 10 mg PO DAILY polyethylene glycol 3350 17 gram/dose powder 17 g PO DAILY PRN (Reason: Constipation) Victoza 2-Leoncio 0.6 mg/0.1 mL (18 mg/3 mL) pen injector 0.6 mg SUBCUT DAILY citalopram [Celexa] 20 mg Tablet 20 mg PO DAILY@07 cyanocobalamin (vitamin B-12) 1,000 mcg/mL Solution 1,000 mcg IM Q30D Rx Instructions: ON THE 2ND OF EACH MONTH levothyroxine 125 mcg Tablet 125 mcg PO DAILY insulin lispro [Humalog KwikPen Insulin] 100 unit/mL insulin pen See Rx Instructions .ROUTE .COMPLEX Rx Instructions: SLIDING SCALE BID AT 05:00 AND 20:00 IF BLOOD SUGAR LESS THAN 70 CALL 150-200=0 UNITS 201-250=2 UNITS 251-300=4 UNITS 301-350=6 UNITS 351-400=8 UNITS IF BLOOD SUGAR IS GREATER THAN 400 GIVE 8 UNITS bupropion HCl 150 mg tablet extended release 24 hr 150 mg PO DAILY@07 Farxiga 10 mg tablet 10 mg PO DAILY@08 bisacodyl 5 mg Tablet 10 mg PO DAILY PRN (Reason: Constipation) Rx Instructions: IF NO RESULTS FROM MOM tizanidine 4 mg Tablet 4 mg PO TID PRN (Reason: Muscle Spasm) metoprolol succinate 50 mg tablet extended release 24 hr 50 mg PO DAILY metformin 850 mg tablet 850 mg PO BID lidocaine 5 % Ointment 1 applic TOPICAL TID PRN (Reason: Pain) Renacidin 1,980.6 mg-59.4 mg-980.4mg/30mL Solution 30 ml IRRIGATION DAILY Discontinued cefuroxime axetil 500 mg tablet 500 mg PO BID 10 Days Qty: 20 0RF Discharge Orders: Discharge Order (Routine); Ordered 07/30/22 Ordered By: Adolfo Patrick Referrals: Primary, provider [Other] - 4-7 days [facility] [Outside] Darryl Hogan MD [Physician] - 1 month (Due to the Holiday we were unable to schedule your appointment. Please call the office on TuesdayAugust 03 to schedule your hospital follow up appointment.) Discharge Diet: Diabetic Discharge Activity: Increase activity as tolerated Patient Instructions: Opioid Safety Activity Restrictions/Additional Instructions: Reassess CMP next week to reassess for continued improvement in alkaline phosphatase. In case persistently elevated consider further evaluation. Discharge Attestations Time Spent in Discharge Care*: greater than 30 min Quality Metrics Clinical Quality Measures [ No reported AMI, CVA or VTE this stay] Coding Level of Care Code Acute [facility] note Diagnoses Alkaline phosphatase elevation R74.8 Urinary tract infection N39.0 Sepsis A41.9 Dislodged Milan catheter T83.021A Bilateral hydronephrosis N13.30
[2022-07-30 16:00] VITALS: BP 151/76; PULSE 102; RESP 17; TEMP 36.8; O2SAT 99
[2022-07-30 17:41] LABS: Glucose Point of Care 170 mg/dL (70-110)
[2022-07-30] MEDS: insulin lispro 100 unit/1 mL SUBCUT (17:49)
[2022-07-30 19:48] VITALS: BP 151/76; PULSE 102; RESP 17; TEMP 36.8; O2SAT 99
== END 2022-07-30 17:00 | disposition skilled nursing facility (03) | DRG 668 ==
LOC: ER 20:34 → MEDSURG 21:26 → ICU 07-26 03:23 → MEDSURG 07-26 14:04
PROVIDERS: Student in an Organized Health Care Education/Training Program; Urology; Admitting Provider Internal Medicine; Emergency Provider Emergency Medicine; PCP Family Medicine; Visit Provider Internal Medicine
PROC: 0T5C8ZZ Destruction of Bladder Neck, Via Natural or Artificial Opening Endoscopic (ICD-10-PCS; CPT 51102; principal; 2022-07-28 09:00)
PROC: 0TJB8ZZ Inspection of Bladder, Via Natural or Artificial Opening Endoscopic (ICD-10-PCS; CPT 52000; 2022-07-28 09:00)
PROC: 0T5C8ZZ Destruction of Bladder Neck, Via Natural or Artificial Opening Endoscopic (ICD-10-PCS; 2022-07-28 09:00)
DX: T83.511A Infection and inflammatory reaction due to indwelling urethral catheter, initial encounter (principal); A41.9 Sepsis, unspecified organism; N13.30 Unspecified hydronephrosis; Y73.1 Therapeutic (nonsurgical) and rehabilitative gastroenterology and urology devices associated with adverse incidents; G35 Multiple sclerosis; Z79.85 Long-term (current) use of injectable non-insulin antidiabetic drugs; Z79.4 Long term (current) use of insulin; Z79.84 Long term (current) use of oral hypoglycemic drugs; N31.9 Neuromuscular dysfunction of bladder, unspecified; Z87.891 Personal history of nicotine dependence; Z74.01 Bed confinement status; E11.22 Type 2 diabetes mellitus with diabetic chronic kidney disease; N18.9 Chronic kidney disease, unspecified; Z66 Do not resuscitate; R33.8 Other retention of urine; T83.091A Other mechanical complication of indwelling urethral catheter, initial encounter; N35.919 Unspecified urethral stricture, male, unspecified site; M62.838 Other muscle spasm; M54.50 Low back pain, unspecified; I95.9 Hypotension, unspecified
CPT/HCPCS: 36415; 36416; 51702; 71045; 71250; 74176; 76705; 80048; 80053; 81001; 82962; 82977; 83605; 83735; 84100; 84145; 84439; 84443; 84481; 85025; 86140; 87040; 87086; 87106; 87205; 87426; 87486; 87581; 87633; 96365; 96366; 96367; 96372; 99283; 99285; J0131; J0692; J0696; J1100; J1644; J1815; J1956; J2370; J2405; J2704; J3010; J3370; J7030; J7040; J7120; Q0162

== ENCOUNTER 2022-07-28 01:00 | Day surgery (SDC) | payer MEDICARE, MEDICAID, SELFPAY | END 2022-07-28 23:00 | disposition home or self-care (01) | LOC: OR 09-07 15:23 | PROVIDERS: PCP Family Medicine; Visit Provider Urology | DX: Z01.818 Encounter for other preprocedural examination (principal) | CPT/HCPCS: J1100; J2370; J2405; J2704; J3010 ==

== ENCOUNTER 2022-08-05 15:23 | Emergency (ER) | payer MEDICARE, MEDICAID, SELFPAY ==
[2022-08-05] VITALS (29 sets, daily range): BP systolic 84–149; BP diastolic 60–81; PULSE 82–87; RESP 4–19; TEMP 36.4; O2SAT 89–100
--- NOTE | 2022-08-05 15:46 | W.ED.SYNCOPE ---
HPI - Syncope General: Chief Complaint: Syncope Stated Complaint: HYPOTENSION Time Seen by Provider: 08/05/22 15:38 History of Present Illness: Patient comes in from the assisted by EMS after having an episode where he passed out. Patient states he started vomiting and having diarrhea earlier today. States that he thinks he was just falling asleep but was told he may have passed out. He denies any chest pain, shortness of breath, dizziness, abdominal pain. On physical exam he has dry mucous membranes. After getting fluids in route his blood pressure is improving. Associated symptoms: Deny abdominal pain, chest pain, fever(s), headache(s) or nausea Review of Systems Const: Denies: fever(s) or body aches Eyes: Denies: change in vision or blurry vision ENMT: Denies: throat pain or odynophagia Card: Denies: chest pain or palpitations Resp: Denies: dyspnea or productive cough GI: Reports: vomiting and diarrhea; Denies: abdominal pain or nausea : Denies: flank pain or dysuria Musc: Denies: neck pain or back pain Skin/Breast: Denies: rash or pruritus Neuro: Denies: headache(s) or numbness in extremities Psych: Denies: anxiety or change in appetite Endo: Denies: polyuria or excessive sweating PFSH ED PFSH: Medical History (Updated 08/05/22 @ 18:38 by Kj Albert MD) History of UTI Left renal mass Not fully characterized. Patient has elected no further aggressive work-up at this point based on his overall debilitation Multiple sclerosis Neurogenic bladder Urinary retention Surgical History History of adenoidectomy History of appendectomy History of cholecystectomy History of elbow surgery History of tonsillectomy History of vasectomy Family History Mother , at age 75 from natural caused No problems noted. Social History Smoking and tobacco status: former smoker Alcohol intake: never Marital status: Current occupational status: disabled History of recent travel: No Physical Exam Const: COMMON NORMALS: no acute distress, patient oriented x3 and alert HENMT: COMMON NORMALS: normocephalic and atraumatic HEAD & SCALP: normocephalic and atraumatic OTHER: Dry mucous membranes Eye: COMMON NORMALS: Equal, round and reactive pupils present and EOMs intact bilaterally PUPIL: Yes Equal, round and reactive pupils present Neck/C-Spine: COMMON NORMALS: full ROM and supple Resp: COMMON NORMALS: normal respiratory effort, No retractions and No use of accessory muscles Cardio: COMMON NORMALS: regular rate and regular rhythm RATE: regular rate RHYTHM: regular rhythm GI: COMMON NORMALS: Normal to inspection, nondistended, normoactive bowel sounds present, Soft to palpation and non-tender PALPATION: Yes Soft to palpation Back/Pelvis: COMMON NORMALS: thoracic and lumbar spine normal to inspection and no thoracic nor lumbar tenderness Extremity: COMMON NORMALS: normal to inspection and full ROM Neuro: COMMON NORMALS: patient oriented x3 SENSORIUM/ORIENTATION: Yes alert Psych: COMMON NORMALS: mental status grossly normal and cooperative Skin: COMMON NORMALS: no rashes or lesions noted and no wounds GENERAL SKIN EXAM: no rashes or lesions noted Course Vital Signs: Vital signs: Vital Signs Temperature 97.6 F 08/05/22 15:32 Pulse Rate 84 08/05/22 18:00 Respiratory Rate 15 08/05/22 18:00 Blood Pressure 149/81 08/05/22 18:00 Pulse Oximetry 98 08/05/22 18:00 Oxygen Delivery Me thod 08/05/22 15:32 MDM - Syncope Medical Decision Making Patient comes in from the assisted by EMS after having an episode where he passed out. Patient states he started vomiting and having diarrhea earlier today. States that he thinks he was just falling asleep but was told he may have passed out. He denies any chest pain, shortness of breath, dizziness, abdominal pain. On physical exam he has dry mucous membranes. After getting fluids in route his blood pressure is improving. We will continue IV fluid resuscitation, check labs, give IV Zofran for the vomiting, and reassess. On reassessment I talked to the patient about the test results. Will discharge home at this time with precautions return for worsening or changing symptoms. His blood pressures been stable throughout his stay. Lab Data 08/05/22 15:40 08/05/22 15:40 Laboratory Results WBC 14.9 10^3/uL (4.0-10.0) H 08/05/22 15:40 RBC 4.27 10^6/uL (4.1-5.3) 08/05/22 15:40 Hgb 12.0 g/dL (11.7-16.6) 08/05/22 15:40 Hct 38.0 % (42.0-52.0) L 08/05/22 15:40 MCV 89.0 fl (80-94) 08/05/22 15:40 MCH 28.1 pg (28.0-34.0) 08/05/22 15:40 MCHC 31.6 g/dL (30.0-36.0) 08/05/22 15:40 RDW 14.1 % (12.1-15.1) 08/05/22 15:40 Plt Count 392 10^3/cmm (130-400) 08/05/22 15:40 MPV 10.1 fL (7.4-10.4) 08/05/22 15:40 Neut % (Auto) 83.7 % 08/05/22 15:40 Lymph % (Auto) 8.8 % 08/05/22 15:40 Wilson % (Auto) 3.8 % 08/05/22 15:40 Eos % (Auto) 1.5 % 08/05/22 15:40 Baso % (Auto) 0.5 % 08/05/22 15:40 Neut # (Auto) 12.48 10^3/uL (1.8-7.7) H 08/05/22 15:40 Lymph # (Auto) 1.3 10^3/uL (0.8-4.8) 08/05/22 15:40 Wilson # (Auto) 0.6 10^3/uL (0.2-0.9) 08/05/22 15:40 Eos # (Auto) 0.2 10^3/uL (0.0-0.8) 08/05/22 15:40 Baso # (Auto) 0.1 10^3/uL (0.0-0.1) 08/05/22 15:40 Nucleated RBC % (auto) 0 % 08/05/22 15:40 Nucleated RBCs # 0.0 /100WBC 08/05/22 15:40 Sodium 130 mmol/L (136-145) L 08/05/22 15:40 Potassium 4.5 mmol/L (3.5-5.1) 08/05/22 15:40 Chloride 99 mmol/L (98-107) 08/05/22 15:40 Carbon Dioxide 21 mmol/L (22-29) L 08/05/22 15:40 Anion Gap 14.5 (5-19) 08/05/22 15:40 BUN 23 mg/dL (8-23) 08/05/22 15:40 Creatinine 1.1 mg/dL (0.7-1.2) 08/05/22 15:40 GFR Calculation 67.2 mL/min (90-130) L 08/05/22 15:40 Glucose 186 mg/dL (65-115) H 08/05/22 15:40 Calculated Osmolality 279 mOsm/kg (285-295) L 08/05/22 15:40 Calcium 8.4 mg/dL (8.5-10.5) L 08/05/22 15:40 Total Bilirubin 0.6 mg/dL (0.15-1.2) 08/05/22 15:40 AST 19 U/L (0-40) 08/05/22 15:40 ALT 25 U/L (0-41) 08/05/22 15:40 Alkaline Phosphatase 322 U/L (40-130) H 08/05/22 15:40 Total Protein 7.1 g/dL (6.6-8.7) 08/05/22 15:40 Albumin 3.0 g/dL (3.5-5.2) L 08/05/22 15:40 Globulin 4.1 g/dL (1.3-4.6) 08/05/22 15:40 Discharge Plan Discharge Patient Disposition: Home Clinical Impression: Acute dehydration Condition: Stable Prescriptions: No Action chlorpheniramine maleate 4 mg tablet 4 mg PO Q6H PRN (Reason: Allergy Symptoms) amitriptyline 25 mg tablet 25 mg PO BEDTIME bisacodyl 10 mg suppository 10 mg MA DAILY PRN (Reason: Constipation) Rx Instructions: IF NO RESULTS FROM MOM carica papaya Tablet 3 tab PO TID PRN (Reason: upset stomach) cholecalciferol (vitamin D3) 25 mcg (1,000 unit) capsule 75 mcg PO DAILY@07 cranberry fruit 450 mg tablet 900 mg PO DAILY@07 Rx Instructions: administer with a meal rosuvastatin [Crestor] 5 mg tablet 5 mg PO BEDTIME Enema Disposable 19-7 gram/118 mL enema 118 ml MA DAILY PRN (Reason: Constipation) gentian nikolas 1 % solution 1 applic topical DAILY lisinopril 20 mg tablet 20 mg PO BID@07,19 magnesium hydroxide [Milk of Magnesia] 400 mg/5 mL suspension 30 ml PO DAILY PRN (Reason: Constipation) Rx Instructions: IF NO BM FOR 3 DAYS pseudoephedrine HCl 60 mg tablet 60 mg PO Q4H PRN (Reason: Congestion) Thera-Tabs Tablet 1 tab PO DAILY@07 ascorbate calcium (vitamin C) 500 mg tablet 500 mg PO BID@07,19 methenamine hippurate 1 gram tablet 1 g PO BID loratadine [Allergy Relief (loratadine)] 10 mg tablet 10 mg PO DAILY polyethylene glycol 3350 17 gram/dose powder 17 g PO DAILY PRN (Reason: Constipation) Victoza 2-Leoncio 0.6 mg/0.1 mL (18 mg/3 mL) pen injector 0.6 mg SUBCUT DAILY citalopram [Celexa] 20 mg Tablet 20 mg PO DAILY@07 cyanocobalamin (vitamin B-12) 1,000 mcg/mL Solution 1,000 mcg IM Q30D Rx Instructions: ON THE 2ND OF EACH MONTH levothyroxine 125 mcg Tablet 125 mcg PO DAILY insulin lispro [Humalog KwikPen Insulin] 100 unit/mL insulin pen See Rx Instructions .ROUTE .COMPLEX Rx Instructions: SLIDING SCALE BID AT 05:00 AND 20:00 IF BLOOD SUGAR LESS THAN 70 CALL 150-200=0 UNITS 201-250=2 UNITS 251-300=4 UNITS 301-350=6 UNITS 351-400=8 UNITS IF BLOOD SUGAR IS GREATER THAN 400 GIVE 8 UNITS bupropion HCl 150 mg tablet extended release 24 hr 150 mg PO DAILY@07 bisacodyl 5 mg Tablet 10 mg PO DAILY PRN (Reason: Constipation) Rx Instructions: IF NO RESULTS FROM MOM tizanidine 4 mg Tablet 4 mg PO TID PRN (Reason: Muscle Spasm) metoprolol succinate 50 mg tablet extended release 24 hr 50 mg PO DAILY metformin 850 mg tablet 850 mg PO BID lidocaine 5 % Ointment 1 applic TOPICAL TID PRN (Reason: Pain) Discharge Orders: Discharge ED (Routine); Ordered 08/05/22 Ordered By: Kj Albert Referrals: Barry Rangel MD [Primary Care Provider] - Patient Instructions: Dehydration (ED) Coding Level of Care Code ED Electronic Prepress System Operator for Chg Fwd Exam Comprehensive
[2022-08-05 16:05] LABS: Basophils # 0.1 10^3/uL (0.0-0.1); Basophils % 0.5 %; Eosinophils # 0.2 10^3/uL (0.0-0.8); Eosinophils % 1.5 %; Lymphocytes # 1.3 10^3/uL (0.8-4.8); Lymphocytes % 8.8 %; Mean Corpuscular HGB Conc 31.6 g/dL (30.0-36.0); Mean Corpuscular Hemoglobin 28.1 pg (28.0-34.0); Mean Platelet Volume 10.1 fL (7.4-10.4); Monocytes # 0.6 10^3/uL (0.2-0.9); Monocytes % 3.8 %; Neutrophils # 12.48 10^3/uL (1.8-7.7); Neutrophils % 83.7 %; Nucleated Red Blood Cells % 0 %; Platelet Count 392 10^3/cmm (130-400); Red Blood Count 4.27 10^6/uL (4.1-5.3); Red Cell Distribution Width 14.1 % (12.1-15.1); White Blood Count 14.9 10^3/uL (4.0-10.0)
[2022-08-05 16:11] LABS: Alanine Aminotransferase 25 U/L (0-41); Alkaline Phosphatase 322 U/L (40-130); Anion Gap 14.5 (5-19); Aspartate Amino Transferase 19 U/L (0-40); Blood Urea Nitrogen 23 mg/dL (8-23); Calcium 8.4 mg/dL (8.5-10.5); Carbon Dioxide 21 mmol/L (22-29); Chloride 99 mmol/L (98-107); Globulin 4.1 g/dL (1.3-4.6); Glomerular Filtration Rate 67.2 mL/min (90-130); Glucose 186 mg/dL (65-115); Osmolality Calculated 279 mOsm/kg (285-295); Potassium 4.5 mmol/L (3.5-5.1); Sodium 130 mmol/L (136-145); Total Bilirubin 0.6 mg/dL (0.15-1.2); Total Protein 7.1 g/dL (6.6-8.7)
[2022-08-05] MEDS: sodium chloride 0.9% 1,000 ML 999 ML IV (16:24)
[2022-08-05] MEDS: ondansetron 2 mg/ML SDV 2 mL 4 MG IVP (16:24)
== END 2022-08-05 20:51 | disposition home or self-care (01) ==
PROVIDERS: Emergency Provider Emergency Medicine; PCP Family Medicine
DX: E86.0 Dehydration (principal); Z79.84 Long term (current) use of oral hypoglycemic drugs; Z79.4 Long term (current) use of insulin; G35 Multiple sclerosis; Z87.891 Personal history of nicotine dependence
CPT/HCPCS: 80053; 85025; 96361; 96374; 99284; J2405; J7030

== ENCOUNTER → 2022-09-02 14:31 | Outpatient (BNVA) | payer MEDICARE, MEDICAID, SELFPAY | PROVIDERS: PCP Family Medicine; Visit Provider Urology | DX: R33.9 Retention of urine, unspecified (principal) | CPT/HCPCS: 51705; 99213 ==

== ENCOUNTER 2023-01-20 10:58 | Outpatient (CLI) | payer MEDICARE, MEDICAID, SELFPAY ==
--- NOTE | 2023-01-20 11:06 | XR_ITS ---
WS: [id number] XR KUB [id number] REASON FOR EXAM: HYDRONEPHROSIS FINDINGS: No urinary tract calculi are identified. Redundant colon with moderate volume retained fecal material in the left colon and rectum. Moderately dilated loop of redundant sigmoid/left colon. No significantly dilated small bowel. No organomegaly or mass identified. Significant degenerative spondylosis in the lumbar spine. XR/XR KUB [id number] IMPRESSION: No urinary tract calculi identified. Redundant colon with isolated dilated segment as above.
--- NOTE | 2023-01-20 11:45 | US_ITS ---
WS: [id number] RENAL ULTRASOUND HISTORY: left renal mass COMPARISON: Prior CT of 2021, renal ultrasound 06/17/2021 and 05/10/2017 TECHNIQUE: 2-D and color Doppler imaging of the kidney submitted. Very limited and difficult evaluation of the kidneys. Ultrasound performed with the patient upright i n a chair. Right kidney: 7.0 cm x 4.7 cm x 5.9 cm. Cortex: 1.3 cm Kidney is measuring small in size but this is probably due to incomplete visualization of the kidney. There is no hydronephrosis. No mass identified. There is a cyst from the lower pole measuring 3.0 x 3.5 x 3.3 cm. Left kidney: 12.1 cm x 4.5 cm x 6.3 cm. Cortex: 1.2 cm Normal size. No hydronephrosis. Cortical cyst inferior pole measuring 1.6 x 1.6 x 1.8 cm. Aorta: Not visualized. Urinary Bladder: Milan catheter in a nondistended bladder. US/US renal BI* [id number] IMPRESSION: 1. Technically very limited evaluation of the kidneys. 2. No hydronephrosis. 3. Bilateral renal cysts. No solid mass.
== END 2023-01-20 10:59 | disposition home or self-care (01) ==
PROVIDERS: PCP Family Medicine; Visit Provider Urology
DX: N28.89 Other specified disorders of kidney and ureter (principal); N28.1 Cyst of kidney, acquired; N13.30 Unspecified hydronephrosis; N31.9 Neuromuscular dysfunction of bladder, unspecified; R33.9 Retention of urine, unspecified; Z87.891 Personal history of nicotine dependence; Z87.440 Personal history of urinary (tract) infections
CPT/HCPCS: 74018; 76770; 99213